=== PATIENT | male | born 1940 | race Caucasian/White ===

== ENCOUNTER → 2017-11-28 11:03 | Outpatient (CLI) | payer MEDICARE, OTHER, SELFPAY ==
[2017-11-28 12:41] LABS: AST(SGOT) 20 U/L (15-37); Alanine Aminotransfer ALT/SGPT 23 U/L (16-61); Albumin, Serum 3.9 g/dL (3.2-5.0); Alkaline Phosphatase 64 U/L (45-117); Bilirubin, Direct 0.31 mg/dL (0.00-0.30); Protein, Total 6.9 g/dL (6.4-8.2)
[2017-11-29 16:10] LABS: HEPATITIS B SURFACE AG Negative (Negative); Hepatitis Be Ab Negative (Negative); Hepatitis Be Ag Negative (Negative)
[2017-11-30 08:08] LABS: Hep B Surface Antibodies Non Reactive (.); Hep C Antibodies <0.1 s/co ratio (0.0-0.9); Hepatitis B Core Ab Total Negative (Negative)
== END ==
PROVIDERS: Family Provider Family Medicine; PCP Family Medicine; Visit Provider Nurse Practitioner Family
DX: L30.9 Dermatitis, unspecified (principal); L23.9 Allergic contact dermatitis, unspecified cause; L29.8 Other pruritus
CPT/HCPCS: 36415; 80076; 86704; 86706; 86707; 86803; 87340; 87350

== ENCOUNTER 2018-01-25 10:18 | Emergency (ER) | payer MEDICARE, OTHER, SELFPAY ==
[2018-01-25 10:18] VITALS: BP 143/78; PULSE 63; RESP 18; TEMP 36.3; BMI 24.5
--- NOTE | 2018-01-25 10:40 | CT_ITS ---
STUDY: CT ABDOMEN AND PELVIS WITH CONTRAST REASON FOR EXAM: Male, 77 years old. Abdominal pain. Nausea RADIATION DOSAGE (If Supplied By Facility): CTDIvol = ( 18.97 ) mGy, DLP = ( 965.64 ) mGycm TECHNIQUE: Transaxial images were obtained from the dome of the diaphragm to the symphysis pubis with oral contrast. 100 ml of Isovue 300 contrast was administered. Sagittal and coronal images were reconstructed. Individualized dose optimization techniques were used for this CT. COMPARISON: None. FINDINGS: The visualized lung bases are unremarkable. There coronary artery calcifications. Normal liver. There are surgical clips in the gallbladder fossa consistent with a prior cholecystectomy. There are multiple benign calcified granulomata of the spleen. Normal pancreas. Normal bilateral adrenal glands. Normal right kidney. There is 4.5 cm cyst of the left kidney. Normal visualized stomach. Normal small intestine. There are multiple colonic diverticula consistent with diverticulosis. The appendix is visualized and appears normal. There is diffuse atherosclerotic calcification of the abdominal aorta, without a demonstrated aneurysm. Normal inferior vena cava. Normal retroperitoneum. There is wall thickening of the urinary bladder. No free fluid in the abdomen or pelvis. There are calcifications in the prostate gland. Normal abdominal wall. There are diffuse degenerative changes of the visualized lumbar spine. CT/Abdomen/Pelvis WITH Contrast IMPRESSION: Colonic diverticulosis. No obstruction or abscess Wall thickening of the urinary bladder. No hydronephrosis. Left renal cyst. Electronically Signed: Saravanan Paredes MD at 12:58 EDT , Service support ,
[2018-01-25 11:00] LABS: Bacteria 0 SEEN /hpf (None Seen); Mucous, Urine 0 SEEN /hpf (<or=2+); Squamous Epithelial Cells - UA 0 SEEN /hpf (0-5); White Blood Cells 0 SEEN /hpf (0-5)
[2018-01-25 11:07] LABS: Color, Urine Yellow (Yellow); Glucose, Dipstick Normal (Normal); Ketone-Dipstick Negative (Negative); Leukocyte Esterase-Dipstick Negative /ul (Negative); Nitrite-Dipstick Negative (Negative); Occult Blood-Urine 10 /ul (Negative); Protein-Dipstick Negative (Negative); Specific Gravity, Urine 1.005 (1.002-1.030); Urine Bilirubin Dipstick Negative (Negative); Urine Clarity Clear (Clear); Urine Urobilinogen Normal (Normal)
[2018-01-25 11:07] LABS: Absolute Lymphocyte Count 0.75 X10^3/ul (0.83-4.51); Basophil# 0.03 X10^3/uL; Basophil% 0.5 % (0-1); Eosinophil# 0.22 X10^3/uL; Eosinophils% 3.9 % (0-5); Hematocrit 47.7 % (40-54); Hemoglobin 15.9 g/dl (13.0-16.5); Lymphocyte # 0.75 X10^3/ul (4.0); Lymphocyte % 13.2 % (19-41); Mean Corp Hgb Conc 33.3 g/gl (32-36); Mean Corpuscular Hgb 30.6 pg (27.0-32.0); Mean Corpuscular Volume 91.7 fL (80-94); Mean Platelet Vol. 9.8 fl (6.2-12.0); Monocyte# 0.72 X10^3/uL; Monocyte% 12.6 % (0-10); Neutrophil # 3.97 X10^3/uL (2.7-7.7); Neutrophil % 69.6 % (47-70); POSITIVE COUNT NO; POSITIVE DIFFERENTIAL NO; POSITIVE MORPHOLOGY NO; Platelet Count 149 K/mm3 (150-450); RBC Distribution Width CV 14.1 % (11.6-14.6); White Blood Count 5.7 K/mm3 (4.4-11.0)
[2018-01-25 11:13] LABS: Red Blood Cells-Urine 0-5 SEEN /hpf (0-5)
[2018-01-25 11:22] LABS: ALB/GLOB Ratio 1.2 RATIO (0.9-2.4); AST(SGOT) 23 U/L (15-37); Alanine Aminotransfer ALT/SGPT 28 U/L (16-61); Alkaline Phosphatase 69 U/L (45-117); Anion Gap 4 (5-15); BUN 14 mg/dL (7-18); BUN/Creat Ratio 14.9 RATIO (10-20); Calcium,Total 9.2 mg/dL (8.5-10.1); Chloride 103 mmol/L (98-107); Creatinine, Serum 0.94 mg/dL (0.70-1.30); EST Glomerular Filtration Rate 82 mL/min (>60); Est Glom Filt Rate - Afr Amer 100 mL/min (>60); Estimated Creatinine Clearance 73.19 ml/min; Globulin 3.4 g/dL (2.2-4.2); Glucose 95 mg/dL (74-106); Lipase 202 U/L (73-393); Potassium 4.2 mmol/L (3.5-5.1); Protein, Total 7.4 g/dL (6.4-8.2); Sodium Level 139 mmol/L (136-145)
--- NOTE | 2018-01-25 11:26 | ED.DCSUM_ITS ---
- ER Visit Summary Date of Service: 01/25/18 Chief Complaint: Nausea History of Present Illness: The patient is a 77 M who states that for the past couple weeks he has been having nausea. He states that he is tried Zofran and has not helped in fact he thinks it has made it worse. He also states that the Zofran makes him fatigued and tired. He states that some days are worse than others. He does not feel any significant abdominal pain more uncomfortable. He states he has been constipated. He saw a seen a shredding floor equipment operator to check some blood work that came back that said that his bilirubin was elevated and he needed to get that evaluated. Patient has had chronically elevated bilirubins in the past usually around the 1.7-2 range. His transaminases have been normal. No blood in the stool. He also states he has a history of GERD. He states he has not been taking his Plavix for the past week because it caused indigestion. He is also to stop taking his Protonix. Physical Examination: Afebrile vital signs are stable Gen: Well-nourished well-developed Head: Normocephalic atraumatic Eyes: Perrl EOMI ENT: TMs clear no rhinorrhea moist mucous membranes Neck: Supple no lymphadenopathy no JVD nontender CVS: Regular rate rhythm no murmurs normal S1-S2 Respiratory: No distress clear to auscultation bilaterally chest nontender Abdomen: Soft nontender nondistended normal bowel sounds no masses Back: Nontender Extremity: Nontender no edema Skin: Normal color no rash Neuro: alert orientated ?3 CN II-XII intact normal strength sensation reflexes gait cerebellar Psych: Normal affect normal mood Test Results: CBC CMP and lipase showed a total bili of 2.3. CT abdomen pelvis demonstrated no acute findings. Emergency Department Course and Treatment: I think the patient most likely has a gastritis. I am going to change him from Protonix to Pepcid. I instructed him on Carafate. He has appointment already arranged with his doctor after the weekend. The patient requested something different for his nausea I will write for 12.5 mg tablets of Phenergan. He was advised that this has a higher incidence of fatigue and sleepiness that Zofran does. Impression: 1. Acute abdominal pain 2. Gastritis This note was generated with [employer] software. It may contain incorrect words, spelling, and punctuation that were not noted in review of the chart prior to signing ED Disposition - Plan for ED Patient: Disposition: Home or Assisted Living Chief Complaint: Abd Pain Instructions: ED PUD Vs Gastritis Prescriptions: proMETHazine tablet [Phenergan] 12.5 mg PO Q6H PRN PRN #10 tab PRN Reason: Nausea Famotidine [Pepcid] 20 mg PO BID #28 tab Sucralfate [Carafate] 1 gm PO 4X/DAY #28 tab Referrals: Missael Velazquez III, MD [Primary Care Provider] - Keep John appointment
[2018-01-25 12:40] VITALS: RESP 17
--- NOTE | 2018-01-25 12:57 | NURSING ---
NO LW OR POA
[2018-01-25 14:10] VITALS: BP 135/84; PULSE 62; RESP 18; O2SAT 97
== END 2018-01-25 14:22 | disposition home or self-care (01) ==
PROVIDERS: Emergency Provider Emergency Medicine; Family Provider Family Medicine; PCP Family Medicine
DX: K29.70 Gastritis, unspecified, without bleeding (principal); R10.9 Unspecified abdominal pain; I25.10 Atherosclerotic heart disease of native coronary artery without angina pectoris; K21.9 Gastro-esophageal reflux disease without esophagitis; I10 Essential (primary) hypertension; E78.00 Pure hypercholesterolemia, unspecified; Z79.82 Long term (current) use of aspirin; Z79.02 Long term (current) use of antithrombotics/antiplatelets; Z79.899 Other long term (current) drug therapy
CPT/HCPCS: 74177; 80053; 81001; 83690; 84484; 85025; 99283; Q9967; A4216

== ENCOUNTER → 2018-05-28 06:32 | Outpatient (CLI) | payer MEDICARE, OTHER, SELFPAY ==
[2018-05-28 08:27] LABS: AST(SGOT) 20 U/L (15-37); Alanine Aminotransfer ALT/SGPT 24 U/L (16-61); Albumin, Serum 3.7 g/dL (3.2-5.0); Alkaline Phosphatase 56 U/L (45-117); Bilirubin, Direct 0.31 mg/dL (0.00-0.30); Cholesterol 145 mg/dL (200); High Density Lipoprotein 32 mg/dL; Protein, Total 6.7 g/dL (6.4-8.2); Triglycerides 137 mg/dL; Very Low Density Lipoprotein 27 mg/dL (5-40)
== END ==
PROVIDERS: Family Provider Family Medicine; PCP Family Medicine; Visit Provider Internal Medicine Cardiovascular Disease
DX: E78.5 Hyperlipidemia, unspecified (principal); Z79.899 Other long term (current) drug therapy
CPT/HCPCS: 36415; 80061; 80076

== ENCOUNTER → 2018-08-15 07:26 | Outpatient (CLI) | payer MEDICARE, OTHER, SELFPAY ==
[2018-05-29 10:11] VITALS: BMI 24.5
[2018-08-15 08:52] LABS: PSA,Total - Annual Screen 1.16 ng/mL (0.00-4.00)
--- OUTSIDE RECORDS SUMMARY | 2018-10-10 07:09 | XMS RPT_ITS ---
:1940 Author Organization OHIP Support Name Relationship Address Phone TARA FELICIANO Unavailable [id number] + [place] [address] R Unavailable Unavailable Unavailable FELICIANO, TARA Unavailable [address] + [place] [address] R Unavailable Unavailable Unavailable FELICIANO, TARA Unavailable [address] + [place] [address] R Unavailable Unavailable Unavailable FELICIANO, TARA Unavailable [address] [phone] [place] [address] R Unavailable Unavailable Unavailable FELICIANO, TARA Unavailable [address] [phone] [place] [address] R Unavailable Unavailable Unavailable FELICIANO, TARA Unavailable [address] [phone] [place] [address] R Unavailable Unavailable Unavailable FELICIANO, TARA Unavailable [address] [phone] [place] [address] R Unavailable Unavailable Unavailable FELICIANO, TARA Unavailable [address] [phone] [place] [address] R Unavailable Unavailable Unavailable FELICIANO, TARA Unavailable [address] [phone] [place] [address] R Unavailable Unavailable Unavailable FELICIANO, TARA Unavailable [address] [phone] [place] [address] R Unavailable Unavailable Unavailable FELICIANO, TARA Unavailable [address] [phone] [place] [address] R Unavailable Unavailable Unavailable FELICIANO, TARA Unavailable [address] + [place] [address] R Unavailable Unavailable Unavailable Care Team Providers Name Role Phone WILLIE REED (ASSET AVAILABILITY LEADER) Attending Unavailable WILLIE REED (ASSET AVAILABILITY LEADER) Referring Unavailable CEBUL III, NIDHI Ivey Referring Unavailable CEBUL III, NIDHI Ivey Attending Unavailable JAKE RIBERA (ASSET AVAILABILITY LEADER) Attending Unavailable BACILIO, JAKE (ASSET AVAILABILITY LEADER) Referring Unavailable GERSON BRAMBILA Admitting Unavailable GERSON BRAMBILA Attending Unavailable JAKE RIBERA (ASSET AVAILABILITY LEADER) Referring Unavailable THORJAKE GERARD (ASSET AVAILABILITY LEADER) Attending Unavailable WILLIE REED (ASSET AVAILABILITY LEADER) Referring Unavailable WILLIE REED (ASSET AVAILABILITY LEADER) Referring Unavailable WILLIE REED (ASSET AVAILABILITY LEADER) Attending Unavailable CEBUL III, NIDHI Ivey Attending Unavailable Marta Kraus Attending Unavailable Marta Kraus Referring Unavailable Gino Andrea Attending Unavailable Cebul III, Nidhi Primary Care Unavailable CebulPaxton Attending Unavailable Cebul III, Nidhi Primary Care Unavailable Cebul Paxton Referring Unavailable Cebul, Paxton Attending Unavailable Cebul III, Nidhi Primary Care Unavailable Destinee Toure Attending Unavailable Nurse, Surgery Attending Unavailable Cebul III, Nidhi Referring Unavailable Cebul III, Nidhi Primary Care Unavailable Maryann Madden PA-C Attending Unavailable Cebul III, Nidhi Referring Unavailable Cebul III, Nidhi Primary Care Unavailable Ravi Ramírez Attending Unavailable YasminbulPaxton Referring Unavailable Suzi Hendricks ASSET AVAILABILITY LEADER-C Attending Unavailable Suzi Hendricks ASSET AVAILABILITY LEADER-C Referring Unavailable Cebul III, Nidhi Primary Care Unavailable Cebul III, Nidhi Primary Care Unavailable Farshad Curran Attending Unavailable Ravi Ramírez Attending Unavailable Ravi Ramírez Referring Unavailable Cebul III, Nidhi Primary Care Unavailable Esau Amin Attending Unavailable Cebul III, Nidhi Referring Unavailable Cebul III, Nidhi Primary Care Unavailable Zeke Love Attending Unavailable Cebul III, Nidhi Primary Care Unavailable Zeke Love Referring Unavailable PROBLEMS PROBLEMS DATE TYPE CONDITION / CODE ATTENDING STATUS SOURCE 06/12/2018 Active Other halfway NA Active La[place] (current) drug [facility] Main therapy / [place] Z79.899(ICD-10) Repository 02/15/2018 Active Nausea / BRAMBILA, Active [place] R11.0(ICD-10) [facility] Main [place] Repository 02/15/2018 Active Right upper quadrant BRAMBILA, Active [place] pain / R10.11(ICD-10) [facility] Main [place] Repository 02/15/2018 Active Left upper quadrant BRAMBILA, Active [place] pain / R10.12(ICD-10) [facility] Main [place] Repository 02/15/2018 Active Gastritis, BRAMBILA, Active [place] unspecified, with [facility] Main bleeding / [place] K29.71(ICD-10) Repository 12/10/2017 Unknown L30.9 - Dermatitis, [place] Gateway[place]uzi jade Active [place] unspecified / ASSET AVAILABILITY LEADER-C Community L30.9(ICD-10) Hospital Repository 11/14/2017 Admitting Dermatitis, EfraMarta burch Active [facility] Diagnosis unspecified / System L30.9(ICD-10) Repository 09/26/2017 Unknown G89.18 - Other acute Paxton Vargas Active [place] postprocedural pain / Community G89.18(ICD-10) Hospital Repository 10/25/2017 Unknown I44.0 - Desiree, Ravi Active [place] [facility] block, first degree / Hospital I44.0(ICD-10) Repository PROCEDURES PROCEDURES No Procedure Records FoundRESULTS RESULTS PROGRESS Observed: 09/02/2018 Status: COMPLETED Source: [place] 1:58 PM [facility] REPOSITORY HNO ID: [id number] Author: Wally Kruger Apn Student Service: (none) Author Type: (none) Type: Progress Notes Filed: 09/02/2018 6:02 PM Note Text: Chief Complaint Patient presents with: Refill Request HPI Tuan Feliciano is a 77 year old male who presents here today for Depression symptoms and requesting need for refill of his Celexa that was discontinued approximately one year ago after patient stating that he had felt better and no longer needed the medication. He states that he had talked to his PCP one year ago and received permission to taper off his Celexa. Patient states that he was able to taper off of his Celexa w/o complications or side effects. Was doing well until the last few days he has began to feel his depression symptoms return such as sadness, feeling down, and depressed and is requesting to restart his Celexa prescription to help with his symptoms. Anticipating long winter days where he is unable to be out in his work shop. He denies thoughts of harming himself or others and states that he is sleeping approximately 6 - 8 hours per night while occasionally taking 1/2 of his prescribed 0.5 mg of Ativan prn at night to help him sleep. He also states that he occasionally takes his Ativan prior to going to group gatherings at [employer] to help calm his nerves. Patient states that he had tried counseling in the past with some improvement in his symptoms. Past medical history, appointments, medications, allergies reviewed. 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 CABG 3 (no DC) in 1990; 1 stent in 1996 - Benign prostatic hyperplasia without lower urinary tract symptoms - Diverticulosis of colon (without mention of hemorrhage) Diverticulosis - Diverticulosis of colon (without mention of hemorrhage) - Erectile dysfunction due to diseases classified elsewhere - Essential hypertension, benign - Functional dyspepsia 06/10/2018 - Glaucoma - History of non-ST elevation myocardial infarction (NSTEMI) 05/07/2015 - Mental disorder - Other specified glaucoma - Peptic ulcer, unspecified site, unspecified as acute or chronic, without mention of hemorrhage, perforation, or obstruction - Primary open-angle glaucoma(365.11) 12/2009 - Pure hypercholesterolemia - S/P CABG x 3 - S/P percutaneous transluminal coronary angioplasty - Snoring - Testicular hypofunction - Trigeminal neuralgia 2001 - Unspecified hemorrhoids without mention of complication Hemorrhoids Previous Surgical History PAST SURGICAL HISTORY Procedure Laterality Date - ANGIOPLASTY 1996 WITH STENT - CABG, ARTERIAL, THREE 1990 - COLONOSCOP W/ OR W/O [facility] SPEC 01/2004 Colonoscopy - COLONOSCOP W/ OR W/O [facility] SPEC 09/29/2009 Colonoscopy - COLONOSCOP W/ OR W/O [facility] SPEC 02/05/2015 Colonoscopy - EGD W/O OR W/BRUSH/WASH 08/14/2016 EGD - EGD W/O OR W/BRUSH/WASH 02/25/2018 EGD - HEART SURGERY HX - HERNIA REPAIR HX 10/2017 removal - INCISION OF EYE, TRABECULECTOMY 2009 OU - LAPAROSCOPIC CHOLEYCYSTECTOMY Cholecystectomy, lap - PAST SURGICAL HISTORY OF 03/25 Right Knee Ligament Repair - REMV CATARACT EXTRACAP,INSERT LENS 12/19/12 OD Cataract Extraction with PC IOL with Trab/[facility] - WATER SHUNT-EXTRAOCUL RESERV 12/19/12 OD Glaucoma Implant; [facility]GI 350 combined Family History FAMILY HISTORY Problem Relation Age of Onset - Colon Cancer Father - Hypertension Father - Glaucoma Mother - Blindness Mother - Hypertension Brother heart disease - Hypertension Brother heart disease - Hypertension Brother heart disease Patient Allergies ALLERGIES Allergen Reactions - Anaprox [Naproxen S* - Cortisone - Crestor [Rosuvastat* GI Upset - Elavil [Amitriptyli* difficulty urinating - Hydrocortisone - Keflex [Cephalexin] Rash - Penicillins - Pepcid [Famotidine * Other: See Comments dizziness - Sulfa (Sulfonamide * - Vioxx [Rofecoxib] - Zocor [Simvastatin] Current Medications Current Outpatient Prescriptions on File Prior to Visit: amLODIPine (NORVASC) 10 mg tablet Take 1 tablet by mouth once daily. aspirin, enteric coated (ADULT LOW DOSE ASPIRIN) 81 mg EC tablet Adult Low Dose Aspirin 81 mg tablet atenolol (TENORMIN) 25 mg tablet Take 1/2 tablet daily betamethasone dipropionate (DIPROSONE) 0.05 % cream Apply 1 application to affected area once daily. LORazepam (ATIVAN) 0.5 mg tab Take 1 tablet by mouth twice daily as needed (anxiety) for up to 30 days. Take 1 tablet daily as needed promethazine (PHENERGAN) 25 mg tablet Take 1 tablet by mouth every 6 hours as needed for Nausea/Vomiting. sucralfate (CARAFATE) 1 gram tablet Dissolve one tablet in 30cc water. Stir and swallow, at least 30 minutes before meals. May repeat at bedtime, as needed. TESTOSTERONE INTRAMUSC. Inject intramuscularly. timolol maleate (ISTALOL) 0.5 % drpd Use 1 Drop in the right eye twice daily. zolpidem (AMBIEN) 10 mg tab Take 1 tablet by mouth at bedtime as needed for up to 30 days. FOR INSOMNIA Guar Gum (BENEFIBER,NUTRISOURCE FIBER) packet Take 1 Packet by mouth once daily. hydrOXYzine HCl (ATARAX) 25 mg tablet Take 1 tablet by mouth at bedtime as needed for Itching/Rash or Anxiety. (Patient not taking: Reported on 06/10/2018 ) No current facility-administered medications on file prior to visit. Social History Social History Marital status: Spouse name: Years of education: Number of children: 3 Occupational History Occupation Employer Comment Retired Social History Main Topics Smoking status: Never Smoker Smokeless tobacco: Former User Alcohol use: No Drug use: No Sexual activity: Yes Partners with: Female Comment: not asked Other Topics Concern Service Yes Blood Transfusions No Caffeine Concern Yes Comment:1 cup/day Occupational Exposure No Hobby Hazards No Sleep Concern No Comment:7-8 hrs/night Stress Concern No Weight Concern Yes Comment:15 lb wt loss past year Special Diet No Exercise Yes Comment:Treadmill walking - once/day Seat Belt Yes Review of Symptoms REVIEW OF SYSTEMS GENERAL: Unintentional weight loss over past year. Negative for fevers and chills. RESPIRATORY: Negative for cough, hemoptysis, wheezing, COPD, dyspnea or shortness of breath CARDIOVASCULAR: Negative for chest pain, leg swelling, hypertension, CHF or palpitations PSYCH: Positive for depression: Feelings of sadness over the past few days and anxiety: Taking prn Ativan on occasion - see HPI above. EXAM: BP 120/70 (BP Site: Right Arm, BP Position: Sitting, BP Cuff Size: Regular Adult) Pulse 60 Temp 36.5 ?C (97.7 ?F) (Tympanic) Resp 18 Wt 81.2 kg (179 lb) BMI 22.98 kg/m? General Appearance: Well appearing, alert, in no acute distress, well-hydrated, well nourished.. Lungs: lungs clear to auscultation. No wheezing, rhonchi, rales. Heart: RRR without murmur, gallop, or rubs. No ectopy. Appearance: well dressed well groomed, relaxed posture, cooperative and pleasant Behavior: good eye contact Speech: normal and fluent and coherent Mood: depressed Affect: labile Perceptions: none Thought process: goal directed Thought Content: normal Intelligence level: normal Insight: good Judgment: good THE LAST 2 WEEKS, HAVE YOU BEEN BOTHERED BY ANY OF THE FOLLOWING? - Little interest or pleasure in doing things 0 NOT AT ALL Feeling down, depressed, or hopeless 1 Trouble falling or staying asleep, or sleeping too much 1 Feeling tired or having little energy 0 Poor appetite or overeating 0 Feeling bad yourself-you are a failure or have let yourself or others 0 Trouble concentrating, like reading the paper or watching TV 0 Moving/speaking slowly (others notice) OR being more fidgety/restless 1 Thoughts that you would be better off or of hurting yourself 0 PHQ TOTAL SCORE = 3 PHQ problems effect on difficulty of work, home, and social activity: 1 - NOT DIFFICULT AT ALL Health Maintenance List DTAP,TDAP,TD(1 - Tdap) due on 07/20/2011 ANNUAL PCP TEAM CHRONIC DISEASE VISIT due on 06/10/2019 BP CONTROLLED (<130/80) due on 06/10/2019 LDL CHOLESTEROL due on 06/12/2019 COLORECTAL CANCER SCREENING,SEE MODIFIER due on 02/06/2020 DIABETES SCREEN due on 06/12/2021 LIPID SCREEN due on 06/12/2023 ADULT PREVNAR-13 Completed INFLUENZA Completed PNEUMOVAX AGE 65 AND OVER WITH 5YR LOOKBACK Completed ASSESSMENT/PLAN: 1. Depression, major, recurrent, moderate (HCC) - ICD9: 296.32, ICD10: F33.1 - Will resume at 10 mg daily for first 5-7 days then increase to 20 mg thereafter. Recommend devoted exercise and enjoyable activities to pass the time. He will f/u in 3-4 weeks as planned. Sooner if needed. - CITALOPRAM 20 MG TABLET Willie Reed, MSN PLANT ASSIGNER.SUPERVISOR SEAMING CNOV Observed: 09/02/2018 Status: COMPLETED Source: [place] 1:20 PM [facility] REPOSITORY Office Visit (FAMPWS) TUAN FELICIANO ([id number]) 1940 M Date Time Provider Department 09/02/18 1:20 PM WILLIE REED (ASSET AVAILABILITY LEADER) FAMPWS During your visit today, we recorded the following information about you: Temperature Pulse Respiration Blood pressure 97.7 degrees 60/minute 18/minute 120/70 Weight 81.2 kg Wally Kruger Apn Student 09/02/2018 5:04 PM Addendum Chief Complaint Patient presents with: Refill Request HPI Tuan Jade Jodie is a 77 year old male who presents here today for Depression symptoms and requesting need for refill of his Celexa that was discontinued approximately one year ago after patient stating that he had felt better and no longer needed the medication. He states that he had talked to his PCP one year ago and received permission to taper off his Celexa. Patient states that he was able to taper off of his Celexa w/o complications or side effects. Was doing well until the last few days he has began to feel his depression symptoms return such as sadness, feeling down, and depressed and is requesting to restart his Celexa prescription to help with his symptoms. Anticipating long winter days where he is unable to be out in his work shop. He denies thoughts of harming himself or others and states that he is sleeping approximately 6 - 8 hours per night while occasionally taking 1/2 of his prescribed 0.5 mg of Ativan prn at night to help him sleep. He also states that he occasionally takes his Ativan prior to going to group gatherings at [employer] to help calm his nerves. Patient states that he had tried counseling in the past with some improvement in his symptoms. Past medical history, appointments, medications, allergies reviewed. 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 CABG 3 (no DC) in 1990; 1 stent in 1996 - Benign prostatic hyperplasia without lower urinary tract symptoms - Diverticulosis of colon (without mention of hemorrhage) Diverticulosis - Diverticulosis of colon (without mention of hemorrhage) - Erectile dysfunction due to diseases classified elsewhere - Essential hypertension, benign - Functional dyspepsia 06/10/2018 - Glaucoma - History of non-ST elevation myocardial infarction (NSTEMI) 05/07/2015 - Mental disorder - Other specified glaucoma - Peptic ulcer, unspecified site, unspecified as acute or chronic, without mention of hemorrhage, perforation, or obstruction - Primary open-angle glaucoma(365.11) 12/2009 - Pure hypercholesterolemia - S/P CABG x 3 - S/P percutaneous transluminal coronary angioplasty - Snoring - Testicular hypofunction - Trigeminal neuralgia 2001 - Unspecified hemorrhoids without mention of complication Hemorrhoids Previous Surgical History PAST SURGICAL HISTORY Procedure Laterality Date - ANGIOPLASTY 1996 WITH STENT - CABG, ARTERIAL, THREE 1990 - COLONOSCOP W/ OR W/O [facility] SPEC 01/2004 Colonoscopy - COLONOSCOP W/ OR W/O [facility] SPEC 09/29/2009 Colonoscopy - COLONOSCOP W/ OR W/O [facility] SPEC 02/05/2015 Colonoscopy - EGD W/O OR W/BRUSH/WASH 08/14/2016 EGD - EGD W/O OR W/BRUSH/WASH 02/25/2018 EGD - HEART SURGERY HX - HERNIA REPAIR HX 10/2017 removal - INCISION OF EYE, TRABECULECTOMY 2009 OU - LAPAROSCOPIC CHOLEYCYSTECTOMY Cholecystectomy, lap - PAST SURGICAL HISTORY OF 03/25 Right Knee Ligament Repair - REMV CATARACT EXTRACAP,INSERT LENS 12/19/12 OD Cataract Extraction with PC IOL with Trab/[facility] - WATER SHUNT-EXTRAOCUL RESERV 12/19/12 OD Glaucoma Implant; [facility] 350 combined Family History FAMILY HISTORY Problem Relation Age of Onset - Colon Cancer Father - Hypertension Father - Glaucoma Mother - Blindness Mother - Hypertension Brother heart disease - Hypertension Brother heart disease - Hypertension Brother heart disease Patient Allergies ALLERGIES Allergen Reactions - Anaprox [Naproxen S* - Cortisone - Crestor [Rosuvastat* GI Upset - Elavil [Amitriptyli* difficulty urinating - Hydrocortisone - Keflex [Cephalexin] Rash - Penicillins - Pepcid [Famotidine * Other: See Comments dizziness - Sulfa (Sulfonamide * - Vioxx [Rofecoxib] - Zocor [Simvastatin] Current Medications Current Outpatient Prescriptions on File Prior to Visit: amLODIPine (NORVASC) 10 mg tablet Take 1 tablet by mouth once daily. aspirin, enteric coated (ADULT LOW DOSE ASPIRIN) 81 mg EC tablet Adult Low Dose Aspirin 81 mg tablet atenolol (TENORMIN) 25 mg tablet Take 1/2 tablet daily betamethasone dipropionate (DIPROSONE) 0.05 % cream Apply 1 application to affected area once daily. LORazepam (ATIVAN) 0.5 mg tab Take 1 tablet by mouth twice daily as needed (anxiety) for up to 30 days. Take 1 tablet daily as needed promethazine (PHENERGAN) 25 mg tablet Take 1 tablet by mouth every 6 hours as needed for Nausea/Vomiting. sucralfate (CARAFATE) 1 gram tablet Dissolve one tablet in 30cc water. Stir and swallow, at least 30 minutes before meals. May repeat at bedtime, as needed. TESTOSTERONE INTRAMUSC. Inject intramuscularly. timolol maleate (ISTALOL) 0.5 % drpd Use 1 Drop in the right eye twice daily. zolpidem (AMBIEN) 10 mg tab Take 1 tablet by mouth at bedtime as needed for up to 30 days. FOR INSOMNIA Guar Gum (BENEFIBER,NUTRISOURCE FIBER) packet Take 1 Packet by mouth once daily. hydrOXYzine HCl (ATARAX) 25 mg tablet Take 1 tablet by mouth at bedtime as needed for Itching/Rash or Anxiety. (Patient not taking: Reported on 06/10/2018 ) No current facility-administered medications on file prior to visit. Social History Social History Marital status: Spouse name: Years of education: Number of children: 3 Occupational History Occupation Employer Comment Retired Social History Main Topics Smoking status: Never Smoker Smokeless tobacco: Former User Alcohol use: No Drug use: No Sexual activity: Yes Partners with: Female Comment: not asked Other Topics Concern Service Yes Blood Transfusions No Caffeine Concern Yes Comment:1 cup/day Occupational Exposure No Hobby Hazards No Sleep Concern No Comment:7-8 hrs/night Stress Concern No Weight Concern Yes Comment:15 lb wt loss past year Special Diet No Exercise Yes Comment:Treadmill walking - once/day Seat Belt Yes Review of Symptoms REVIEW OF SYSTEMS GENERAL: Unintentional weight loss over past year. Negative for fevers and chills. RESPIRATORY: Negative for cough, hemoptysis, wheezing, COPD, dyspnea or shortness of breath CARDIOVASCULAR: Negative for chest pain, leg swelling, hypertension, CHF or palpitations PSYCH: Positive for depression: Feelings of sadness over the past few days and anxiety: Taking prn Ativan on occasion - see HPI above. EXAM: BP 120/70 (BP Site: Right Arm, BP Position: Sitting, BP Cuff Size: Regular Adult) Pulse 60 Temp 36.5 ?C (97.7 ?F) (Tympanic) Resp 18 Wt 81.2 kg (179 lb) BMI 22.98 kg/m? General Appearance: Well appearing, alert, in no acute distress, well-hydrated, well nourished.. Lungs: lungs clear to auscultation. No wheezing, rhonchi, rales. Heart: RRR without murmur, gallop, or rubs. No ectopy. Appearance: well dressed well groomed, relaxed posture, cooperative and pleasant Behavior: good eye contact Speech: normal and fluent and coherent Mood: depressed Affect: labile Perceptions: none Thought process: goal directed Thought Content: normal Intelligence level: normal Insight: good Judgment: good THE LAST 2 WEEKS, HAVE YOU BEEN BOTHERED BY ANY OF THE FOLLOWING? - Little interest or pleasure in doing things 0 NOT AT ALL Feeling down, depressed, or hopeless 1 Trouble falling or staying asleep, or sleeping too much 1 Feeling tired or having little energy 0 Poor appetite or overeating 0 Feeling bad yourself-you are a failure or have let yourself or others 0 Trouble concentrating, like reading the paper or watching TV 0 Moving/speaking slowly (others notice) OR being more fidgety/restless 1 Thoughts that you would be better off or of hurting yourself 0 PHQ TOTAL SCORE = 3 PHQ problems effect on difficulty of work, home, and social activity: 1 - NOT DIFFICULT AT ALL Health Maintenance List DTAP,TDAP,TD(1 - Tdap) due on 07/20/2011 ANNUAL PCP TEAM CHRONIC DISEASE VISIT due on 06/10/2019 BP CONTROLLED (<130/80) due on 06/10/2019 LDL CHOLESTEROL due on 06/12/2019 COLORECTAL CANCER SCREENING,SEE MODIFIER due on 02/06/2020 DIABETES SCREEN due on 06/12/2021 LIPID SCREEN due on 06/12/2023 ADULT PREVNAR-13 Completed INFLUENZA Completed PNEUMOVAX AGE 65 AND OVER WITH 5YR LOOKBACK Completed ASSESSMENT/PLAN: 1. Depression, major, recurrent, moderate (HCC) - ICD9: 296.32, ICD10: F33.1 - Will resume at 10 mg daily for first 5-7 days then increase to 20 mg thereafter. Recommend devoted exercise and enjoyable activities to pass the time. He will f/u in 3-4 weeks as planned. Sooner if needed. - CITALOPRAM 20 MG TABLET Willie Reed, MSN PLANT ASSIGNER.SUPERVISOR SEAMING Referring Provider: WILLIE REED (ASSET AVAILABILITY LEADER) [[id number]] Allergies As of Date: 09/02/2018 Noted Allergy Reaction ANAPROX (NAPROXEN SODIUM) 07/11/2005 CORTISONE 07/11/2005 CRESTOR (ROSUVASTATIN CALCIUM) 12/21/2006 8 - GI Upset ELAVIL (AMITRIPTYLINE) 03/07/2010 Comments: difficulty urinating HYDROCORTISONE 07/11/2005 KEFLEX (CEPHALEXIN) 09/06/2014 2 - Rash PENICILLINS 07/11/2005 PEPCID (FAMOTIDINE (PF)) 02/15/2018 14 - Other: See Comments Comments: dizziness SULFA (SULFONAMIDE ANTIBIOTICS) 07/11/2005 VIOXX (ROFECOXIB) 07/11/2005 ZOCOR (SIMVASTATIN) 07/11/2005 Date Reviewed: 09/02/2018 Reviewed by: Luis E Montesinos LPN - Fully Assessed Reason for Visit: Refill Request [94] Primary Visit Diagnosis:Depression, major, recurrent, moderate (HCC) [F33.1] Order(s):citalopram (CELEXA) 20 mg tabletTake 0.5 tablets by mouth once daily.Disp: 30 tabletRfl: 3 Prescriptions as of 09/02/2018 Sig: AMLODIPINE 10 MG TABLET Take 1 tablet by mouth once d* ASPIRIN 81 MG TABLET,DELAYED * Adult Low Dose Aspirin 81 mg * ATENOLOL 25 MG TABLET Take 1/2 tablet daily BETAMETHASONE DIPROPIONATE 0.* Apply 1 application to affect* CEFDINIR 300 MG CAPSULE LORAZEPAM 0.5 MG TABLET Take 1 tablet by mouth twice * PROMETHAZINE 25 MG TABLET Take 1 tablet by mouth every * SUCRALFATE 1 GRAM TABLET Dissolve one tablet in 30cc w* TESTOSTERONE INTRAMUSC. Inject intramuscularly. TIMOLOL MALEATE 0.5 % ONCE DA* Use 1 Drop in the right eye t* ZOLPIDEM 10 MG TABLET Take 1 tablet by mouth at bed* CITALOPRAM 20 MG TABLET Take 0.5 tablets by mouth onc* GUAR GUM ORAL PACKET Take 1 Packet by mouth once d* HYDROXYZINE HCL 25 MG TABLET Take 1 tablet by mouth at bed* Patient not taking: Reported on 06/10/2018 Problem List As Of Date 09/02/2018 Noted Resolved BENIGN HYPERTENSION [I10] Coronary atherosclerosis [I25.10] More... Peptic ulcer, unspecified site, unspecified as * 05/07/2015 PERS HX COLONIC POLYPS [Z86.010] More... More... More... Malignant neoplasm of skin of trunk [C44.599] INVALID FOR* Anxiety [F41.9] INVALID FOR* Depression [F32.9] INVALID FOR*02/10/2016 Social phobia [F40.10] INVALID FOR* Primary open angle glaucoma [H40.1190] INVALID FOR* Cataract, nuclear sclerotic senile [H25.10] INVALID FOR* Special screening for malignant neoplasms, colo*INVALID FOR*02/05/2015 History of non-ST elevation myocardial infarcti*INVALID FOR* Irritable bowel syndrome with both constipation*INVALID FOR* Arthritis of left knee [M17.12] INVALID FOR* PUD (peptic ulcer disease) [K27.9] INVALID FOR* Family history of colon cancer [Z80.0] INVALID FOR* Anxiety and depression [F41.9, F32.9] INVALID FOR* Rash and nonspecific skin eruption [R21] INVALID FOR* Chronic insomnia [F51.04] INVALID FOR* Nausea [R11.0] INVALID FOR* More... Bilateral upper abdominal pain [R10.11, R10.12] INVALID FOR* More... Gastritis with hemorrhage [K29.71] INVALID FOR* More... 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] INVALID FOR* Depression, major, recurrent, moderate (HCC) [F*INVALID FOR* Prescriptions ordered this encounter Disp Refills Start End CITALOPRAM 20 MG TABLET 30 t* 3 09/02/2018 Route: ORAL Sig: Take 0.5 tablets by mouth once daily. Cosign accepted by WILLIE REED CNP[[id number]] on 09/02/2018 2:17 PM Disposition: Return in about 4 weeks (around 09/30/2018). Follow-up and Disposition History Recorded Questionnaire: PHQ-9 THE LAST 2 WEEKS, HAVE YOU BEEN BOTHERED BY ANY OF THE FOLLOWING? -> - Little interest or pleasure in doing things -> 0 NOT AT ALL Feeling down, depressed, or hopeless -> 1 Trouble falling or staying asleep, or sleeping too much - > 1 Feeling tired or having little energy -> 0 Poor appetite or overeating -> 0 Feeling bad yourself-you are a failure or have let yourself or others -> 0 Trouble concentrating, like reading the paper or watching TV -> 0 Moving/speaking slowly (others notice) OR being more fidgety/restless -> 1 Thoughts that you would be better off or of hurting yourself -> 0 PHQ TOTAL SCORE = -> 3 PHQ problems effect on difficulty of work, home, and social activity: -> 1 - NOT DIFFICULT AT ALL Encounter Status:Closed by WILLIE REED CNP on 09/02/18 PSA,TOTAL - ANNUAL Collected: 08/15/2018 Status: F Source: MENLO SCREEN 7:36 AM [facility] REPOSITORY TYPE CODE TESTS RESULT OUT OF RANGE REFERENCE UNITS LAB [id number] 0.00-4.00 ng/mL Normal PSA,TOT 1.16 SCREEN Result Comment: This test was performed using the TPSA assay method for the [employer] chemistry system. Values obtained with different assay methods cannot be used interchangably. When changing PSA assays in the course of monitoring a patient, additional sequential testing should be carried out to confirm baseline values. Performed By: #### [id number] #### [facility] [address] [place], [address] PROGRESS Observed: 06/28/2018 Status: COMPLETED Source: [place] 11:01 AM [facility] REPOSITORY HNO ID: [id number] Author: Naomi (Rn) Christina Sims RN Service: (none) Author Type: Registered Nurse Type: Progress Notes Filed: 06/28/2018 11:02 AM Note Text: PRIMARY CARE COORDINATION QUICK NOTE Provider Action/FYI Discharged from [facility] Care gaps closed. Patient had labs drawn as instructed. Results for JODIE TUAN E ( ) as of 06/28/2018 11:01 Ref. Range 06/12/2018 07:35 Sodium Latest Ref Range: 136 - 144 mmol/L 140 Potassium Latest Ref Range: 3.7 - 5.1 mmol/L 4.1 Chloride Latest Ref Range: 97 - 105 mmol/L 102 CO2 Latest Ref Range: 22 - 30 mmol/L 25 BUN Latest Ref Range: 9 - 24 mg/dL 12 Creatinine Latest Ref Range: 0.73 - 1.22 mg/dL 0.99 Glucose Latest Ref Range: 74 - 99 mg/dL 92 Calcium Latest Ref Range: 8.5 - 10.2 mg/dL 9.4 Anion Gap Latest Ref Range: 9 - 18 mmol/L 13 eGFR- Unknown >60 eGFR-All Other Races Latest Units: . >60 Cholesterol, Total Latest Ref Range: <200 mg/dL 135 Triglyceride Latest Ref Range: <150 mg/dL 126 Fasting Time Latest Units: hrs 11 HDL Cholesterol Latest Ref Range: >39 mg/dL 30 (L) LDL Cholesterol Latest Ref Range: <100 mg/dL 80 VLDL Cholesterol Latest Ref Range: <30 mg/dL 25 TC:HDL Ratio Latest Ref Range: <5.10 4.50 LDL:HDL Ratio Latest Ref Range: <2.54 2.67 (H) Non HDL Cholesterol Latest Ref Range: <130 mg/dL 105 Results for TUAN FELICIANO ( ) as of 06/28/2018 11:01 Ref. Range 06/06/2018 00:00 LDL Cholesterol Unknown 86 Patient identified by name and date . Shilpa Salomon RN., BSN Pharmacy Tech Customer Service MATT Observed: 06/28/2018 Status: COMPLETED Source: [place] 12:00 AM [facility] REPOSITORY Patient Outreach (FAMPWS) TUAN FELICIANO ([id number]) 1940 M Date Time Provider Department 06/28/18 NAOMI ZHENG (RN)FAMPWS During your visit today, we recorded the following information about you: Naomi Sims RN, RN 06/28/2018 11:02 AM Signed PRIMARY CARE COORDINATION QUICK NOTE Provider Action/FYI Discharged from [facility] Care gaps closed. Patient had labs drawn as instructed. Results for TUAN FELICIANO ( ) as of 06/28/2018 11:01 Ref. Range 06/12/2018 07:35 Sodium Latest Ref Range: 136 - 144 mmol/L 140 Potassium Latest Ref Range: 3.7 - 5.1 mmol/L 4.1 Chloride Latest Ref Range: 97 - 105 mmol/L 102 CO2 Latest Ref Range: 22 - 30 mmol/L 25 BUN Latest Ref Range: 9 - 24 mg/dL 12 Creatinine Latest Ref Range: 0.73 - 1.22 mg/dL 0.99 Glucose Latest Ref Range: 74 - 99 mg/dL 92 Calcium Latest Ref Range: 8.5 - 10.2 mg/dL 9.4 Anion Gap Latest Ref Range: 9 - 18 mmol/L 13 eGFR- Unknown >60 eGFR-All Other Races Latest Units: . >60 Cholesterol, Total Latest Ref Range: <200 mg/dL 135 Triglyceride Latest Ref Range: <150 mg/dL 126 Fasting Time Latest Units: hrs 11 HDL Cholesterol Latest Ref Range: >39 mg/dL 30 (L) LDL Cholesterol Latest Ref Range: <100 mg/dL 80 VLDL Cholesterol Latest Ref Range: <30 mg/dL 25 TC:HDL Ratio Latest Ref Range: <5.10 4.50 LDL:HDL Ratio Latest Ref Range: <2.54 2.67 (H) Non HDL Cholesterol Latest Ref Range: <130 mg/dL 105 Results for TUAN FELICIANO ( ) as of 06/28/2018 11:01 Ref. Range 06/06/2018 00:00 LDL Cholesterol Unknown 86 Patient identified by name and date . Shilpa Salomon RN., BSN Pharmacy Tech Customer Service Allergies As of Date: 06/28/2018 Noted Allergy Reaction ANAPROX (NAPROXEN SODIUM) 07/11/2005 CORTISONE 07/11/2005 CRESTOR (ROSUVASTATIN CALCIUM) 12/21/2006 8 - GI Upset ELAVIL (AMITRIPTYLINE) 03/07/2010 Comments: difficulty urinating HYDROCORTISONE 07/11/2005 KEFLEX (CEPHALEXIN) 09/06/2014 2 - Rash PENICILLINS 07/11/2005 PEPCID (FAMOTIDINE (PF)) 02/15/2018 14 - Other: See Comments Comments: dizziness SULFA (SULFONAMIDE ANTIBIOTICS) 07/11/2005 VIOXX (ROFECOXIB) 07/11/2005 ZOCOR (SIMVASTATIN) 07/11/2005 Date Reviewed: 06/10/2018 Reviewed by: Ketty ([facility]) PRASANTH Claudio - Fully Assessed Reason for Visit: Pharmacy Tech Customer Service Chronic Care [7122] Prescriptions as of 06/28/2018 Sig: LORAZEPAM 0.5 MG TABLET Take 1 tablet by mouth twice * ZOLPIDEM 10 MG TABLET Take 1 tablet by mouth at bed* PROMETHAZINE 25 MG TABLET Take 1 tablet by mouth every * SUCRALFATE 1 GRAM TABLET Dissolve one tablet in 30cc w* ASPIRIN 81 MG TABLET,DELAYED * Adult Low Dose Aspirin 81 mg * BETAMETHASONE DIPROPIONATE 0.* Apply 1 application to affect* HYDROXYZINE HCL 25 MG TABLET Take 1 tablet by mouth at bed* Patient not taking: Reported on 06/10/2018 GUAR GUM ORAL PACKET Take 1 Packet by mouth once d* ATENOLOL 25 MG TABLET Take 1/2 tablet daily AMLODIPINE 10 MG TABLET Take 1 tablet by mouth once d* TESTOSTERONE INTRAMUSC. Inject intramuscularly. TIMOLOL MALEATE 0.5 % ONCE DA* Use 1 Drop in the right eye t* Problem List As Of Date 06/28/2018 Noted Resolved BENIGN HYPERTENSION [I10] Coronary atherosclerosis [I25.10] More... Peptic ulcer, unspecified site, unspecified as * 05/07/2015 PERS HX COLONIC POLYPS [Z86.010] More... More... More... Malignant neoplasm of skin of trunk [C44.599] INVALID FOR* Anxiety [F41.9] INVALID FOR* Depression [F32.9] INVALID FOR*02/10/2016 Social phobia [F40.10] INVALID FOR* Primary open angle glaucoma [H40.1190] INVALID FOR* Cataract, nuclear sclerotic senile [H25.10] INVALID FOR* Special screening for malignant neoplasms, colo*INVALID FOR*02/05/2015 History of non-ST elevation myocardial infarcti*INVALID FOR* Irritable bowel syndrome with both constipation*INVALID FOR* Arthritis of left knee [M17.12] INVALID FOR* PUD (peptic ulcer disease) [K27.9] INVALID FOR* Family history of colon cancer [Z80.0] INVALID FOR* Anxiety and depression [F41.9, F32.9] INVALID FOR* Rash and nonspecific skin eruption [R21] INVALID FOR* Chronic insomnia [F51.04] INVALID FOR* Nausea [R11.0] INVALID FOR* More... Bilateral upper abdominal pain [R10.11, R10.12] INVALID FOR* More... Gastritis with hemorrhage [K29.71] INVALID FOR* More... 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] INVALID FOR* Encounter Status:Closed by NAOMI ZHENG on 06/28/18 BASIC METABOLIC PANL Collected: 06/12/2018 Status: F Source: [place] 7:35 AM [facility] REPOSITORY TYPE CODE TESTS RESULT OUT OF REFERENCE UNITS RANGE LAB GLU 74-99 mg/dL Glucose 92 Result Comment: The [place] Diabetes Association (ADA) provides guidance for cutoff values for fasting glucose and random glucose. The ADA defines fasting as no caloric intake for at least 8 hours. Fas ting plasma glucose results between 100 to 125 mg/dL indicate increased risk for diabetes (prediabetes). Fasting plasma glucose results greater than or equal to 126 mg/dL meet the criteria for diagnosis of diabetes. In the absence of unequivocal hyperglycemia, results should be confirmed by repeat testing. In a patient with classic symptoms of hyperglycemia or hyperglycemic crisis, random plasma glucose results greater than or equal to 200 mg/dL meet the criteria for diagnosis of diabetes. Reference: Standards of Medical Care in Diabetes 2016, [place] [employer] Association. Diabetes Care. 2016.39(Suppl 1). LAB BUN 9-24 mg/dL BUN 12 LAB CRET 0.73-1.22 mg/dL Creatinine 0.99 LAB NA 136-144 mmol/L Sodium 140 LAB K 3.7-5.1 mmol/L Potassium 4.1 LAB CL 97-105 mmol/L Chloride 102 LAB CO2 22-30 mmol/L CO2 25 LAB AGAP 9-18 mmol/L Anion Gap 13 LAB CA 8.5-10.2 mg/dL Calcium, Total 9.4 LAB GFRAA eGFR- Amer. >60 LAB GFRNAA . eGFR-All Other Races >60 Result Comment: eGFR (Estimated GFR) Units of measure: mL/min/1.73 meters squared eGFR is derived from the reexpressed MDRD Study equation using the following parameters: serum creatinine, age, gender and race. The creatinine assay has been calibrated to be traceable to IDMS. An eGFR <60 mL/min/1.73m2 for >3 months is consistent with chronic kidney disease. Refer to KDOQI guidelines for clinical interpretation. In patients with unstable renal function, e.g. those with acute kidney injury, the eGFR may not accurately reflect actual GFR. Performed By: #### BMP, LIPB #### [facility] [address] [place], [place] [address] LIPID PANEL, BASIC Collected: 06/12/2018 Status: F Source: [place] 7:35 AM [facility] REPOSIT[facility] TYPE CODE TESTS RESULT OUT OF REFERENCE UNITS RANGE LAB CHOL <200 mg/dL Cholesterol 135 Result Comment: <200 mg/dL, Desirable 200-239 mg/dL, Borderline high >239 mg/dL, High LAB TRIGLY <150 mg/dL Triglyceride 126 Result Comment: <150 mg/dL, Normal 150-199 mg/dL, Borderline high 200-499 mg/dL, High >499 mg/dL, Very high LAB HDL >39 mg/dL HDL-Cholesterol Low 30 Result Comment: 40-59 mg/dL, Acceptable >59 mg/dL, High: Negative risk factor for coronary heart disease <40 mg/dL, Low: Positive risk factor for coronary heart disease LAB LDL <100 mg/dL LDL-Cholesterol 80 Result Comment: <100 mg/dL, Optimal 100-129 mg/dL, Near optimal/above optimal 130-159 mg/dL, Borderline high 160-189 mg/dL, High >189 mg/dL, Very high Secondary prevention optimal LDL Cholesterol levels are recommended to be < 70 mg/dL LAB NONHDL <130 mg/dL Non HDL Cholesterol 105 Result Comment: <130 mg/dL, Optimal 130-159 mg/dL, Near optimal/above optimal 160-189 mg/dL, Borderline high 190-219 mg/dL, High >219 mg/dL, Very high Secondary prevention optimal non HDL Cholesterol levels are recommended to be < 100 mg/dL LAB FT hrs Fasting Time 11 LAB VLDL <30 mg/dL VLDL Cholesterol 25 LAB TCHDL <5.10 TC:HDL Ratio 4.50 LAB LDLHDL <2.54 High LDL:HDL Ratio 2.67 Result Comment: Reference: 1. National Cholesterol Education Program ATP III Guideline At-A-Glance Quick Desk Reference: National Heart, Lung, and Blood [place]. National Institutes of Health. 2001: NIH Publication No. 01-3305. 2. An International Atherosclerosis Society position paper: global recommendations for the management of dyslipidemia: executive summary, Atherosclerosis. 2014: 232(2):410-413. Performed By: #### BMP, LIPB #### [facility] [address] [place], [place] [address] PROGRESS Observed: 06/11/2018 Status: COMPLETED Source: [place] 2:54 PM [facility] REPOSITORY HNO ID: [id number] Author: Zoe Vázquez Ma Service: (none) Author Type: (none) Type: Progress Notes Filed: 06/11/2018 3:02 PM Note Text: [facility] FELLED SEAM OPERATOR CHAINSTITCH QUICKNOTE Provider Action/FYI: None Patient identified by name and . Have labs done prior to appointment with PCP on 06/10/18 - LDL cholesterol level drawn. Lipid panel and BMP not drawn.Left message on patient's voice mail advising him of fasting labs. Thank you, Zoe Vázquez [facility] Population Health Wood Box Maker O Project [phone] PROGRESS Observed: 06/10/2018 Status: COMPLETED Source: [place] 8:36 AM [facility] REPOSITORY HNO ID: [id number] Author: Nidhi Vargas III Service: (none) Author Type: Physician Type: Progress Notes Filed: 06/10/2018 12:15 PM Note Text: SUBJECTIVE: This is a 77 year old male that is here today for Chronic Medical Conditions. 1. functional dyspepsia--carafate helpful 2. hx of PUD--on pantoprazole 20 mg qday with resolution of sx. 3. ASHD--stable . Reviewed Dr Ramírez's note. Atypical chest pain recently. Normal stress test at high workload in 2014. 4. ch anxiety-ativan helpful. Taking half pill 3-4 times/wk 5. depression: previously on celexa, which caused sexual side effects. Discussed wellbutrin, but pt declines. States depression is well controlled. 6. ch constipation in spite of benefiber. 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 CABG 3 (no DC) in 1990; 1 stent in 1996 - Diverticulosis of colon (without mention of hemorrhage) Diverticulosis - Diverticulosis of colon (without mention of hemorrhage) - Essential hypertension, benign - Glaucoma - History of non-ST elevation myocardial infarction (NSTEMI) 05/07/2015 - Mental disorder - Other specified glaucoma - Peptic ulcer, unspecified site, unspecified as acute or chronic, without mention of hemorrhage, perforation, or obstruction - Primary open-angle glaucoma(365.11) 12/2009 - Pure hypercholesterolemia - S/P CABG x 3 - S/P percutaneous transluminal coronary angioplasty - Snoring - Trigeminal neuralgia 2001 - Unspecified hemorrhoids without mention of complication Hemorrhoids Current Outpatient Prescriptions on File Prior to Visit: zolpidem (AMBIEN) 10 mg tab Take 1 tablet by mouth at bedtime as needed for up to 30 days. FOR INSOMNIA promethazine (PHENERGAN) 25 mg tablet Take 1 tablet by mouth every 6 hours as needed for Nausea/Vomiting. LORazepam (ATIVAN) 0.5 mg tab Take 1 tablet by mouth twice daily as needed (anxiety) for up to 30 days. Take 1 tablet daily as needed sucralfate (CARAFATE) 1 gram tablet Dissolve one tablet in 30cc water. Stir and swallow, at least 30 minutes before meals. May repeat at bedtime, as needed. aspirin, enteric coated (ADULT LOW DOSE ASPIRIN) 81 mg EC tablet Adult Low Dose Aspirin 81 mg tablet betamethasone dipropionate (DIPROSONE) 0.05 % cream Apply 1 application to affected area once daily. Guar Gum (BENEFIBER,NUTRISOURCE FIBER) packet Take 1 Packet by mouth once daily. atenolol (TENORMIN) 25 mg tablet Take 1/2 tablet daily amLODIPine (NORVASC) 10 mg tablet Take 1 tablet by mouth once daily. TESTOSTERONE INTRAMUSC. Inject intramuscularly. timolol maleate (ISTALOL) 0.5 % drpd Use 1 Drop in the right eye twice daily. [START ON 06/29/2018] LORazepam (ATIVAN) 0.5 mg tab Take 1 tablet by mouth twice daily as needed (anxiety) for up to 30 days. Take 1 tablet daily as needed hydrOXYzine HCl (ATARAX) 25 mg tablet Take 1 tablet by mouth at bedtime as needed for Itching/Rash or Anxiety. (Patient not taking: Reported on 06/10/2018 ) No current facility-administered medications on file prior to visit. FAMILY HISTORY Problem Relation Age of Onset - Colon Cancer Father - Hypertension Father - Glaucoma Mother - Blindness Mother - Hypertension Brother - Hypertension Brother - Hypertension Brother Social History Substance Use Topics - Smoking status: Never Smoker - Smokeless tobacco: Former User - Alcohol use No BP 125/65 Pulse 61 Resp 16 Wt 83.9 kg (185 lb) BMI 23.75 kg/m? . OBJECTIVE: APPEARANCE Well appearing, alert, in no acute distress, well-hydrated, well nourished. and Appearance: well dressed well groomed, cooperative and pleasant Behavior: good eye contact Speech: fluent and coherent Mood: euthymic Affect: appropriate Perceptions: none Thought process: goal directed Thought Content: normal Intelligence level: normal Insight: good Judgment: good ASSESSMENT: depression--improved anxiety--under control PUD--improved functional dyspepsia--controlled on treatment ASHD--stable ch. constipation Long-term use of prescribed benzodiazepines?stable dose?not daily PLAN: healthy diet and regular exercise stay well hydrated and use miralax 17 g/ 8 oz as needed wean pantoprazole and discontinue as able continue lorazapam sparingly as needed for anxiety same other medications Consider adding Wellbutrin in the future. Nidhi Vargas III MD PDMP website checked and validated. All prescriptions have been APPROPRIATELY filled. No suspicious activity was identified. 06/10/2018 by Nidhi Vargas III MD PROGRESS Observed: 06/10/2018 Status: COMPLETED Source: [place] 8:31 AM [facility] REPOSITORY O ID: [id number] Author: Ketty Petersen) PRASANTH Claudio Service: (none) Author Type: Wood Box Maker Type: Progress Notes Filed: 06/10/2018 12:15 PM Note Text: 77 year old male here for INACTIVATED INFLUENZA VACCINE. [id number] Season Patient is identified by name and date of : Yes [] CONTRAINDICATIONS color enhanced section Age less than 6 months? No Allergy to eggs, chicken, chicken feathers, or chicken dander? No Allergy to thimerosal (a preservative) or formaldehyde, gelatin? No History of severe reaction to any vaccine component or a previous dose of influenza vaccination? No History of Guillain-Torreon Syndrome within 6 weeks after a previous influenza vaccine? No Patient is not moderately or severely ill? No Current temperature greater or equal to 100.4F? No History of Bone Marrow Transplant prior 6 months or solid organ transplant in the past 3 months ? No History of fainting after a prior injection or medical procedure? No- ? If patient has fainted in the past, the CDC recommends sitting or lying down for 15 minutes after the vaccination. [] VERIFICATION color enhanced section Was the answer Yes for any of the above contraindications? No contraindications present. Acceptable to proceed with vaccine. Patient/guardian agrees the above answers are true to the best of their knowledge? Yes Flu vaccine information sheet given? Yes See immunization activity in [facility] for details of immunizations adminstered today. Patient age: [age] year old For The 1240-0846 Flu Season 6-35 months old: Fluzone 0.25 ml - IM (Preservative Free) 3 years of age: Fluzone 0.5 ml - IM (Preservative Free) 3 years and older: Fluzone 0.5 ml- IM-(with Preservatives) 65+ years old: 2-49 years old Fluzone High-Dose 0.5 ml - IM (Preservative Free) FLUMIST- intranasal REMEMBER: If patient is less than 9 years of age and this is the first vaccine of Influenza to be received in any flu season, they should receive a second dose in one months time. SAMMI Observed: 06/10/2018 Status: COMPLETED Source: [place] 8:20 AM [facility] REPOSITORY Office Visit (FAMPWS) TUAN FELICIANO ([id number]) 1940 M Date Time Provider Department 06/10/18 8:20 AM NIDHI VARGAS III FAMPWS During your visit today, we recorded the following information about you: Pulse Respiration Blood pressure Weight 61/minute 16/minute 125/65 83.9 kg Ketty Claudio CMA, MA 06/10/2018 12:15 PM Signed 77 year old male here for INACTIVATED INFLUENZA VACCINE. Season Patient is identified by name and date of : Yes [] CONTRAINDICATIONS color enhanced section Age less than 6 months? No Allergy to eggs, chicken, chicken feathers, or chicken dander? No Allergy to thimerosal (a preservative) or formaldehyde, gelatin? No History of severe reaction to any vaccine component or a previous dose of influenza vaccination? No History of Guillain-Torreon Syndrome within 6 weeks after a previous influenza vaccine? No Patient is not moderately or severely ill? No Current temperature greater or equal to 100.4F? No History of Bone Marrow Transplant prior 6 months or solid organ transplant in the past 3 months ? No History of fainting after a prior injection or medical procedure? No- ? If patient has fainted in the past, the CDC recommends sitting or lying down for 15 minutes after the vaccination. [] VERIFICATION color enhanced section Was the answer Yes for any of the above contraindications? No contraindications present. Acceptable to proceed with vaccine. Patient/guardian agrees the above answers are true to the best of their knowledge? Yes Flu vaccine information sheet given? Yes See immunization activity in [facility] for details of immunizations adminstered today. Patient age: [age] year old For The Flu Season 6-35 months old: Fluzone 0.25 ml - IM (Preservative Free) 3 years of age: Fluzone 0.5 ml - IM (Preservative Free) 3 years and older: Fluzone 0.5 ml- IM-(with Preservatives) 65+ years old: 2-49 years old Fluzone High-Dose 0.5 ml - IM (Preservative Free) FLUMIST- intranasal REMEMBER: If patient is less than 9 years of age and this is the first vaccine of Influenza to be received in any flu season, they should receive a second dose in one months time. Nidhi Vargas III MD 06/10/2018 12:15 PM Signed SUBJECTIVE: This is a 77 year old male that is here today for Chronic Medical Conditions. 1. functional dyspepsia--carafate helpful 2. hx of PUD--on pantoprazole 20 mg qday with resolution of sx. 3. ASHD--stable . Reviewed Dr Ramírez's note. Atypical chest pain recently. Normal stress test at high workload in 2014. 4. ch anxiety-ativan helpful. Taking half pill 3-4 times/wk 5. depression: previously on celexa, which caused sexual side effects. Discussed wellbutrin, but pt declines. States depression is well controlled. 6. ch constipation in spite of benefiber. 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 CABG 3 (no DC) in 1990; 1 stent in 1996 - Diverticulosis of colon (without mention of hemorrhage) Diverticulosis - Diverticulosis of colon (without mention of hemorrhage) - Essential hypertension, benign - Glaucoma - History of non-ST elevation myocardial infarction (NSTEMI) 05/07/2015 - Mental disorder - Other specified glaucoma - Peptic ulcer, unspecified site, unspecified as acute or chronic, without mention of hemorrhage, perforation, or obstruction - Primary open-angle glaucoma(365.11) 12/2009 - Pure hypercholesterolemia - S/P CABG x 3 - S/P percutaneous transluminal coronary angioplasty - Snoring - Trigeminal neuralgia 2001 - Unspecified hemorrhoids without mention of complication Hemorrhoids Current Outpatient Prescriptions on File Prior to Visit: zolpidem (AMBIEN) 10 mg tab Take 1 tablet by mouth at bedtime as needed for up to 30 days. FOR INSOMNIA promethazine (PHENERGAN) 25 mg tablet Take 1 tablet by mouth every 6 hours as needed for Nausea/Vomiting. LORazepam (ATIVAN) 0.5 mg tab Take 1 tablet by mouth twice daily as needed (anxiety) for up to 30 days. Take 1 tablet daily as needed sucralfate (CARAFATE) 1 gram tablet Dissolve one tablet in 30cc water. Stir and swallow, at least 30 minutes before meals. May repeat at bedtime, as needed. aspirin, enteric coated (ADULT LOW DOSE ASPIRIN) 81 mg EC tablet Adult Low Dose Aspirin 81 mg tablet betamethasone dipropionate (DIPROSONE) 0.05 % cream Apply 1 application to affected area once daily. Guar Gum (BENEFIBER,NUTRISOURCE FIBER) packet Take 1 Packet by mouth once daily. atenolol (TENORMIN) 25 mg tablet Take 1/2 tablet daily amLODIPine (NORVASC) 10 mg tablet Take 1 tablet by mouth once daily. TESTOSTERONE INTRAMUSC. Inject intramuscularly. timolol maleate (ISTALOL) 0.5 % drpd Use 1 Drop in the right eye twice daily. [START ON 06/29/2018] LORazepam (ATIVAN) 0.5 mg tab Take 1 tablet by mouth twice daily as needed (anxiety) for up to 30 days. Take 1 tablet daily as needed hydrOXYzine HCl (ATARAX) 25 mg tablet Take 1 tablet by mouth at bedtime as needed for Itching/Rash or Anxiety. (Patient not taking: Reported on 06/10/2018 ) No current facility-administered medications on file prior to visit. FAMILY HISTORY Problem Relation Age of Onset - Colon Cancer Father - Hypertension Father - Glaucoma Mother - Blindness Mother - Hypertension Brother - Hypertension Brother - Hypertension Brother Social History Substance Use Topics - Smoking status: Never Smoker - Smokeless tobacco: Former User - Alcohol use No BP 125/65 Pulse 61 Resp 16 Wt 83.9 kg (185 lb) BMI 23.75 kg/m? . OBJECTIVE: APPEARANCE Well appearing, alert, in no acute distress, well- hydrated, well nourished. and Appearance: well dressed well groomed, cooperative and pleasant Behavior: good eye contact Speech: fluent and coherent Mood: euthymic Affect: appropriate Perceptions: none Thought process: goal directed Thought Content: normal Intelligence level: normal Insight: good Judgment: good ASSESSMENT: depression--improved anxiety--under control PUD--improved functional dyspepsia--controlled on treatment ASHD--stable ch. constipation Long-term use of prescribed benzodiazepines?stable dose?not daily PLAN: healthy diet and regular exercise stay well hydrated and use miralax 17 g/ 8 oz as needed wean pantoprazole and discontinue as able continue lorazapam sparingly as needed for anxiety same other medications Consider adding Wellbutrin in the future. Nidhi Vargas III PDMP website checked and validated. All prescriptions have been APPROPRIATELY filled. No suspicious activity was identified. 06/10/2018 by MERCEDEZ Rolle MD, III MD 06/10/2018 8:56 AM Signed PLAN: healthy diet and regular exercise stay well hydrated and use miralax 17 g/ 8 oz as needed wean pantoprazole and discontinue as able continue lorazapam sparingly as needed for anxiety same other medications Nidhi Vargas III MD Referring Provider: SELF [200] Allergies As of Date: 06/10/2018 Noted Allergy Reaction ANAPROX (NAPROXEN SODIUM) 07/11/2005 CORTISONE 07/11/2005 CRESTOR (ROSUVASTATIN CALCIUM) 12/21/2006 8 - GI Upset ELAVIL (AMITRIPTYLINE) 03/07/2010 Comments: difficulty urinating HYDROCORTISONE 07/11/2005 KEFLEX (CEPHALEXIN) 09/06/2014 2 - Rash PENICILLINS 07/11/2005 PEPCID (FAMOTIDINE (PF)) 02/15/2018 14 - Other: See Comments Comments: dizziness SULFA (SULFONAMIDE ANTIBIOTICS) 07/11/2005 VIOXX (ROFECOXIB) 07/11/2005 ZOCOR (SIMVASTATIN) 07/11/2005 Date Reviewed: 06/10/2018 Reviewed by: Ketty ([facility] PRASANTH Claudio - Fully Assessed Reason for Visit: Medication Follow-up [270] Imm/Inj [58] Cmt: Flu Vaccine Reason For Visit History Recorded Primary Visit Diagnosis:Anxiety [F41.9] Other Visit Diagnoses:Need for vaccination [Z23] Social phobia [F40.10] Essential hypertension, benign [I10] ASHD (arteriosclerotic heart disease) [I25.10] PUD (peptic ulcer disease) [K27.9] 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] Order(s):INFLUENZA SEASONAL HIGH DOSE AGE 65+ [02714AII] Order #: [id number] LORazepam (ATIVAN) 0.5 mg tabTake 1 tablet by mouth twice daily as needed (anxiety) for up to 30 days. Take 1 tablet daily as neededDisp: 30 tabletRfl: 0 LDL CHOLESTEROL DIR [SQLDLDCT] Order #: [id number] Prescriptions as of 06/10/2018 Sig: LORAZEPAM 0.5 MG TABLET Take 1 tablet by mouth twice * ZOLPIDEM 10 MG TABLET Take 1 tablet by mouth at bed* PROMETHAZINE 25 MG TABLET Take 1 tablet by mouth every * SUCRALFATE 1 GRAM TABLET Dissolve one tablet in 30cc w* ASPIRIN 81 MG TABLET,DELAYED * Adult Low Dose Aspirin 81 mg * BETAMETHASONE DIPROPIONATE 0.* Apply 1 application to affect* GUAR GUM ORAL PACKET Take 1 Packet by mouth once d* ATENOLOL 25 MG TABLET Take 1/2 tablet daily AMLODIPINE 10 MG TABLET Take 1 tablet by mouth once d* TESTOSTERONE INTRAMUSC. Inject intramuscularly. TIMOLOL MALEATE 0.5 % ONCE DA* Use 1 Drop in the right eye t* HYDROXYZINE HCL 25 MG TABLET Take 1 tablet by mouth at bed* Patient not taking: Reported on 06/10/2018 Problem List As Of Date 06/10/2018 Noted Resolved BENIGN HYPERTENSION [I10] Coronary atherosclerosis [I25.10] More... Peptic ulcer, unspecified site, unspecified as * 05/07/2015 PERS HX COLONIC POLYPS [Z86.010] More... More... More... Malignant neoplasm of skin of trunk [C44.599] INVALID FOR* Anxiety [F41.9] INVALID FOR* Depression [F32.9] INVALID FOR*02/10/2016 Social phobia [F40.10] INVALID FOR* Primary open angle glaucoma [H40.1190] INVALID FOR* Cataract, nuclear sclerotic senile [H25.10] INVALID FOR* Special screening for malignant neoplasms, colo*INVALID FOR*02/05/2015 History of non-ST elevation myocardial infarcti*INVALID FOR* Irritable bowel syndrome with both constipation*INVALID FOR* Arthritis of left knee [M17.12] INVALID FOR* PUD (peptic ulcer disease) [K27.9] INVALID FOR* Family history of colon cancer [Z80.0] INVALID FOR* Anxiety and depression [F41.9, F32.9] INVALID FOR* Rash and nonspecific skin eruption [R21] INVALID FOR* Chronic insomnia [F51.04] INVALID FOR* Nausea [R11.0] INVALID FOR* More... Bilateral upper abdominal pain [R10.11, R10.12] INVALID FOR* More... Gastritis with hemorrhage [K29.71] INVALID FOR* More... 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] INVALID FOR* Other instructions from your clinician: PLAN: healthy diet and regular exercise stay well hydrated and use miralax 17 g/ 8 oz as needed wean pantoprazole and discontinue as able continue lorazapam sparingly as needed for anxiety same other medications Nidhi Vargas III MD Prescriptions ordered this encounter Disp Refills Start End LORAZEPAM 0.5 MG TABLET 30 t* 0 06/10/2018 07/10/2018 Class: Print RX Route: ORAL Sig: Take 1 tablet by mouth twice daily as needed (anxiety) for up to 30 days. Take 1 tablet daily as needed Medications Discontinued During This Encounter LORazepam (ATIVAN) 0.5 mg tab 30 t* 0 04/29/2018 06/10/2018 Class: Print RX Route: ORAL Sig: Take 1 tablet by mouth twice daily as needed (anxiety) for up to 30 days. Take 1 tablet daily as needed Disc: Course of therapy completed ondansetron orally disintegrating (Z* 15 t* 1 08/07/2016 06/10/2018 Route: ORAL Sig: Take 1 tablet by mouth every 6 hours as needed for Nausea/Vomiting. Patient not taking: Reported on 06/10/2018 Disc: Changing Therapy/Dosage Form LORazepam (ATIVAN) 0.5 mg tab 30 t* 0 06/29/2018 06/10/2018 Class: Print RX Route: ORAL Sig: Take 1 tablet by mouth twice daily as needed (anxiety) for up to 30 days. Take 1 tablet daily as needed Disc: Course of therapy completed LORazepam (ATIVAN) 0.5 mg tab 30 t* 0 05/30/2018 06/10/2018 Class: Print RX Route: ORAL Sig: Take 1 tablet by mouth twice daily as needed (anxiety) for up to 30 days. Take 1 tablet daily as needed Disc: Course of therapy completed Encounter Status:Closed by NIDHI VARGAS III, MD on 06/10/18 PROGRESS Observed: 06/05/2018 Status: COMPLETED Source: [facility] 12:48 PM [facility] O ID: [id number] Author: Naomi (Rn) Christina Sims RN Service: (none) Author Type: Registered Nurse Type: Progress Notes Filed: 06/05/2018 12:53 PM Note Text: PRIMARY CARE COORDINATION QUICK NOTE Provider Action/FYI PCC Chart Review: -Last ED visit [facility] 7/3/18 for nausea -Last LDL outside lab 05/29/17 (70) Next PCP follow up 06/10/18 PHMA Monitoring: -future lab orders in [facility]. Please have patient have drawn prior to PCP fu on 05/29/17 PRIMARY CARE COORDINATION OUTREACH PLAN: PHMA monitoring for care gaps CARE GAPS:? LDL Cholesterol Overdue Diabetes Screen Shilpa Salomon RN., BSN Pharmacy Tech Customer Service PROGRESS Observed: 05/31/2018 Status: COMPLETED Source: [place] 8:54 AM [facility] REPOSITORY HNO ID: [id number] Author: Zoe Vázquez Ma Service: (none) Author Type: (none) Type: Progress Notes Filed: 06/05/2018 12:53 PM Note Text: PRIMARY CARE COORDINATION CHART REVIEW Patient identified for Care Coordination from: [facility] High [facility] Last PCP office visit: 12/20/2017 Next OV: 06/10/18 Nidhi Vargas III, MD CHRONIC DX: CAD HTN CARE GAPS: LDL Cholesterol Overdue Diabetes Screen UTILIZATION WITHIN THE LAST 12 MONTHS: ? ED: None ? HOSPITAL: None ? SNF: None PRIMARY CARE COORDINATION OUTREACH PLAN: Will defer to PCC for review. Zoe Vázquez Ma CNPTOUTREACH Observed: 05/31/2018 Status: COMPLETED Source: [place] 12:00 AM [facility] REPOSITORY Patient Outreach (FAMPWS) TUAN FELICIANO ([id number]) 1940 M Date Time Provider Department 05/31/18 ZOE VÁZQUEZ) FAMPWS During your visit today, we recorded the following information about you: Zoe Vázquez Ma 06/05/2018 12:53 PM Signed PRIMARY CARE COORDINATION CHART REVIEW Patient identified for Care Coordination from: [facility] Risk [facility] Last PCP office visit: 12/20/2017 Next OV: 06/10/18 Nidhi Vargas III, MD CHRONIC DX: CAD HTN CARE GAPS: LDL Cholesterol Overdue Diabetes Screen UTILIZATION WITHIN THE LAST 12 MONTHS: ? ED: None ? HOSPITAL: None ? SNF: None PRIMARY CARE COORDINATION OUTREACH PLAN: Will defer to PCC for review. Zoe Sims, RN, RN 06/05/2018 12:53 PM Signed PRIMARY CARE COORDINATION QUICK NOTE Provider Action/FYI PCC Chart Review: -Last ED visit [facility] 03/19/18 for nausea -Last LDL outside lab 05/29/17 (70) Next PCP follow up 06/10/18 PHMA Monitoring: -future lab orders in [facility]. Please have patient have drawn prior to PCP fu on 05/29/17 PRIMARY CARE COORDINATION OUTREACH PLAN: PHMA monitoring for care gaps CARE GAPS:? 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 Have labs done prior to appointment with PCP on 06/10/18 - LDL cholesterol level drawn. Lipid panel and BMP not drawn.Left message on patient's voice mail advising him of fasting labs. Thank you, Zoe Vázquez, [facility] Population Health Wood Box Maker [employer] Project [phone] Allergies As of Date: 05/31/2018 Noted Allergy Reaction ANAPROX (NAPROXEN SODIUM) 07/11/2005 CORTISONE 07/11/2005 CRESTOR (ROSUVASTATIN CALCIUM) 12/21/2006 8 - GI Upset ELAVIL (AMITRIPTYLINE) 03/07/2010 Comments: difficulty urinating HYDROCORTISONE 07/11/2005 KEFLEX (CEPHALEXIN) 09/06/2014 2 - Rash PENICILLINS 07/11/2005 PEPCID (FAMOTIDINE (PF)) 02/15/2018 14 - Other: See Comments Comments: dizziness SULFA (SULFONAMIDE ANTIBIOTICS) 07/11/2005 VIOXX (ROFECOXIB) 07/11/2005 ZOCOR (SIMVASTATIN) 07/11/2005 Date Reviewed: 03/12/2018 Reviewed by: Radha Reed Ma - Fully Assessed Reason for Visit: Pharmacy Tech Customer Service- Other [2000] Cmt: ACO Prescriptions as of 05/31/2018 Sig: ZOLPIDEM 10 MG TABLET Take 1 tablet by mouth at bed* PROMETHAZINE 25 MG TABLET Take 1 tablet by mouth every * X LORAZEPAM 0.5 MG TABLET Take 1 tablet by mouth twice * X LORAZEPAM 0.5 MG TABLET Take 1 tablet by mouth twice * X LORAZEPAM 0.5 MG TABLET Take 1 tablet by mouth twice * SUCRALFATE 1 GRAM TABLET Dissolve one tablet in 30cc w* ASPIRIN 81 MG TABLET,DELAYED * Adult Low Dose Aspirin 81 mg * BETAMETHASONE DIPROPIONATE 0.* Apply 1 application to affect* HYDROXYZINE HCL 25 MG TABLET Take 1 tablet by mouth at bed* Patient not taking: Reported on 06/10/2018 GUAR GUM ORAL PACKET Take 1 Packet by mouth once d* X ONDANSETRON 4 MG DISINTEGRATI* Take 1 tablet by mouth every * Patient not taking: Reported on 06/10/2018 ATENOLOL 25 MG TABLET Take 1/2 tablet daily AMLODIPINE 10 MG TABLET Take 1 tablet by mouth once d* TESTOSTERONE INTRAMUSC. Inject intramuscularly. TIMOLOL MALEATE 0.5 % ONCE DA* Use 1 Drop in the right eye t* Problem List As Of Date 05/31/2018 Noted Resolved BENIGN HYPERTENSION [I10] Coronary atherosclerosis [I25.10] More... Peptic ulcer, unspecified site, unspecified as * 05/07/2015 PERS HX COLONIC POLYPS [Z86.010] More... More... More... Malignant neoplasm of skin of trunk [C44.599] INVALID FOR* Anxiety [F41.9] INVALID FOR* Depression [F32.9] INVALID FOR*02/10/2016 Social phobia [F40.10] INVALID FOR* Primary open angle glaucoma [H40.1190] INVALID FOR* Cataract, nuclear sclerotic senile [H25.10] INVALID FOR* Special screening for malignant neoplasms, colo*INVALID FOR*02/05/2015 History of non-ST elevation myocardial infarcti*INVALID FOR* Irritable bowel syndrome with both constipation*INVALID FOR* Arthritis of left knee [M17.12] INVALID FOR* PUD (peptic ulcer disease) [K27.9] INVALID FOR* Family history of colon cancer [Z80.0] INVALID FOR* Anxiety and depression [F41.9, F32.9] INVALID FOR* Rash and nonspecific skin eruption [R21] INVALID FOR* Chronic insomnia [F51.04] INVALID FOR* Nausea [R11.0] INVALID FOR* More... Bilateral upper abdominal pain [R10.11, R10.12] INVALID FOR* More... Gastritis with hemorrhage [K29.71] INVALID FOR* More... Encounter Status:Closed by NAOMI ZHENG on 06/05/18 CARDIOLOGY VISIT Observed: 05/30/2018 Status: F Source: [place] REPORT 10:25 AM [facility] REPOSITORY [facility] [place] [id number] [place] [address] OFFICE VISIT Date of Service: 05/29/18 MR#: [id number] Acct: [id number] Name: TUAN FELICIANO Rep #: [id number] : 1940 Provider: ZACH Amin Age/Sex: 77/M Location: [facility] Status: Signed HPI HPI Details: TUAN FELICIANO, is a 77 M who presents to the office today for a cardiovascular outpatient follow-up. He has a history of coronary artery disease status post CABG in February 1991 with SCRUGGS to LAD, aorto-reverse SVG to diagonal coronary artery and to the posterior descending branch of the RCA, PTCA/stenting to RCA in October 1996, and PTCA/KATHY to mid OM 2 and proximal LCx with PTCA only to distal OM 3 and OM 2 in April 2015. He also has a history of hypertension and hyperlipidemia. He states rare episodes of chest pain off an on for 30 minutes. This occurs mainly at rest, but can occur with exertion. He denies any secondary symptoms with it. Pt. denies arm, jaw, or neck discomfort. His exercise tolerance is stable via walking. Pt. denies symptoms of CHF, palpitations, lightheadedness, dizziness, near syncope, or syncopal episodes. Pt. denies edema or claudication issues. Pt. denies orthopnea, PND, or unexplainable fatigue. 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 Accompanied by: none Is patient in pain?: No Allergies Penicillins [PCN] Allergy (Verified 05/29/18 10:12) Hives Sulfa (Sulfonamide Antibiotics) Allergy (Verified 05/29/18 10:12) Hives Umqojso-Vxs-Tez Reductase Inhibitor Adverse Reaction (Verified 05/29/18 10:12) Upset Stomach Medications Amlodipine [Norvasc] 10 mg PO DAILY 11/24/13 [History Confirmed 05/29/18] Atenolol [Tenormin (beta gracy)] 12.5 mg PO DAILY 11/24/13 [History Confirmed 05/29/18] Timolol 0.5% [Timoptic] 1 drp RIGHT EYE BID 11/24/13 [History Confirmed 05/29/18] Benifiber 1 pkt PO DAILY 10/03/16 [History Confirmed 05/29/18] Pantoprazole Sodium [Protonix] 20 mg PO DAILY 10/03/16 [History Confirmed 05/29/18] Aspirin E.C. [Ecotrin] 81 mg PO DAILY@0800 09/21/17 [History Confirmed 05/29/18] Sucralfate [Carafate] 1 gm PO 4X/DAY #28 tab 01/25/18 [Rx Confirmed 05/29/18] testosterone ER 30 mg buccal system,extended release 12hr 30 mg IM .twice a month ea 05/29/18 [History Confirmed 05/29/18] PFSH Medical History Hypertension (Chronic) Coronary artery disease (Chronic) Chest pain (Acute) Angina pectoris (Acute) NSTEMI (non-ST elevated myocardial infarction) (Acute) HLD (hyperlipidemia) (Chronic) Surgical History Status post coronary artery bypass graft (Chronic) S/P PTCA (percutaneous transluminal coronary angioplasty) (Chronic) S/P CABG x 3 (Chronic) S/P inguinal hernia repair (Acute) Social History Smoking Status: Never smoker ROS Const Const: Negative for fatigue, weakness, body ache, fever(s) or chills ENT ENT: Negative for dizziness Cardio Chest Pain: Yes Palpitations: No Edema: None Muscle aches with walking: None Resp Respiratory: Negative for SOB with activity, SOB at rest, SOB orthopnea\SOB lying down or paroxysmal nocturnal dyspnea GI GI: Negative nausea, black,tarry stools, bright, red blood in stools or vomiting blood/hematemesis : Negative for hematuria or frequent nighttime urination/ nocturia Musc Musc: Negative for muscle aches/ myalgia Skin Skin: Negative non-healing lesions or rash Neuro Neuro: Negative for weakness, dizziness, lightheadedness, near syncope, syncope or orthostatic symptoms Endo Endo: Negative for fatigue Allergy Allergy/Immunology: Negative for rash Cardiology Exam Const Appearance: cooperative, healthy appearing, comfortable and no acute distress Nutritional Appearance: average body habitus and well nourished Orientation: alert, awake and oriented x3 Head Head: normal to inspection Ears: hearing grossly normal bilaterally Nose: external nose normal Face and Sinus: face symmetric Mouth: oral mucosae normal Eyes General: appearance normal, both eyes and all related structures Eyelids: eyelids normal EOM: EOM intact bilaterally Neck Neck: no JVD and normal visual inspection Carotids: normal carotid upstroke Chest Chest inspection: normal inspection of the chest and normal respiratory effort; negative cough Auscultation: Bilateral: Clear to Auscultation Cardio Rate: regular rate Rhythm: regular rhythm Heart sounds: S1 normal and S2 normal; negative rub, gallop or murmur GI GI: normal to inspection Neuro General: alert, awake, oriented x3 and CN's II-XI intact bilaterally Skin Skin: no rashes or lesions noted Extremities Pulses: Normal: Right Posterior Tibial Pulse, Left Posterior Tibial Pulse, Right Radial Pulse, Left Radial Pulse Lower Extremity Edema: None: Bilateral Psych Psychological: normal affect Supplemental Info Nuclear stress test from April 2015 showed no evidence of ischemia noted at a high workload of 10.1 METS, no clinical angina noted, EKGs suggestive, but not diagnostic for ischemia, good functional capacity, and preserved ejection fraction. Echocardiogram from November 2011 showed normal LV size, estimated ejection fraction of 60%, and pulmonary artery systolic pressure of 37 mmHg, mild pulmonary hypertension. Assessment AND Plan 1. Coronary artery disease involving [place] coronary artery of [place] heart without angina pectoris I25.10 CABG in 1990; PTCA/stenting to RCA October 1996; PTCA/KATHY to mid OM 2 and proximal LCx with PTCA only to distal OM 3 and OM 2 in April 2015; Plan - ANGELO Wells His nuclear stress test in April 2015 was negative for stress- induced myocardial ischemia at a high workload. At this time his chest pain appears atypical. He will continue lifestyle and risk factor modifications and we will continue to monitor. He was instructed if symptoms worsen or new symptoms develop to contact our office for further evaluation. 2. S/P CABG x 3 Z95.1 S/P CABG in February 1991 with SCRUGGS to LAD, aorto-reverse SVG to diagonal coronary artery and to posterior descending branch of the RCA; Plan - ANGELO Wells He will continue current treatment plan as outlined above. 3. S/P PTCA (percutaneous transluminal coronary angioplasty) Z98.61 PTCA/stenting to RCA October 1996; PTCA/KATHY to mid OM 2 and proximal LCx with PTCA only to distal OM 3 and OM 2 in April 2015; Plan - ANGELO Wells He will continue current treatment plan as outlined above. 4. Essential hypertension I10 Plan - ANGELO Wells Patient's blood pressure is well-controlled today in the office. We will continue to monitor this. We will not make any medication regimen changes. 5. Pure hypercholesterolemia E78.00; E78.0 Plan - ANGELO Wells He is currently not on any cholesterol-lowering medication. His most recent lipid panel from May 2018 showed cholesterol: 145, HDL: 32, LDL: 86, and triglycerides: 137. Plan Detail Additional Comments - ANGELO Wells Discussed the above patient with Dr. Ramírez, he agrees with the plan of care. Thank you for allowing us to participate in the patients plan of care, if you have any questions please do not hesitate to call. This note was generated using a voice recognition system and there may be incorrect words, spelling or punctuation that were not noted when reviewing the office note prior to saving. Follow Up 12 Months (HEADLINE WRITER) Coding Level of Care Code Off vis,est,level 3 Diagnoses Coronary artery disease involving [place] coronary artery of [place] heart without angina pectoris I25.10 Coronary Disease-Associated Artery/Lesion type: [place] artery [place] vs. transplanted heart: [place] heart Associated angina: without angina S/P CABG x 3 Z95.1 S/P PTCA (percutaneous transluminal coronary angioplasty) Z98.61 Essential hypertension I10 Hypertension type: essential hypertension Pure hypercholesterolemia E78.00; E78.0 Hyperlipidemia type: pure hypercholesterolemia Coding Level of Care Code Off vis,est,level 3 Diagnoses Coronary artery disease involving [place] coronary artery of [place] heart without angina pectoris I25.10 Coronary Disease-Associated Artery/Lesion type: [place] artery [place] vs. transplanted heart: [place] heart Associated angina: without angina S/P CABG x 3 Z95.1 S/P PTCA (percutaneous transluminal coronary angioplasty) Z98.61 Essential hypertension I10 Hypertension type: essential hypertension Pure hypercholesterolemia E78.00; E78.0 Hyperlipidemia type: pure hypercholesterolemia 05/29/18 1318 <Electronically signed by Esau Amin ASSET AVAILABILITY LEADER-C> Date Esau Amin ASSET AVAILABILITY LEADER-C 05/30/18 1025<Electronically signed by Ravi Ramírez MD> Cosigner Signature: Date (if applicable) Ravi Ramírez MD CC: Nidhi Vargas III, MD LIVER PROFILE Collected: 05/28/2018 Status: F Source: [place] 6:42 AM [facility] REPOSITORY Order Comment: Order Date: 06/01/17 Order Info: [id number] - *Hepatic Function Panel Order Info: [id number] - *Lipid Profile CC PCP Comments: 12 hours fasting, may have water. TYPE CODE TESTS RESULT OUT OF RANGE REFERENCE UNITS LAB L501.1500 6.4-8.2 g/dL Normal T PROT 6.7 LAB L501.1800 3.2-5.0 g/dL Normal ALB 3.7 LAB L501.1950 2.2-4.2 g/dL Normal GLOB 3.0 LAB L501.4100 15-37 U/L Normal AST 20 LAB L501.4305 45-117 U/L Normal ALK P 56 LAB L501.4405 16-61 U/L Normal ALT 24 LAB L501.4600 0.20-1.00 mg/dL High T BILI 1.80 LAB L501.4700 0.00-0.30 mg/dL High D BILI 0.31 Performed By: #### L500.3400 #### [facility] [address] [place], [address] LIPID PROFILE Collected: 05/28/2018 Status: F Source: [place] 6:42 AM [facility] REPOSITORY Order Comment: Order Date: 06/01/17 Order Info: [id number] - *Hepatic Function Panel Order Info: [id number] - *Lipid Profile CC PCP Comments: 12 hours fasting, may have water. TYPE CODE TESTS RESULT OUT OF RANGE REFERENCE UNITS LAB L501.4900 200 mg/dL Normal CHOL 145 Result Comment: <200 mg/dL Desirable 200-240 mg/dL Borderline >240 mg/dL High Risk LAB L501.5000 mg/dL Normal TRIG 137 Result Comment: The drugs N-Acetylcysteine and Metamizole may falsely depress this assay. Serum Triglycerides Reference Interval Normal <150 mg/dL Borderline high 150 - 199 mg/dL High 200 - 499 mg/dL Very High > or = 500 mg/dL LAB L501.6400 mg/dL Low HDL 32 Result Comment: The drugs N-Acetylcysteine and Metamizole may falsely depress this assay. Reference Range HDL <40 mg/dL Low HDL Cholesterol HDL >or= 60 mg/dL High HDL Cholesterol LAB L501.6500 0-130 mg/dL Normal LDL 86 LAB L501.6600 5-40 mg/dL Normal VLDL 27 Performed By: #### L500.4100 #### [facility] [place], [address] CNPTOUTREACH Observed: 05/28/2018 Status: COMPLETED Source: [place] 12:00 AM [facility] REPOSITORY Patient Outreach ([facility]) TUAN FELICIANO ([id number]) 1940 M Date Time Provider Department 05/28/18 NIDHI VARGAS III [facility] During your visit today, we recorded the following information about you: Allergies As of Date: 05/28/2018 Noted Allergy Reaction ANAPROX (NAPROXEN SODIUM) 07/11/2005 CORTISONE 07/11/2005 CRESTOR (ROSUVASTATIN CALCIUM) 12/21/2006 8 - GI Upset ELAVIL (AMITRIPTYLINE) 03/07/2010 Comments: difficulty urinating HYDROCORTISONE 07/11/2005 KEFLEX (CEPHALEXIN) 09/06/2014 2 - Rash PENICILLINS 07/11/2005 PEPCID (FAMOTIDINE (PF)) 02/15/2018 14 - Other: See Comments Comments: dizziness SULFA (SULFONAMIDE ANTIBIOTICS) 07/11/2005 VIOXX (ROFECOXIB) 07/11/2005 ZOCOR (SIMVASTATIN) 07/11/2005 Date Reviewed: 03/12/2018 Reviewed by: Radha Reed Ma - Fully Assessed Visit Diagnosis:Medication management [Z79.899] Order(s):BASIC METABOLIC PNL [SQBMP] Order #: [id number] FUTURE LIPID PANEL BASIC [SQLIPB] Order #: [id number] FUTURE Prescriptions as of 05/28/2018 Sig: ZOLPIDEM 10 MG TABLET Take 1 tablet by mouth at bed* PROMETHAZINE 25 MG TABLET Take 1 tablet by mouth every * X LORAZEPAM 0.5 MG TABLET Take 1 tablet by mouth twice * X LORAZEPAM 0.5 MG TABLET Take 1 tablet by mouth twice * X LORAZEPAM 0.5 MG TABLET Take 1 tablet by mouth twice * SUCRALFATE 1 GRAM TABLET Dissolve one tablet in 30cc w* ASPIRIN 81 MG TABLET,DELAYED * Adult Low Dose Aspirin 81 mg * BETAMETHASONE DIPROPIONATE 0.* Apply 1 application to affect* HYDROXYZINE HCL 25 MG TABLET Take 1 tablet by mouth at bed* Patient not taking: Reported on 06/10/2018 GUAR GUM ORAL PACKET Take 1 Packet by mouth once d* X ONDANSETRON 4 MG DISINTEGRATI* Take 1 tablet by mouth every * Patient not taking: Reported on 06/10/2018 ATENOLOL 25 MG TABLET Take 1/2 tablet daily AMLODIPINE 10 MG TABLET Take 1 tablet by mouth once d* TESTOSTERONE INTRAMUSC. Inject intramuscularly. TIMOLOL MALEATE 0.5 % ONCE DA* Use 1 Drop in the right eye t* Problem List As Of Date 05/28/2018 Noted Resolved BENIGN HYPERTENSION [I10] Coronary atherosclerosis [I25.10] More... Peptic ulcer, unspecified site, unspecified as * 05/07/2015 PERS HX COLONIC POLYPS [Z86.010] More... More... More... Malignant neoplasm of skin of trunk [C44.599] INVALID FOR* Anxiety [F41.9] INVALID FOR* Depression [F32.9] INVALID FOR*02/10/2016 Social phobia [F40.10] INVALID FOR* Primary open angle glaucoma [H40.1190] INVALID FOR* Cataract, nuclear sclerotic senile [H25.10] INVALID FOR* Special screening for malignant neoplasms, colo*INVALID FOR*02/05/2015 History of non-ST elevation myocardial infarcti*INVALID FOR* Irritable bowel syndrome with both constipation*INVALID FOR* Arthritis of left knee [M17.12] INVALID FOR* PUD (peptic ulcer disease) [K27.9] INVALID FOR* Family history of colon cancer [Z80.0] INVALID FOR* Anxiety and depression [F41.9, F32.9] INVALID FOR* Rash and nonspecific skin eruption [R21] INVALID FOR* Chronic insomnia [F51.04] INVALID FOR* Nausea [R11.0] INVALID FOR* More... Bilateral upper abdominal pain [R10.11, R10.12] INVALID FOR* More... Gastritis with hemorrhage [K29.71] INVALID FOR* More... Encounter Status:Closed by ListRunner, PRODUSER on 06/28/18 PROGRESS Observed: 03/12/2018 Status: COMPLETED Source: [place] 9:51 AM [facility] REPOSITORY O ID: [id number] Author: Jake Ribera Service: (none) Author Type: Nurse Practitioner Type: Progress Notes Filed: 03/12/2018 11:08 AM Note Text: Tuan Feliciano a 77 year old male who is returning for follow up regarding nausea and upper abdominal pain. I saw the patient in consultation on 02/15/18. That note has been reviewed. The patient was seen by Dr. Brambila for upper endoscopy . The procedure report has been reviewed and findings as follows: Findings: ? ? ?The examined esophagus was normal. ? ? ?Diffuse mildly erythematous mucosa was found in the gastric antrum. ? ? ?Biopsies were taken with a cold forceps for histology. Estimated ? ? ?blood loss was minimal. ? ? ?The examined duodenum was normal. 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 - No morphologic evidence of Helicobacter pylori. I have reviewed the procedure and pathology reports, as well as the images, with the patient. HPI: The patient presents today reporting that he takes the pantoprazole first thing in the morning. He waits, then takes the sucralfate. 30 minutes later he has cereal for breakfast. He uses lactose free milk and has for a few years. He tries to get the sucralfate in before each meal, but eats out a lot. We discussed his being able to decrease that since the EGD didn't show significant gastritis or ulcer. Most days are good days. Sunday wasn't a good day, but he hadn't slept well the night before. Was back to himself on Sunday. The patient reports that his stomach seems to bother him more when he is anxious. He has Ativan, but uses it sparingly since Dr. Vargas told him about the potential for addiction. He tells me that he had been on an antidepressant, but didn't like taking it. We discussed quality of life. REVIEW OF SYSTEMS: GENERAL: No weight loss, malaise or fevers GI: The patient states that his appetite has been good. He does get hungry. There has been no nausea, no vomiting. He denies dysphagia and denies odynophagia. There has rarely been indigestion and no heartburn. There has not been regurgitation. Bowel habits have been regular. There has not been diarrhea. There has not been constipation. The patient denies rectal bleeding. There has not been melena. No new or worsening abdominal pain. All other reviewed and negative other than HPI. PAST MEDICAL HISTORY Diagnosis Date - Coronary atherosclerosis of unspecified type of vessel, [place] or graft 1990 CABG 3 (no DC) in 1990; 1 stent in 1996 - Diverticulosis of colon (without mention of hemorrhage) Diverticulosis - Diverticulosis of colon (without mention of hemorrhage) - Essential hypertension, benign - Glaucoma - History of non-ST elevation myocardial infarction (NSTEMI) 05/07/2015 - Mental disorder - Other specified glaucoma - Peptic ulcer, unspecified site, unspecified as acute or chronic, without mention of hemorrhage, perforation, or obstruction - Primary open-angle glaucoma(365.11) 12/2009 - Snoring - Trigeminal neuralgia 2001 - Unspecified hemorrhoids without mention of complication Hemorrhoids PAST SURGICAL HISTORY Procedure Laterality Date - ANGIOPLASTY 1996 WITH STENT - CABG, ARTERIAL, THREE 1990 - COLONOSCOP W/ OR W/O [facility] SPEC 01/2004 Colonoscopy - COLONOSCOP W/ OR W/O [facility] SPEC 09/29/2009 Colonoscopy - COLONOSCOP W/ OR W/O [facility] SPEC 02/05/2015 Colonoscopy - EGD W/O OR W/BRUSH/WASH 08/14/2016 EGD - EGD W/O OR W/BRUSH/WASH 02/25/2018 EGD - HEART SURGERY HX - HERNIA REPAIR HX 10/2017 removal - INCISION OF EYE, TRABECULECTOMY 2009 OU - LAPAROSCOPIC CHOLEYCYSTECTOMY Cholecystectomy, lap - PAST SURGICAL HISTORY OF 03/25 Right Knee Ligament Repair - REMV CATARACT EXTRACAP,INSERT LENS 12/19/12 OD Cataract Extraction with PC IOL with Trab/[facility] - WATER SHUNT-EXTRAOCUL RESERV 12/19/12 OD Glaucoma Implant; 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 Stir and swallow, at least 30 minutes before meals. May repeat at bedtime, as needed. Disp: 120 tablet Rfl: 2 promethazine (PHENERGAN) 25 mg tablet Take 1 tablet by mouth every 6 hours as needed for Nausea/Vomiting. Disp: 30 tablet Rfl: 1 aspirin, enteric coated (ADULT LOW DOSE ASPIRIN) 81 mg EC tablet Adult Low Dose Aspirin 81 mg tablet Disp: Rfl: LORazepam (ATIVAN) 0.5 mg tab Take 1 tablet by mouth twice daily as needed (anxiety) for up to 30 days. Take 1 tablet daily as needed Disp: 30 tablet Rfl: 0 betamethasone dipropionate (DIPROSONE) 0.05 % cream Apply 1 application to affected area once daily. Disp: 45 g Rfl: 0 hydrOXYzine HCl (ATARAX) 25 mg tablet Take 1 tablet by mouth at bedtime as needed for Itching/Rash or Anxiety. Disp: 30 tablet Rfl: 5 zolpidem (AMBIEN) 10 mg tab Take 1 tablet by mouth at bedtime as needed for up to 30 days. FOR INSOMNIA Disp: 30 tablet Rfl: 4 Guar Gum (BENEFIBER,NUTRISOURCE FIBER) packet Take 1 Packet by mouth once daily. Disp: Rfl: ondansetron orally disintegrating (ZOFRAN ODT) 4 mg disintegrating tablet Take 1 tablet by mouth every 6 hours as needed for Nausea/Vomiting. Disp: 15 tablet Rfl: 1 atenolol (TENORMIN) 25 mg tablet Take 1/2 tablet daily Disp: Rfl: amLODIPine (NORVASC) 10 mg tablet Take 1 tablet by mouth once daily. Disp: Rfl: 0 TESTOSTERONE INTRAMUSC. Inject intramuscularly. Disp: Rfl: timolol maleate (ISTALOL) 0.5 % drpd Use 1 Drop in the right eye twice daily. Disp: Rfl: No current facility-administered medications for this visit. SOCIAL HISTORY: Reviewed and unchanged. PHYSICAL EXAMINATION: Blood pressure 108/58, pulse 60, height 188 cm (6' 2), weight 84.4 kg (186 lb). General Appearance: Well appearing, alert, in no acute distress, well-hydrated, well nourished. Skin: Skin color, texture, turgor normal. Eyes: Anicteric sclera. Lungs: Lungs clear to auscultation. No wheezing, rhonchi, rales. Heart: RRR without murmur. Abdomen: Abdomen soft, non-tender. Bowel sounds normal. No masses, organomegaly. Impression: dyspepsia 2)anxiety Plan: Continue pantoprazole. I have cautioned him not to stop taking it cold turkey due to rebound. He may decrease sucralfate. Follow up as needed. He agrees with this plan. I have personally interviewed and examined this patient. I have reviewed the information that the MA entered for this encounter. I spent 30 minutes in the visit, with greater than 50% of the total [id number]-ftbf time of the visit in counseling and coordination of care. Jake Ribera RN PLANT ASSIGNER.SUPERVISOR SEAMING CNOV Observed: 03/12/2018 Status: COMPLETED Source: [place] 9:40 AM [facility] REPOSITORY Office Visit ([facility]) TUAN FELICIANO ([id number]) 1940 M Date Time Provider Department 03/12/18 9:40 AM JAKE RIBERA (ZACH) [facility] During your visit today, we recorded the following information about you: Pulse Blood pressure Weight Height 60/minute 108/58 84.4 kg 1.88 m Jake Ribera RN APRN.SUPERVISOR SEAMING 03/12/2018 11:08 AM Signed Tuan Feliciano a 77 year old male who is returning for follow up regarding nausea and upper abdominal pain. I saw the patient in consultation on 02/15/18. That note has been reviewed. The patient was seen by Dr. Brambila for upper endoscopy . The procedure report has been reviewed and findings as follows: Findings: ? ? ?The examined esophagus was normal. ? ? ?Diffuse mildly erythematous mucosa was found in the gastric antrum. ? ? ?Biopsies were taken with a cold forceps for histology. Estimated ? ? ?blood loss was minimal. ? ? ?The examined duodenum was normal. 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 - No morphologic evidence of Helicobacter pylori. I have reviewed the procedure and pathology reports, as well as the images, with the patient. HPI: The patient presents today reporting that he takes the pantoprazole first thing in the morning. He waits, then takes the sucralfate. 30 minutes later he has cereal for breakfast. He uses lactose free milk and has for a few years. He tries to get the sucralfate in before each meal, but eats out a lot. We discussed his being able to decrease that since the EGD didn't show significant gastritis or ulcer. Most days are good days. Sunday wasn't a good day, but he hadn't slept well the night before. Was back to himself on Sunday. The patient reports that his stomach seems to bother him more when he is anxious. He has Ativan, but uses it sparingly since Dr. Vargas told him about the potential for addiction. He tells me that he had been on an antidepressant, but didn't like taking it. We discussed quality of life. REVIEW OF SYSTEMS: GENERAL: No weight loss, malaise or fevers GI: The patient states that his appetite has been good. He does get hungry. There has been no nausea, no vomiting. He denies dysphagia and denies odynophagia. There has rarely been indigestion and no heartburn. There has not been regurgitation. Bowel habits have been regular. There has not been diarrhea. There has not been constipation. The patient denies rectal bleeding. There has not been melena. No new or worsening abdominal pain. All other reviewed and negative other than HPI. PAST MEDICAL HISTORY Diagnosis Date - Coronary atherosclerosis of unspecified type of vessel, [place] or graft 1990 CABG 3 (no DC) in 1990; 1 stent in 1996 - Diverticulosis of colon (without mention of hemorrhage) Diverticulosis - Diverticulosis of colon (without mention of hemorrhage) - Essential hypertension, benign - Glaucoma - History of non-ST elevation myocardial infarction (NSTEMI) 05/07/2015 - Mental disorder - Other specified glaucoma - Peptic ulcer, unspecified site, unspecified as acute or chronic, without mention of hemorrhage, perforation, or obstruction - Primary open-angle glaucoma(365.11) 12/2009 - Snoring - Trigeminal neuralgia 2001 - Unspecified hemorrhoids without mention of complication Hemorrhoids PAST SURGICAL HISTORY Procedure Laterality Date - ANGIOPLASTY 1996 WITH STENT - CABG, ARTERIAL, THREE 1990 - COLONOSCOP W/ OR W/O [facility] SPEC 01/2004 Colonoscopy - COLONOSCOP W/ OR W/O [facility] SPEC 09/29/2009 Colonoscopy - COLONOSCOP W/ OR W/O [facility] SPEC 02/05/2015 Colonoscopy - EGD W/O OR W/BRUSH/WASH 08/14/2016 EGD - EGD W/O OR W/BRUSH/WASH 02/25/2018 EGD - HEART SURGERY HX - HERNIA REPAIR HX 10/2017 removal - INCISION OF EYE, TRABECULECTOMY 2009 OU - LAPAROSCOPIC CHOLEYCYSTECTOMY Cholecystectomy, lap - PAST SURGICAL HISTORY OF 03/25 Right Knee Ligament Repair - REMV CATARACT EXTRACAP,INSERT LENS 12/19/12 OD Cataract Extraction with PC IOL with Trab/[facility] - WATER SHUNT-EXTRAOCUL RESERV 12/19/12 OD Glaucoma Implant; 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 Stir and swallow, at least 30 minutes before meals. May repeat at bedtime, as needed. Disp: 120 tablet Rfl: 2 promethazine (PHENERGAN) 25 mg tablet Take 1 tablet by mouth every 6 hours as needed for Nausea/Vomiting. Disp: 30 tablet Rfl: 1 aspirin, enteric coated (ADULT LOW DOSE ASPIRIN) 81 mg EC tablet Adult Low Dose Aspirin 81 mg tablet Disp: Rfl: LORazepam (ATIVAN) 0.5 mg tab Take 1 tablet by mouth twice daily as needed (anxiety) for up to 30 days. Take 1 tablet daily as needed Disp: 30 tablet Rfl: 0 betamethasone dipropionate (DIPROSONE) 0.05 % cream Apply 1 application to affected area once daily. Disp: 45 g Rfl: 0 hydrOXYzine HCl (ATARAX) 25 mg tablet Take 1 tablet by mouth at bedtime as needed for Itching/Rash or Anxiety. Disp: 30 tablet Rfl: 5 zolpidem (AMBIEN) 10 mg tab Take 1 tablet by mouth at bedtime as needed for up to 30 days. FOR INSOMNIA Disp: 30 tablet Rfl: 4 Guar Gum (BENEFIBER,NUTRISOURCE FIBER) packet Take 1 Packet by mouth once daily. Disp: Rfl: ondansetron orally disintegrating (ZOFRAN ODT) 4 mg disintegrating tablet Take 1 tablet by mouth every 6 hours as needed for Nausea/Vomiting. Disp: 15 tablet Rfl: 1 atenolol (TENORMIN) 25 mg tablet Take 1/2 tablet daily Disp: Rfl: amLODIPine (NORVASC) 10 mg tablet Take 1 tablet by mouth once daily. Disp: Rfl: 0 TESTOSTERONE INTRAMUSC. Inject intramuscularly. Disp: Rfl: timolol maleate (ISTALOL) 0.5 % drpd Use 1 Drop in the right eye twice daily. Disp: Rfl: No current facility-administered medications for this visit. SOCIAL HISTORY: Reviewed and unchanged. PHYSICAL EXAMINATION: Blood pressure 108/58, pulse 60, height 188 cm (6' 2), weight 84.4 kg (186 lb). General Appearance: Well appearing, alert, in no acute distress, well-hydrated, well nourished. Skin: Skin color, texture, turgor normal. Eyes: Anicteric sclera. Lungs: Lungs clear to auscultation. No wheezing, rhonchi, rales. Heart: RRR without murmur. Abdomen: Abdomen soft, non-tender. Bowel sounds normal. No masses, organomegaly. Impression: dyspepsia 2)anxiety Plan: Continue pantoprazole. I have cautioned him not to stop taking it cold turkey due to rebound. He may decrease sucralfate. Follow up as needed. He agrees with this plan. I have personally interviewed and examined this patient. I have reviewed the information that the MA entered for this encounter. I spent 30 minutes in the visit, with greater than 50% of the total gaqv-dy-dcdk time of the visit in counseling and coordination of care. Jake Ribera RN PLANT ASSIGNER.ATUL Ribera RN PLANT ASSIGNER.ATUL 03/12/2018 10:18 AM Signed Continue pantoprazole each morning. You may cut back to three of the sucralfate a day. As you feel better, this can be cut back to two - morning and bedtime. Talk to Dr. Vargas about the lorazepam. Don't be reluctant to take it. Follow up as needed. Referring Provider: JAKE RIBERA (ASSET AVAILABILITY LEADER) [[id number]] Allergies As of Date: 03/12/2018 Noted Allergy Reaction ANAPROX (NAPROXEN SODIUM) 07/11/2005 CORTISONE 07/11/2005 CRESTOR (ROSUVASTATIN CALCIUM) 12/21/2006 8 - GI Upset ELAVIL (AMITRIPTYLINE) 03/07/2010 Comments: difficulty urinating HYDROCORTISONE 07/11/2005 KEFLEX (CEPHALEXIN) 09/06/2014 2 - Rash PENICILLINS 07/11/2005 PEPCID (FAMOTIDINE (PF)) 02/15/2018 14 - Other: See Comments Comments: dizziness SULFA (SULFONAMIDE ANTIBIOTICS) 07/11/2005 VIOXX (ROFECOXIB) 07/11/2005 ZOCOR (SIMVASTATIN) 07/11/2005 Date Reviewed: 03/12/2018 Reviewed by: Radha Reed Ma - Fully Assessed Reason for Visit: Surgical Followup [104] Primary Visit Diagnosis: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] Other Visit Diagnoses:Other gastritis without bleeding [K29.60] Anxiety [F41.9] Prescriptions as of 03/12/2018 Sig: SUCRALFATE 1 GRAM TABLET Dissolve one tablet in 30cc w* PROMETHAZINE 25 MG TABLET Take 1 tablet by mouth every * ASPIRIN 81 MG TABLET,DELAYED * Adult Low Dose Aspirin 81 mg * LORAZEPAM 0.5 MG TABLET Take 1 tablet by mouth twice * BETAMETHASONE DIPROPIONATE 0.* Apply 1 application to affect* HYDROXYZINE HCL 25 MG TABLET Take 1 tablet by mouth at bed* ZOLPIDEM 10 MG TABLET Take 1 tablet by mouth at bed* GUAR GUM ORAL PACKET Take 1 Packet by mouth once d* ONDANSETRON 4 MG DISINTEGRATI* Take 1 tablet by mouth every * ATENOLOL 25 MG TABLET Take 1/2 tablet daily AMLODIPINE 10 MG TABLET Take 1 tablet by mouth once d* TESTOSTERONE INTRAMUSC. Inject intramuscularly. TIMOLOL MALEATE 0.5 % ONCE DA* Use 1 Drop in the right eye t* Problem List As Of Date 03/12/2018 Noted Resolved BENIGN HYPERTENSION [I10] Coronary atherosclerosis [I25.10] More... Peptic ulcer, unspecified site, unspecified as * 05/07/2015 PERS HX COLONIC POLYPS [Z86.010] More... More... More... Malignant neoplasm of skin of trunk [C44.599] INVALID FOR* Anxiety [F41.9] INVALID FOR* Depression [F32.9] INVALID FOR*02/10/2016 Social phobia [F40.10] INVALID FOR* Primary open angle glaucoma [H40.1190] INVALID FOR* Cataract, nuclear sclerotic senile [H25.10] INVALID FOR* Special screening for malignant neoplasms, colo*INVALID FOR*02/05/2015 History of non-ST elevation myocardial infarcti*INVALID FOR* Irritable bowel syndrome with both constipation*INVALID FOR* Arthritis of left knee [M17.12] INVALID FOR* PUD (peptic ulcer disease) [K27.9] INVALID FOR* Family history of colon cancer [Z80.0] INVALID FOR* Anxiety and depression [F41.9, F32.9] INVALID FOR* Rash and nonspecific skin eruption [R21] INVALID FOR* Chronic insomnia [F51.04] INVALID FOR* Nausea [R11.0] INVALID FOR* More... Bilateral upper abdominal pain [R10.11, R10.12] INVALID FOR* More... Gastritis with hemorrhage [K29.71] INVALID FOR* More... Other instructions from your clinician: Continue pantoprazole each morning. You may cut back to three of the sucralfate a day. As you feel better, this can be cut back to two - morning and bedtime. Talk to Dr. Vargas about the lorazepam. Don't be reluctant to take it. Follow up as needed. Encounter Status:Closed by JAKE RIBERA CNP on 03/12/18 NURSING PROG Observed: 02/25/2018 Status: COMPLETED Source: [place] 11:08 AM [facility] REPOSITORY HNO ID: [id number] Author: Jillian AyalaRn) MILDRED Lentz Service: Nursing Author Type: Registered Nurse Type: Nursing Progress Note Filed: 02/25/2018 11:09 AM Note Text: Patient did not experience a fall prior to discharge. Patient did not experience a burn prior to discharge. Jillian Lentz RN NURSING PROG Observed: 02/25/2018 Status: COMPLETED Source: [place] 10:48 AM [facility] REPOSITORY HNO ID: [id number] Author: Jillian Lentz RN Service: Nursing Author Type: Registered Nurse Type: Nursing Progress Note Filed: 02/25/2018 10:49 AM Note Text: Dr. Brambila at bedside with patient and . Questions answered. Jillian Lentz RN PT ED Observed: 02/25/2018 Status: COMPLETED Source: [place] 10:34 AM [facility] REPOSITORY HNO ID: [id number] Author: Jillian AyalaRn) MILDRED Lentz Service: Nursing Author Type: Registered Nurse Type: Patient Education Filed: 02/25/2018 10:34 AM Note Text: POST OP LEARNING RESPONSE INSTRUCTION PROVIDED TO: Patient and Spouse METHOD OF INSTRUCTION: Written instruction - handouts Verbal instruction PATIENT / FAMILY RESPONSE: Verbalizes understanding of: INFECTION MANAGEMENT-Signs and symptoms of an infection and importance of contacting the physician PHYSICAL RESTRICTIONS-Physical restrictions and recommendations after discharge from the hospital POST-PROCEDURE INSTRUCTIONS-Correct actions to take to reduce post procedure complications PATIENT SAFETY PRINCIPLES WORSENING CONDITION-Signs and symptoms of a worsening condition that warrant a call to the physician FOLLOW-UP PLAN: Patient instructed to call with any further issues Follow up phone call. SUPPLEMENTAL MATERIAL: Procedure discharge instructions REFERRAL (RECOMMENDATION): None Electronically Signed By: Jillian Lentz RN In Department: AMBULATORY SURGERY NURSING PROG Observed: 02/25/2018 Status: COMPLETED Source: [place] 10:32 AM [facility] REPOSITORY HNO ID: [id number] Author: Jillian Bowman (Rn) MILDRED Lentz Service: Nursing Author Type: Registered Nurse Type: Nursing Progress Note Filed: 02/25/2018 10:33 AM Note Text: Patient requesting to urinate. Urinal provided. at bedside. Patient attempting to urinate. Jillian Lentz RN NURSING PROG Observed: 02/25/2018 Status: COMPLETED Source: [place] 10:13 AM [facility] REPOSITORY HNO ID: [id number] Author: Aylin Hunt (Rn) MILDRED Richard Service: (none) Author Type: Registered Nurse Type: Nursing Progress Note Filed: 02/25/2018 10:13 AM Note Text: Patient did not experience a fall within the Intraoperative area. Patient did not experience a burn within the Intraoperative area. Aylin Richard RN BRIEF OP NOT Observed: 02/25/2018 Status: COMPLETED Source: [place] 10:11 AM [facility] REPOSITORY HNO ID: [id number] Author: Gerson Brambila Service: Gastroenterology Author Type: Physician Type: Brief Op Note Filed: 02/25/2018 10:11 AM Note Text: Endoscopy completed. Procedure well tolerated. Patient leaving endoscopy room with entirely stable vital signs. Results will be carefully delineated in my final note which will follow shortly . Gerson Brambila M.D. HISTORY PHYSICAL Observed: 02/25/2018 Status: COMPLETED Source: [place] 10:03 AM [facility] REPOSITORY HNO ID: [id number] Author: Gerson Brambila Service: Gastroenterology Author Type: Physician Type: HANDP Filed: 02/25/2018 10:03 AM Note Text: UPDATED HISTORY AND PHYSICAL EXAMINATION SERVICE DATE: 02/25/2018 SERVICE TIME: 10:03 AM PHYSICAL EXAM MUST BE COMPLETED ON ADMISSION The History and Physical (completed in the past 30 days) has been reviewed and the patient has been examined. The contents accurately reflect the patient's condition with the following additions or revisions since the HANDP was completed. Examination indicates no changes. This HANDP can be found in the Electronic Medical Record dated 02/15/18. SIGNATURE: Gerson Brambila MD PATIENT NAME: Tuan Feliciano DATE: February 25, 2018 TIME: 10:03 AM PAGER: PT ED Observed: 02/25/2018 Status: COMPLETED Source: [place] 9:20 AM [facility] REPOSITORY HNO ID: [id number] Author: Gerber AyalaRn) MILDRED Le Service: Nursing Author Type: Registered Nurse Type: Patient Education Filed: 02/25/2018 9:21 AM Note Text: PRE OP LEARNING ASSESSMENT PROCEDURE/SURGERY: GI PROCEDURES: EGD READINESS TO LEARN COGNITIVE ABILITY: Alert and oriented MOTIVATION TO LEARN: Eager Interested FAMILY SUPPORT: High - Very involved in pt care PATIENT LEARNS BEST BY: Written Instruction - Hand-outs Verbal Instruction Multiple Methods FACTORS AFFECTING LEARNING: None PHYSICAL LIMITATIONS AFFECTING LEARNING: None Electronically Signed By: Gerber Le RN In Department: AMBULATORY SURGERY NURSING PROG Observed: 02/25/2018 Status: COMPLETED Source: [place] 9:00 AM [facility] REPOSITORY HNO ID: [id number] Author: Gerber Gómez) MILDRED Le Service: Nursing Author Type: Registered Nurse Type: Nursing Progress Note Filed: 02/25/2018 10:01 AM Note Text: [facility] PRE-OP NURSING HAND OFF NOTE SBAR Hand off given to Aylin Richard RN. Hand off was communicated verbally and at the patient's bedside and all questions were answered. FALLS/NOLAN Patient did not experience a fall within the Preoperative area. Patient did not experience a burn within the Preoperative area. Gerber Le RN SURGICAL PATHOLOGY Observed: 02/25/2018 Status: F Source: [place] 12:00 AM [facility] REPOSITORY Specimen originated from [facility] Specimen #: [id number] Submitting Physician: GERSON BRAMBILA MD FINAL DIAGNOSIS Stomach, biopsy - Gastric oxyntic mucosa with parietal cell hypertrophy. - No morphologic evidence of Helicobacter pylori. [facility]/opal 02/26/2018 William Ivy M.D. (Electronic Signature) SPECIMEN SUBMITTED A: ANTRUM, BIOPSY CLINICAL DATA R11.0, R10.11, K29.71 H/H GROSS DESCRIPTION A. Received in formalin are two pieces of casillas, soft tissue aggregating to 0.7 x 0.2 x 0.1 cm. Totally submitted in one cassette. Gross examination performed at [facility], [address] [place] [address] 02/26/2018 1:41:16 AM Date of Report: 02/26/2018 Date of Procedure: 02/25/2018 Date of Receipt: 02/25/2018 Submitted by: GERSON BRAMBILA MD Location: [facility] Diagnostic interpretation performed at [place] [address]. CNOV Observed: 02/15/2018 Status: COMPLETED Source: [place] 9:40 AM [facility] REPOSITORY Office Visit ([facility]) TUAN FELICIANO ([id number]) 1940 M Date Time Provider Department 02/15/18 9:40 AM JAKE RIBERA) [facility] During your visit today, we recorded the following information about you: Pulse Blood pressure Weight Height 58/minute 138/67 82.6 kg 1.854 m Jake Ribera RN APRN.SUPERVISOR SE[employer]ING 02/15/2018 1:44 PM Signed Tuan Feliciano a 77 year old male who is a consultation requested by Willie Reed NP, for an opinion regarding nausea and abdominal discomfort. My final recommendations will be communicated back to the requesting provider by way of shared Medical record. The patient has been seen previously. The patient was seen by Willie on 01/28/18, leading to this consultation. That note has been reviewed and part as follows: Reports 4 week h/o nausea, diffuse abdominal discomfort. No vomiting or diarrhea. ER report reviewed, CT scan showed diffuse colonic diverticulosis, mild bladder wall thickening (incidental finding) treated for gastritis with Carafate and Pepcid 20 mg bid. Reports he noted difficulty taking his morning medications, any food or medication he took seemed to set my stomach off. He denies any blood in stool or black, tarry stool. He states he has been taking Plavix on reduced schedule and did not take any last week. He also stopped taking Protonix because he felt this was also adding to his nausea. Since starting Carafate and Pepcid he reports significant improvement in his symptoms. He is still using Promethazine provided by ER visit only occasionally. He reports his appetite has resumed, and denies any pain, reflux, regurge or heartburn. He has resumed all his medications. Component Latest Ref Rng AND Units 01/29/2018 Occult Blood, Stool Negative Negative The patient was seen by Dr. Brambila for upper endoscopy 08/14/16 for reported epigastric pain with a history of PUD. The procedure report has been reviewed and findings as follows: Impression: ? ? - Normal esophagus. ? - Erythematous mucosa in the antrum. Biopsied. ? - Normal examined duodenum. FINAL DIAGNOSIS Stomach, antrum, biopsy - Gastric oxyntic-type mucosa with no diagnostic abnormality. No Helicobacter pylori organisms are identified. Presenting complaint: The patient presents today reporting that he had been taking pantoprazole up until a couple months ago. He stopped taking it when he started feeling sick. He resumed it this morning. The patient tells me that he is having a lot of indigestion and nausea. He tells me that he had been to the ED. The Carafate seemed to do a lot of good. The Pepcid gave him dizziness, so Willie instructed him to stop taking it and resume the pantoprazole. The patient tells me it seems like every time I took Plavix I got an upset stomach, so I quit taking it. His manager internet retails sales, Dr. Madera, instructed him to discontinue it and take take a baby aspirin. Having a bowel movement daily. No black stool. Some abdominal tenderness. Last 6 Encounter Wt Readings: Date: Wt: 02/15/2018 82.6 kg (182 lb) 01/28/2018 84.4 kg (186 lb) 01/25/2018 84.8 kg (187 lb) 12/20/2017 83.9 kg (185 lb) 08/02/2017 85.6 kg (188 lb 12.8 oz) 12/20/2016 86 kg (189 lb 9.6 oz) REVIEW OF SYSTEMS: GENERAL: Weight loss RESPIRATORY: Negative for cough, hemoptysis, wheezing, COPD, dyspnea or shortness of breath CARDIOVASCULAR: Positive for CAD and hypertension. GI: The patient states that his appetite has been adequate. He does get hungry. There has been some nausea, no vomiting. He denies dysphagia and denies odynophagia. There has not been indigestion or heartburn. There has not been regurgitation. Bowel habits have been regular. There has not been diarrhea. There has not been constipation. The patient denies rectal bleeding. There has not been melena. No abdominal pain. ENDOCRINE: Negative for thyroid or diabetes. NEURO: No history of headaches, syncope, paralysis, seizures or tremors All other reviewed and negative other than HPI. PAST MEDICAL HISTORY Diagnosis Date - Coronary atherosclerosis of unspecified type of vessel, [place] or graft 1990 CABG 3 (no DC) in 1990; 1 stent in 1996 - Diverticulosis of colon (without mention of hemorrhage) Diverticulosis - Diverticulosis of colon (without mention of hemorrhage) - Essential hypertension, benign - Glaucoma - History of non-ST elevation myocardial infarction (NSTEMI) 05/07/2015 - Mental disorder - Other specified glaucoma - Peptic ulcer, unspecified site, unspecified as acute or chronic, without mention of hemorrhage, perforation, or obstruction - Primary open-angle glaucoma(365.11) 12/2009 - Snoring - Trigeminal neuralgia 2001 - Unspecified hemorrhoids without mention of complication Hemorrhoids PAST SURGICAL HISTORY Procedure Laterality Date - ANGIOPLASTY 1996 WITH STENT - CABG, ARTERIAL, THREE 1990 - COLONOSCOP W/ OR W/O [facility] SPEC 01/2004 Colonoscopy - COLONOSCOP W/ OR W/O [facility] SPEC 09/29/2009 Colonoscopy - COLONOSCOP W/ OR W/O [facility] SPEC 02/05/2015 Colonoscopy - EGD W/O OR W/BRUSH/WASH 08/14/2016 EGD - HEART SURGERY HX - HERNIA REPAIR HX 10/2017 removal - INCISION OF EYE, TRABECULECTOMY 2009 OU - LAPAROSCOPIC CHOLEYCYSTECTOMY Cholecystectomy, lap - PAST SURGICAL HISTORY OF 03/25 Right Knee Ligament Repair - REMV CATARACT EXTRACAP,INSERT LENS 12/19/12 OD Cataract Extraction with PC IOL with Trab/[facility] - WATER SHUNT-EXTRAOCUL RESERV 12/19/12 OD Glaucoma Implant; BGI 350 combined FAMILY HISTORY Problem Relation Age of Onset - Colon Cancer Father - Hypertension Father - Glaucoma Mother - Blindness Mother - Hypertension Brother - Hypertension Brother - Hypertension Brother Current Outpatient Prescriptions: promethazine (PHENERGAN) 25 mg tablet Take 1 tablet by mouth every 6 hours as needed for Nausea/Vomiting. Disp: 30 tablet Rfl: 1 famotidine (PEPCID) 20 mg tablet Take 1 tablet by mouth twice daily. Disp: 60 tablet Rfl: 5 sucralfate (CARAFATE) 1 gram tablet Take 1 tablet by mouth four times daily. Disp: 28 tablet Rfl: 0 aspirin, enteric coated (ADULT LOW DOSE ASPIRIN) 81 mg EC tablet Adult Low Dose Aspirin 81 mg tablet Disp: Rfl: LORazepam (ATIVAN) 0.5 mg tab Take 1 tablet by mouth twice daily as needed (anxiety) for up to 30 days. Take 1 tablet daily as needed Disp: 30 tablet Rfl: 0 betamethasone dipropionate (DIPROSONE) 0.05 % cream Apply 1 application to affected area once daily. Disp: 45 g Rfl: 0 hydrOXYzine HCl (ATARAX) 25 mg tablet Take 1 tablet by mouth at bedtime as needed for Itching/Rash or Anxiety. Disp: 30 tablet Rfl: 5 zolpidem (AMBIEN) 10 mg tab Take 1 tablet by mouth at bedtime as needed for up to 30 days. FOR INSOMNIA Disp: 30 tablet Rfl: 4 Guar Gum (BENEFIBER,NUTRISOURCE FIBER) packet Take 1 Packet by mouth once daily. Disp: Rfl: ondansetron orally disintegrating (ZOFRAN ODT) 4 mg disintegrating tablet Take 1 tablet by mouth every 6 hours as needed for Nausea/Vomiting. Disp: 15 tablet Rfl: 1 atenolol (TENORMIN) 25 mg tablet Take 1/2 tablet daily Disp: Rfl: amLODIPine (NORVASC) 10 mg tablet Take 1 tablet by mouth once daily. Disp: Rfl: 0 TESTOSTERONE INTRAMUSC. Inject intramuscularly. Disp: Rfl: clopidogrel (PLAVIX) 75 mg tablet Take by mouth once daily. Disp: 30 tablet Rfl: 11 timolol maleate (ISTALOL) 0.5 % drpd Use 1 Drop in the right eye twice daily. Disp: Rfl: No current facility-administered medications for this visit. SOCIAL HISTORY: Patient is . He has never smoked and reports his alcohol use as never. PHYSICAL EXAMINATION: Blood pressure 138/67, pulse (!) 58, height 185.4 cm (6' 1), weight 82.6 kg (182 lb). General Appearance: Well appearing, alert, in no acute distress, well-hydrated, well nourished. Skin: Skin color, texture, turgor normal, no suspicious rashes or lesions. Eyes: Anicteric sclera. Oropharynx: Dentures. Lips, mucosa, and tongue normal, oropharynx normal. Neck: Supple, no adenopathy. Lungs: Lungs clear to auscultation. No wheezing, rhonchi, rales. Heart: RRR without murmur. Abdomen: Abdomen soft, non-tender. Bowel sounds normal. No masses, organomegaly. Extremities: No deformities, edema, skin discoloration, clubbing or cyanosis. Impression: nausea 2)upper abdominal pain 3)gastritis Plan: The patient will continue omeprazole and sucralfate. He is scheduled for upper endoscopy. Preparation for the procedure and the procedure itself have been explained in detail. The risks, benefits, anticipated outcomes and possible complications were mentioned. I also explained the procedure in understandable terms and the patient was given printed material concerning the planned procedure. The patient had the opportunity to ask questions concerning the planned procedure. The patient freely consents to the planned procedure. The patient is asked to call with any questions or concerns, or if there is a change in health status between now and the scheduled procedure. mI have personally interviewed and examined this patient. I have read the information that the MA documented in this encounter. This visit was at least 30 minutes of face to face time, with a majority of the time spent in review of the past records with the patient, discussion and counseling. Jake Ribera RN APRN.ATUL Ribera RN APRN.ATUL 02/15/2018 10:12 AM Signed Continue pantoprazole. May use the phenergan for nausea. Continue sucralfate to coat your stomach. (dissolve the tablet in water, as discussed). Please follow the instructions for upper endoscopy. Your procedure will be with Dr. Brambila, on February 25. The nurse will call you on February 22 with specific instructions and the time. Referring Provider: WILLIE REED (ASSET AVAILABILITY LEADER) [[id number]] Allergies As of Date: 02/15/2018 Noted Allergy Reaction ANAPROX (NAPROXEN SODIUM) 07/11/2005 CORTISONE 07/11/2005 CRESTOR (ROSUVASTATIN CALCIUM) 12/21/2006 8 - GI Upset ELAVIL (AMITRIPTYLINE) 03/07/2010 Comments: difficulty urinating HYDROCORTISONE 07/11/2005 KEFLEX (CEPHALEXIN) 09/06/2014 2 - Rash PENICILLINS 07/11/2005 PEPCID (FAMOTIDINE (PF)) 02/15/2018 14 - Other: See Comments Comments: dizziness SULFA (SULFONAMIDE ANTIBIOTICS) 07/11/2005 VIOXX (ROFECOXIB) 07/11/2005 ZOCOR (SIMVASTATIN) 07/11/2005 Date Reviewed: 02/15/2018 Reviewed by: Radha Reed Ma - Fully Assessed Reason for Visit: medication issue [Other] Primary Visit Diagnosis:Nausea [R11.0] Other Visit Diagnoses:Upper abdominal pain [R10.10] Gastritis with hemorrhage, unspecified chronicity, unspecified gastritis type [K29.71] Order(s):EGD [0038386] Order #: [id number] FUTURE sucralfate (CARAFATE) 1 gram tabletDissolve one tablet in 30cc water. Stir and swallow, at least 30 minutes before meals. May repeat at bedtime, as needed.Disp: 120 tabletRfl: 2 Prescriptions as of 02/15/2018 Sig: SUCRALFATE 1 GRAM TABLET Dissolve one tablet in 30cc w* PROMETHAZINE 25 MG TABLET Take 1 tablet by mouth every * ASPIRIN 81 MG TABLET,DELAYED * Adult Low Dose Aspirin 81 mg * LORAZEPAM 0.5 MG TABLET Take 1 tablet by mouth twice * BETAMETHASONE DIPROPIONATE 0.* Apply 1 application to affect* HYDROXYZINE HCL 25 MG TABLET Take 1 tablet by mouth at bed* ZOLPIDEM 10 MG TABLET Take 1 tablet by mouth at bed* GUAR GUM ORAL PACKET Take 1 Packet by mouth once d* ONDANSETRON 4 MG DISINTEGRATI* Take 1 tablet by mouth every * ATENOLOL 25 MG TABLET Take 1/2 tablet daily AMLODIPINE 10 MG TABLET Take 1 tablet by mouth once d* TESTOSTERONE INTRAMUSC. Inject intramuscularly. TIMOLOL MALEATE 0.5 % ONCE DA* Use 1 Drop in the right eye t* Problem List As Of Date 02/15/2018 Noted Resolved BENIGN HYPERTENSION [I10] Coronary atherosclerosis [I25.10] More... Peptic ulcer, unspecified site, unspecified as * 05/07/2015 PERS HX COLONIC POLYPS [Z86.010] More... More... More... Malignant neoplasm of skin of trunk [C44.599] INVALID FOR* Anxiety [F41.9] INVALID FOR* Depression [F32.9] INVALID FOR*02/10/2016 Social phobia [F40.10] INVALID FOR* Primary open angle glaucoma [H40.1190] INVALID FOR* Cataract, nuclear sclerotic senile [H25.10] INVALID FOR* Special screening for malignant neoplasms, colo*INVALID FOR*02/05/2015 History of non-ST elevation myocardial infarcti*INVALID FOR* Irritable bowel syndrome with both constipation*INVALID FOR* Arthritis of left knee [M17.12] INVALID FOR* PUD (peptic ulcer disease) [K27.9] INVALID FOR* Family history of colon cancer [Z80.0] INVALID FOR* Anxiety and depression [F41.9, F32.9] INVALID FOR* Rash and nonspecific skin eruption [R21] INVALID FOR* Chronic insomnia [F51.04] INVALID FOR* Nausea [R11.0] INVALID FOR* More... Bilateral upper abdominal pain [R10.11, R10.12] INVALID FOR* More... Gastritis with hemorrhage [K29.71] INVALID FOR* More... Other instructions from your clinician: Continue pantoprazole. May use the phenergan for nausea. Continue sucralfate to coat your stomach. (dissolve the tablet in water, as discussed). Please follow the instructions for upper endoscopy. Your procedure will be with Dr. Brambila, on February 25. The nurse will call you on February 22 with specific instructions and the time. Prescriptions ordered this encounter Disp Refills Start End SUCRALFATE 1 GRAM TABLET 120 * 2 02/15/2018 Sig: Dissolve one tablet in 30cc water. Stir and swallow, at least 30 minutes before meals. May repeat at bedtime, as needed. Medications Discontinued During This Encounter famotidine (PEPCID) 20 mg tablet 60 t* 5 01/28/2018 02/15/2018 Route: ORAL Sig: Take 1 tablet by mouth twice daily. Disc: Side Effects sucralfate (CARAFATE) 1 gram tablet 28 t* 0 01/28/2018 02/15/2018 Route: ORAL Sig: Take 1 tablet by mouth four times daily. Disc: Reason for discontinue is not on file. clopidogrel (PLAVIX) 75 mg tablet 30 t* 11 04/23/2015 02/15/2018 Class: Historical Med Route: ORAL Sig: Take by mouth once daily. Disc: Discontinued by another Health Care Provider Encounter Status:Closed by JAKE RIBERA CNP on 02/15/18 HISTORY PHYSICAL Observed: 02/15/2018 Status: COMPLETED Source: [place] 9:37 AM [facility] REPOSITORY O ID: [id number] Author: Jake (Zach) Bacilio Service: (none) Author Type: Nurse Practitioner Type: HANDP Filed: 02/15/2018 1:44 PM Note Text: Tuan Feliciano a 77 year old male who is a consultation requested by Willie Reed NP, for an opinion regarding nausea and abdominal discomfort. My final recommendations will be communicated back to the requesting provider by way of shared Medical record. The patient has been seen previously. The patient was seen by Willie on 01/28/18, leading to this consultation. That note has been reviewed and part as follows: Reports 4 week h/o nausea, diffuse abdominal discomfort. No vomiting or diarrhea. ER report reviewed, CT scan showed diffuse colonic diverticulosis, mild bladder wall thickening (incidental finding) treated for gastritis with Carafate and Pepcid 20 mg bid. Reports he noted difficulty taking his morning medications, any food or medication he took seemed to set my stomach off. He denies any blood in stool or black, tarry stool. He states he has been taking Plavix on reduced schedule and did not take any last week. He also stopped taking Protonix because he felt this was also adding to his nausea. Since starting Carafate and Pepcid he reports significant improvement in his symptoms. He is still using Promethazine provided by ER visit only occasionally. He reports his appetite has resumed, and denies any pain, reflux, regurge or heartburn. He has resumed all his medications. Component Latest Ref Rng AND Units 01/29/2018 Occult Blood, Stool Negative Negative The patient was seen by Dr. Brambila for upper endoscopy 08/14/16 for reported epigastric pain with a history of PUD. The procedure report has been reviewed and findings as follows: Impression: ? ? - Normal esophagus. ? - Erythematous mucosa in the antrum. Biopsied. ? - Normal examined duodenum. FINAL DIAGNOSIS Stomach, antrum, biopsy - Gastric oxyntic-type mucosa with no diagnostic abnormality. No Helicobacter pylori organisms are identified. Presenting complaint: The patient presents today reporting that he had been taking pantoprazole up until a couple months ago. He stopped taking it when he started feeling sick. He resumed it this morning. The patient tells me that he is having a lot of indigestion and nausea. He tells me that he had been to the ED. The Carafate seemed to do a lot of good. The Pepcid gave him dizziness, so Willie instructed him to stop taking it and resume the pantoprazole. The patient tells me it seems like every time I took Plavix I got an upset stomach, so I quit taking it. His manager internet retails sales, Dr. Madera, instructed him to discontinue it and take take a baby aspirin. Having a bowel movement daily. No black stool. Some abdominal tenderness. Last 6 Encounter Wt Readings: Date: Wt: 02/15/2018 82.6 kg (182 lb) 01/28/2018 84.4 kg (186 lb) 01/25/2018 84.8 kg (187 lb) 12/20/2017 83.9 kg (185 lb) 08/02/2017 85.6 kg (188 lb 12.8 oz) 12/20/2016 86 kg (189 lb 9.6 oz) REVIEW OF SYSTEMS: GENERAL: Weight loss RESPIRATORY: Negative for cough, hemoptysis, wheezing, COPD, dyspnea or shortness of breath CARDIOVASCULAR: Positive for CAD and hypertension. GI: The patient states that his appetite has been adequate. He does get hungry. There has been some nausea, no vomiting. He denies dysphagia and denies odynophagia. There has not been indigestion or heartburn. There has not been regurgitation. Bowel habits have been regular. There has not been diarrhea. There has not been constipation. The patient denies rectal bleeding. There has not been melena. No abdominal pain. ENDOCRINE: Negative for thyroid or diabetes. NEURO: No history of headaches, syncope, paralysis, seizures or tremors All other reviewed and negative other than HPI. PAST MEDICAL HISTORY Diagnosis Date - Coronary atherosclerosis of unspecified type of vessel, [place] or graft 1990 CABG 3 (no DC) in 1990; 1 stent in 1996 - Diverticulosis of colon (without mention of hemorrhage) Diverticulosis - Diverticulosis of colon (without mention of hemorrhage) - Essential hypertension, benign - Glaucoma - History of non-ST elevation myocardial infarction (NSTEMI) 05/07/2015 - Mental disorder - Other specified glaucoma - Peptic ulcer, unspecified site, unspecified as acute or chronic, without mention of hemorrhage, perforation, or obstruction - Primary open-angle glaucoma(365.11) 12/2009 - Snoring - Trigeminal neuralgia 2001 - Unspecified hemorrhoids without mention of complication Hemorrhoids PAST SURGICAL HISTORY Procedure Laterality Date - ANGIOPLASTY 1996 WITH STENT - CABG, ARTERIAL, THREE 1990 - COLONOSCOP W/ OR W/O [facility] SPEC 01/2004 Colonoscopy - COLONOSCOP W/ OR W/O [facility] SPEC 09/29/2009 Colonoscopy - COLONOSCOP W/ OR W/O [facility] SPEC 02/05/2015 Colonoscopy - EGD W/O OR W/BRUSH/WASH 08/14/2016 EGD - HEART SURGERY HX - HERNIA REPAIR HX 10/2017 removal - INCISION OF EYE, TRABECULECTOMY 2009 OU - LAPAROSCOPIC CHOLEYCYSTECTOMY Cholecystectomy, lap - PAST SURGICAL HISTORY OF 03/25 Right Knee Ligament Repair - REMV CATARACT EXTRACAP,INSERT LENS 12/19/12 OD Cataract Extraction with PC IOL with Trab/[facility] - WATER SHUNT-EXTRAOCUL RESERV 12/19/12 OD Glaucoma Implant; BGI 350 combined FAMILY HISTORY Problem Relation Age of Onset - Colon Cancer Father - Hypertension Father - Glaucoma Mother - Blindness Mother - Hypertension Brother - Hypertension Brother - Hypertension Brother Current Outpatient Prescriptions: promethazine (PHENERGAN) 25 mg tablet Take 1 tablet by mouth every 6 hours as needed for Nausea/Vomiting. Disp: 30 tablet Rfl: 1 famotidine (PEPCID) 20 mg tablet Take 1 tablet by mouth twice daily. Disp: 60 tablet Rfl: 5 sucralfate (CARAFATE) 1 gram tablet Take 1 tablet by mouth four times daily. Disp: 28 tablet Rfl: 0 aspirin, enteric coated (ADULT LOW DOSE ASPIRIN) 81 mg EC tablet Adult Low Dose Aspirin 81 mg tablet Disp: Rfl: LORazepam (ATIVAN) 0.5 mg tab Take 1 tablet by mouth twice daily as needed (anxiety) for up to 30 days. Take 1 tablet daily as needed Disp: 30 tablet Rfl: 0 betamethasone dipropionate (DIPROSONE) 0.05 % cream Apply 1 application to affected area once daily. Disp: 45 g Rfl: 0 hydrOXYzine HCl (ATARAX) 25 mg tablet Take 1 tablet by mouth at bedtime as needed for Itching/Rash or Anxiety. Disp: 30 tablet Rfl: 5 zolpidem (AMBIEN) 10 mg tab Take 1 tablet by mouth at bedtime as needed for up to 30 days. FOR INSOMNIA Disp: 30 tablet Rfl: 4 Guar Gum (BENEFIBER,NUTRISOURCE FIBER) packet Take 1 Packet by mouth once daily. Disp: Rfl: ondansetron orally disintegrating (ZOFRAN ODT) 4 mg disintegrating tablet Take 1 tablet by mouth every 6 hours as needed for Nausea/Vomiting. Disp: 15 tablet Rfl: 1 atenolol (TENORMIN) 25 mg tablet Take 1/2 tablet daily Disp: Rfl: amLODIPine (NORVASC) 10 mg tablet Take 1 tablet by mouth once daily. Disp: Rfl: 0 TESTOSTERONE INTRAMUSC. Inject intramuscularly. Disp: Rfl: clopidogrel (PLAVIX) 75 mg tablet Take by mouth once daily. Disp: 30 tablet Rfl: 11 timolol maleate (ISTALOL) 0.5 % drpd Use 1 Drop in the right eye twice daily. Disp: Rfl: No current facility-administered medications for this visit. SOCIAL HISTORY: Patient is . He has never smoked and reports his alcohol use as never. PHYSICAL EXAMINATION: Blood pressure 138/67, pulse (!) 58, height 185.4 cm (6' 1), weight 82.6 kg (182 lb). General Appearance: Well appearing, alert, in no acute distress, well-hydrated, well nourished. Skin: Skin color, texture, turgor normal, no suspicious rashes or lesions. Eyes: Anicteric sclera. Oropharynx: Dentures. Lips, mucosa, and tongue normal, oropharynx normal. Neck: Supple, no adenopathy. Lungs: Lungs clear to auscultation. No wheezing, rhonchi, rales. Heart: RRR without murmur. Abdomen: Abdomen soft, non-tender. Bowel sounds normal. No masses, organomegaly. Extremities: No deformities, edema, skin discoloration, clubbing or cyanosis. Impression: nausea 2)upper abdominal pain 3)gastritis Plan: The patient will continue omeprazole and sucralfate. He is scheduled for upper endoscopy. Preparation for the procedure and the procedure itself have been explained in detail. The risks, benefits, anticipated outcomes and possible complications were mentioned. I also explained the procedure in understandable terms and the patient was given printed material concerning the planned procedure. The patient had the opportunity to ask questions concerning the planned procedure. The patient freely consents to the planned procedure. The patient is asked to call with any questions or concerns, or if there is a change in health status between now and the scheduled procedure. mI have personally interviewed and examined this patient. I have read the information that the MA documented in this encounter. This visit was at least 30 minutes of face to face time, with a majority of the time spent in review of the past records with the patient, discussion and counseling. Jake Ribera RN PLANT ASSIGNER.[facility] Observed: 02/15/2018 Status: COMPLETED Source: [place] 12:00 AM [facility] REPOSITORY Patient:Tuan Feliciano MRN: <[id number]> Height:6' 1(1.854 m) Weight:182 lb (82.555 kg) Outpatient Medications as of 02/25/18: sucralfate (CARAFATE) 1 gram tablet promethazine (PHENERGAN) 25 mg tablet aspirin, enteric coated (ADULT LOW DOSE ASPIRIN) 81 mg EC tablet LORazepam (ATIVAN) 0.5 mg tab betamethasone dipropionate (DIPROSONE) 0.05 % cream hydrOXYzine HCl (ATARAX) 25 mg tablet zolpidem (AMBIEN) 10 mg tab Guar Gum (BENEFIBER,NUTRISOURCE FIBER) packet ondansetron orally disintegrating (ZOFRAN ODT) 4 mg disintegrating tablet atenolol (TENORMIN) 25 mg tablet amLODIPine (NORVASC) 10 mg tablet TESTOSTERONE INTRAMUSC. 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] Arthritis of left knee [M17.12] PUD (peptic ulcer disease) [K27.9] Family history of colon cancer [Z80.0] Anxiety and depression [F41.9, F32.9] Rash and nonspecific skin eruption [R21] Chronic insomnia [F51.04] Nausea [R11.0] Bilateral upper abdominal pain [R10.11, R10.12] Gastritis with hemorrhage [K29.71] Allergies: Anaprox [Naproxen Sodium] Cortisone Crestor [Rosuvastatin Calcium] Elavil [Amitriptyline] Hydrocortisone Keflex [Cephalexin] Penicillins Pepcid [Famotidine (Pf)] Sulfa (Sulfonamide Antibiotics) Vioxx [Rofecoxib] Zocor [Simvastatin] Date Verified: 02/25/18 Lab Values No results within the last 30 days for the following basenames: K,HCT Progress Notes ([facility] CR): Radha Reed Ma 02/15/2018 11:36 AM Signed AMBULATORY PATIENT EDUCATION NOTE READINESS TO LEARN Cogntitive ability: Alert and oriented Motivation to learn: Interested Family support: Unable to assess - family not present Instruction provided to: Patient Patient learns best by: Individual instruction, written instruction (hand-outs), and verbal instruction. Factors affecting learning: None Physical limitations affecting learning: None LEARNING RESPONSE Diagnosis: Nausea Education topic/teaching points: Upper Endoscopy METHOD OF INSTRUCTION:Teachback:Individual instruction, written instruction (hand-outs), and verbal instruction. Patient/family response: Verbalizes understanding of pre-procedure instructions. Follow-up plan: Complete - No need for follow-up Supplemental material: None Patient instructed to check insurance benefits and precertification.Patient instructed to bring in advanced directives if applicable. Referral Entered: No Does patient have a Pacemaker or Defibrillator? No Electronically Signed By: Radha Reed Ma In department: Gastroenterology Progress Notes ([facility]): Luis E Montesinos LPN 02/14/2018 10:51 AM Signed Pt stops by office requesting refills of medication. carafate Helps a little. Pt states he is not able to take the Pepcid d/t it makes him lightheaded and harder to catch his breath. Has been off of medication x 1 week. Reports that he tried taking 1/2 tablet today but still got the same sx. Questioning if there is anything else he can try. Pt states he is not feeling any better since last ov. Has f/u appt with you 03/11/18. Ok to give Tara information on cell # [phone] Willie Reed, MSN PLANT ASSIGNER.SUPERVISOR SEAMING 02/14/2018 12:07 PM Signed He may need a repeat upper endoscopy to get a better picture of what is going on. Carafate is not intended to be taken on regular basis, just Temporary and if it's not really helping then I don't recommend refilling it. If he hasn't resumed Protonix, he should begin taking again and then schedule an apt to see Akosua Ribera CNP. The following approved medication requests have been transmitted electronically. Signed Prescriptions Disp Refills promethazine (PHENERGAN) 25 mg tablet 30 tablet 1 Sig: Take 1 tablet by mouth every 6 hours as needed for Nausea/Vomiting. GARRY: No Authorizing Provider: WILLIE REED (ASSET AVAILABILITY LEADER) Refused Prescriptions Disp Refills sucralfate (CARAFATE) 1 gram tablet 28 tablet 0 Sig: Take 1 tablet by mouth four times daily. GARRY: No Refused By: WILLIE REED CNP Reason for Refusal: A Refill not appropriate Willie Reed, MSN PLANT ASSIGNER.SUPERVISOR SEAMING Willie Reed, MSN PLANT ASSIGNER.SUPERVISOR SEAMING Luis E Montesinos LPN 02/14/2018 1:15 PM Signed Pt advised of Willie's message and verbalizes understanding. He will start taking the Protonix. Pt aware message will be sent to PSR to help him schedule appt with Jake Ribera CNP. Luis E Guillenwilla Ivey Jaguar ANDRADE 02/14/2018 1:15 PM Signed Please assist pt in scheduling appt with aJke Ribera NP Gastro. Ok to call cell or home phone. Thank you. Luis E Ivey Jaguar ANDRADE Virginie Lujan Psr 02/14/2018 4:48 PM Signed Patient is scheduled 02/15/2018 URINALYSIS WITH Collected: 01/29/2018 Status: F Source: [facility] 10:10 AM [facility] REPOSITORY TYPE CODE TESTS RESULT OUT OF REFERENCE UNITS RANGE LAB UCOL Yellow Color Yellow LAB [facility] Clear Clarity Clear LAB UGLUC Negative mg/dL Glucose, Urine Negative LAB UBIL Negative Bilirubin, Urine Negative LAB UKET Negative Ketones, Urine Negative LAB USPG 1.005-1.030 Specific [place], Ur 1.011 LAB UHGB Negative Hemoglobin/Blood, Negative Ur LAB UPH 4.5-8.0 pH 7.0 LAB UPROT Negative mg/dL Protein, Urine Negative LAB UUROB Normal Urobilinogen Normal LAB UNITR Negative Nitrites Negative LAB ULKEST Negative Leukest Negative LAB UCOM Comments SEE COMMENT Result Comment: N/A LAB UMCOM Urine SEE Kailash Comment COMMENT Result Comment: N/A LAB UWBC 0-5 /HPF WBC 0-5 LAB URBC 0-3 /HPF RBC 0-3 LAB UEPI /HPF Epithelial SEE Cells COMMENT Result Comment: Few Squamous Epithelial Cells Performed By: #### UAWMIC #### [facility] [address] [place], [place] [address] FECAL OCCULT BLD Collected: 01/29/2018 Status: F Source: [facility] 9:00 AM [facility] REPOSITORY TYPE CODE TESTS RESULT OUT OF REFERENCE UNITS RANGE LAB IFO Negative Immuno Negative FOB Result Comment: This test was developed and its performance characteristics determined by [facility] [place] ([facility]). It has not been cleared or approved by the FDA. [facility] is regulated under CLIA as qualified to perform high-complexity testing. This test is used for clinical purposes. It should not be regarded as investigational or for research. Performed By: #### IFOBT #### [facility] [address] [place], [place] [address] PROGRESS Observed: 01/28/2018 Status: COMPLETED Source: [place] 8:52 AM [facility] REPOSITORY HNO ID: [id number] Author: Willie Reed (P 3 Armament/Ordnance Ima Technician) Service: (none) Author Type: Nurse Practitioner Type: Progress Notes Filed: 01/28/2018 9:40 AM Note Text: Chief Complaint Patient presents with: Abdominal Pain: patient was seen in [facility] ER 01/25/18 for stomach pain and is following up today HPI Tuan Feliciano is a 77 year old male who presents here today for Above Complaints. [facility] ED, on 01/25/18. Reports 4 week h/o nausea, diffuse abdominal discomfort. No vomiting or diarrhea. ER report reviewed, CT scan showed diffuse colonic diverticulosis, mild bladder wall thickening (incidental finding) treated for gastritis with Carafate and Pepcid 20 mg bid. Reports he noted difficulty taking his morning medications, any food or medication he took seemed to set my stomach off. He denies any blood in stool or black, tarry stool. He states he has been taking Plavix on reduced schedule and did not take any last week. He also stopped taking Protonix because he felt this was also adding to his nausea. Since starting Carafate and Pepcid he reports significant improvement in his symptoms. He is still using Promethazine provided by ER visit only occasionally. He reports his appetite has resumed, and denies any pain, reflux, regurge or heartburn. He has resumed all his medications. States he has been seeing Dr. Kraus for Eczema, admits that he worries about this and why it's occurring. Last EGD and biopsy results noted below. 08/16/2016 12:20 PM - Interface, Results In Results Specimen originated from [facility] Specimen #: [id number] Submitting Physician: GERSON BRAMBILA MD FINAL DIAGNOSIS Stomach, antrum, biopsy - Gastric oxyntic-type mucosa with no diagnostic abnormality. JEL/lbk 08/16/2016 COMMENT No Helicobacter pylori organisms are identified. 08/14/2016 11:10 AM - Interface, Results In Results [facility] Gastrointestinal Endoscopy Patient Name: Tuan Feliciano Procedure Date: 08/14/2016 10:50 AM Date of : 1940 Admit Type: Ambulatory Age: 75 Gender: Male Note Status: Finalized Procedure: ?Upper GI endoscopy Indications: ?Epigastric abdominal pain Providers: ?Gerson Brambila MD Patient Profile: ? ? ?This is a 75 year old male. Refer to note in patient ? chart for documentation of history and physical. Referring Physician: ?Alan Gutierrez MD Medicines: ?Fentanyl 50 micrograms IV, Midazolam 5 mg IV Complications: ?No immediate complications. Estimated blood loss: ? Minimal. Requesting Provider: Procedure: ?Pre-Anesthesia Assessment: ? - Prior to the procedure, a History and Physical was ? performed, and patient medications and allergies were ? reviewed. The patient is competent. The?risks and ? benefits of the procedure and the sedation options and ? risks were discussed with the patient. All questions ? were answered and informed consent was obtained. ? Patient identification and proposed procedure were ? verified by the physician in the procedure room. Mental ? Status Examination: alert and oriented. Airway ? Examination: normal oropharyngeal airway and neck ? mobility. Respiratory Examination: clear to ? auscultation. CV Examination: normal. Prophylactic ? Antibiotics: The patient does not require prophylactic ? antibiotics. Prior Anticoagulants: The patient has ? taken no previous anticoagulant or antiplatelet agents. ? ASA Grade Assessment: II - A patient with mild systemic ? disease. After reviewing the risks and benefits, the ? patient was deemed in satisfactory condition to undergo ? the procedure. The anesthesia plan was to use moderate ? sedation / analgesia (conscious sedation). Immediately ? prior to administration of medications, the patient was ? re-assessed for adequacy to receive sedatives. The ? heart rate, respiratory rate, oxygen saturations, blood ? pressure, adequacy of pulmonary ventilation, and ? response to care were monitored throughout the ? procedure. The physical status of the patient was ? re-assessed after the procedure. ? After obtaining informed consent, the endoscope was ? passed under direct vision. Throughout the procedure, ? the patient's blood pressure, pulse, and oxygen ? saturations were monitored continuously. The ? Endosonoscope was introduced through the mouth, and ? advanced to the third part of duodenum. The upper GI ? endoscopy was accomplished without difficulty. The ? patient tolerated the procedure well. Findings: ? ? ?The examined esophagus was normal. ? ? ?Patchy mildly erythematous mucosa was found in the gastric antrum. ? ? ?Biopsies were taken with a cold forceps for histology. Estimated blood ? ? ?loss was minimal. ? ? ?The examined duodenum was normal. Impression: ? - Normal esophagus. ? - Erythematous mucosa in the antrum. Biopsied. ? - Normal examined duodenum. Recommendation: ? ? ? - Discharge patient to home. ? - Written discharge instructions were provided to the ? patient. ? - Resume previous diet. ? - Return to nurse practitioner PRN. Attending Participation: ? ? ?I personally performed the entire procedure. MD Gerson Huston MD 08/14/2016 11:07:26 AM This report has been signed electronically by Gerson Brambila MD Number of Addenda: 0 Note Initiated On: 08/14/2016 10:50 AM Estimated Blood Loss: Estimated blood loss was minimal. Procedure Start: 10:58:38 AM Procedure End: 11:02:04 AM Past medical history, appointments, medications, allergies reviewed. Previous Medical History PAST MEDICAL HISTORY Diagnosis Date - Coronary atherosclerosis of unspecified type of vessel, [place] or graft 1990 CABG 3 (no DC) in 1990; 1 stent in 1996 - Diverticulosis of colon (without mention of hemorrhage) Diverticulosis - Diverticulosis of colon (without mention of hemorrhage) - Essential hypertension, benign - Glaucoma - History of non-ST elevation myocardial infarction (NSTEMI) 05/07/2015 - Mental disorder - Other specified glaucoma - Peptic ulcer, unspecified site, unspecified as acute or chronic, without mention of hemorrhage, perforation, or obstruction - Primary open-angle glaucoma(365.11) 12/2009 - Snoring - Trigeminal neuralgia 2001 - Unspecified hemorrhoids without mention of complication Hemorrhoids Previous Surgical History PAST SURGICAL HISTORY Procedure Laterality Date - ANGIOPLASTY 1996 WITH STENT - CABG, ARTERIAL, THREE 1990 - COLONOSCOP W/ OR W/O BRSH SPEC 01/2004 Colonoscopy - COLONOSCOP W/ OR W/O BRSH SPEC 09/29/2009 Colonoscopy - COLONOSCOP W/ OR W/O BRSH SPEC 02/05/2015 Colonoscopy - EGD W/O OR W/BRUSH/WASH 08/14/2016 EGD - HEART SURGERY HX - INCISION OF EYE, TRABECULECTOMY 2009 OU - LAPAROSCOPIC CHOLEYCYSTECTOMY Cholecystectomy, lap - PAST SURGICAL HISTORY OF 03/25 Right Knee Ligament Repair - REMV CATARACT EXTRACAP,INSERT LENS 12/19/12 OD Cataract Extraction with PC IOL with Trab/MMC - WATER SHUNT-EXTRAOCUL RESERV 12/19/12 OD Glaucoma Implant; BGI 350 combined Family History FAMILY HISTORY Problem Relation Age of Onset - Colon Cancer Father - Hypertension Father - Glaucoma Mother - Blindness Mother - Hypertension Brother - Hypertension Brother - Hypertension Brother Patient Allergies ALLERGIES Allergen Reactions - Anaprox [Naproxen S* - Cortisone - Crestor [Rosuvastat* GI Upset - Elavil [Amitriptyli* difficulty urinating - Hydrocortisone - Keflex [Cephalexin] Rash - Penicillins - Sulfa (Sulfonamide * - Vioxx [Rofecoxib] - Zocor [Simvastatin] Current Medications Current Outpatient Prescriptions on File Prior to Visit: aspirin, enteric coated (ADULT LOW DOSE ASPIRIN) 81 mg EC tablet Adult Low Dose Aspirin 81 mg tablet LORazepam (ATIVAN) 0.5 mg tab Take 1 tablet by mouth twice daily as needed (anxiety) for up to 30 days. Take 1 tablet daily as needed betamethasone dipropionate (DIPROSONE) 0.05 % cream Apply 1 application to affected area once daily. hydrOXYzine HCl (ATARAX) 25 mg tablet Take 1 tablet by mouth at bedtime as needed for Itching/Rash or Anxiety. promethazine (PHENERGAN) 25 mg tablet Take 1 tablet by mouth every 6 hours as needed for Nausea/Vomiting. zolpidem (AMBIEN) 10 mg tab Take 1 tablet by mouth at bedtime as needed for up to 30 days. FOR INSOMNIA Guar Gum (BENEFIBER,NUTRISOURCE FIBER) packet Take 1 Packet by mouth once daily. atenolol (TENORMIN) 25 mg tablet Take 1/2 tablet daily amLODIPine (NORVASC) 10 mg tablet Take 1 tablet by mouth once daily. TESTOSTERONE INTRAMUSC. Inject intramuscularly. clopidogrel (PLAVIX) 75 mg tablet Take by mouth once daily. timolol maleate (ISTALOL) 0.5 % drpd Use 1 Drop in the right eye twice daily. pantoprazole DR (PROTONIX) 20 mg tablet Take 1 tablet by mouth daily before breakfast. Take on empty stomach, 1/2 hr before meal. ondansetron orally disintegrating (ZOFRAN ODT) 4 mg disintegrating tablet Take 1 tablet by mouth every 6 hours as needed for Nausea/Vomiting. No current facility-administered medications on file prior to visit. Social History Social History Marital status: Spouse name: Years of education: Number of children: Social History Main Topics Smoking status: Never Smoker Smokeless tobacco: Former User Alcohol use: No Drug use: No Review of Symptoms REVIEW OF SYSTEMS PAIN ASSESSMENT: Negative for pain, history of chronic pain, or current treatment for a chronic pain condition. GENERAL: No weight loss, malaise or fevers HEENT: Negative for frequent or significant headaches, No changes in hearing or vision, no nose bleeds or other nasal problems NECK: Negative for lumps, goiter, pain and significant neck swelling RESPIRATORY: Negative for cough, hemoptysis, wheezing, COPD, dyspnea or shortness of breath CARDIOVASCULAR: Negative for chest pain, leg swelling, hypertension, CHF or palpitations GI: See HPI EXAM: BP 112/70 (BP Site: Left Arm, BP Position: Sitting, BP Cuff Size: Regular Adult) Pulse 64 Temp 36.6 ?C (97.9 ?F) (Tympanic) Resp 18 Wt 84.4 kg (186 lb) BMI 23.88 kg/m? General Appearance: Well appearing, alert, in no acute distress, well-hydrated, well nourished.. Oropharynx: Lips, mucosa, and tongue normal, teeth and gums normal, oropharynx normal. Neck: Supple, no adenopathy; thyroid symmetric, normal size, no bruits. Lungs: Lungs clear to auscultation. No wheezing, rhonchi, rales. Heart: RRR without murmur, gallop, or rubs. No ectopy. Abdomen: Normal abdominal exam, Abdomen soft, . Bowel sounds normal. No masses, organomegaly, Positive findings: tenderness mild generalized. Health Maintenance List DTAP,TDAP,TD(1 - Tdap) due on 1958 DIABETES SCREEN due on 04/21/2018 COLORECTAL CANCER SCREENING,SEE MODIFIER due on 02/06/2020 LIPID SCREEN due on 05/29/2022 PROSTATE CANCER SCREENING DISCUSSION Completed ADULT PREVNAR-13 Completed INFLUENZA Completed PNEUMOVAX AGE 65 AND OVER WITH 5YR LOOKBACK Completed ASSESSMENT/PLAN: 1. Gastritis with hemorrhage, unspecified chronicity, unspecified gastritis type - ICD9: 535.51, ICD10: K29.71 (primary diagnosis) - Will Continue the course of Carafate x 2 weeks and continue Famotidine bid. - Will have him check IFOBT, follow up with EGD if positive. - Follow up in office recheck in 6 weeks. If doing well will likely continue with Famotidine - FAMOTIDINE 20 MG TABLET - SUCRALFATE 1 GRAM TABLET - FECAL OCCULT BLOOD TEST 2. Microscopic hematuria - ICD9: 599.72, ICD10: R31.29 -Recheck UA w/micro. - URINALYSIS WITH MICROSCOPIC Willie Reed, MSN PLANT ASSIGNER.SUPERVISOR SEAMING CNOV Observed: 01/28/2018 Status: COMPLETED Source: [place] 8:40 AM [facility] REPOSITORY Office Visit (FAMPWS) FELICIANOTUAN Christensen ([id number]) 1940 M Date Time Provider Department 01/28/18 8:40 AM WILLIE REED (ASSET AVAILABILITY LEADER) FAMPWS During your visit today, we recorded the following information about you: Temperature Pulse Respiration Blood pressure 97.9 degrees 64/minute 18/minute 112/70 Weight 84.4 kg Willie Reed (P 3 Armament/Ordnance Ima Technician) 01/28/2018 9:40 AM Signed Chief Complaint Patient presents with: Abdominal Pain: patient was seen in [facility] ER 01/25/18 for stomach pain and is following up today HPI uTan Feliciano is a 77 year old male who presents here today for Above Complaints. [facility] ED, on 01/25/18. Reports 4 week h/o nausea, diffuse abdominal discomfort. No vomiting or diarrhea. ER report reviewed, CT scan showed diffuse colonic diverticulosis, mild bladder wall thickening (incidental finding) treated for gastritis with Carafate and Pepcid 20 mg bid. Reports he noted difficulty taking his morning medications, any food or medication he took seemed to set my stomach off. He denies any blood in stool or black, tarry stool. He states he has been taking Plavix on reduced schedule and did not take any last week. He also stopped taking Protonix because he felt this was also adding to his nausea. Since starting Carafate and Pepcid he reports significant improvement in his symptoms. He is still using Promethazine provided by ER visit only occasionally. He reports his appetite has resumed, and denies any pain, reflux, regurge or heartburn. He has resumed all his medications. States he has been seeing Dr. Kraus for Eczema, admits that he worries about this and why it's occurring. Last EGD and biopsy results noted below. 08/16/2016 12:20 PM - Interface, Results In Results Specimen originated from [facility] Specimen #: [id number] Submitting Physician: GERSON BRAMBILA MD FINAL DIAGNOSIS Stomach, antrum, biopsy - Gastric oxyntic-type mucosa with no diagnostic abnormality. JEL/lbk 08/16/2016 COMMENT No Helicobacter pylori organisms are identified. 08/14/2016 11:10 AM - Interface, Results In Results [facility] Gastrointestinal Endoscopy Patient Name: Tuan Feliciano Procedure Date: 08/14/2016 10:50 AM Date of : 1940 Admit Type: Ambulatory Age: 75 Gender: Male Note Status: Finalized Procedure: ?Upper GI endoscopy Indications: ?Epigastric abdominal pain Providers: ?Gerson Brambila MD Patient Profile: ? ? ?This is a 75 year old male. Refer to note in patient ? chart for documentation of history and physical. Referring Physician: ?Alan Gutierrez MD Medicines: ?Fentanyl 50 micrograms IV, Midazolam 5 mg IV Complications: ?No immediate complications. Estimated blood loss: ? Minimal. Requesting Provider: Procedure: ?Pre-Anesthesia Assessment: ? - Prior to the procedure, a History and Physical was ? performed, and patient medications and allergies were ? reviewed. The patient is competent. The?risks and ? benefits of the procedure and the sedation options and ? risks were discussed with the patient. All questions ? were answered and informed consent was obtained. ? Patient identification and proposed procedure were ? verified by the physician in the procedure room. Mental ? Status Examination: alert and oriented. Airway ? Examination: normal oropharyngeal airway and neck ? mobility. Respiratory Examination: clear to ? auscultation. CV Examination: normal. Prophylactic ? Antibiotics: The patient does not require prophylactic ? antibiotics. Prior Anticoagulants: The patient has ? taken no previous anticoagulant or antiplatelet agents. ? ASA Grade Assessment: II - A patient with mild systemic ? disease. After reviewing the risks and benefits, the ? patient was deemed in satisfactory condition to undergo ? the procedure. The anesthesia plan was to use moderate ? sedation / analgesia (conscious sedation). Immediately ? prior to administration of medications, the patient was ? re-assessed for adequacy to receive sedatives. The ? heart rate, respiratory rate, oxygen saturations, blood ? pressure, adequacy of pulmonary ventilation, and ? response to care were monitored throughout the ? procedure. The physical status of the patient was ? re-assessed after the procedure. ? After obtaining informed consent, the endoscope was ? passed under direct vision. Throughout the procedure, ? the patient's blood pressure, pulse, and oxygen ? saturations were monitored continuously. The ? Endosonoscope was introduced through the mouth, and ? advanced to the third part of duodenum. The upper GI ? endoscopy was accomplished without difficulty. The ? patient tolerated the procedure well. Findings: ? ? ?The examined esophagus was normal. ? ? ?Patchy mildly erythematous mucosa was found in the gastric antrum. ? ? ?Biopsies were taken with a cold forceps for histology. Estimated blood ? ? ?loss was minimal. ? ? ?The examined duodenum was normal. Impression: ? - Normal esophagus. ? - Erythematous mucosa in the antrum. Biopsied. ? - Normal examined duodenum. Recommendation: ? ? ? - Discharge patient to home. ? - Written discharge instructions were provided to the ? patient. ? - Resume previous diet. ? - Return to nurse practitioner PRN. Attending Participation: ? ? ?I personally performed the entire procedure. MD Gerson Huston MD 08/14/2016 11:07:26 AM This report has been signed electronically by Gerson Brambila MD Number of Addenda: 0 Note Initiated On: 08/14/2016 10:50 AM Estimated Blood Loss: Estimated blood loss was minimal. Procedure Start: 10:58:38 AM Procedure End: 11:02:04 AM Past medical history, appointments, medications, allergies reviewed. Previous Medical History PAST MEDICAL HISTORY Diagnosis Date - Coronary atherosclerosis of unspecified type of vessel, [place] or graft 1990 CABG 3 (no DC) in 1990; 1 stent in 1996 - Diverticulosis of colon (without mention of hemorrhage) Diverticulosis - Diverticulosis of colon (without mention of hemorrhage) - Essential hypertension, benign - Glaucoma - History of non-ST elevation myocardial infarction (NSTEMI) 05/07/2015 - Mental disorder - Other specified glaucoma - Peptic ulcer, unspecified site, unspecified as acute or chronic, without mention of hemorrhage, perforation, or obstruction - Primary open-angle glaucoma(365.11) 12/2009 - Snoring - Trigeminal neuralgia 2001 - Unspecified hemorrhoids without mention of complication Hemorrhoids Previous Surgical History PAST SURGICAL HISTORY Procedure Laterality Date - ANGIOPLASTY 1996 WITH STENT - CABG, ARTERIAL, THREE 1990 - COLONOSCOP W/ OR W/O [facility] SPEC 01/2004 Colonoscopy - COLONOSCOP W/ OR W/O [facility] SPEC 09/29/2009 Colonoscopy - COLONOSCOP W/ OR W/O [facility] SPEC 02/05/2015 Colonoscopy - EGD W/O OR W/BRUSH/WASH 08/14/2016 EGD - HEART SURGERY HX - INCISION OF EYE, TRABECULECTOMY 2009 OU - LAPAROSCOPIC CHOLEYCYSTECTOMY Cholecystectomy, lap - PAST SURGICAL HISTORY OF 03/25 Right Knee Ligament Repair - REMV CATARACT EXTRACAP,INSERT LENS 12/19/12 OD Cataract Extraction with PC IOL with Trab/[facility] - WATER SHUNT-EXTRAOCUL RESERV 12/19/12 OD Glaucoma Implant; BGI 350 combined Family History FAMILY HISTORY Problem Relation Age of Onset - Colon Cancer Father - Hypertension Father - Glaucoma Mother - Blindness Mother - Hypertension Brother - Hypertension Brother - Hypertension Brother Patient Allergies ALLERGIES Allergen Reactions - Anaprox [Naproxen S* - Cortisone - Crestor [Rosuvastat* GI Upset - Elavil [Amitriptyli* difficulty urinating - Hydrocortisone - Keflex [Cephalexin] Rash - Penicillins - Sulfa (Sulfonamide * - Vioxx [Rofecoxib] - Zocor [Simvastatin] Current Medications Current Outpatient Prescriptions on File Prior to Visit: aspirin, enteric coated (ADULT LOW DOSE ASPIRIN) 81 mg EC tablet Adult Low Dose Aspirin 81 mg tablet LORazepam (ATIVAN) 0.5 mg tab Take 1 tablet by mouth twice daily as needed (anxiety) for up to 30 days. Take 1 tablet daily as needed betamethasone dipropionate (DIPROSONE) 0.05 % cream Apply 1 application to affected area once daily. hydrOXYzine HCl (ATARAX) 25 mg tablet Take 1 tablet by mouth at bedtime as needed for Itching/Rash or Anxiety. promethazine (PHENERGAN) 25 mg tablet Take 1 tablet by mouth every 6 hours as needed for Nausea/Vomiting. zolpidem (AMBIEN) 10 mg tab Take 1 tablet by mouth at bedtime as needed for up to 30 days. FOR INSOMNIA Guar Gum (BENEFIBER,NUTRISOURCE FIBER) packet Take 1 Packet by mouth once daily. atenolol (TENORMIN) 25 mg tablet Take 1/2 tablet daily amLODIPine (NORVASC) 10 mg tablet Take 1 tablet by mouth once daily. TESTOSTERONE INTRAMUSC. Inject intramuscularly. clopidogrel (PLAVIX) 75 mg tablet Take by mouth once daily. timolol maleate (ISTALOL) 0.5 % drpd Use 1 Drop in the right eye twice daily. pantoprazole DR (PROTONIX) 20 mg tablet Take 1 tablet by mouth daily before breakfast. Take on empty stomach, 1/2 hr before meal. ondansetron orally disintegrating (ZOFRAN ODT) 4 mg disintegrating tablet Take 1 tablet by mouth every 6 hours as needed for Nausea/Vomiting. No current facility-administered medications on file prior to visit. Social History Social History Marital status: Spouse name: Years of education: Number of children: Social History Main Topics Smoking status: Never Smoker Smokeless tobacco: Former User Alcohol use: No Drug use: No Review of Symptoms REVIEW OF SYSTEMS PAIN ASSESSMENT: Negative for pain, history of chronic pain, or current treatment for a chronic pain condition. GENERAL: No weight loss, malaise or fevers HEENT: Negative for frequent or significant headaches, No changes in hearing or vision, no nose bleeds or other nasal problems NECK: Negative for lumps, goiter, pain and significant neck swelling RESPIRATORY: Negative for cough, hemoptysis, wheezing, COPD, dyspnea or shortness of breath CARDIOVASCULAR: Negative for chest pain, leg swelling, hypertension, CHF or palpitations GI: See HPI EXAM: BP 112/70 (BP Site: Left Arm, BP Position: Sitting, BP Cuff Size: Regular Adult) Pulse 64 Temp 36.6 ?C (97.9 ?F) (Tympanic) Resp 18 Wt 84.4 kg (186 lb) BMI 23.88 kg/m? General Appearance: Well appearing, alert, in no acute distress, well-hydrated, well nourished.. Oropharynx: Lips, mucosa, and tongue normal, teeth and gums normal, oropharynx normal. Neck: Supple, no adenopathy; thyroid symmetric, normal size, no bruits. Lungs: Lungs clear to auscultation. No wheezing, rhonchi, rales. Heart: RRR without murmur, gallop, or rubs. No ectopy. Abdomen: Normal abdominal exam, Abdomen soft, . Bowel sounds normal. No masses, organomegaly, Positive findings: tenderness mild generalized. Health Maintenance List DTAP,TDAP,TD(1 - Tdap) due on 1958 DIABETES SCREEN due on 04/21/2018 COLORECTAL CANCER SCREENING,SEE MODIFIER due on 02/06/2020 LIPID SCREEN due on 05/29/2022 PROSTATE CANCER SCREENING DISCUSSION Completed ADULT PREVNAR-13 Completed INFLUENZA Completed PNEUMOVAX AGE 65 AND OVER WITH 5YR LOOKBACK Completed ASSESSMENT/PLAN: 1. Gastritis with hemorrhage, unspecified chronicity, unspecified gastritis type - ICD9: 535.51, ICD10: K29.71 (primary diagnosis) - Will Continue the course of Carafate x 2 weeks and continue Famotidine bid. - Will have him check IFOBT, follow up with EGD if positive. - Follow up in office recheck in 6 weeks. If doing well will likely continue with Famotidine - FAMOTIDINE 20 MG TABLET - SUCRALFATE 1 GRAM TABLET - FECAL OCCULT BLOOD TEST 2. Microscopic hematuria - ICD9: 599.72, ICD10: R31.29 -Recheck UA w/micro. - URINALYSIS WITH MICROSCOPIC Willie Reed, MSN PLANT ASSIGNER.Willie Zhou (P 3 Armament/Ordnance Ima Technician) 01/28/2018 9:18 AM Signed 1. Continue sucralfate (finish the prescription you go from the ER plus one additional week) then stop. 2. Continue Pepcid 20 mg twice a day. 3. Stop Protonix (pantoprazole). 4. OK to use the Promethazine as needed for nausea. Referring Provider: SELF [200] Allergies As of Date: 01/28/2018 Noted Allergy Reaction ANAPROX (NAPROXEN SODIUM) 07/11/2005 CORTISONE 07/11/2005 CRESTOR (ROSUVASTATIN CALCIUM) 12/21/2006 8 - GI Upset ELAVIL (AMITRIPTYLINE) 03/07/2010 Comments: difficulty urinating HYDROCORTISONE 07/11/2005 KEFLEX (CEPHALEXIN) 09/06/2014 2 - Rash PENICILLINS 07/11/2005 SULFA (SULFONAMIDE ANTIBIOTICS) 07/11/2005 VIOXX (ROFECOXIB) 07/11/2005 ZOCOR (SIMVASTATIN) 07/11/2005 Date Reviewed: 01/28/2018 Reviewed by: Willie Reed (P 3 Armament/Ordnance Ima Technician) - Fully Assessed Reason for Visit: Abdominal Pain [1] Cmt: patient was seen in [facility] ER 01/25/18 for stomach pain and is following up today Primary Visit Diagnosis:Gastritis with hemorrhage, unspecified chronicity, unspecified gastritis type [K29.71] Other Visit Diagnosis:Microscopic hematuria [R31.29] Order(s):famotidine (PEPCID) 20 mg tabletTake 1 tablet by mouth twice daily.Disp: 60 tabletRfl: 5 sucralfate (CARAFATE) 1 gram tabletTake 1 tablet by mouth four times daily.Disp: 28 tabletRfl: 0 FECAL OCCULT BLOOD TEST [SQIFOBT] Order #: [id number] FUTURE URINALYSIS WITH MICROSCOPIC [SQUAWMIC] Order #: [id number] Prescriptions as of 01/28/2018 Sig: FAMOTIDINE 20 MG TABLET Take 1 tablet by mouth twice * SUCRALFATE 1 GRAM TABLET Take 1 tablet by mouth four t* ASPIRIN 81 MG TABLET,DELAYED * Adult Low Dose Aspirin 81 mg * LORAZEPAM 0.5 MG TABLET Take 1 tablet by mouth twice * BETAMETHASONE DIPROPIONATE 0.* Apply 1 application to affect* HYDROXYZINE HCL 25 MG TABLET Take 1 tablet by mouth at bed* PROMETHAZINE 25 MG TABLET Take 1 tablet by mouth every * ZOLPIDEM 10 MG TABLET Take 1 tablet by mouth at bed* GUAR GUM ORAL PACKET Take 1 Packet by mouth once d* ATENOLOL 25 MG TABLET Take 1/2 tablet daily AMLODIPINE 10 MG TABLET Take 1 tablet by mouth once d* TESTOSTERONE INTRAMUSC. Inject intramuscularly. CLOPIDOGREL 75 MG TABLET Take by mouth once daily. TIMOLOL MALEATE 0.5 % ONCE DA* Use 1 Drop in the right eye t* ONDANSETRON 4 MG DISINTEGRATI* Take 1 tablet by mouth every * Problem List As Of Date 01/28/2018 Noted Resolved BENIGN HYPERTENSION [I10] Coronary atherosclerosis [I25.10] More... Peptic ulcer, unspecified site, unspecified as * 05/07/2015 PERS HX COLONIC POLYPS [Z86.010] More... More... More... Malignant neoplasm of skin of trunk [C44.599] INVALID FOR* Anxiety [F41.9] INVALID FOR* Depression [F32.9] INVALID FOR*02/10/2016 Social phobia [F40.10] INVALID FOR* Primary open angle glaucoma [H40.1190] INVALID FOR* Cataract, nuclear sclerotic senile [H25.10] INVALID FOR* Special screening for malignant neoplasms, colo*INVALID FOR*02/05/2015 History of non-ST elevation myocardial infarcti*INVALID FOR* Irritable bowel syndrome with both constipation*INVALID FOR* Arthritis of left knee [M17.12] INVALID FOR* PUD (peptic ulcer disease) [K27.9] INVALID FOR* Family history of colon cancer [Z80.0] INVALID FOR* Anxiety and depression [F41.9, F32.9] INVALID FOR* Rash and nonspecific skin eruption [R21] INVALID FOR* Chronic insomnia [F51.04] INVALID FOR* Other instructions from your clinician: 1. Continue sucralfate (finish the prescription you go from the ER plus one additional week) then stop. 2. Continue Pepcid 20 mg twice a day. 3. Stop Protonix (pantoprazole). 4. OK to use the Promethazine as needed for nausea. Prescriptions ordered this encounter Disp Refills Start End FAMOTIDINE 20 MG TABLET 60 t* 5 01/28/2018 Route: ORAL Sig: Take 1 tablet by mouth twice daily. SUCRALFATE 1 GRAM TABLET 28 t* 0 01/28/2018 Route: ORAL Sig: Take 1 tablet by mouth four times daily. Medications Discontinued During This Encounter pantoprazole DR (PROTONIX) 20 mg tab* 30 t* 11 07/18/2017 01/28/2018 Route: ORAL Sig: Take 1 tablet by mouth daily before breakfast. Take on empty stomach, 1/2 hr before meal. Disc: Clinical Decision famotidine (PEPCID) 20 mg tablet 01/28/2018 Class: Historical Med Route: ORAL Sig: Take 20 mg by mouth twice daily. Disc: Reason for discontinue is not on file. sucralfate (CARAFATE) 1 gram tablet 01/28/2018 Class: Historical Med Route: ORAL Sig: Take 1 g by mouth four times daily. Disc: Reason for discontinue is not on file. Disposition: Return in about 6 weeks (around 03/11/2018). Follow-up and Disposition History Recorded Encounter Status:Closed by WILLIE REED CNP on 01/28/18 EMERGENCY DEPARTMENT Observed: 01/25/2018 Status: F Source: MENLO SUMMARY 3:45 PM [facility] REPOSITORY [facility] Medical Records Department [address] [place] [address] Emergency Department Summary 01/25/18 1124 MR#: [id number] Acct: [id number] Name: TUAN FELICIANO Rep #: [id number] : 1940 77 From: Farshad Curran DO PCP: Nidhi Vargas III, MD Status: DEP ER - ER Visit Summary Date of Service: 01/25/18 Chief Complaint: Nausea History of Present Illness: The patient is a 77 M who states that for the past couple weeks he has been having nausea. He states that he is tried Zofran and has not helped in fact he thinks it has made it worse. He also states that the Zofran makes him fatigued and tired. He states that some days are worse than others. He does not feel any significant abdominal pain more uncomfortable. He states he has been constipated. He saw a seen a head kiln operator to check some blood work that came back that said that his bilirubin was elevated and he needed to get that evaluated. Patient has had chronically elevated bilirubins in the past usually around the 1.7-2 range. His transaminases have been normal. No blood in the stool. He also states he has a history of GERD. He states he has not been taking his Plavix for the past week because it caused indigestion. He is also to stop taking his Protonix. Physical Examination: Afebrile vital signs are stable Gen: Well-nourished well-developed Head: Normocephalic atraumatic Eyes: Perrl EOMI ENT: TMs clear no rhinorrhea moist mucous membranes Neck: Supple no lymphadenopathy no JVD nontender CVS: Regular rate rhythm no murmurs normal S1-S2 Respiratory: No distress clear to auscultation bilaterally chest nontender Abdomen: Soft nontender nondistended normal bowel sounds no masses Back: Nontender Extremity: Nontender no edema Skin: Normal color no rash Neuro: alert orientated 3 CN II-XII intact normal strength sensation reflexes gait cerebellar Psych: Normal affect normal mood Test Results: CBC CMP and lipase showed a total bili of 2.3. CT abdomen pelvis demonstrated no acute findings. Emergency Department Course and Treatment: I think the patient most likely has a gastritis. I am going to change him from Protonix to Pepcid. I instructed him on Carafate. He has appointment already arranged with his doctor after the weekend. The patient requested something different for his nausea I will write for 12.5 mg tablets of Phenergan. He was advised that this has a higher incidence of fatigue and sleepiness that Zofran does. Impression: 1. Acute abdominal pain 2. Gastritis This note was generated with [employer] dictation software. It may contain incorrect words, spelling, and punctuation that were not noted in review of the chart prior to signing ED Disposition - Plan for ED Patient: Disposition: Home or Assisted Living Chief Complaint: Abd Pain Instructions: ED PUD Vs Gastritis Prescriptions: proMETHazine tablet [Phenergan] 12.5 mg PO Q6H PRN PRN #10 tab PRN Reason: Nausea Famotidine [Pepcid] 20 mg PO BID #28 tab Sucralfate [Carafate] 1 gm PO 4X/DAY #28 tab Referrals: Nidhi Vargas III, MD [Primary Care Provider] - Keep John appointment What to do if you have Problems For any increased pain, shortness of breath, bleeding, nausea or vomiting, chest pain, or any unexpected problems, contact your Primary Care Provider. Call [facility] ([phone]) or report to the closest Emergency Room. Call 911 if necessary. 01/25/18 6739 <Electronically signed by Farshad Curran DO> Date Farshad Curran DO Cosigner Signature (If Indicated): Date CC: Nidhi Vargas III, MD CBC W/DIFF, AUTOMATED Collected: 01/25/2018 Status: F Source: DONATO 10:53 AM [facility] REPOSITORY TYPE CODE TESTS RESULT OUT OF RANGE REFERENCE UNITS LAB L100.1000 4.4-11.0 K/mm3 Normal WBC 5.7 LAB L100.1200 4.6-6.2 M/mm3 Normal RBC 5.20 LAB L100.1300 13.0-16.5 g/dl Normal HGB 15.9 LAB L100.1400 40-54 % Normal HCT 47.7 LAB L100.1500 80-94 fL Normal MCV 91.7 LAB L100.1600 27.0-32.0 pg Normal MCH 30.6 LAB L100.1700 32-36 g/gl Normal MCHC 33.3 LAB L100.1810 11.6-14.6 % Normal RDW CV 14.1 LAB L100.1820 35.1-43.9 fl High RDW SD 47.0 LAB L100.1900 150-450 K/mm3 Low PLT 149 LAB L100.2000 6.2-12.0 fl Normal MPV 9.8 LAB L100.2100 47-70 % Normal NEUT% 69.6 LAB L100.2200 19-41 % Low LY% 13.2 LAB L100.2300 0-10 % High MONO% 12.6 LAB L100.2400 0-5 % Normal EO% 3.9 LAB L100.2500 0-1 % Normal BASO% 0.5 LAB L100.2550 0.0-0.9 % Normal IM GRAN % 0.200 Result Comment: IG% - Immature Granulocytes (promyelocytes, myelocytes and metamyelocytes) > 1% indicates that a LEFT SHIFT is Present. LAB L100.2620 2.0-7.7 X10 3/uL Normal Absolute Neut 4.0 LAB L100.2720 0.83-4.51 X10 3/ul Low Absolute Lymph 0.75 Performed By: #### L100.0100 #### [facility] [address] [place], [place], [id number] COMPREHENSIVE METABOLIC Collected: 01/25/2018 Status: F Source: DONATO FLORES 10:53 AM [facility] REPOSITORY TYPE CODE TESTS RESULT OUT OF RANGE REFERENCE UNITS LAB L501.0100 74-106 mg/dL Normal GLU 95 Result Comment: Please note revised GLUCOSE reference range effective 2017. LAB L501.1000 7-18 mg/dL Normal BUN 14 LAB L501.1100 0.70-1.30 mg/dL Normal CREAT,SERUM 0.94 Result Comment: The validity of the calculated GFR AND GFRAA in patients over 70 years has not been determined. Clinical correlation is essential. LAB L501.1110 >60 mL/min Normal EST GFR 82 Result Comment: Non- GFR Calc LAB L501.1115 >60 mL/min Normal EST GFR - AA 100 Result Comment: GFR Calc LAB L501.1255 ml/min Normal Estimated CRCL 73.19 LAB L501.1300 10-20 RATIO Normal BUN/CRE 14.9 LAB L501.1500 6.4-8. g/dL Normal 2 T PROT 7.4 LAB L501.1800 3.2-5. g/dL Normal 0 ALB 4.0 LAB L501.1950 2.2-4. g/dL Normal 2 GLOB 3.4 LAB L501.2000 0.9-2. RATIO Normal 4 A/G 1.2 LAB L501.2200 8.5-10 mg/dL Normal .1 CA 9.2 LAB L501.4100 15-37 U/L Normal AST 23 LAB L501.4305 45-117 U/L Normal ALK P 69 LAB L501.4405 16-61 U/L Normal ALT 28 LAB L501.4600 0.20-1 mg/dL High .00 T BILI 2.30 LAB L501.5300 136-14 mmol/L Normal 5 NA 139 LAB L501.5600 3.5-5. mmol/L Normal 1 K 4.2 LAB L501.5900 98-107 mmol/L Normal CL 103 LAB L501.6100 21.0-3 mmol/L Normal 2.0 CO2 32.0 LAB L501.6200 5-15 Low GAP 4 Performed By: #### L500.4050, L501.2450, L501.4010 #### [facility] [address] [place], [address] LIPASE Collected: 01/25/2018 Status: F Source: MENLO 10:53 AM [facility] REPOSITORY TYPE CODE TESTS RESULT OUT OF RANGE REFERENCE UNITS LAB L501.2450 73-393 U/L Normal LIPASE 202 Performed By: #### L500.4050, L501.2450, L501.4010 #### [facility] [address] [place], [address] TROPONIN-I Collected: 01/25/2018 Status: F Source: MENLO 10:53 AM [facility] REPOSITORY TYPE CODE TESTS RESULT OUT OF RANGE REFERENCE UNITS LAB L501.4010 <0.045 ng/mL Normal < 0.015 TROPONIN-I Result Comment: TROPONIN-I EXPECTED VALUES <0.045 NEGATIVE 0.045 - 0.590 AT RISK OF DC > OR = 0.600 SUGGEST DC Not every elevated troponin is indicative of DC. These values should be used with clinical judgement in examining the patient's clinical picture for diagnosis. To establish a diagnosis of DC versus myocardial injury, there must be a demonstrated rise and/or fall in the troponin values, in addition to ischemic symptoms, EKG changes, new regional wall motion abnormality, and/or angiographical evidence. PLEASE NOTE: REFERENCE RANGES EDITED 18 Performed By: #### L500.4050, L501.2450, L501.4010 #### [facility] [address] [place], [address] URINALYSIS, COMPLETE Collected: 01/25/2018 Status: F Source: MENLO 10:50 AM [facility] REPOSITORY Order Comment: Order Date: 01/25/18 How was Urine Obtained? FOREST NURSERY SUPERVISOR TO SPECIFY TYPE CODE TESTS RESULT OUT OF RANGE REFERENCE UNITS LAB L400.3000 Yellow COLOR Normal Yellow LAB L400.3050 Clear Normal CLARITY Clear LAB L400.3200 Normal mg/dl Normal GLUCOSE, UR Normal LAB L400.3300 Negative mg/dL Normal BILIRUBIN URINE Negative LAB L400.3400 Negative mg/dl Normal KETONE UR Negative LAB L400.3465 1.002-1.030 Normal SP.GR. DIPSTX 1.005 LAB L400.3550 5.0 - 8.0 pH UR Normal 7.0 LAB L400.3600 Negative mg/dl PROT Normal DIPSTX Negative LAB L400.3700 Normal mg/dl Normal UROBILI Normal LAB L400.3750 Negative Normal NITRITE UR Negative LAB L400.3780 Negative /ul High 10 OCCULT BLOOD-UR LAB L400.3800 Negative /ul LEUK Normal ESTERASE Negative LAB L400.4050 0-5 /hpf WBC 0 Normal SEEN LAB L400.4100 0-5 /hpf Normal RBC-UA 0-5 SEEN LAB L400.4150 0-5 /hpf SQUAM 0 Normal EPI SEEN LAB L400.4300 None Seen /hpf 0 Normal BACTERIA SEEN LAB L400.4350 <or=2+ /hpf 0 Normal MUCUS, URINE SEEN Performed By: #### L400.0001 #### [facility] [address] [facility] [place], [address] ABDOMEN/PELVIS WITH Observed: 01/25/2018 Status: F Source: MENLO CONTRAST 10:41 AM [facility] REPOSITORY [facility] Imaging Services [address] [place] [address] Abdomen/Pelvis WITH Contrast MR#: [id number] Acct: [id number] Name: TUAN FELICIANO Rep #: [id number] : 1940 M 77 From: Saravanan Paredes MD PCP: Nidhi Vargas III, MD Status: REG ER Study: Abdomen/Pelvis WITH Contrast Date of Exam: 01/25/18 Exam# [id number] Ordering Dr: Farshad Curran DO STUDY: CT ABDOMEN AND PELVIS WITH CONTRAST REASON FOR EXAM: Male, 77 years old. Abdominal pain. Nausea RADIATION DOSAGE (If Supplied By Facility): CTDIvol = ( 18.97 ) mGy, DLP = ( 965.64 ) mGycm TECHNIQUE: Transaxial images were obtained from the dome of the diaphragm to the symphysis pubis with oral contrast. 100 ml of Isovue 300 contrast was administered. Sagittal and coronal images were reconstructed. Individualized dose optimization techniques were used for this CT. COMPARISON: None. FINDINGS: The visualized lung bases are unremarkable. There coronary artery calcifications. Normal liver. There are surgical clips in the gallbladder fossa consistent with a prior cholecystectomy. There are multiple benign calcified granulomata of the spleen. Normal pancreas. Normal bilateral adrenal glands. Normal right kidney. There is 4.5 cm cyst of the left kidney. Normal visualized stomach. Normal small intestine. There are multiple colonic diverticula consistent with diverticulosis. The appendix is visualized and appears normal. There is diffuse atherosclerotic calcification of the abdominal aorta, without a demonstrated aneurysm. Normal inferior vena cava. Normal retroperitoneum. There is wall thickening of the urinary bladder. No free fluid in the abdomen or pelvis. There are calcifications in the prostate gland. Normal abdominal wall. There are diffuse degenerative changes of the visualized lumbar spine. CT/Abdomen/Pelvis WITH Contrast IMPRESSION: Colonic diverticulosis. No obstruction or abscess Wall thickening of the urinary bladder. No hydronephrosis. Left renal cyst. Electronically Signed: Saravanan Paredes MD at 12:58 EDT , Service support , CC: Farshad Curran DO; Nidhi Vargas III, MD Automatic Centrifugal Station Operator: Signed PROGRESS Observed: 01/25/2018 Status: COMPLETED Source: RIPON 10:29 AM [facility] REPOSITORY O ID: [id number] Author: Fay Stover (Cristiano) Service: (none) Author Type: Physician Entry Level Programmer Type: Progress Notes Filed: 01/25/2018 10:31 AM Note Text: Patient presented with abdominal pain x 2 weeks. No diarrhea or vomiting. Denies fever/chills. Reports elevated bilirubin on labs 2 months ago. Has not had this repeated. Rates pain as 8/10 today. Generalized. TTP RLQ and RUQ. Patient referred to ER for higher level of care and evaluation with diagnostic testing not available through [facility]. will take him to ER Fay Stover PA-C 01/25/2018 CNOV Observed: 01/25/2018 Status: COMPLETED Source: [place] 10:00 AM [facility] REPOSITORY Office Visit (WSTR) TUAN FELICIANO ([id number]) 1940 M Date Time Provider Department 01/25/18 10:00 AM FAY STOVRE) [facility] During your visit today, we recorded the following information about you: Temperature Pulse Respiration Blood pressure 98.1 degrees 70/minute 16/minute 124/64 Weight 84.8 kg Fay Stover) 01/25/2018 10:31 AM Signed Patient presented with abdominal pain x 2 weeks. No diarrhea or vomiting. Denies fever/chills. Reports elevated bilirubin on labs 2 months ago. Has not had this repeated. Rates pain as 8/10 today. Generalized. TTP RLQ and RUQ. Patient referred to ER for higher level of care and evaluation with diagnostic testing not available through [facility]. will take him to ER Fay Stover PA-C 01/25/2018 Referring Provider: SELF [[id number]] Allergies As of Date: 01/25/2018 Noted Allergy Reaction ANAPROX (NAPROXEN SODIUM) 07/11/2005 CORTISONE 07/11/2005 CRESTOR (ROSUVASTATIN CALCIUM) 12/21/2006 8 - GI Upset ELAVIL (AMITRIPTYLINE) 03/07/2010 Comments: difficulty urinating HYDROCORTISONE 07/11/2005 KEFLEX (CEPHALEXIN) 09/06/2014 2 - Rash PENICILLINS 07/11/2005 SULFA (SULFONAMIDE ANTIBIOTICS) 07/11/2005 VIOXX (ROFECOXIB) 07/11/2005 ZOCOR (SIMVASTATIN) 07/11/2005 Date Reviewed: 01/25/2018 Reviewed by: Renee Ramirez Ma - Fully Assessed Reason for Visit: Nausea [70] Cmt: upset stomach x couple weeks Primary Visit Diagnosis:APPOINTMENT CANCELLED Prescriptions as of 01/25/2018 Sig: ASPIRIN 81 MG TABLET,DELAYED * Adult Low Dose Aspirin 81 mg * BETAMETHASONE DIPROPIONATE 0.* Apply 1 application to affect* HYDROXYZINE HCL 25 MG TABLET Take 1 tablet by mouth at bed* PROMETHAZINE 25 MG TABLET Take 1 tablet by mouth every * ZOLPIDEM 10 MG TABLET Take 1 tablet by mouth at bed* PANTOPRAZOLE 20 MG TABLET,DEL* Take 1 tablet by mouth daily * GUAR GUM ORAL PACKET Take 1 Packet by mouth once d* ONDANSETRON 4 MG DISINTEGRATI* Take 1 tablet by mouth every * ATENOLOL 25 MG TABLET Take 1/2 tablet daily AMLODIPINE 10 MG TABLET Take 1 tablet by mouth once d* TESTOSTERONE INTRAMUSC. Inject intramuscularly. CLOPIDOGREL 75 MG TABLET Take by mouth once daily. TIMOLOL MALEATE 0.5 % ONCE DA* Use 1 Drop in the right eye t* LORAZEPAM 0.5 MG TABLET Take 1 tablet by mouth twice * Problem List As Of Date 01/25/2018 Noted Resolved BENIGN HYPERTENSION [I10] Coronary atherosclerosis [I25.10] More... Peptic ulcer, unspecified site, unspecified as * 05/07/2015 PERS HX COLONIC POLYPS [Z86.010] More... More... More... Malignant neoplasm of skin of trunk [C44.599] INVALID FOR* Anxiety [F41.9] INVALID FOR* Depression [F32.9] INVALID FOR*02/10/2016 Social phobia [F40.10] INVALID FOR* Primary open angle glaucoma [H40.1190] INVALID FOR* Cataract, nuclear sclerotic senile [H25.10] INVALID FOR* Special screening for malignant neoplasms, colo*INVALID FOR*02/05/2015 History of non-ST elevation myocardial infarcti*INVALID FOR* Irritable bowel syndrome with both constipation*INVALID FOR* Arthritis of left knee [M17.12] INVALID FOR* PUD (peptic ulcer disease) [K27.9] INVALID FOR* Family history of colon cancer [Z80.0] INVALID FOR* Anxiety and depression [F41.9, F32.9] INVALID FOR* Rash and nonspecific skin eruption [R21] INVALID FOR* Chronic insomnia [F51.04] INVALID FOR* Encounter Status:Closed by FAY STOVER PA-C on 01/25/18 PROGRESS Observed: 12/20/2017 Status: COMPLETED Source: [place] 10:42 AM [facility] REPOSITORY [facility] ID: [id number] Author: Nidhi Vargas III Service: (none) Author Type: Physician Type: Progress Notes Filed: 12/20/2017 12:58 PM Note Text: SUBJECTIVE: This is a 77 year old male that is here today for 1. eczema--allergy testing neg. Thinks it is worse with stress. Cer-a-ve TID. Showering q2-3 days. Uses topical steroids 2. lab review: 3. abd pain worse with stress/anxiety: 4. ASHD--on plavix and asa. No recent angina. He has a very old bottle of nitroglycerin at home that is long outdated. We discussed that he will no longer needs to carry nitroglycerin with him but that he should take a baby aspirin if he develops angina 5. ch insomnia--uses ambien 2-3 times/wk 6. Anxiety/depression?depression is much improved. The patient stopped taking Celexa several months ago and is using lorazepam one half dose nearly every day. PAST MEDICAL HISTORY Diagnosis Date - Coronary atherosclerosis of unspecified type of vessel, [place] or graft 1990 CABG 3 (no DC) in 1990; 1 stent in 1996 - Diverticulosis of colon (without mention of hemorrhage) Diverticulosis - Diverticulosis of colon (without mention of hemorrhage) - Essential hypertension, benign - Glaucoma - History of non-ST elevation myocardial infarction (NSTEMI) 05/07/2015 - Mental disorder - Other specified glaucoma - Peptic ulcer, unspecified site, unspecified as acute or chronic, without mention of hemorrhage, perforation, or obstruction - Primary open-angle glaucoma(365.11) 12/2009 - Snoring - Trigeminal neuralgia 2001 - Unspecified hemorrhoids without mention of complication Hemorrhoids Current Outpatient Prescriptions on File Prior to Visit: promethazine (PHENERGAN) 25 mg tablet Take 1 tablet by mouth every 6 hours as needed for Nausea/Vomiting. zolpidem (AMBIEN) 10 mg tab Take 1 tablet by mouth at bedtime as needed for up to [address]IA pant[address] (PROTONIX) 20 mg tablet Take 1 tablet by mouth daily before breakfast. Take on empty stomach, 1/2 hr before meal. betamethasone dipropionate (DIPROSONE) 0.05 % cream Apply 1 application to affected area once daily. Guar Gum (BENEFIBER,NUTRISOURCE FIBER) packet Take 1 Packet by mouth once daily. atenolol (TENORMIN) 25 mg tablet Take 1/2 tablet daily amLODIPine (NORVASC) 10 mg tablet Take 1 tablet by mouth once daily. TESTOSTERONE INTRAMUSC. Inject intramuscularly. clopidogrel (PLAVIX) 75 mg tablet Take by mouth once daily. timolol maleate (ISTALOL) 0.5 % drpd Use 1 Drop in the right eye twice daily. citalopram (CELEXA) 20 mg tablet Take 1 tablet by mouth once daily. ondansetron orally disintegrating (ZOFRAN ODT) 4 mg disintegrating tablet Take 1 tablet by mouth every 6 hours as needed for Nausea/Vomiting. No current facility-administered medications on file prior to visit. FAMILY HISTORY Problem Relation Age of Onset - Colon Cancer Father - Hypertension Father - Glaucoma Mother - Blindness Mother - Hypertension Brother - Hypertension Brother - Hypertension Brother Social History Substance Use Topics - Smoking status: Never Smoker - Smokeless tobacco: Former User - Alcohol use No BP 118/71 Pulse 70 Temp 36.4 ?C (97.6 ?F) (Tympanic) Resp 16 Wt 83.9 kg (185 lb) BMI 23.75 kg/m2 . OBJECTIVE: APPEARANCE Well appearing, alert, in no acute distress, well-hydrated, well nourished. SKIN erythematous macules on extremities Appearance: well dressed well groomed, cooperative and pleasant Behavior: good eye contact Speech: fluent and coherent Mood: euthymic Affect: appropriate Perceptions: none Thought process: goal directed Thought Content: normal Intelligence level: normal Insight: good Judgment: good ASSESSMENT: anxiety/depression--good control eczema--fair control ASHd--stable ch insomnia PLAN: atarax 25mg at bedtime as needed for anxiety/sleep lorazepam 0.25-0.5 mg one - two times /day as needed for anxiety use ambien 10mg at bedtime --use sparingly dexamethasone cream 0.05% as needed for severe itching/eczema same other medications MERCEDEZ Rolle MD, III MD CNOV Observed: 12/20/2017 Status: COMPLETED Source: [place] 10:20 [facility] REPOSITORY Office Visit (FAMPWS) TUAN FELICIANO ([id number]) 1940 Date Time Provider Department 12/20/17 10:20 AM NIDHI VARGAS III During your visit today, we recorded the following information about you: Temperature Pulse Respiration Blood pressure 97.6 degrees 70/minute 16/minute 118/71 Weight 83.9 kg Nidhi Vargas III MD 12/20/2017 12:58 PM Signed SUBJECTIVE: This is a 77 year old male that is here today for 1. eczema--allergy testing neg. Thinks it is worse with stress. Cer-a-ve TID. Showering q2-3 days. Uses topical steroids 2. lab review: 3. abd pain worse with stress/anxiety: 4. ASHD--on plavix and asa. No recent angina. He has a very old bottle of nitroglycerin at home that is long outdated. We discussed that he will no longer needs to carry nitroglycerin with him but that he should take a baby aspirin if he develops angina 5. ch insomnia--uses ambien 2-3 times/wk 6. Anxiety/depression?depression is much improved. The patient stopped taking Celexa several months ago and is using lorazepam one half dose nearly every day. PAST MEDICAL HISTORY Diagnosis Date - Coronary atherosclerosis of unspecified type of vessel, [place] or graft 1990 CABG 3 (no DC) in 1990; 1 stent in 1996 - Diverticulosis of colon (without mention of hemorrhage) Diverticulosis - Diverticulosis of colon (without mention of hemorrhage) - Essential hypertension, benign - Glaucoma - History of non-ST elevation myocardial infarction (NSTEMI) 05/07/2015 - Mental disorder - Other specified glaucoma - Peptic ulcer, unspecified site, unspecified as acute or chronic, without mention of hemorrhage, perforation, or obstruction - Primary open-angle glaucoma(365.11) 12/2009 - Snoring - Trigeminal neuralgia 2001 - Unspecified hemorrhoids without mention of complication Hemorrhoids Current Outpatient Prescriptions on File Prior to Visit: promethazine (PHENERGAN) 25 mg tablet Take 1 tablet by mouth every 6 hours as needed for Nausea/Vomiting. zolpidem (AMBIEN) 10 mg tab Take 1 tablet by mouth at bedtime as needed for up to 30 days[address] FOR INSOMNIA pantop[address] (PROTONIX) 20 mg tablet Take 1 tablet by mouth daily before breakfast. Take on empty stomach, 1/2 hr before meal. betamethasone dipropionate (DIPROSONE) 0.05 % cream Apply 1 application to affected area once daily. Guar Gum (BENEFIBER,NUTRISOURCE FIBER) packet Take 1 Packet by mouth once daily. atenolol (TENORMIN) 25 mg tablet Take 1/2 tablet daily amLODIPine (NORVASC) 10 mg tablet Take 1 tablet by mouth once daily. TESTOSTERONE INTRAMUSC. Inject intramuscularly. clopidogrel (PLAVIX) 75 mg tablet Take by mouth once daily. timolol maleate (ISTALOL) 0.5 % drpd Use 1 Drop in the right eye twice daily. citalopram (CELEXA) 20 mg tablet Take 1 tablet by mouth once daily. ondansetron orally disintegrating (ZOFRAN ODT) 4 mg disintegrating tablet Take 1 tablet by mouth every 6 hours as needed for Nausea/Vomiting. No current facility-administered medications on file prior to visit. FAMILY HISTORY Problem Relation Age of Onset - Colon Cancer Father - Hypertension Father - Glaucoma Mother - Blindness Mother - Hypertension Brother - Hypertension Brother - Hypertension Brother Social History Substance Use Topics - Smoking status: Never Smoker - Smokeless tobacco: Former User - Alcohol use No BP 118/71 Pulse 70 Temp 36.4 ?C (97.6 ?F) (Tympanic) Resp 16 Wt 83.9 kg (185 lb) BMI 23.75 kg/m2 . OBJECTIVE: APPEARANCE Well appearing, alert, in no acute distress, well- hydrated, well nourished. SKIN erythematous macules on extremities Appearance: well dressed well groomed, cooperative and pleasant Behavior: good eye contact Speech: fluent and coherent Mood: euthymic Affect: appropriate Perceptions: none Thought process: goal directed Thought Content: normal Intelligence level: normal Insight: good Judgment: good ASSESSMENT: anxiety/depression--good control eczema--fair control ASHd--stable ch insomnia PLAN: atarax 25mg at bedtime as needed for anxiety/sleep lorazepam 0.25-0.5 mg one - two times /day as needed for anxiety use ambien 10mg at bedtime --use sparingly dexamethasone cream 0.05% as needed for severe itching/eczema same other medications MERCEDEZ Rolle MD, III MD Frank A Cebul, III MD 12/20/2017 11:01 AM Signed PLAN: atarax 25mg at bedtime as needed for anxiety/sleep lorazepam 0.25-0.5 mg one - two times /day as needed for anxiety use ambien 10mg at bedtime --use sparingly dexamethasone cream 0.05% as needed for severe itching/eczema same other medications Nidhi Vargas III MD Referring Provider: SELF [200] Allergies As of Date: 12/20/2017 Noted Allergy Reaction ANAPROX (NAPROXEN SODIUM) 07/11/2005 CORTISONE 07/11/2005 CRESTOR (ROSUVASTATIN CALCIUM) 12/21/2006 8 - GI Upset ELAVIL (AMITRIPTYLINE) 03/07/2010 Comments: difficulty urinating HYDROCORTISONE 07/11/2005 KEFLEX (CEPHALEXIN) 09/06/2014 2 - Rash PENICILLINS 07/11/2005 SULFA (SULFONAMIDE ANTIBIOTICS) 07/11/2005 VIOXX (ROFECOXIB) 07/11/2005 ZOCOR (SIMVASTATIN) 07/11/2005 Date Reviewed: 12/20/2017 Reviewed by: Yamel Londono Chairman President And Chief Executive Officer - Fully Assessed Reason for Visit: Recheck [92] Cmt: Medication Review Primary Visit Diagnosis:Essential hypertension, benign [I10] Other Visit Diagnoses:Eczema, unspecified type [L30.9] Anxiety [F41.9] Social phobia [F40.10] Chronic insomnia [F51.04] Order(s):LORazepam (ATIVAN) 0.5 mg tabTake 1 tablet by mouth twice daily as needed (anxiety) for up to 30 days. Take 1 tablet daily as neededDisp: 30 tabletRfl: 0 betamethasone dipropionate (DIPROSONE) 0.05 % creamApply 1 application to affected area once daily.Disp: 45 gRfl: 0 hydrOXYzine HCl (ATARAX) 25 mg tabletTake 1 tablet by mouth at bedtime as needed for Itching/Rash or Anxiety.Disp: 30 tabletRfl: 5 Prescriptions as of 12/20/2017 Sig: ASPIRIN 81 MG TABLET,DELAYED * Adult Low Dose Aspirin 81 mg * LORAZEPAM 0.5 MG TABLET Take 1 tablet by mouth twice * BETAMETHASONE DIPROPIONATE 0.* Apply 1 application to affect* PROMETHAZINE 25 MG TABLET Take 1 tablet by mouth every * ZOLPIDEM 10 MG TABLET Take 1 tablet by mouth at bed* PANTOPRAZOLE 20 MG TABLET,DEL* Take 1 tablet by mouth daily * GUAR GUM ORAL PACKET Take 1 Packet by mouth once d* ATENOLOL 25 MG TABLET Take 1/2 tablet daily AMLODIPINE 10 MG TABLET Take 1 tablet by mouth once d* TESTOSTERONE INTRAMUSC. Inject intramuscularly. CLOPIDOGREL 75 MG TABLET Take by mouth once daily. TIMOLOL MALEATE 0.5 % ONCE DA* Use 1 Drop in the right eye t* HYDROXYZINE HCL 25 MG TABLET Take 1 tablet by mouth at bed* ONDANSETRON 4 MG DISINTEGRATI* Take 1 tablet by mouth every * Medication notes this encounter ASPIRIN 81 MG TABLET,DELAYED RELEASE >> Yamel Londono Cma 12/20/2017 10:32 AM >> YAMEL LONDONO CMA Deja Dec 20, 2017 10:32 AM Received from: [facility] NITROGLYCERIN 0.4 MG SUBLINGUAL TABLET >> Yamel Londono Cma 12/20/2017 10:32 AM >> YAMEL LONDONO CMA Deja Dec 20, 2017 10:32 AM Received from: [facility] Problem List As Of Date 12/20/2017 Noted Resolved BENIGN HYPERTENSION [I10] Coronary atherosclerosis [I25.10] More... Peptic ulcer, unspecified site, unspecified as * 05/07/2015 PERS HX COLONIC POLYPS [Z86.010] More... More... More... Malignant neoplasm of skin of trunk [C44.599] INVALID FOR* Anxiety [F41.9] INVALID FOR* Depression [F32.9] INVALID FOR*02/10/2016 Social phobia [F40.10] INVALID FOR* Primary open angle glaucoma [H40.1190] INVALID FOR* Cataract, nuclear sclerotic senile [H25.10] INVALID FOR* Special screening for malignant neoplasms, colo*INVALID FOR*02/05/2015 History of non-ST elevation myocardial infarcti*INVALID FOR* Irritable bowel syndrome with both constipation*INVALID FOR* Arthritis of left knee [M17.12] INVALID FOR* PUD (peptic ulcer disease) [K27.9] INVALID FOR* Family history of colon cancer [Z80.0] INVALID FOR* Anxiety and depression [F41.9, F32.9] INVALID FOR* Rash and nonspecific skin eruption [R21] INVALID FOR* Chronic insomnia [F51.04] INVALID FOR* Other instructions from your clinician: PLAN: atarax 25mg at bedtime as needed for anxiety/sleep lorazepam 0.25-0.5 mg one - two times /day as needed for anxiety use ambien 10mg at bedtime --use sparingly dexamethasone cream 0.05% as needed for severe itching/eczema same other medications Nidhi Uche Vargas III MD Prescriptions ordered this encounter Disp Refills Start End LORAZEPAM 0.5 MG TABLET 30 t* 0 12/20/2017 01/19/2018 Class: Print RX Route: ORAL Sig: Take 1 tablet by mouth twice daily as needed (anxiety) for up to 30 days. Take 1 tablet daily as needed BETAMETHASONE DIPROPIONATE 0.05 % TO* 45 g 0 12/20/2017 Route: TOPICAL Sig: Apply 1 application to affected area once daily. HYDROXYZINE HCL 25 MG TABLET 30 t* 5 12/20/2017 Route: ORAL Sig: Take 1 tablet by mouth at bedtime as needed for Itching/Rash or Anxiety. Medications Discontinued During This Encounter nitroglycerin sublingual (NITROQUICK* 04/18/2015 12/20/2017 Class: Historical Med Sig: Q5M Disc: Clinical Decision LORazepam (ATIVAN) 0.5 mg tab 30 t* 0 09/14/2017 12/20/2017 Class: Print RX Route: ORAL Sig: Take 1 tablet by mouth as needed (anxiety) for up to 30 days. Disc: Reason for discontinue is not on file. LORazepam (ATIVAN) 0.5 mg tab 12/20/2017 Class: Historical Med Route: ORAL Sig: Take 0.5 mg by mouth. Take 1 tablet daily as needed Disc: Reason for discontinue is not on file. betamethasone dipropionate (DIPROSON* 45 g 0 12/20/2016 12/20/2017 Route: TOPICAL Sig: Apply 1 application to affected area once daily. Disc: Reason for discontinue is not on file. citalopram (CELEXA) 20 mg tablet 30 t* 12 11/09/2016 12/20/2017 Route: ORAL Sig: Take 1 tablet by mouth once daily. Disc: Discontinued by Patient Encounter Status:Closed by NIDHI VARGAS III, MD on 12/20/17 LIVER PROFILE Collected: 11/28/2017 Status: F Source: [place] 11:10 AM [facility] REPOSITORY TYPE CODE TESTS RESULT OUT OF RANGE REFERENCE UNITS LAB L501.1500 6.4-8.2 g/dL Normal T PROT 6.9 LAB L501.1800 3.2-5.0 g/dL Normal ALB 3.9 LAB L501.1950 2.2-4.2 g/dL Normal GLOB 3.0 LAB L501.4100 15-37 U/L Normal AST 20 LAB L501.4305 45-117 U/L Normal ALK P 64 LAB L501.4405 16-61 U/L Normal ALT 23 Result Comment: Please note revised ALT reference range effective 2017. LAB L501.4600 0.20-1.00 mg/dL High T 2.10 BILI LAB L501.4700 0.00-0.30 mg/dL High D 0.31 BILI Performed By: #### L500.3400 #### [facility] [address] [place], [address] HEPATITIS B SURFACE Collected: 11/28/2017 Status: F Source: [place] AG 11:10 AM [facility] REPOSITORY TYPE CODE TESTS RESULT OUT OF RANGE REFERENCE UNITS LAB L3100.0400 Negative Normal HB Negative SURF AG Performed By: #### L3100.0390, L3100.0420, L3100.0460, L3100.0480, L3100.0528, L3100.0625 #### [facility] (refer to report for specific site) refer to report for address and phone number HEPATITIS BE AG Collected: 11/28/2017 Status: F Source: [place] 11:10 AM [facility] REPOSITORY TYPE CODE TESTS RESULT OUT OF RANGE REFERENCE UNITS LAB L3100.0420 Negative Normal HEP Negative Be AG 6619 Performed By: #### L3100.0390, L3100.0420, L3100.0460, L3100.0480, L3100.0528, L3100.0625 #### [facility] (refer to report for specific site) refer to report for address and phone number HEPATITIS B CORE AB Collected: 11/28/2017 Status: F Source: [place] TOTAL 11:10 AM [facility] REPOSITORY TYPE CODE TESTS RESULT OUT OF RANGE REFERENCE UNITS LAB L3100.0460 Negative Normal HEP B Negative CORE,TOT Result Comment: Performed at: [facility] Lab[address] [id number] Psychological Science Professor: Allen Farrar PhD, Phone: [phone] Performed By: #### L3100.0390, L3100.0420, L3100.0460, L3100.0480, L3100.0528, L3100.0625 #### [facility] (refer to report for specific site) refer to report for address and phone number HEPATITIS BE AB Collected: 11/28/2017 Status: F Source: [place] 11:10 AM [facility] REPOSITORY TYPE CODE TESTS RESULT OUT OF RANGE REFERENCE UNITS LAB L3100.0480 Negative Normal HEP Negative Be Ab 6635 Performed By: #### L3100.0390, L3100.0420, L3100.0460, L3100.0480, L3100.0528, L3100.0625 #### [facility] (refer to report for specific site) refer to report for address and phone number HEP B SURFACE Collected: 11/28/2017 Status: F Source: [place] ANTIBODIES 11:10 AM [facility] REPOSITORY TYPE CODE TESTS RESULT OUT OF RANGE REFERENCE UNITS LAB L3100.0528 . Normal Hep B Non Reactive Marques AB Result Comment: Non Reactive: Inconsistent with immunity, less than 10 mIU/mL Reactive: Consistent with immunity, greater than 9.9 mIU/mL Performed By: #### L3100.0390, L3100.0420, L3100.0460, L3100.0480, L3100.0528, L3100.0625 #### [facility] (refer to report for specific site) refer to report for address and phone number HEPATITIS C ANTIBODIES Collected: 11/28/2017 Status: F Source: [place] 11:10 AM [facility] REPOSITORY TYPE CODE TESTS RESULT OUT OF RANGE REFERENCE UNITS LAB L3100.0650 0.0-0.9 s/co ratio Normal HEP C AB <0.1 Result Comment: Negative: < 0.8 Indeterminate: 0.8 - 0.9 Positive: > 0.9 The CDC recommends that a positive HCV antibody result be followed up with a HCV Nucleic Acid Amplification test ([id number]). Performed By: #### L3100.0390, L3100.0420, L3100.0460, L3100.0480, L3100.0528, L3100.0625 #### [facility] (refer to report for specific site) refer to report for address and phone number MISCELLANEOUS LAB Collected: 11/28/2017 Status: F Source: [place] PROCEDURE 11:10 AM [facility] REPOSITORY Order Comment: Test(s) Ordered: THYROTROPIN [id number] SER/RF TYPE CODE TESTS RESULT OUT OF RANGE REFERENCE UNITS LAB L801.1541 Normal [facility] LAB TEST Result Comment: TEST RESULT LIMITS Thyrotropin Receptor Ab, Serum < 0.50 IU/L 0.00 - 1.75 TESTING PERFORMED AT [facility]. ORIGINAL REPORT ON FILE IN LAB CONTAINS ADDITIONAL TEST SITE INFORMATION. Performed By: #### L801.1541 #### [facility] [address] [place], [place], [address] SURGERY VISIT REPORT Observed: 10/08/2017 Status: F Source: [place] 1:43 PM [facility] REPOSITORY [facility] [address] [address] OFFICE VISIT Date of Service: 10/08/17 MR#: [id number] Acct: [id number] Name: TUAN FELICIANO Rep #: [id number] : 1940 Provider: Maryann Madden PA-C Age/Sex: 77/M Location: [facility] Status: Signed Intake Intake Visit Reasons: Hernia Surgery RC 09/26 Chief Complaint: inguinal hernia RC Is patient in pain?: No Allergies Penicillins [PCN] Allergy (Verified 09/28/17 07:46) Hives Sulfa (Sulfonamide Antibiotics) Allergy (Verified 09/28/17 07:46) Hives Wevobef-Nmp-Mth Reductase Inhibitor Adverse Reaction (Verified 09/28/17 07:46) Upset Stomach Medications Amlodipine [Norvasc] 10 mg PO DAILY 11/24/13 [History Confirmed 09/28/17] Atenolol [Tenormin (beta gracy)] 12.5 mg PO DAILY 11/24/13 [History Confirmed 09/28/17] Timolol 0.5% [Timoptic] 1 drp RIGHT EYE BID 11/24/13 [History Confirmed 09/28/17] Nitroglycerin [Nitrostat] 0.4 mg SUBLINGUAL Q5M PRN 04/18/15 [History Confirmed 09/28/17] Clopidogrel Bisulfate [Plavix] 75 mg PO DAILY 04/23/15 [History Confirmed 09/28/17] Benifiber 1 pkt PO DAILY 10/03/16 [History Confirmed 09/28/17] Pantoprazole Sodium [Protonix] 20 mg PO DAILY 10/03/16 [History Confirmed 09/28/17] Aspirin E.C. [Ecotrin] 81 mg PO DAILY@0800 09/21/17 [History Confirmed 09/28/17] tamsulosin 0.4 mg capsule 0.4 mg PO QDAY #14 cap 09/27/17 [Rx Confirmed 09/28/17] PFSH Medical History Hypertension (Chronic) Coronary artery disease (Chronic) Chest pain (Acute) Angina pectoris (Acute) NSTEMI (non-ST elevated myocardial infarction) (Acute) HLD (hyperlipidemia) (Chronic) Surgical History Status post coronary artery bypass graft (Chronic) S/P PTCA (percutaneous transluminal coronary angioplasty) (Chronic) S/P CABG x 3 (Chronic) S/P inguinal hernia repair (Acute) Social History Smoking Status: Never smoker HPI HPI HPI: TUAN FELICIANO, is a 77 M I am following for bilateral inguinal hernia. Dr. Vargas performed a laparoscopic bilateral inguinal hernia repair with mesh on 09/26/17. Patient tolerated the procedure well. He denies pain/discomfort, nausea, vomiting. His appetite has returned to normal. He is having normal bowel movements. He is urinating well. Exam Const General: cooperative, healthy appearing, comfortable, no acute distress GI Inspection: normal to inspection, incision (c/d/i. No erythema or infection noted) Palpation: soft Auscultation: normal bowel sounds Assessment AND Plan Problems 1. Non-recurrent bilateral inguinal hernia without obstruction or gangrene K40.20 Plan - Recommend no lifting greater than 20 pounds for 6 weeks - Follow-up as needed Coding Level of Care Code Global Post Op Diagnoses Non-recurrent bilateral inguinal hernia without obstruction or gangrene K40.20 Obstruction and gangrene presence: without obstruction or gangrene Recurrence: non-recurrent 10/08/17 1343 <Electronically signed by Maryann Madden PA-C> Date Maryann Madden PA-C Cosigner Signature: Date (if applicable) CC: Nidhi Vargas III, MD DISCHARGE INSTRUCTION Observed: 09/29/2017 Status: F Source: MENLO 1:14 PM [facility] REPOSITORY [facility] Medical Records Department [address] [place] [address] Instructions for Home/Discharge Instructions 09/26/17 0806 MR#: [id number] Acct: [id number] Name: TUAN FELICIANO Rep #: [id number] : 1940 76 From: Paxton Vargas MD PCP: Nidhi Vargas III, MD Status: DEP [facility] Discharge Diet: Light diet - advance as tolerated - if you have questions about your diet instructions, please talk to you doctor. Discharge Activity: May Not Drive - for 1 week or while taking narcotic pain medicine. May shower in (days): 1 Lifting Restrictions: 10 pounds Call your doctor if your incision/area has: Continuous Slow Oozing, Sudden Increased Bleeding, Increased Pain/ Swelling, Increased Redness, Foul Smelling Discharge Call your doctor if you observe: Fever of 101 or Higher Suture Line Care: Avoid Pulling/Pushing, Avoid Pinching/Bending Additional Dressing/Incision Instructions:: Change or remove dressing in 4 days. Leave steri-strips in place for 1 week. Allergies/Adverse Reactions: Allergies Penicillins [PCN] Allergy (Verified 09/21/17 10:19) Hives Sulfa (Sulfonamide Antibiotics) Allergy (Verified 09/21/17 10:19) Hives Wxtylns-Whd-Uia Reductase Inhibitor Adverse Reaction (Verified 09/21/17 10:19) Upset Stomach Medications to take at Discharge Amlodipine [Norvasc] 10 mg PO DAILY 11/24/13 Atenolol [Tenormin (beta gracy)] 12.5 mg PO DAILY 11/24/13 Timolol 0.5% [Timoptic] 1 drp RIGHT EYE BID 11/24/13 Nitroglycerin [Nitrostat] 0.4 mg SUBLINGUAL Q5M PRN 04/18/15 Clopidogrel Bisulfate [Plavix] 75 mg PO DAILY 04/23/15 Benifiber 1 pkt PO DAILY 10/03/16 Pantoprazole Sodium [Protonix] 20 mg PO DAILY 10/03/16 Aspirin E.C. [Ecotrin] 81 mg PO DAILY@0800 09/21/17 Primary Care Physician: Nidhi Vargas III, MD [Primary Care Provider] - Please Follow Up With: Paxton Vargas MD - [phone] When: Call to make an appointment to be seen in about 10 days. 09/29/17 1314 <Electronically signed by Paxton Vargas MD> Date Paxton Vargas MD CC: Nidhi Vargas III, MD OFFICE VISIT REPORT Observed: 09/29/2017 Status: F Source: [place] 1:14 PM [place] [address] [address] 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 Is patient in pain?: No Allergies Penicillins [PCN] Allergy (Verified 09/28/17 07:46) Hives Sulfa (Sulfonamide Antibiotics) Allergy (Verified 09/28/17 07:46) Hives Rfqmjrh-Exq-Uwu Reductase Inhibitor Adverse Reaction (Verified 09/28/17 07:46) Upset Stomach Medications Amlodipine [Norvasc] 10 mg PO DAILY 11/24/13 [History Confirmed 09/28/17] Atenolol [Tenormin (beta gracy)] 12.5 mg PO DAILY 11/24/13 [History Confirmed 09/28/17] Timolol 0.5% [Timoptic] 1 drp RIGHT EYE BID 11/24/13 [History Confirmed 09/28/17] Nitroglycerin [Nitrostat] 0.4 mg SUBLINGUAL Q5M PRN 04/18/15 [History Confirmed 09/28/17] Clopidogrel Bisulfate [Plavix] 75 mg PO DAILY 04/23/15 [History Confirmed 09/28/17] Benifiber 1 pkt PO DAILY 10/03/16 [History Confirmed 09/28/17] Pantoprazole Sodium [Protonix] 20 mg PO DAILY 10/03/16 [History Confirmed 09/28/17] Aspirin E.C. [Ecotrin] 81 mg PO DAILY@0800 09/21/17 [History Confirmed 09/28/17] Hydrocodone Bitart/Apap 5-325 [[facility] 5MG-325MG] 1 tab PO Q6H PRN PRN #10 tab 09/26/17 [Rx Confirmed 09/28/17] tamsulosin 0.4 mg capsule 0.4 mg PO QDAY #14 cap 09/27/17 [Rx Confirmed 09/28/17] Nursing Note Pt presents for urinary catheter removal. Balloon deflated and catheter removed without any complications. Pt tolerated well and was encouraged to force fluids and let our office know jocelyne if he is still have issues later today. 09/29/17 1314 <Electronically signed by Paxton Vargas MD> Date Paxton Vargas MD Cosigner Signature: Date (if applicable) CC: DISCHARGE INSTRUCTION Observed: 09/26/2017 Status: F Source: [place] 7:32 PM [facility] REPOSITORY [facility] Medical Records Department [address] [place] [address] Discharge Instruction 09/26/171929 MR#: [id number] Acct: [id number] Name: TUAN FELICIANO Rep #: [id number] : 1940 76 From: Destinee Toure DO PCP: Nidhi Vargas III, MD Status: PRE ER ED Disposition - Plan for ED Patient: Chief Complaint: Complaint Instructions: ED Retention Urinary Male Referrals: Nidhi Vargas III, MD [Primary Care Provider] - 3-5 Days Zeke Love MD [STAFF PHYSICIAN] - 3-5 Days What to do if you have Problems For any increased pain, shortness of breath, bleeding, nausea or vomiting, chest pain, or any unexpected problems, contact your Primary Care Provider. Call [facility] ([phone]) or report to the closest Emergency Room. Call 911 if necessary. 09/26/171931 <Electronically signed by Destinee Toure DO> Date Destinee Toure DO Cosines Signature (If Indicated): Date CC: Nidhi Vargas III, MD EMERGENCY DEPARTMENT Observed: 09/26/2017 Status: F Source: [place] SUMMARY 7:30 PM [facility] REPOSITORY [facility] Medical Records Department [address] [place] [address] Emergency Department Summary 09/26/171927 MR#: [id number] Acct: [id number] Name: TUAN FELICIANO Rep #: [id number] : 1940 76 From: Destinee Toure DO PCP: Nidhi Vargas III, MD Status: PRE ER - ER Visit Summary Date of Service: 09/26/17 Chief Complaint: [Urinary retention] History of Present Illness: The patient is a 76 M [presents to the emergency department with inability to void urine since around 11 AM. Patient states that he had double hernia repair performed today by Dr. Paxton Vargas. Patient has never had this issue before. They attempted to contact Dr. Blum's office and they spoke with the surgeon on-call for Dr. Blum and they were told to come to the emergency department. She denies fever or other complaints.] Physical Examination: [HEENT-PERRLA, EOMI. Cranial nerves II through XII grossly intact. TMs clear. Mucous membranes moist. No adenopathy. Cardiovascular-regular rate and rhythm without murmur or ectopy Lungs-clear to auscultation, chest wall stable without crepitus or subcu emphysema Abdomen-normoactive bowel sounds, soft. Patient has some mild tenderness in the suprapubic region. There is no rebound, rigidity, or perineal signs. Extremities-intact 4, normal range of motion, normal pulses, atraumatic] Test Results: [None indicated] Emergency Department Course and Treatment: [Finn catheter was placed] Treatment Plan: [She will be discharged home with a leg bag.] Disposition: [Discharged to home in stable condition.] Patient advised to follow-up with Dr. 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 Stephen's office. Impression: [Urinary retention] This note was generated with IVFXPERTation software. It may contain incorrect words, spelling, and punctuation that were not noted in review of the chart prior to signing ED Disposition - Plan for ED Patient: Chief Complaint: Complaint Referrals: Nidhi Vargas III, MD [Primary Care Provider] - What to do if you have Problems For any increased pain, shortness of breath, bleeding, nausea or vomiting, chest pain, or any unexpected problems, contact your Primary Care Provider. Call [facility] ([phone]) or report to the closest Emergency Room. Call 911 if necessary. 09/26/171929 <Electronically signed by Destinee Toure DO> Date Destinee Toure DO Cosigner Signature (If Indicated): Date CC: Nidhi Vargas III, MD OPERATIVE REPORT Observed: 09/26/2017 Status: F Source: MENLO 9:57 AM [facility] REPOSITORY [facility] Medical Records Department [address] [place] [address] Operative Report 09/26/17 0952 MR#: [id number] Acct: [id number] Name: TUAN FELICIANO Rep #: [id number] : 1940 76 From: Paxton Vargas MD PCP: Nidhi Vargas III, MD Status: [facility] Location: [place] [address] Problem List (1) Inguinal hernia bilateral, non-recurrent Status: Acute Qualifiers: Obstruction and gangrene presence: without obstruction or gangrene Recurrence: non-recurrent Qualified Code(s): K40.20 - Bilateral inguinal hernia, without obstruction or gangrene, not specified as recurrent Report of Operation Date of Procedure: 09/26/17 Pre-Operative Diagnosis: Bilateral indirect inguinal hernias Post-Operative Diagnosis: Same Surgery/Procedure Performed:: Laparoscopic bilateral inguinal herniorrhaphy Description of Surgical Findings:: Timeout and informed consent was obtained. 76-year-old gent was taken out from placement table underwent general endotracheal intubation anesthesia. Clindamycin 900 mg were given intravenously preoperatively. The abdomen was sterilely prepped and draped. 0.5% Marcaine was used as local anesthetic. Throughout the procedure total of 30 cc was used. Skin sites were pre-anesthetized. A vertical infraumbilical incision was created. Holding sutures of 0 Vicryl placed. Varies needle inserted. Saline drop was formed. The abdomen was insufflated CO2 to pressure of 10 mmHg pressure. 10 mm trocar inserted. Millimeter laparoscope inserted. The abdomen is inspected no evidence of any trocar injuries superficial structures appear to be unremarkable there was a sizable indirect left inguinal hernia and a slightly smaller indirect right inguinal hernia. 5 mm trochars were placed in the right left lower quadrant. The right inguinal hernia was addressed first. The peritoneum superior lateral to the internal ring was incised. Immediately tediously then the peritoneum was completely dissected free significant amount of dissection was required to get the indirect sac dissected free the direct space indirect and femoral artery were identified. A Bard 3D max large right mesh lot number [id number] reference #[id number] expiry date 07/14/2022 was placed. A couple of secure straps were placed laterally and superiorly. Then I did the dissection on the left incised and the peritoneum identified the inferior epigastric vessels there was a significant cord lipoma on the left quite a bit more dissection was required on the left tediously dissecting things free. Hemoclips were used where needed for hemostasis as they had on the right. Finally the indirect sac was completely dissected the mesh from the right was identified a direct indirect and femoral areas identified. A Bard 3D max large mesh for the left was selected. Lot number [id number]. Reference #[id number]. Expiry date 01/12/2022. It was secured in place with secure strap it met the mesh from the right side. I felt that I had very good coverage bilaterally. The peritoneum was then approximated to itself with the secure strap complete obliteration of the mesh was achieved. Trochars removed under visualization. The abdomen was allowed to deflate of CO2. The fascia at the umbilicus approximated interrupted 0 Vicryl figure 8 suture. Skin edges approximated up to 4 Monocryl subdermal stitches. Steri-Strips Telfa OpSite dressings applied sponge instrument and needle counts were reported to the surgeon to be correct. Blood loss was minimal. No complications. The patient was taken to the recovery area in satisfactory condition without apparent provocation. Specimens none. Drains none. Blood loss minimal. Paxton Vargas M.D., F.A.C.S. Type of Anesthesia:: General Anesthesiologist: Jonathan Carter 09/26/17 0957 <Electronically signed by Paxton Vargas MD> Date Paxton Vargas MD CC: Nidhi Vargas III, MD; Paxton Vargas MD Signed 12 LEAD ELECTROCARDIOGRAM Observed: 09/25/2017 Status: F Source: [place] 3:25 PM [facility] REPOSITORY [facility] Cardiovascular Services [address] [place] [address] 12 Lead EKG 09/24/17 1235 MR#: [id number] Acct: [id number] Name: TUAN FELICIANO Rep #: [id number] : 1940 76 From: Ravi Ramírez MD Attending Dr: Paxton Vargas MD Status: PRE SDC Ordering Dr: Paxton Vargas MD Date: 09/24/17 Location: [facility] Sex: M C Admitted: Test Reason : PRE-OP Blood Pressure : / mmHG Vent. Rate : 057 BPM Atrial Rate : 057 BPM P-R Int : 270 ms QRS Dur : 086 ms QT Int : 422 ms P-R-T Axes : 075 018 055 degrees QTc Int : 410 ms Sinus bradycardia with 1st degree A-V block Otherwise normal ECG Confirmed by DESIREE BENNETT, RAVI ([id number]), index editor DARELL BOWDEN ([id number]) on 09/25/2017 3:25:03 PM Referred By: ALICIA Confirmed By:RAVI RAMÍREZ MD 09/25/17 1525 Date Ravi Ramírez MD CC: Nidhi Vargas III, MD Signed CBC-COMPLETE BLOOD CNT Collected: 09/24/2017 Status: F Source: [place] NO DIFF 11:59 AM [facility] REPOSITORY TYPE CODE TESTS RESULT OUT OF RANGE REFERENCE UNITS LAB L100.1000 4.4-11.0 K/mm3 Normal WBC 7.5 LAB L100.1200 4.6-6.2 M/mm3 Normal RBC 4.74 LAB L100.1300 13.0-16.5 g/dl Normal HGB 14.8 LAB L100.1400 40-54 % Normal HCT 44.7 LAB L100.1500 80-94 fL High MCV 94.3 LAB L100.1600 27.0-32.0 pg Normal MCH 31.2 LAB L100.1700 32-36 g/gl Normal MCHC 33.1 LAB L100.1810 11.6-14.6 % Normal RDW CV 13.9 LAB L100.1820 35.1-43.9 fl High RDW SD 47.7 LAB L100.1900 150-450 K/mm3 Normal PLT 163 LAB L100.2000 6.2-12.0 fl Normal MPV 10.4 Performed By: #### L100.0500 #### [facility] [address] [place], [address] BASIC METABOLIC Collected: 09/24/2017 Status: F Source: [place]EN[place] PROFILE (BMP) 11:59 AM [facility] REPOSITORY TYPE CODE TESTS RESULT OUT OF RANGE REFERENCE UNITS LAB L501.0100 70-110 mg/dL Normal GLU 77 LAB L501.1000 7-18 mg/dL Normal BUN 15 LAB L501.1100 0.70-1.30 mg/dL Normal 1.02 CREAT,SERUM Result Comment: The validity of the calculated GFR AND GFRAA in patients over 70 years has not been determined. Clinical correlation is essential. LAB L501.1110 >60 mL/min Normal EST GFR 75 Result Comment: Non- GFR Calc LAB L501.1115 >60 mL/min Normal EST GFR - AA 91 Result Comment: GFR Calc LAB L501.1300 10-20 RATIO Normal BUN/CRE 14.7 LAB L501.2200 8.5-10.1 mg/dL CA Normal 8.6 LAB L501.5300 136-145 mmol/L NA Normal 140 LAB L501.5600 3.5-5.1 mmol/L K Normal 4.0 LAB L501.5900 98-107 mmol/L CL Normal 105 LAB L501.6100 21.0-32.0 mmol/L Normal CO2 30.0 LAB L501.6200 5-15 Normal GAP 5 Performed By: #### L500.2500 #### [facility] [address] [place], [address] OBSOLETE Observed: 09/14/2017 Status: COMPLETED Source: RIPON 12:00 AM [facility] REPOSITORY Refill (FAMPWS) TUAN FELICIANO ([id number]) 1940 M Date Time Provider Department 09/14/17 NIDHI VARGAS III During your visit today, we recorded the following information about you: Aruna Landry Ma 09/14/2017 9:53 AM Signed Pt came to window requesting refill on medication. Patient has been identified by name and date of : Yes RX INSTRUCTIONS: Controlled medication - must be called in. Aruna Vargas III MD 09/14/2017 7:10 PM Signed [facility] website checked and validated. All prescriptions have been APPROPRIATELY filled. No suspicious activity was identified.- 09/14/2017 by MERCEDEZ Rolle MD, Ma 09/15/2017 1:38 PM Signed The following prescriptions have been approved and faxed to [facility] [place]: Signed Prescriptions Disp Refills LORazepam (ATIVAN) 0.5 mg tab 30 tablet 0 Sig: Take 1 tablet by mouth as needed (anxiety) for up to 30 days. JOSH Class: C-IV GARRY: No Authorizing Provider: NIDHI VARGAS III zolpidem (AMBIEN) 10 mg tab 30 tablet 4 Sig: Take 1 tablet by mouth at bedtime as needed for up to 30 days. FOR INSOMNIA JOSH Class: C-IV GARRY: No Authorizing Provider: NIDHI VARGAS III, Ma Allergies As of Date: 09/14/2017 Noted Allergy Reaction ANAPROX (NAPROXEN SODIUM) 07/11/2005 CORTISONE 07/11/2005 CRESTOR (ROSUVASTATIN CALCIUM) 12/21/2006 8 - GI Upset ELAVIL (AMITRIPTYLINE) 03/07/2010 Comments: difficulty urinating HYDROCORTISONE 07/11/2005 KEFLEX (CEPHALEXIN) 09/06/2014 2 - Rash PENICILLINS 07/11/2005 SULFA (SULFONAMIDE ANTIBIOTICS) 07/11/2005 VIOXX (ROFECOXIB) 07/11/2005 ZOCOR (SIMVASTATIN) 07/11/2005 Date Reviewed: 08/02/2017 Reviewed by: Marta Armas LPN - Fully Assessed Reason for Visit: Refill Request [94] Primary Visit Diagnosis:Anxiety and depression [F41.8] Other Visit Diagnosis:Chronic insomnia [F51.04] Order(s):LORazepam (ATIVAN) 0.5 mg tabTake 1 tablet by mouth as needed (anxiety) for up to 30 days.Disp: 30 tabletRfl: 0 zolpidem (AMBIEN) 10 mg tabTake 1 tablet by mouth at bedtime as needed for up to 30 days. FOR INSOMNIADisp: 30 tabletRfl: 4 Prescriptions as of 09/14/2017 Sig: LORAZEPAM 0.5 MG TABLET Take 1 tablet by mouth as nee* ZOLPIDEM 10 MG TABLET Take 1 tablet by mouth at bed* PANTOPRAZOLE 20 MG TABLET,DEL* Take 1 tablet by mouth daily * BETAMETHASONE DIPROPIONATE 0.* Apply 1 application to affect* CITALOPRAM 20 MG TABLET Take 1 tablet by mouth once d* GUAR GUM ORAL PACKET Take 1 Packet by mouth once d* ONDANSETRON 4 MG DISINTEGRATI* Take 1 tablet by mouth every * ATENOLOL 25 MG TABLET Take 1/2 tablet daily AMLODIPINE 10 MG TABLET Take 1 tablet by mouth once d* TESTOSTERONE INTRAMUSC. Inject intramuscularly. CLOPIDOGREL 75 MG TABLET Take by mouth once daily. TIMOLOL MALEATE 0.5 % ONCE DA* Use 1 Drop in the right eye t* Problem List As Of Date 09/14/2017 Noted Resolved BENIGN HYPERTENSION [I10] Coronary atherosclerosis [I25.10] More... Peptic ulcer, unspecified site, unspecified as * 05/07/2015 PERS HX COLONIC POLYPS [Z86.010] More... More... More... Malignant neoplasm of skin of trunk [C44.599] INVALID FOR* Anxiety [F41.9] INVALID FOR* Depression [F32.9] INVALID FOR*02/10/2016 Social phobia [F40.10] INVALID FOR* Primary open angle glaucoma [H40.1190] INVALID FOR* Cataract, nuclear sclerotic senile [H25.10] INVALID FOR* Special screening for malignant neoplasms, colo*INVALID FOR*02/05/2015 History of non-ST elevation myocardial infarcti*INVALID FOR* Irritable bowel syndrome with both constipation*INVALID FOR* Arthritis of left knee [M17.12] INVALID FOR* PUD (peptic ulcer disease) [K27.9] INVALID FOR* Family history of colon cancer [Z80.0] INVALID FOR* Anxiety and depression [F41.8] INVALID FOR* Rash and nonspecific skin eruption [R21] INVALID FOR* Chronic insomnia [F51.04] INVALID FOR* Prescriptions ordered this encounter Disp Refills Start End LORAZEPAM 0.5 MG TABLET 30 t* 0 09/14/2017 10/14/2017 Class: Print RX Route: ORAL Sig: Take 1 tablet by mouth as needed (anxiety) for up to 30 days. ZOLPIDEM 10 MG TABLET 30 t* 4 09/14/2017 10/14/2017 Class: Print RX Route: ORAL Sig: Take 1 tablet by mouth at bedtime as needed for up to 30 days. FOR INSOMNIA Medications Discontinued During This Encounter LORazepam (ATIVAN) 0.5 mg tab 30 t* 0 06/13/2017 09/14/2017 Class: Call Rx Route: ORAL Sig: Take 1 tablet by mouth as needed (anxiety). Disc: Reason for discontinue is not on file. zolpidem (AMBIEN) 10 mg tab 30 t* 4 12/20/2016 09/14/2017 Class: Print RX Route: ORAL Sig: Take 1 tablet by mouth at bedtime as needed. FOR INSOMNIA Disc: Reason for discontinue is not on file. Encounter Status:Closed by FIDE BOYLE MA on 09/15/17 ALLERGIES ALLERGIES DATE TYPE / NAME / CODE REACTION SEVERITY SOURCE CODE 05/29/2018 Drug Penicillins/[id number] Hives Unknown [place] Allergy/41 76(RXNORM) [facility] 8549589(SN Hospital OMED CT) Repository 05/29/2018 Drug Sulfa (Sulfonamide Hives Unknown [place] Allergy/41 Antibiotics)/[id number] [facility] 8554824(SN 491(RXNORM) Hospital OMED CT) Repository 05/29/2018 Drug Wpcvaal-Nau-Kjv Upset Stomach Unknown [place] Allergy/41 Reductase [facility] 5452890(SN Inhibitor/[id number] Hospital OMED CT) (RXNORM) Repository 02/15/2018 DRUG/10277 FAMOTIDINE (PF) OTHER: SEE C [facility] 1003(SNOME [facility] [place] D CT) Repository 09/06/2014 DRUG CEPHALEXIN RASH [facility] INGREDI/41 [facility] [place] 9289981(SN Repository OMED CT) 03/07/2010 [facility] [place] 6982541(SN Repository OMED CT) 12/21/2006 DRUG ROSUVASTATIN CALCIUM GI UPSET [facility] [place] 4125801(SN Repository OMED CT) 07/11/2005 DRUG NAPROXEN SODIUM [facility] INGREDI/41 [facility] [place] 7716908(SN Repository OMED CT) 07/11/2005 DRUG CORTISONE [facility] INGREDI/ [facility] [place] 9221736(SN Repository OMED CT) 07/11/2005 DRUG HYDROCORTISONE [facility] INGREDI/ [facility] [place] 6640149(SN Repository OMED CT) 07/11/2005 Drug PENICILLINS [facility] Class/4195 [facility] [place] [address](SNOM Repository ED CT) 07/11/2005 Drug SULFA (SULFONAMIDE [facility] Class/4195 ANTIBIOTICS) [facility] [place] [address](SNOM Repository ED CT) 07/11/2005 DRUG ROFECOXIB [facility] INGREDI/41 [facility] [place] 7169151(SN Repository OMED CT) 07/11/2005 DRUG SIMVASTATIN [facility] INGREDI41 [facility] [place] 8679453(SN Repository OMED CT) ENCOUNTERS ENCOUNTERS ADMIT/DISCHARGE ACCOUNT NUMBER ADMITTING ENCOUNTER LOCATION SOURCE CLASS 09/02/2018/09/03/20 [id number] Ambulatory [address] [place] Repository 08/15/2018 [id number] Ambulatory [place] [facility] ding:LAB.FUT Repository URE 06/12/2018/06/12/20 [id number] Ambulatory [address] [place] Repository 06/10/2018/06/11/20 [id number] Ambulatory [address] [place] Repository 05/29/2018/05/29/20 [id number] Ambulatory BMSBuilding: [place] 18 BMS.[facility] Repository 05/28/[id number] [facility] ding:LAB Repository 03/12/2018/03/13/20 [id number] Ambulatory [address] [place] Repository 02/25/2018/02/26/20 [id number] [place], Ambulatory [address] Repository 02/15/2018/02/19/20 [id number] Ambulatory [address] [place] Repository 01/29/2018/01/30/20 [id number] Ambulatory [address] Repository 01/28/2018/01/30/20 [id number] Ambulatory [address] [place] Repository 01/25/2018/01/26/20 [id number] Emergency [address] ding:ED Repository 01/25/2018/01/26/20 [id number] Ambulatory [address] [place] Repository 12/20/2017/12/22/19 [id number] Ambulatory [address] Repository 11/28/[id number] [facility] ding:LAB Repository 11/14/2017 [id number] Ambulatory [facility] Repository 10/08/2017/10/08/19 [id number] Ambulatory BMSBuilding: [place] 18 BMS.[facility] Repository 09/28/2017/09/28/19 [id number] Ambulatory BMSBuilding: [place] 18 BMS.[facility] Repository 09/26/2017/09/26/19 [id number] Emergency [address] ding:ED Repository 09/26/2017/09/26/19 [id number] Ambulatory [address] ding:SDC Repository 09/26/2017 [id number] Ambulatory BMSBuilding: [facility] Repository 09/24/2017 [id number] Ambulatory BMSBuilding: [facility] Repository 09/12/[id number] [facility] ding:LAB.FUT Repository URE PAYERS PAYERS ENCOUNTER GUARANTOR PAYER SUBSCRIBER SOURCE 08/15/2018 TUAN E Primary TUAN E Donato [id number] [place] Insurance:MEDICARE FRYDOB: [place] PART [place] [facility] [id number] Hospital [address]Owr: [phone]) Number: Repository [phone] () [id number] Date:2018-08-13 08/15/2018 Secondary TUAN E Donato Insurance:CIGNAPolicy FRYDOB: Community Number: [id number] Hospital [id number] Repository Date:2625-61-41LJ [facility] [address]13[place]SEICRFVANIX, [place] [address]KX: 08/15/2018 Tertiary NOT GIVENUNK [place] Insurance:SELF PAY [facility] Number: Effective Repository Date:2018-08-13 05/29/2018 TUAN E Primary TUAN E [place] [id number] [place] Insurance:MEDICARE FRYDOB: [place] [facility] [id number] Hospital [address]Hlu: (330) Number: Repository [phone] () [id number] Date:2017-08-31 05/29/2018 Secondary TUAN E [place] Insurance:CIGNAPolicy FRYDOB: Community Number: [id number] Hospital [id number] Repository Date:1863-85-10[address]IFDUZ[address], [place] [address]NP: 05/29/2018 Tertiary NOT GIVENUNK [place] Insurance:SELF PAY [facility] Number: Effective Repository Date:2018-05-29 05/28/2018 TUAN E Primary TUAN E [place] [id number] [place] Insurance:MEDICARE FRYDOB: [place] [facility] [id number] Hospital [address]Whk: (330) Number: Repository [phone] () [id number] Date:2018-05-28 05/28/2018 Secondary TUAN E [place] Insurance:CIGNAPolicy FRYDOB: Community Number: [id number] Hospital [id number] Repository Date:3941-24-95PZ [facility] 308483CNOYSIEDBSH, [place] [address]MD: 05/28/2018 Tertiary NOT GIVENUNK [place] Insurance:SELF PAY [facility] Number: Effective Repository Date:2018-05-28 01/25/2018 TUAN E Primary TUAN E Don[place] [id number] [place] Insurance:MEDICARE FRYDOB: [place] [facility] [id number] Hospital [address]Bgl: Number: Repository [phone] [id number] () Date:2018-01-25 01/25/2018 Secondary TUAN E [place] Insurance:CIGNAPolicy FRYDOB: Community Number: [id number] Hospital [id number] Repository Date:9169-26-69HN [facility] 121277ETBSGHXSXCR, [place] [address]KW: 01/25/2018 Tertiary NOT GIVENUNK [place] Insurance:SELF PAY [facility] Number: Effective Repository Date:2018-01-25 11/28/2017 TUAN E Primary TUAN E [place] [id number] [place] Insurance:MEDICARE FRYDOB: [place] [facility] [id number] Hospital [address]42[address]Cli: Number: Repository [phone] [id number] (HP) Date:2017-11-28 11/28/2017 Secondary TUAN E [place] Insurance:CIGNAPolicy FRYDOB: Community Number: [id number] Hospital [id number] Repository Date:5509-34-86SM [address]UINLPDLAJFQ, [place] [address]MK: 11/28/2017 Tertiary NOT GIVENUNK [place] Insurance:SELF PAY [facility] Number: Effective Repository Date:2017-11-28 11/14/2017 Tuan E Primary Tuan E [facility] FryDOB: Insurance:MedicarePol FryDOB: System icy Number: Effective [id number] Repository [place] Dm Date: [place], [place] [address]Xmu: () 11/14/2017 Secondary Tuan E [facility] Insurance:MedicarePol FryDOB: System icy Number: Effective [id number] Repository Date: 11/14/2017 Tertiary Tuan E [facility] Insurance:CignaPolicy FryDOB: System Number: Effective [id number] Repository Date: 10/08/2017 TUAN E Primary TUAN E [place] [id number] [place] Insurance:MEDICARE FRYDOB: [place] [facility] [id number] [facility] [address]Mgp: Number: Repository [phone] [id number] (HP) Date:2017-09-28 10/08/2017 Secondary TUAN E [place] Insurance:CIGNAPolicy FRYDOB: Community Number: [id number] [id number] Repository Date:9052-51-03UH [facility] [address]15003GQTQOBHBRLO, [place] [address]CZ: 10/08/2017 [facility] [place] Insurance:SELF PAY [facility] Number: Effective Repository Date:2017-09-28 09/28/2017 TUAN E Primary TUAN E [place] [id number] [place] Insurance:MEDICARE FRYDOB: [place] [facility] [id number] Hospital [address]Qsb: Number: Repository [phone] [id number] (HP) Date:2017-09-27 09/28/2017 Secondary TUAN E [place] Insurance:CIGNAPolicy FRYDOB: Community Number: [id number] Hospital [id number] Repository Date:3315-21-12[address]NLGZDECOYSU, [place] [address]BL: 09/28/2017 Tertiary NOT GIVENUNK [place] Insurance:SELF PAY [facility] Number: Effective Repository Date:2017-09-27 09/26/2017 TUAN E Primary TUAN E [place] [id number] [place] Insurance:MEDICARE FRYDOB: [place] PART [place] [facility] [id number] Hospital [address]Anl: Number: Repository [phone] [id number] (HP) Date:2017-09-26 09/26/2017 Secondary TUAN E [place] Insurance:CIGNAPolicy FRYDOB: Community Number: [id number] Hospital [id number] Repository Date:0423-66-31RY [address]KCBSECBCKAK, [place] [address]DR: 09/26/2017 Tertiary NOT GIVENUNK [place] Insurance:SELF PAY [facility] Number: Effective Repository Date:2017-09-26 09/26/2017 TUAN E Primary TUAN E [place] [id number] [place] Insurance:MEDICARE FRYDOB: [place] [facility] [id number] [id number]: Number: Repository [phone] [id number] (HP) Date:2017-09-07 09/26/2017 Secondary TUAN E [place] Insurance:CIGNAPolicy FRYDOB: Community Number: [id number] Hospital [id number] Repository Date:2282-55-64[address]IOQQWVSYUWU, [place] [address]UU: 09/26/2017 Tertiary NOT GIVENUNK [place] Insurance:SELF PAY [facility] Number: Effective Repository Date:2017-09-07 09/26/2017 TUAN E Primary TUAN E [place] [id number] [place] Insurance:MEDICARE FRYDOB: [place] [facility] [id number] Hospital [address]Sei: Number: Repository [phone] [id number] (HP) Date:2017-09-07 09/26/2017 Secondary TUAN E [place] Insurance:CIGNAPolicy FRYDOB: Community Number: [id number] Hospital [id number] Repository Date:8974-90-97JV [address]TJWTWNMQUIN, [place] [address]SL: 09/26/2017 Tertiary NOT GIVENUNK [place] Insurance:SELF PAY [facility]: Effective Repository Date:2017-09-26 09/24/2017 TUAN E Primary TUAN E [place] [id number] [place] Insurance:MEDICARE FRYDOB: [place] [facility] [id number] Hospital [address]Pvz: Number: Repository [phone] [id number] () Date:2017-09-07 09/24/2017 Secondary TUAN E [place] Insurance:CIGNAPolicy FRYDOB: Community Number: [id number] Hospital [id number] Repository Date:1724-87-49[address]JVWKDOUQUGA, [place] [address]KD: 09/24/2017 Tertiary NOT GIVENUNK [place] Insurance:SELF PAY [facility] Number: Effective Repository Date:2017-09-24 09/12/2017 TUAN E Primary NOT GIVENUNK [place] [id number] [place] Insurance[place]MEDICARE [place] PART [place] [facility] [address]Zoi: Number: Effective Repository [phone] Date:2017-09-12 () 09/12/2017 Secondary NOT GIVENUNK [place] Insurance:CIGNAPolicy [facility] Number: Effective Hospital Date:0106-06-63QZ [address]OX Repository [address]IE[place], [place] [address]PB: 09/12/2017 Tertiary NOT GIVENUNK [place] Insurance:SELF PAY [facility] Number: Effective Repository Date:2017-09-12
== END ==
PROVIDERS: Family Provider Family Medicine; PCP Family Medicine; Referring Provider Urology; Visit Provider Urology
DX: Z12.5 Encounter for screening for malignant neoplasm of prostate (principal)
CPT/HCPCS: 36415; 84153; G0103

== ENCOUNTER → 2019-06-07 | Outpatient (CLI) | payer MEDICARE, OTHER, SELFPAY ==
[2019-06-05 08:39] VITALS: BMI 24.4
[2019-06-07 08:43] LABS: AST(SGOT) 24 U/L (15-37); Alanine Aminotransfer ALT/SGPT 23 U/L (16-61); Albumin, Serum 3.6 g/dL (3.2-5.0); Alkaline Phosphatase 56 U/L (45-117); Anion Gap 6 (5-15); BUN 14 mg/dL (7-18); BUN/Creat Ratio 15.3 RATIO (10-20); Bilirubin, Direct 0.35 mg/dL (0.00-0.30); Calcium,Total 8.6 mg/dL (8.5-10.1); Chloride 105 mmol/L (98-107); Cholesterol 149 mg/dL (200); Creatinine, Serum 0.92 mg/dL (0.70-1.30); EST Glomerular Filtration Rate 84 mL/min (>60); Est Glom Filt Rate - Afr Amer 102 mL/min (>60); Globulin 2.9 g/dL (2.2-4.2); Glucose 99 mg/dL (74-106); High Density Lipoprotein 35 mg/dL; Potassium 4.1 mmol/L (3.5-5.1); Protein, Total 6.5 g/dL (6.4-8.2); Sodium Level 142 mmol/L (136-145); Triglycerides 168 mg/dL; Very Low Density Lipoprotein 34 mg/dL (5-40)
== END | disposition home or self-care (01) ==
PROVIDERS: Family Provider Family Medicine; PCP Family Medicine; Referring Provider Internal Medicine Cardiovascular Disease; Visit Provider Internal Medicine Cardiovascular Disease
DX: I10 Essential (primary) hypertension (principal); E78.5 Hyperlipidemia, unspecified
CPT/HCPCS: 36415; 80048; 80061; 80076

== ENCOUNTER → 2019-08-21 11:09 | Outpatient (CLI) | payer MEDICARE, OTHER, SELFPAY ==
[2019-06-05 08:39] VITALS: BMI 24.4
[2019-08-21 11:55] LABS: PSA,Total - Annual Screen 1.07 ng/mL (0.00-4.00)
== END ==
PROVIDERS: Family Provider Family Medicine; PCP Family Medicine; Referring Provider Urology; Visit Provider Urology
DX: E29.1 Testicular hypofunction (principal); Z12.5 Encounter for screening for malignant neoplasm of prostate
CPT/HCPCS: 36415; 84153; 84403; G0103

== ENCOUNTER → 2019-08-27 07:10 | Outpatient (CLI) | payer MEDICARE, OTHER, SELFPAY ==
[2019-06-05 08:39] VITALS: BMI 24.4
== END ==
PROVIDERS: Family Provider Family Medicine; PCP Family Medicine; Referring Provider Urology; Visit Provider Urology
DX: E29.1 Testicular hypofunction (principal)
CPT/HCPCS: 36415; 84403

== ENCOUNTER → 2020-06-11 | Outpatient (CLI) | payer MEDICARE, OTHER, SELFPAY ==
[2020-06-10 10:47] VITALS: BMI 25.0
[2020-06-11 08:32] LABS: AST(SGOT) 21 U/L (15-37); Alanine Aminotransfer ALT/SGPT 22 U/L (16-61); Albumin, Serum 3.9 g/dL (3.2-5.0); Alkaline Phosphatase 61 U/L (45-117); Anion Gap 2 (5-15); BUN 13 mg/dL (7-18); Bilirubin, Direct 0.38 mg/dL (0.00-0.30); Calcium,Total 8.7 mg/dL (8.5-10.1); Chloride 104 mmol/L (98-107); Cholesterol 163 mg/dL (200); Creatinine, Serum 0.93 mg/dL (0.70-1.30); EST Glomerular Filtration Rate 83 mL/min (>60); Est Glom Filt Rate - Afr Amer 101 mL/min (>60); Globulin 3.1 g/dL (2.2-4.2); Glucose 104 mg/dL (74-106); High Density Lipoprotein 36 mg/dL; Potassium 3.8 mmol/L (3.5-5.1); Sodium Level 138 mmol/L (136-145); Triglycerides 152 mg/dL; Very Low Density Lipoprotein 30 mg/dL (5-40)
== END | disposition home or self-care (01) ==
LOC: LAB 07:41
PROVIDERS: PCP Family Medicine; Referring Provider Internal Medicine Cardiovascular Disease; Visit Provider Internal Medicine Cardiovascular Disease
DX: I10 Essential (primary) hypertension (principal); I25.810 Atherosclerosis of coronary artery bypass graft(s) without angina pectoris; E78.5 Hyperlipidemia, unspecified; Z95.1 Presence of aortocoronary bypass graft; Z95.5 Presence of coronary angioplasty implant and graft
CPT/HCPCS: 36415; 80048; 80061; 80076

== ENCOUNTER → 2020-06-21 | Outpatient (CLI) | payer MEDICARE, OTHER, SELFPAY ==
[2020-06-10 10:47] VITALS: BMI 25.0
--- NOTE | 2020-06-21 06:12 | ECHOD_ITS ---
Reason For Study: CAD Procedure This was a 2D Doppler, Color Flow transthoracic echocardiogram. Exam performed in department. Left Ventricle Normal LV size. Left ventricular systolic function is normal. The estimated ejection fraction is 60 %. Stage 2 diastolic dysfunction. No regional wall motion abnormalities noted. Right Ventricle Normal RV size. Normal systolic function. Atria The left atrium is mildly enlarged. Normal right atrium. Mitral Valve Normal mitral valve. Tricuspid Valve Normal tricuspid valve. Mild (1+) tricuspid valve insufficiency. Pulmonary artery systolic pressure is 30 mmHg. Aortic Valve Normal aortic valve. Pulmonic Valve Normal pulmonic valve. Great Vessels Normal aortic root. The pulmonary artery is normal size. Normal inferior vena cava. Pericardium/Pleural No pericardial effusion. MMode/2D Measurements & Calculations LVIDd: 4.7 cm IVSd: 0.95 cm Ao root diam: 3.4 cm LVIDs: 3.4 cm LVPWd: 0.92 cm RVDd: 3.4 cm FS: 28.5 % LAV(MOD-bp): 72.2 ml LVAd ap4: 28.3 cm2 SV(MOD-sp4): 54.0 ml LAV(MOD-bp) Indexed: 34.7 ml/m2 EDV(MOD-sp4): 83.7 ml LAV(MOD-sp2): 72.5 ml EDV(sp4-el): 85.9 ml LAV(MOD-sp4): 66.1 ml LVAs ap4: 14.7 cm2 ESV(MOD-sp4): 29.7 ml ESV(sp4-el): 29.5 ml EF(MOD-sp4): 64.5 % EF(sp4-el): 65.7 % SV(sp4-el): 56.5 ml LA A4 area: 22.0 cm2 LA dimension(2D): 4.8 cm RA A4 area: 14.2 cm2 Time Measurements MV dec time: 0.19 sec Doppler Measurements & Calculations MV E max earl: 77.2 cm/sec Lat Peak E' Earl: 10.8 cm/sec Med Peak E' Earl: 5.5 cm/sec MV A max earl: 60.2 cm/sec E/E' lat: 7.2 E/E' med: 14.1 MV E/A: 1.3 Ao V2 max: 119.4 cm/sec LV V1 max: 87.3 cm/sec PA V2 max: 126.1 cm/sec Ao max P.7 mmHg LV V1 max P.0 mmHg PI end-d earl: 126.5 cm/sec TR max earl: 255.5 cm/sec TR max P.1 mmHg Interpretation Summary Normal LV size. Left ventricular systolic function is normal. The estimated ejection fraction is 60 %. Stage 2 diastolic dysfunction. The left atrium is mildly enlarged. Pulmonary artery systolic pressure is 30 mmHg. Ordering Physician: Ravi Ramírez Referring Physician: NIDHI VARGAS III Performed By: Maude Sinclair, RDCS, RVT
--- NOTE | 2020-06-21 10:40 | STRESSREP ---
Stress Test Report Exercise myocardial perfusion stress test. 79-year-old man with a history of coronary artery disease for evaluation. Stress protocol: Resting EKG demonstrates sinus bradycardia with a rate of 53 bpm. Resting blood pressure is 144/92 mmHg. The patient exercised according to the regular Martin protocol for a total duration of 7 minutes. The maximum heart rate attained was 91 bpm which was 65% of max impacted heart rate the maximum workload was 8.5 metabolic equivalents. At rest there were no ST changes noted to suggest ischemia. At peak exercise there was approximately 1.[address] depression noted in lead II and I 0.[address] depression noted in lead aVF. There was 1.[address] depression noted in lead V5 and V6. The above was suggestive of ischemia. No clinical angina was noted. The peak blood pressure was 158/84 mmHg. The patient was on atenolol. Myocardial perfusion protocol. 10.0 mCi of technetium 99m sestamibi was injected at rest. The patient exercised according to regular Martin protocol for a total duration of 7 minutes. At peak exercise 30.4 mCi of technetium 99m sestamibi was injected stress images were obtained stress and rest images were reconstructed and compared in the short axis vertical long horizontal long axis. Gated images were also obtained per Perfusion SPECT analysis: Review of the stress images demonstrate normal uptake of tracer noted in all areas of the myocardium the resting images similar demonstrated normal uptake of tracer noted in all areas of the myocardium. No areas of reversibility are noted to suggest ischemia no previous infarct was noted. Gated SPECT analysis: The gated ejection fraction was 70%. Conclusion: Normal exercise myocardial perfusion stress test at a moderate workload. EKG changes suggestive but not diagnostic of ischemia. Nuclear images demonstrate no evidence of ischemia. No clinical angina noted. Failure to obtain 70% of maximum predicted heart rate was secondary to patient taking the beta-gracy.
== END | disposition home or self-care (01) ==
LOC: CVS 06:12
PROVIDERS: PCP Family Medicine; Referring Provider Internal Medicine Cardiovascular Disease; Visit Provider Internal Medicine Cardiovascular Disease
DX: I25.10 Atherosclerotic heart disease of native coronary artery without angina pectoris (principal); I25.810 Atherosclerosis of coronary artery bypass graft(s) without angina pectoris; Z95.1 Presence of aortocoronary bypass graft
CPT/HCPCS: 78452; 93017; 93306; A9500; A4216

== ENCOUNTER 2020-09-18 10:13 | Emergency (ER) | payer MEDICARE, OTHER, SELFPAY ==
[2020-06-10 10:47] VITALS: BMI 25.0
[2020-09-18 10:14] VITALS: BP 163/65; PULSE 67; RESP 20; TEMP 36.7; O2SAT 96; BMI 23.9
[2020-09-18 10:20] VITALS: O2SAT 97
--- NOTE | 2020-09-18 10:20 | EKG12_ITS ---
Test Reason : CP Blood Pressure : / mmHG Vent. Rate : 058 BPM Atrial Rate : 058 BPM P-R Int : 276 ms QRS Dur : 086 ms QT Int : 442 ms P-R-T Axes : -08 -07 107 degrees QTc Int : 433 ms Sinus bradycardia with 1st degree A-V block Nonspecific ST and T wave abnormality Abnormal ECG Confirmed by TANVI BENNETT, ESTELLA ([id number]), state editor SARAH CALVIN ([id number]) on 09/20/2020 8:44:37 AM Referred By: MARIAN Confirmed By:ESTELLA TINAJERO MD
[2020-09-18] MEDS: Aspirin 81 MG TAB.CHEW 324 MG PO (10:27)
--- NOTE | 2020-09-18 10:31 | ED.VISSUMM ---
- ER Visit Summary Date of Service: 09/18/20 Chief Complaint: Anterior chest discomfort History of Present Illness: The patient is a 79 M past medical history of CAD with stents and prior bypass in 1989. Also history of hypertension high cholesterol. He does take a daily aspirin and took 1 this morning. Says about 3 days ago he was lifting 5 gallon jugs of water into a car. Since that time is had intermittent anterior chest pain. Not specifically associated with exertion. He has had some mild nausea. No dyspnea. No diaphoresis. He describes the pain as a pressure at times. He denies any melena. No history of DVT or PE. No recent travel, surgery or hospitalization. No leg pain or swelling. No hemoptysis. No pleuritic pain. He had a negative nuclear stress test in June about 2 months ago. Physical Examination: Older male no acute distress. Vital signs stable afebrile. Pulse ox 96% on room air no signs of hypoxia. H EENT exam unremarkable. Neck nontender no JVD. Lungs clear to auscultation bilaterally. Heart regular rhythm rate about 65 no murmur. Chest wall nontender. No ecchymosis or bruising. No subcu air or crepitance. Abdomen soft nontender normal bowel sounds no peritoneal signs. Extremities moves all 4. Equal symmetrical radial pulses. 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 Normal dorsi plantarflexion. Calves are nontender without edema or cords. Back nontender. Neurologically is awake and alert with no focal motor deficits. Test Results: EKG shows a sinus bradycardia rate of 58 with a first-degree AV block. There is no acute signs of WI or ischemia. Change from prior EKG from 2018. CBC unremarkable white count of 6. Hemoglobin 15. Chemistries normal normal creatinine and gap. Troponin normal at 0.032. Portable chest x-ray showed normal cardiac silhouette mediastinum. Prior sternotomy with sternal wires. But no acute process. This was read by myself. Emergency Department Course and Treatment: Patient treated with aspirin. His pain is not reproducible. He did have a negative nuclear stress test in June. He will undergo a cardiac work-up. Pain seems to be intermittent and not associated with exertion. Repeat exam patient is doing well at 11:23 AM. Currently is pain-free. Handout went over all his test results. He has had a recent negative nuclear stress test. He and I both comfortable with him being discharged home. Treatment Plan: Continue his current medications. Return if worse. 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 Ravi Ramírez. Disposition: Discharge Impression: Acute chest pain of uncertain etiology History of CAD with stents and prior bypass History of hypertension This note was generated with [employer] dictation software. It may contain incorrect words, spelling, and punctuation that were not noted in review of the chart prior to signing ED Disposition - Plan for ED Patient: Referrals: Missael Velazquez III, MD [Primary Care Provider] -
[2020-09-18 10:33] LABS: Absolute Lymphocyte Count 0.94 X10^3/uL (0.83-4.51); Absolute Neutrophil Count 4.5 X10^3/uL (2.0-7.7); Basophil# 0.05 X10^3/uL; Basophil% 0.8 % (0-1); Eosinophils% 1.6 % (0-5); Hematocrit 48.4 % (40-54); Hemoglobin 15.7 g/dL (13.0-16.5); Lymphocyte # 0.94 X10^3/ul (4.0); Lymphocyte % 15.5 % (19-41); Mean Corp Hgb Conc 32.4 g/dL (32-36); Mean Corpuscular Hgb 30.9 pg (27.0-32.0); Mean Corpuscular Volume 95.3 fL (80-94); Mean Platelet Vol. 9.9 fl (6.2-12.0); Monocyte# 0.44 X10^3/uL; Monocyte% 7.2 % (0-10); NRBC Flagged by Analyzer 0 % (0-5); Neutrophil # 4.52 X10^3/uL (2.7-7.7); Neutrophil % 74.4 % (47-70); Platelet Count 144 K/mm3 (150-450); RBC Distribution Width CV 13.3 % (11.6-14.6); RBC Distribution Width SD 47.3 fl (35.1-43.9); Red Blood Count 5.08 M/mm3 (4.6-6.2); White Blood Count 6.1 K/mm3 (4.4-11.0)
--- NOTE | 2020-09-18 10:40 | RAD_ITS ---
STUDY: X-RAY CHEST REASON FOR EXAM: Male, 79 years old. Chest pain. TECHNIQUE: Single AP portable view of the chest. COMPARISON: 10/03/2016. FINDINGS: Calcified granuloma in the left upper lobe is again seen. No new infiltrate. There is no demonstrated pleural abnormality. Sternal cerclage wires and vascular clips are present from a prior sternotomy and coronary artery bypass graft procedure (CABG). Normal mediastinum and bang. Normal visualized pulmonary arteries. There is atherosclerotic tortuosity of the aortic arch and descending thoracic aorta. Stable osseous structures. There is no demonstrated abnormality of the visualized soft tissue structures of the upper abdomen. RAD/Chest 1 View (Portable) IMPRESSION: No active pulmonary disease. Electronically Signed: Mango Evans MD at 11:21 EST Tel , Service support ,
[2020-09-18 10:50] LABS: Anion Gap 3 (5-15); BUN 15 mg/dL (7-18); BUN/Creat Ratio 13.4 RATIO (10-20); Calcium,Total 8.7 mg/dL (8.5-10.1); Chloride 104 mmol/L (98-107); Creatinine, Serum 1.12 mg/dL (0.70-1.30); EST Glomerular Filtration Rate 67 mL/min (>60); Est Glom Filt Rate - Afr Amer 81 mL/min (>60); Estimated Creatinine Clearance 61.16 ml/min; Glucose 140 mg/dL (74-106); Potassium 4.1 mmol/L (3.5-5.1); Sodium Level 139 mmol/L (136-145)
[2020-09-18 11:27] VITALS: BP 162/79; PULSE 50; RESP 14; O2SAT 97
--- NOTE | 2020-09-18 11:28 | DCINST.ED_ITS ---
ED Disposition - Plan for ED Patient: Disposition: Home or Assisted Living Instructions: ED Chest Pain, Uncertain Cause Referrals: Missael Velazquez III, MD [Primary Care Provider] - As Needed Ravi Ramírez MD [STAFF PHYSICIAN] - As soon as possible Additional Instructions: Continue your current medications. Call and follow-up with Dr. Ramírez for a the next several days. All your tests today were unremarkable. No signs of a heart attack. 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
== END 2020-09-18 11:45 | disposition home or self-care (01) ==
PROVIDERS: Emergency Provider Emergency Medicine; PCP Family Medicine
DX: R07.89 Other chest pain (principal); I25.10 Atherosclerotic heart disease of native coronary artery without angina pectoris; I10 Essential (primary) hypertension; Z95.1 Presence of aortocoronary bypass graft; Z95.5 Presence of coronary angioplasty implant and graft
CPT/HCPCS: 71045; 80048; 84484; 85025; 93005; 99285

== ENCOUNTER 2021-06-13 14:26 | Outpatient (CLI) | payer MEDICARE, OTHER, SELFPAY ==
[2021-06-13 14:40] VITALS: BP 145/95; PULSE 63; RESP 16; TEMP 37.1; O2SAT 99; BMI 23.1
[2021-06-13] MEDS: 0.9% Saline Lock 10 ML Syringe IV (14:41)
[2021-06-13 15:10] VITALS: BP 126/57; PULSE 60; RESP 16; TEMP 36.9; O2SAT 98
[2021-06-13 16:13] VITALS: BP 147/69; PULSE 56; RESP 16; TEMP 36.4; O2SAT 100
== END 2021-06-13 16:14 | disposition home or self-care (01) ==
LOC: ICUOUT 14:26 → MS3 14:28
PROVIDERS: PCP Family Medicine; Referring Provider Nurse Practitioner Adult Health; Visit Provider Nurse Practitioner Adult Health
DX: Z23 Encounter for immunization (principal); U07.1 COVID-19
CPT/HCPCS: J7050; M0243; A4216; Q0244

== ENCOUNTER 2022-05-28 13:17 | Emergency (ER) | payer MEDICARE, OTHER, SELFPAY ==
[2022-05-28 13:19] VITALS: BP 152/77; PULSE 60; RESP 18; TEMP 36.9; O2SAT 100; BMI 23.7
--- NOTE | 2022-05-28 14:30 | ED.VIS.GI ---
HPI HPI - GI History of Present Illness Chief Complaint: Abd Pain Informant: patient Abdominal Pain/Flank Pain Onset: Days (5) Context: Gradual Onset Timing: Continuous and Waxes and wanes Quality: - (Just feels sick) Location: Diffuse Worsened by: Nothing Relieved by: Nothing Nausea/Vomiting/Emesis GI Symptom: Positive for Nausea; Negative for Vomiting Diarrhea/Melena/Hematochezia GI Symptom: Negative for Diarrhea, Melena or Hematochezia Associated Symptoms Associated Symptoms: Positive for Frequency; Negative for Dysuria or Hematuria Narrative Narrative: Patient presents with abdominal pain that has been constant for the last 5 days. Patient states the pain has been waxing and waning over the last 5 days. Patient states his pain is diffuse across his abdomen. Patient states his pain just feels sick. Patient states nothing makes it worse and nothing makes it better. Patient admits to some nausea but denies any vomiting. Patient denies any diarrhea, melena, or hematochezia. Patient states he has been constipated. Patient states he did an enema today with no improvement of his constipation. Patient admits to some urinary frequency but denies any dysuria or hematuria. Patient denies any fevers or chills. [facility] Medical History Angina pectoris Atherosclerosis of coronary artery of [place] heart without angina pectoris Bilateral inguinal hernia Essential (primary) hypertension Hyperlipidemia NSTEMI (non-ST elevated myocardial infarction) (04/19/15) Home Medications timolol maleate 0.5 % eye drops 1 drp RIGHT EYE BID 11/24/13 [History Last Taken 10/16/16 07:00] aspirin 81 mg tablet,delayed release 81 mg PO DAILY@0800 09/21/17 [History Last Taken Unknown] dupilumab 200 mg/1.14 mL subcutaneous syringe (Dupixent) 200 mg subcut Q2W 06/05/19 [History Last Taken Unknown] acetaminophen 500 mg tablet 500 mg PO Q8-10H PRN 09/21/20 [History Last Taken Unknown] amlodipine 2.5 mg tablet 2.5 mg PO DAILY 01/13/21 [History Last Taken Unknown] citalopram 10 mg tablet 10 mg PO DAILY 08/22/21 [History Last Taken Unknown] ezetimibe 10 mg tablet (Zetia) 10 mg PO DAILY 08/22/21 [History Last Taken Unknown] sildenafil 50 mg tablet (Viagra) 50 mg PO DAILY PRN 08/22/21 [History Last Taken Unknown] nitroglycerin 0.4 mg sublingual tablet 0.4 mg sublingual Q5M PRN chest pain #30 tabs 11/22/21 [Rx Last Taken Unknown] lisinopril 20 mg tablet 20 mg PO BID #180 tabs 12/07/21 [Rx Last Taken Unknown] Allergy/AdvReac Type Severity Reaction Status Date / Time Penicillins [PCN] Allergy Hives Verified 05/28/22 13:17 Sulfa (Sulfonamide Allergy Hives Verified 05/28/22 13:17 Antibiotics) Hthadrl-UAE-CvA Reductase AdvReac Upset Verified 05/28/22 13:17 Inhibitor Stomach [Ddazvsd-Cti-Dzt Reductase Inhibitor] Surgical History H/O coronary artery bypass surgery (02/1991) History of coronary artery stent placement (04/20/15) History of left heart catheterization (04/19/15) S/P inguinal hernia repair Social History Smoking Status: Never smoker alcohol intake: never substance use type: does not use caffeine: Yes Type: coffee Number of servings: 2 ROS ROS ED Constitutional Constitutional ED: Denies chills or fever(s) Eyes Eyes: Denies blurry vision or change in vision ENT ENT ED: Denies rhinorrhea or sore throat Cardiovascular Cardiovascular: Denies chest pain or palpitations Respiratory/Chest Respiratory/Chest: Denies cough or dyspnea Gastrointestinal Gastrointestinal: Reports abdominal pain and nausea; Denies vomiting Genitourinary Genitourinary ED: Reports urinary frequency; Denies dysuria or hematuria Musculoskeletal Musculoskeletal: Denies back pain or neck pain Integumentary Denies abscess or rash Neurologic Neurologic: Denies headache(s) or weakness Allergic/Immunologic Allergic/Immunologic ED: Denies mouth swelling or urticaria EXAM Physical Exam Const Vital Signs: 05/28/22 13:19 Temperature 98.4 F Temperature Source Temporal Pulse Rate 60 Respiratory Rate 18 Blood Pressure 152/77 H Blood Pressure Mean 102 Pulse Ox 100 Oxygen Delivery Method Room Air Positive well nourished and well developed General Appearance ED: well developed HEENT Reports moist mucous membranes Neck supple and no JVD Resp normal respiratory effort and clear to auscultation bilaterally Cardio regular rate, regular rhythm and no murmurs GI normal to inspection, nondistended, normoactive bowel sounds Palpation: soft and tender epigastric, LLQ, RLQ, LUQ, RUQ, periumbilical and suprapubic; Negative for guarding or rebound tenderness present Extremity normal to inspection General Extremety ED: Negative for edema or tenderness General Extremity: Negative for edema Neuro oriented x3, CN's II-XII intact bilaterally and no sensory deficits noted Sensorium / Orientation: alert Motor Exam: strength 5/5 throughout Psych mental status grossly normal Skin no rashes or lesions noted MDM MDM MDM Narrative Medical decision making narrative: Given IV fluids, morphine, and Zofran here. CBC was within normal limits. Comprehensive metabolic profile showed a slightly elevated bilirubin of 2.5. This is consistent with prior results. Lipase was normal. Urinalysis does not show any evidence of urinary tract infection. CT scan of the abdomen pelvis with oral and IV contrast was ordered. This is pending. Care of the patient was given over to the oncoming physician pending CT results. If it is negative, I feel the patient will be discharged home follow-up as an outpatient. Lab Data Attestation: I reviewed the patient's lab results. Labs: Laboratory Results - last 24 hr 05/28/22 05/28/22 05/28/22 14:20 14:20 14:50 WBC 7.0 RBC 4.96 Hgb 15.6 Hct 46.7 MCV 94.2 H MCH 31.5 MCHC 33.4 RDW Std Deviation 44.7 H RDW Coeff of Lenora 12.9 Plt Count 146 L MPV 10.2 Immature Gran % (Auto) 0.600 Neut % (Auto) 75.2 H Lymph % (Auto) 14.9 L [place] % (Auto) 8.0 Eos % (Auto) 0.9 Baso % (Auto) 0.4 Absolute Neuts (auto) 5.3 Absolute Lymphs (auto) 1.04 Nucleated RBC % 0 Sodium 138 Potassium 4.4 Chloride 103 Carbon Dioxide 30.0 Anion Gap 5 BUN 21 H Creatinine 1.08 Estim Creat Clear Calc 61.31 Est GFR (MDRD) Af Amer 84 Est GFR (MDRD) Non-Af 70 BUN/Creatinine Ratio 19.4 Glucose 111 H Calcium 9.5 Total Bilirubin 2.50 H AST 22 ALT 26 Alkaline Phosphatase 57 Total Protein 6.8 Albumin 3.9 Globulin 2.9 Albumin/Globulin Ratio 1.3 Lipase 154 Urine Color Yellow Urine Clarity Clear Urine pH 6.5 Ur Specific [place] 1.015 Urine Protein Negative Urine Glucose (UA) Normal Urine Ketones Negative Urine Occult Blood 25 H Urine Nitrite Negative Urine Bilirubin Negative Urine Urobilinogen Normal Ur Leukocyte Esterase Negative Urine RBC 0-5 SEEN Urine WBC 0 SEEN Ur Squamous Epith Cells 0 SEEN Urine Bacteria 0 SEEN Urine Mucus 0 SEEN Discharge Plan Triage Chief Complaint: Abd Pain ED Provider: Dameon Peterson Dx/Rx/DC Orders Clinical Impression: Abdominal pain Instructions: ED Abdominal Pain Unkn Cause Male... Prescriptions: No Action Dupixent Syringe 200 mg/1.14 mL syringe 200 mg SC Q2W citalopram 10 mg tablet 10 mg PO DAILY acetaminophen 500 mg tablet 500 mg PO Q8-10H PRN ezetimibe [Zetia] 10 mg tablet 10 mg PO DAILY sildenafil [Viagra] 50 mg tablet 50 mg PO DAILY PRN Rx Instructions: administer 30 minutes to 4 hours before activity nitroglycerin 0.4 mg tablet, sublingual 0.4 mg SUBLINGUAL Q5M PRN (Reason: chest pain) Qty: 30 0RF Rx Instructions: do not exceed 3 doses per episode timolol maleate 1 DROP drops 1 drp RIGHT EYE BID Label Comments: eye drops aspirin 81 MG tablet 81 mg PO DAILY@0800 amlodipine 2.5 mg tablet 2.5 mg PO DAILY lisinopril 20 mg tablet 20 mg PO BID Qty: 180 3RF Primary Care Provider: Gurpreet Chavis Referrals: Gurpreet Chavis MD [Primary Care Provider] - 3-5 Days
--- NOTE | 2022-05-28 14:34 | CT_ITS ---
STUDY: CT ABDOMEN AND PELVIS WITH CONTRAST ENHANCEMENT OF 1647 HOURS ON 05/28/2022 REASON FOR EXAM: 81-year-old male with abdominal pain. RADIATION DOSAGE (If Supplied By Facility): CTDIvol = ( 17.20 ) mGy, DLP = ( 814.86 ) mGycm. TECHNIQUE: Transaxial images were obtained from the dome of the diaphragm to the symphysis pubis. Oral Gastrografin and 100 mL of Isovue-370 intravenously were administered for this study. Sagittal and coronal images were reconstructed. Individualized dose optimization techniques were used for this CT. COMPARISON: 01/25/2018. FINDINGS: The visualized lung bases are unremarkable. Mild cardiomegaly. Normal liver. Previous cholecystectomy. Normal intrahepatic biliary system and common duct, which measures 3 mm in diameter. Mild splenomegaly without defects. Normal pancreas. No pancreatitis or pancreatic mass lesions. Normal bilateral adrenal glands. 4.9 cm diameter exophytic cyst from the inferior pole of left kidney. No evidence of a renal cystic or solid mass lesions, hydronephrosis, or pyelonephritis. No obstructive uropathy. Normal bladder. Normal visualized stomach. Normal small intestine. Mild to moderate constipation. No diverticulitis, colitis, intestinal obstruction. The appendix is visualized and appears normal. No appendicitis. Appendix is best visualized on axial images 76 through 79. Heavily calcified abdominal aorta without aneurysm or dissection. Calcification at the origins of both renal arteries.. Normal inferior vena cava. Normal retroperitoneum. 4.3 cm diameter heterogeneous prostate. Small bilateral fat-containing inguinal hernias. Normal abdominal wall. Moderate osteophytic degenerative changes of the lower thoracic and lumbosacral spine with marked narrowing of the L5/S1 intervertebral disc space with a vacuum phenomenon. No fractures or dislocations of the hip joints. No pelvic bone fractures. CT/Abdomen/Pelvis WITH Contrast IMPRESSION: 1. Mild to moderate constipation. 2. No appendicitis, diverticulitis, colitis, intestinal obstruction. 3. Previous cholecystectomy. Normal bile ducts. 4. No pancreatitis or pancreatic mass lesions. 5. Large 4.9 cm exophytic cyst from the inferior pole of the left kidney. No other renal abnormalities. No obstructive uropathy or pyelonephritis. Normal bladder. 6. Small bilateral fat-containing inguinal hernias. 7. Mild splenomegaly without defects. 8. Mild delay. 9. Marked narrowing L5-S1 intervertebral disc space with a vacuum phenomenon. And moderate osteophytic degenerative changes of the lower thoracic and lumbosacral spine. Electronically Signed: Edgar Rondon MD at 18:34 EDT ,
[2022-05-28] MEDS: 0.9% Normal Saline 1,000 ML 1000 ML IV (14:39)
[2022-05-28] MEDS: Morphine 4 MG/ML Syringe IV (14:40)
[2022-05-28] MEDS: Ondansetron 4 MG/2 ML Vial IV (14:40)
[2022-05-28 14:51] LABS: Absolute Lymphocyte Count 1.04 X10^3/uL (0.83-4.51); Absolute Neutrophil Count 5.3 X10^3/uL (2.0-7.7); Basophil# 0.03 X10^3/uL; Basophil% 0.4 % (0-1); Eosinophil# 0.06 X10^3/uL; Eosinophils% 0.9 % (0-5); Hematocrit 46.7 % (40-54); Hemoglobin 15.6 g/dL (13.0-16.5); Lymphocyte # 1.04 X10^3/ul (0.83-4.51); Lymphocyte % 14.9 % (19-41); Mean Corp Hgb Conc 33.4 g/dL (32-36); Mean Corpuscular Hgb 31.5 pg (27.0-32.0); Mean Corpuscular Volume 94.2 fL (80-94); Mean Platelet Vol. 10.2 fl (6.2-12.0); Monocyte# 0.56 X10^3/uL; NRBC Flagged by Analyzer 0 % (0-5); Neutrophil # 5.27 X10^3/uL (2.7-7.7); Neutrophil % 75.2 % (47-70); Platelet Count 146 K/mm3 (150-450); RBC Distribution Width CV 12.9 % (11.6-14.6); RBC Distribution Width SD 44.7 fl (35.1-43.9); Red Blood Count 4.96 M/mm3 (4.6-6.2)
[2022-05-28 14:56] LABS: Bacteria 0 SEEN /hpf (None Seen); Mucous, Urine 0 SEEN /hpf (<or=2+); Squamous Epithelial Cells - UA 0 SEEN /hpf (0-5); White Blood Cells 0 SEEN /hpf (0-5)
[2022-05-28 15:01] LABS: Color, Urine Yellow (Yellow); Glucose, Dipstick Normal (Normal); Ketone-Dipstick Negative (Negative); Leukocyte Esterase-Dipstick Negative /ul (Negative); Nitrite-Dipstick Negative (Negative); Occult Blood-Urine 25 /ul (Negative); Protein-Dipstick Negative (Negative); Specific Gravity, Urine 1.015 (1.002-1.030); Urine Bilirubin Dipstick Negative (Negative); Urine Clarity Clear (Clear); Urine Urobilinogen Normal (Normal); Urine pH 6.5 (5.0 - 8.0)
[2022-05-28 15:08] LABS: Red Blood Cells-Urine 0-5 SEEN /hpf (0-5)
[2022-05-28 15:12] LABS: ALB/GLOB Ratio 1.3 RATIO (0.9-2.4); AST(SGOT) 22 U/L (15-37); Alanine Aminotransfer ALT/SGPT 26 U/L (16-61); Albumin, Serum 3.9 g/dL (3.2-5.0); Alkaline Phosphatase 57 U/L (45-117); Anion Gap 5 (5-15); BUN 21 mg/dL (7-18); BUN/Creat Ratio 19.4 RATIO (10-20); Calcium,Total 9.5 mg/dL (8.5-10.1); Chloride 103 mmol/L (98-107); Creatinine, Serum 1.08 mg/dL (0.70-1.30); EST Glomerular Filtration Rate 70 mL/min (>60); Est Glom Filt Rate - Afr Amer 84 mL/min (>60); Estimated Creatinine Clearance 61.31 ml/min; Globulin 2.9 g/dL (2.2-4.2); Glucose 111 mg/dL (74-106); Lipase 154 U/L (73-393); Potassium 4.4 mmol/L (3.5-5.1); Protein, Total 6.8 g/dL (6.4-8.2); Sodium Level 138 mmol/L (136-145)
== END 2022-05-28 19:43 | disposition home or self-care (01) ==
PROVIDERS: Emergency Provider Emergency Medicine; PCP Family Medicine; Visit Provider Emergency Medicine
DX: R10.9 Unspecified abdominal pain (principal); E78.5 Hyperlipidemia, unspecified; R35.0 Frequency of micturition; I10 Essential (primary) hypertension; I25.10 Atherosclerotic heart disease of native coronary artery without angina pectoris; R11.0 Nausea; Z79.82 Long term (current) use of aspirin; Z79.899 Other long term (current) drug therapy
CPT/HCPCS: 74177; 80053; 81001; 83690; 85025; 96361; 96374; 96375; 99283; J7030; Q9967; A4216; J2405

== ENCOUNTER → 2022-08-31 | Outpatient (CLI) | payer MEDICARE, OTHER, SELFPAY ==
--- NOTE | 2022-08-31 09:41 | CDU_ITS ---
Reason For Study: Lightheadedness Rt. Velocities/BP Lt. Velocities/BP Prox CCA 67.4/11.6 cm/sec. Prox CCA 115.6/9.7 cm/sec. Mid CCA 71.1/11.6 cm/sec. Mid CCA 82.6/11.4 cm/sec. Dist CCA 66.4/11.6 cm/sec. Dist CCA 65.4/9 cm/sec. Prox ICA 62.6/17.3 cm/sec. Prox ICA 60.5/11.4 cm/sec. Mid ICA 74.9/20.1 cm/sec. Mid ICA 60.5/16.3 cm/sec. Dist ICA 60.7/18.2 cm/sec. Dist ICA 56.4/16.8 cm/sec. Rt. ICA/CCA = 1.11. Lt. ICA/CCA = 0.73. Prox ECA 77.8/4.1 cm/sec. Prox ECA 59.3/5.3 cm/sec. Rt. Vert. 27.4/7.7 cm/sec. Lt. Vert. 35.5/9.1 cm/sec. Right Extracranial There is intimal thickening but no significant atherosclerotic plaque noted in the right common carotid artery. There is homogeneous, smooth atherosclerotic plaque noted in the right internal carotid artery. There is intimal thickening but no significant atherosclerotic plaque noted in the right external carotid artery. Antegrade flow is noted in the right vertebral artery. Left Extracranial There is intimal thickening but no significant atherosclerotic plaque noted in the left common carotid artery. There is heterogeneous, irregular atherosclerotic plaque noted in the left internal carotid artery. There is intimal thickening but no significant atherosclerotic plaque noted in the left external carotid artery. Antegrade flow is noted in the left vertebral artery. Procedure Carotid Duplex 80808. This is a Carotid Duplex examination using B-mode, color flow and specral Doppler. Exam performed in department. VL/Carotid Duplex Ultrasound Interpretation Summary Smooth plaque at the proximal right internal carotid artery with less than 50% stenosis Less than 50% stenosis right external carotid artery Calcific plaque with shadowing at the proximal left internal carotid artery wit h less than 50% stenosis Less than 50% stenosis left external carotid artery Patent antegrade vertebral arteries bilaterally Ordering Physician: Leti Denise Referring Physician: Frank Chavis Performed By: Susanne Al RVT
== END | disposition home or self-care (01) ==
LOC: CVS 09:41
PROVIDERS: PCP Family Medicine; Referring Provider Nurse Practitioner Gerontology; Visit Provider Nurse Practitioner Gerontology
DX: I65.23 Occlusion and stenosis of bilateral carotid arteries (principal); R42 Dizziness and giddiness
CPT/HCPCS: 93880

== ENCOUNTER → 2023-05-14 | Outpatient (CLI) | payer MEDICARE, OTHER, SELFPAY ==
[2023-05-14 15:08] LABS: Absolute Lymphocyte Count 1.23 X10^3/uL (0.83-4.51); Absolute Neutrophil Count 4.2 X10^3/uL (2.0-7.7); Basophil# 0.05 X10^3/uL; Basophil% 0.8 % (0-1); Eosinophils% 1.6 % (0-5); Hematocrit 37.8 % (40-54); Hemoglobin 12.8 g/dL (13.0-16.5); Lymphocyte # 1.23 X10^3/ul (0.83-4.51); Lymphocyte % 19.9 % (19-41); Mean Corp Hgb Conc 33.9 g/dL (32-36); Mean Corpuscular Hgb 32.7 pg (27.0-32.0); Mean Corpuscular Volume 96.4 fL (80-94); Mean Platelet Vol. 9.5 fl (6.2-12.0); Monocyte# 0.61 X10^3/uL; Monocyte% 9.9 % (0-10); NRBC Flagged by Analyzer 0 % (0-5); Neutrophil # 4.15 X10^3/uL (2.7-7.7); Neutrophil % 67.3 % (47-70); Platelet Count 152 K/mm3 (150-450); RBC Distribution Width CV 13.2 % (11.6-14.6); RBC Distribution Width SD 47.5 fl (35.1-43.9); Red Blood Count 3.92 M/mm3 (4.6-6.2); White Blood Count 6.2 K/mm3 (4.4-11.0)
[2023-05-14 15:41] LABS: AST(SGOT) 15 U/L (15-37); Alanine Aminotransfer ALT/SGPT 20 U/L (16-61); Albumin, Serum 3.6 g/dL (3.2-5.0); Alkaline Phosphatase 59 U/L (45-117); Anion Gap 5 (5-15); BUN 19 mg/dL (7-18); Bilirubin, Direct 0.37 mg/dL (0.00-0.30); Calcium,Total 9.1 mg/dL (8.5-10.1); Chloride 106 mmol/L (98-107); Cholesterol 137 mg/dL (200); Creatinine, Serum 1.12 mg/dL (0.70-1.30); EST Glomerular Filtration Rate 67 mL/min (>60); Est Glom Filt Rate - Afr Amer 80 mL/min (>60); Globulin 2.8 g/dL (2.2-4.2); Glucose 108 mg/dL (74-106); High Density Lipoprotein 38 mg/dL; Magnesium 2.4 mg/dL (1.6-2.6); Potassium 3.7 mmol/L (3.5-5.1); Protein, Total 6.4 g/dL (6.4-8.2); Sodium Level 141 mmol/L (136-145); Triglycerides 223 mg/dL; Very Low Density Lipoprotein 45 mg/dL (5-40)
== END | disposition home or self-care (01) ==
LOC: LAB 14:44
PROVIDERS: PCP Family Medicine; Referring Provider Nurse Practitioner Gerontology; Visit Provider Nurse Practitioner Gerontology
DX: E78.5 Hyperlipidemia, unspecified (principal); R42 Dizziness and giddiness
CPT/HCPCS: 36415; 80048; 80061; 80076; 83735; 85025

== ENCOUNTER → 2023-05-15 | Outpatient (CLI) | payer MEDICARE, OTHER, SELFPAY ==
--- NOTE | 2023-05-15 14:02 | MRI_ITS ---
STUDY: MRI BRAIN WITHOUT CONTRAST REASON FOR EXAM: Male, 82 years old. MEMORY LOSS, HALLUCINATIONS TECHNIQUE: Standardized multiplanar fat and water weighted pulse sequences were obtained. COMPARISON: None. FINDINGS: There is moderate cerebral atrophy with widening of the extra-axial spaces and ventricular dilatation. There are multiple white matter hyperintensities, distributed throughout the deep white matter tracts of the cerebral hemispheres, consistent with moderate chronic white matter ischemic changes. There is no evidence for recent intracranial ischemia or other cause of cytotoxic edema on diffusion weighted imaging (DWI). Normal T2* images of the brain without demonstrated susceptibility artifact. There is no demonstrated hemosiderin stain. Normal bilateral basal ganglia. Normal thalami. There is no extra-axial fluid accumulation. Normal flow voids within the major intracranial circulation suggesting patency by spin echo criteria. Normal sella turcica, pituitary gland, infundibular stalk, optic chiasm and hypothalamus. Normal tectal plate and pineal gland. Normal midbrain, geeta and medulla. Normal cerebellum. Normal basal cisterns. Normal bilateral temporal bones. Normal bilateral internal auditory canals. No demonstrated orbital abnormality, within the constraints of a routine brain study. Normal visualized paranasal sinuses. Normal calvarium and skull base. Normal visualized soft tissue structures. Normal visualized upper cervical spine. MRI/Brain without Contrast IMPRESSION: 1. Involutional and chronic ischemic changes of the brain, as described above. 2. No evidence of an acute infarct. Electronically Signed: Pedro Fontenot MD at 16:07 EDT ,
== END | disposition home or self-care (01) ==
LOC: MRI 13:56
PROVIDERS: PCP Family Medicine; Referring Provider Family Medicine; Visit Provider Family Medicine
DX: R41.3 Other amnesia (principal); R44.3 Hallucinations, unspecified
CPT/HCPCS: 70551

== ENCOUNTER 2023-06-10 23:36 | Emergency (ER) | payer MEDICARE, OTHER, SELFPAY ==
--- NOTE | 2023-06-10 00:07 | RAD_ITS ---
INDICATION: chest pain EXAMINATION/TECHNIQUE: X-RAY - XR Chest 1 View COMPARISON: Chest x-ray from 09/18/2020 FINDINGS: LINES/DEVICES: None. LUNGS: Hyperexpanded lungs again noted with small benign granulomatous calcification left upper lobe. No pulmonary edema or focal airspace consolidation. No sizable pleural effusion. No pneumothorax detected. MEDIASTINUM AND CARDIOVASCULAR STRUCTURES: Heart size within normal limits. Status post sternotomy and CABG. Mediastinal contours unremarkable. BONES AND SOFT TISSUES: No acute findings. RAD/Chest 1 View (Portable) IMPRESSION: COPD and atherosclerotic disease Electronically Signed: Alan Hernandez MD at 0:49 EDT ,
[2023-06-10 23:37] VITALS: BP 154/76; PULSE 56; RESP 14; TEMP 36.5; O2SAT 99; BMI 21.9
--- NOTE | 2023-06-10 23:58 | ED.VIS.CHEST ---
HPI History of Present Illness Chief Complaint: Chest Pain Informant: patient and family Narrative Narrative: Patient with a left-sided nonpleuritic sharp jabbing chest discomfort without migration or radiation for the last 2.5 hours. Started gradually while resting in bed watching TV. He has a history of stents and a CABG from long ago and follows with Dr. Ramírez in cardiology for routine care, he has regular stress tests, has not failed 1, and is due for another one this year. He denies any associated symptoms with this tonight. No dyspnea, palpitations, lightheadedness, sweating, nausea, fatigue, near-syncope or syncope, and the discomfort is nonpleuritic. He states he is not easily able to reproduce it. An hour or 2 before this, he was helping his significant other move a heavy safe in their home. He does not use a cane or a walker, he gets around well without mobility problems normally, and even with walking up steps he does not develop any symptoms of angina on a usual basis. He states he took his aspirin tonight, and at this time the pain is much improved compared to what it was earlier but he still has it. It has been constant for the last several hours since it started. [facility] Medical History Angina pectoris Atherosclerosis of coronary artery of [place] heart without angina pectoris Bilateral inguinal hernia Essential (primary) hypertension Hyperlipidemia NSTEMI (non-ST elevated myocardial infarction) (04/19/15) Home Medications timolol maleate 0.5 % eye drops 1 drp RIGHT EYE BID 11/24/13 [History Last Taken 10/16/16 07:00] aspirin 81 mg tablet,delayed release 81 mg PO DAILY@0800 09/21/17 [History Last Taken Unknown] dupilumab 200 mg/1.14 mL subcutaneous syringe (Dupixent) 200 mg subcut Q2W 06/05/19 [History Last Taken Unknown] acetaminophen 500 mg tablet 500 mg PO Q8-10H PRN fever or pain 09/21/20 [History Last Taken Unknown] amlodipine 2.5 mg tablet 2.5 mg PO DAILY 01/13/21 [History Last Taken Unknown] ezetimibe 10 mg tablet (Zetia) 10 mg PO DAILY 08/22/21 [History Last Taken Unknown] netarsudil 0.02 % eye drops (Rhopressa) 1 drp ophthalmic (eye) QPM 06/02/22 [History Last Taken Unknown] nitroglycerin 0.4 mg sublingual tablet 0.4 mg sublingual Q5M PRN chest pain #30 tabs 12/14/22 [Rx Last Taken Unknown] sucralfate 1 gram tablet 1 g PO BID 12/14/22 [History Last Taken Unknown] escitalopram oxalate 5 mg tablet 5 mg PO DAILY 05/14/23 [History Last Taken Unknown] lisinopril 10 mg tablet 10 mg PO DAILY 05/14/23 [History Last Taken Unknown] Allergy/AdvReac Type Severity Reaction Status Date / Time Penicillins [PCN] Allergy Hives Verified 06/10/23 23:37 Sulfa (Sulfonamide Allergy Hives Verified 06/10/23 23:37 Antibiotics) Qoyoefs-LWK-PrL Reductase AdvReac Upset Verified 06/10/23 23:37 Inhibitor Stomach [Gsgybfv-Wcy-Kog Reductase Inhibitor] Surgical History H/O coronary artery bypass surgery (02/1991) History of coronary artery stent placement (04/20/15) History of left heart catheterization (04/19/15) S/P inguinal hernia repair Social History Smoking Status: Never smoker alcohol intake: never substance use type: does not use caffeine: Yes Type: coffee Number of servings: 2 ROS ROS ED Constitutional Constitutional ED: Denies chills or fever(s) Eyes Eyes: Denies change in vision or diplopia ENT ENT ED: Denies rhinorrhea or sore throat Cardiovascular Cardiovascular: Reports as per HPI and chest pain; Denies palpitations Respiratory/Chest Respiratory/Chest: Denies cough or dyspnea Gastrointestinal Gastrointestinal: Denies abdominal pain, diarrhea, nausea or vomiting Genitourinary Genitourinary ED: Denies dysuria or hematuria Musculoskeletal Musculoskeletal: Denies back pain or neck pain Integumentary Denies abscess or rash Neurologic Neurologic: Denies headache(s), paresthesias or weakness Psychiatric Psychiatric: Denies anxiety or suicidal thoughts EXAM Physical Exam Const Vital Signs: 06/10/23 23:37 06/10/23 23:57 06/10/23 23:58 Temperature 97.7 F L Temperature Source Temporal Pulse Rate 56 L Respiratory Rate 14 Respiratory Effort Normal Non-Labored Blood Pressure 154/76 H Blood Pressure Mean 102 Pulse Ox 99 Oxygen Delivery Method Room Air Positive well nourished and well developed General Appearance ED: well developed and NAD HEENT Reports moist mucous membranes normocephalic and atraumatic Eyes PERRL and EOMs intact bilaterally Neck full ROM and supple Chest Wall inspection of chest normal and palpation of chest normal Resp normal respiratory effort and clear to auscultation bilaterally Cardio regular rate, regular rhythm and no murmurs GI non-tender and non-distended Auscultation: normoactive bowel sounds Palpation: soft Back/Spine no CVA tenderness General Back: other FROM Extremity normal to inspection General Extremety ED: Negative for edema, pulses abnormal or tenderness General Extremity: Negative for edema or pulses abnormal Neuro oriented x3, CN's II-XII intact bilaterally and no sensory deficits noted Sensorium / Orientation: awake and alert Motor Exam: strength 5/5 throughout Skin no rashes or lesions noted and no wounds Heart Score History: Slightly/Non-Suspicious ECG: Nonspecific Repolarization Age: >/= 65 years Risk Factors: >/= 3 Risk Factors or History of CAD Troponin: </= Normal Limit Score: 5 MDM MDM MDM Narrative Medical decision making narrative: Chest discomfort/symptoms are atypical for unstable angina, I suspect it is more likely this is musculoskeletal from the activities he was doing within the last several hours prior to the onset of this. The EKG shows some nonspecific ST-T wave abnormalities in the lateral leads, however these are identical to his old EKG and likely normal for him having had a CABG in the past. His initial troponin is within normal limits at 36. His presentation was borderline with regards to timing, several hours after the onset. We discussed the protocol for a 2-hour delta, he understands the risk of not getting it, but he is feeling better on reevaluation even without us giving him additional treatment, and he wants to leave, and with shared decision making, understands the increased risk afforded to him of a myocardial event prior to following up, which I think is relatively low given the history. 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 Lab Data Attestation: I reviewed the patient's lab results. Labs: Laboratory Results - last 24 hr 06/11/23 00:00 WBC 5.8 RBC 3.92 L Hgb 12.6 L Hct 37.5 L MCV 95.7 H MCH 32.1 H MCHC 33.6 RDW Std Deviation 46.3 H RDW Coeff of [place] 13.2 Plt Count 137 L MPV 9.7 Immature Gran % (Auto) 0.900 Neut % (Auto) 65.1 Lymph % (Auto) 20.6 [place] % (Auto) 10.1 H Eos % (Auto) 2.6 Baso % (Auto) 0.7 Absolute Neuts (auto) 3.8 Absolute Lymphs (auto) 1.20 Nucleated RBC % 0 Sodium 140 Potassium 3.7 Chloride 106 Carbon Dioxide 27.0 Anion Gap 7 BUN 20 H Creatinine 1.11 Estim Creat Clear Calc 55.26 Est GFR (MDRD) Af Amer 81 Est GFR (MDRD) Non-Af 67 BUN/Creatinine Ratio 18.0 Glucose 118 H Calcium 8.7 Troponin I High Sens 36 Radiography Chest X-Ray - ED: 1 View, Read by ED Physician, No Acute Disease, Chronic Changes and No Infiltrates Diagnostic Testing: Clinical Impression(s) from Imaging Studies Chest X-Ray 06/10/23 00:07 IMPRESSION: COPD and atherosclerotic disease Electronically Signed: Alan Hernandez MD at 0:49 EDT , Rhythm Strip Rhythm Strip: Sinus Rhythm Rate: 60 Ectopy: None EKG Initial EKG: Attestation: I personally reviewed and interpreted this EKG as follows: Interpretation: Sinus Rhythm, No Acute Injury Pattern and Non-Specific ST Changes (laterally) Prior EKG tracings: available for review Prior: Unchanged Discharge Plan Triage Chief Complaint: Chest Pain ED Provider: Saravanan Cano Dx/Rx/DC Orders Clinical Impression: Left-sided chest pain Instructions: ED Chest Pain, Uncertain Cause Prescriptions: No Action Dupixent Syringe 200 mg/1.14 mL syringe 200 mg SC Q2W acetaminophen 500 mg tablet 500 mg PO Q8-10H PRN (Reason: fever or pain) ezetimibe [Zetia] 10 mg tablet 10 mg PO DAILY Rhopressa 0.02 % drops 1 drp ophthalmic (eye) QPM sucralfate 1 gram tablet 1 g PO BID nitroglycerin 0.4 mg tablet, sublingual 0.4 mg SUBLINGUAL Q5M PRN (Reason: chest pain) Qty: 30 1RF Rx Instructions: do not exceed 3 doses per episode escitalopram oxalate 5 mg tablet 5 mg PO DAILY timolol maleate 1 DROP drops 1 drp RIGHT EYE BID Patient Comments: eye drops aspirin 81 MG tablet 81 mg PO DAILY@0800 amlodipine 2.5 mg tablet 2.5 mg PO DAILY lisinopril 10 mg tablet 10 mg PO DAILY Hold Instructions: orthostatic hypotension Primary Care Provider: Gurpreet Chavis Referrals: Gurpreet Chavis MD [Primary Care Provider] - 3-5 Days if not improving (and/or Dr. Ramírez) Disposition Disposition: Home, Self Care
[2023-06-11 00:37] LABS: Absolute Neutrophil Count 3.8 X10^3/uL (2.0-7.7); Basophil# 0.04 X10^3/uL; Basophil% 0.7 % (0-1); Eosinophil# 0.15 X10^3/uL; Eosinophils% 2.6 % (0-5); Hematocrit 37.5 % (40-54); Hemoglobin 12.6 g/dL (13.0-16.5); Lymphocyte % 20.6 % (19-41); Mean Corp Hgb Conc 33.6 g/dL (32-36); Mean Corpuscular Hgb 32.1 pg (27.0-32.0); Mean Corpuscular Volume 95.7 fL (80-94); Mean Platelet Vol. 9.7 fl (6.2-12.0); Monocyte# 0.59 X10^3/uL; Monocyte% 10.1 % (0-10); NRBC Flagged by Analyzer 0 % (0-5); Neutrophil # 3.79 X10^3/uL (2.7-7.7); Neutrophil % 65.1 % (47-70); Platelet Count 137 K/mm3 (150-450); RBC Distribution Width CV 13.2 % (11.6-14.6); RBC Distribution Width SD 46.3 fl (35.1-43.9); Red Blood Count 3.92 M/mm3 (4.6-6.2); White Blood Count 5.8 K/mm3 (4.4-11.0)
[2023-06-11 00:41] LABS: Anion Gap 7 (5-15); BUN 20 mg/dL (7-18); Calcium,Total 8.7 mg/dL (8.5-10.1); Chloride 106 mmol/L (98-107); Creatinine, Serum 1.11 mg/dL (0.70-1.30); EST Glomerular Filtration Rate 67 mL/min (>60); Est Glom Filt Rate - Afr Amer 81 mL/min (>60); Estimated Creatinine Clearance 55.26 ml/min; Glucose 118 mg/dL (74-106); Potassium 3.7 mmol/L (3.5-5.1); Sodium Level 140 mmol/L (136-145); Troponin-I HS (w/2H Reflex) 36 pg/mL (3.0-78.0)
[2023-06-11 01:22] VITALS: BP 160/75; PULSE 76; RESP 18; O2SAT 96
[2023-06-11 02:04] LABS: Reflex Troponin-HS? (from REC) Y
== END 2023-06-11 01:23 | disposition home or self-care (01) ==
PROVIDERS: Emergency Provider Emergency Medicine; PCP Family Medicine; Visit Provider Emergency Medicine
DX: R07.89 Other chest pain (principal); E78.5 Hyperlipidemia, unspecified; I10 Essential (primary) hypertension; Z95.5 Presence of coronary angioplasty implant and graft; Z95.1 Presence of aortocoronary bypass graft; I25.10 Atherosclerotic heart disease of native coronary artery without angina pectoris
CPT/HCPCS: 71045; 80048; 84484; 85025; 93005; 99284; A4216

== ENCOUNTER 2023-07-20 18:44 | Inpatient (IN) | payer MEDICARE, OTHER, SELFPAY ==
[2023-07-20] VITALS (9 sets, daily range): BP systolic 142–206; BP diastolic 77–97; PULSE 67–84; RESP 12–22; TEMP 36.2–36.8; O2SAT 97–100; BMI 22.4; BMI 21.2
--- NOTE | 2023-07-20 19:07 | EKG12_ITS ---
Test Reason : CP Blood Pressure : / mmHG Vent. Rate : 083 BPM Atrial Rate : 083 BPM P-R Int : 310 ms QRS Dur : 090 ms QT Int : 374 ms P-R-T Axes : 000 -12 111 degrees QTc Int : 439 ms Sinus rhythm with 1st degree A-V block ST & T wave abnormality, consider lateral ischemia Abnormal ECG Confirmed by LUIS BENNETT, ISREAL ([id number]), society editor VISHAL KERR ([id number]) on 07/30/2023 7:53:38 AM Referred By: MYRNA Confirmed By:BHUPENDRA SMITH MD
--- NOTE | 2023-07-20 19:08 | ED.VIS.CHEST ---
HPI History of Present Illness Chief Complaint: Chest Pain Informant: patient, spouse/S.O. and family Narrative Narrative: 82-year-old male with known history of coronary artery disease presenting to the emergency room for the evaluation of chest pain. Symptoms began approximately 1.5 hours ago and are described as a chest pain. He states it is gotten better since it started but is still persisting. He had open heart surgery in 1990 with [facility]. He follows locally with [facility]. August 2020 had an abnormal stress test. He saw cardiology this past April. He denies associated symptoms of shortness of breath nausea sweating arm or jaw pain [facility] Medical History (Updated 07/20/23 @ 20:[address] Natalie Holliday MD) Anxiety and depression Atherosclerosis of coronary artery of [place] heart without angina pectoris Bilateral inguinal hernia Chronic anemia COVID-19 Essential (primary) hypertension GERD (gastroesophageal reflux disease) Hyperlipidemia NSTEMI (non-ST elevated myocardial infarction) (04/19/15) Home Medications timolol maleate 0.5 % eye drops 1 drp RIGHT EYE BID 11/24/13 [History Last Taken 10/16/16 07:00] aspirin 81 mg tablet,delayed release 81 mg PO DAILY@0800 09/21/17 [History Last Taken Unknown] dupilumab 200 mg/1.14 mL subcutaneous syringe (Dupixent) 200 mg subcut Q2W 06/05/19 [History Last Taken Unknown] acetaminophen 500 mg tablet 500 mg PO Q8-10H PRN fever or pain 09/21/20 [History Last Taken Unknown] amlodipine 2.5 mg tablet 2.5 mg PO DAILY 01/13/21 [History Last Taken Unknown] ezetimibe 10 mg tablet (Zetia) 10 mg PO DAILY 08/22/21 [History Last Taken Unknown] netarsudil 0.02 % eye drops (Rhopressa) 1 drp ophthalmic (eye) QPM 06/02/22 [History Last Taken Unknown] nitroglycerin 0.4 mg sublingual tablet 0.4 mg sublingual Q5M PRN chest pain #30 tabs 12/14/22 [Rx Last Taken Unknown] sucralfate 1 gram tablet 1 g PO BID 12/14/22 [History Last Taken Unknown] escitalopram oxalate 5 mg tablet 5 mg PO DAILY 05/14/23 [History Last Taken Unknown] lisinopril 10 mg tablet 10 mg PO DAILY 05/14/23 [History Last Taken Unknown] Allergy/AdvReac Type Severity Reaction Status Date / Time Penicillins [PCN] Allergy Hives Verified 07/20/23 18:48 Sulfa (Sulfonamide Allergy Hives Verified 07/20/23 18:48 Antibiotics) Fqjdbkz-DFQ-BsQ Reductase AdvReac Upset Verified 07/20/23 18:48 Inhibitor Stomach [Wtghdwc-Mux-Uyx Reductase Inhibitor] Family History (Updated 07/20/23 @ 20:[address] Natalie Holliday MD) Father CAD (coronary artery disease) Myocardial infarction Heart disease Hypertension Brother CAD (coronary artery disease) Heart disease Hypertension Brother CAD (coronary artery disease) Heart disease Hypertension Surgical History H/O coronary artery bypass surgery (02/1991) History of coronary artery stent placement (04/20/15) History of left heart catheterization (04/19/15) S/P inguinal hernia repair Social History (Updated 07/20/23 @ 20:[address] Natalie Holliday MD) household members: spouse Smoking Status: Never smoker alcohol intake: never substance use type: does not use caffeine: Yes Type: coffee Number of servings: 2 ROS ROS ED Constitutional Constitutional ED: Denies chills or weight loss Eyes Eyes: Denies change in vision or diplopia ENT ENT ED: Denies ear pain, rhinorrhea or sore throat Cardiovascular Cardiovascular: Reports as per HPI and chest pain; Denies orthopnea, palpitations or racing heartbeat Respiratory/Chest Respiratory/Chest: Denies cough, dyspnea or orthopnea Gastrointestinal Gastrointestinal: Denies abdominal pain, diarrhea, nausea or vomiting Genitourinary Genitourinary ED: Denies dysuria, hematuria or urinary frequency Musculoskeletal Musculoskeletal: Denies arthralgias or myalgias Integumentary Denies abscess or rash Neurologic Neurologic: Denies headache(s) or weakness Psychiatric Psychiatric: Denies anxiety, depression, suicidal ideation or suicidal thoughts Endocrine Endocrinology: Denies polydipsia, polyphagia or polyuria Allergic/Immunologic Allergic/Immunologic ED: Denies mouth swelling, tongue swelling or urticaria EXAM Physical Exam Const Vital Signs: 07/20/23 18:45 07/20/23 18:49 07/20/23 19:50 Temperature 97.1 F L Temperature Source Temporal Pulse Rate 84 71 Respiratory Rate 18 16 Respiratory Effort Normal Respiratory Pattern Normal Blood Pressure 206/97 H 165/79 H Blood Pressure Mean 133 107 Pulse Ox 98 97 Oxygen Delivery Method Room Air Room Air Positive well nourished and well developed General Appearance ED: well developed HEENT Reports normocephalic, head/scalp atraumatic and moist mucous membranes Eyes PERRL and EOMs intact bilaterally Neck no lymphadenopathy, supple and no JVD Resp normal respiratory effort and clear to auscultation bilaterally Cardio regular rate, regular rhythm and no murmurs GI normal to inspection, nondistended, normoactive bowel sounds and non-tender Palpation: soft Back/Spine no CVA tenderness and normal ROM Extremity normal to inspection General Extremety ED: Negative for edema General Extremity: Negative for edema Neuro oriented x3 and CN's II-XII intact bilaterally Sensorium / Orientation: alert Motor Exam: strength 5/5 throughout Psych mental status grossly normal Mood & Affect: Negative for depressed or tearful Skin no rashes or lesions noted and no wounds Heart Score History: Highly Suspicious ECG: Significant ST-Depression Age: >/= 65 years Risk Factors: >/= 3 Risk Factors or History of CAD Score: 8 MDM MDM MDM Narrative Medical decision making narrative: Initial EKG and old EKG was sent to interventional cardiology. Case was discussed at approximately 1908 hrs. patient received aspirin placed on a heparin drip. Patient has remained hypertensive and will be placed on a nitroglycerin drip. His chest pain has slowly resolved. Initial troponin is 12 and that is with about 1.5 hours of symptoms. Plan is admission into the hospital. Chest pain History & Record Review Discussion w/independent historian: Patient, Family and Significant other Additional record(s) reviewed:: Prior outpatient record, Prior ED visit and Prior labs Lab Data Attestation: I reviewed the patient's lab results. Labs: Laboratory Results - last 24 hr 07/20/23 18:54 WBC 6.5 RBC 4.07 L Hgb 12.8 L Hct 39.2 L MCV 96.3 H MCH 31.4 MCHC 32.7 RDW Std Deviation 45.9 H RDW Coeff of Lenora 13.0 Plt Count 153 MPV 9.7 Immature Gran % (Auto) 0.800 Neut % (Auto) 79.9 H Lymph % (Auto) 9.0 L [place] % (Auto) 7.7 Eos % (Auto) 2.0 Baso % (Auto) 0.6 Absolute Neuts (auto) 5.2 Absolute Lymphs (auto) 0.58 L Nucleated RBC % 0 Differential Comment SEE COMMENT Platelet Estimate ADEQUATE RBC Morphology N CHROM Anisocytosis RARE Macrocytosis RARE PT 13.4 INR 1.0 APTT 29.6 Sodium 141 Potassium 3.8 Chloride 104 Carbon Dioxide 33.0 H Anion Gap 4 L BUN 20 H Creatinine 1.29 Estim Creat Clear Calc 48.73 Est GFR (MDRD) Af Amer 68 Est GFR (MDRD) Non-Af 56 L BUN/Creatinine Ratio 15.5 Glucose 165 H Calcium 8.8 Troponin I High Sens 12 Radiography Diagnostic Testing: Clinical Impression(s) from Imaging Studies Chest X-Ray 07/20/23 19:15 IMPRESSION: No active disease. Electronically Signed: Kt Jalloh MD at 19:31 EDT , EKG Initial EKG: Attestation: I personally reviewed and interpreted this EKG as follows: Comments: Sinus rhythm with first-degree AV block ventricular rate of [address] elevation in aVR with ST depression in 1 and 2. He is also some ST depression V3 through V6. Prior EKG tracings: available for review Prior: Changed Differential Diagnosis Chest pain/SOB: ACS, pneumothorax, pneumonia, aortic dissection and CHF Management Discussion w/another healthcare provider: Hospitalist and Epic Specialist (cardiology) Discharge Plan Dx/Rx/DC Orders Clinical Impression: Essential (primary) hypertension, Unstable angina, Hyperlipidemia Disposition Disposition: Acute Care Hospital [facility]
--- NOTE | 2023-07-20 19:15 | RAD_ITS ---
STUDY: X-RAY CHEST REASON FOR EXAM: Male, 82 years old. chest pain TECHNIQUE: Single AP portable view of the chest. COMPARISON: 06/11/2023 FINDINGS: Status post median sternotomy. The lungs are clear and expanded. There is no demonstrated pleural abnormality. Normal size heart. Normal mediastinum and bang. Normal visualized pulmonary arteries. Normal visualized aortic arch and descending thoracic aorta. Normal visualized thoracic spine. Normal visualized ribs, clavicles, and shoulders. There is no demonstrated abnormality of the visualized soft tissue structures of the upper abdomen. RAD/Chest 1 View (Portable) IMPRESSION: No active disease. Electronically Signed: Kt Jalloh MD at 19:31 EDT ,
[2023-07-20] MEDS: Aspirin 325 MG Tablet PO (19:22)
[2023-07-20] MEDS: HEPARIN/D5w 25,000 UNITS 25,000 UNITS/250 ML IV.SOLN. 9 UNITS CONT INF (19:46)
[2023-07-20] MEDS: Heparin Injection (Vial) 5,000 UNIT/ML VIAL 4000 UNIT IV (19:46)
[2023-07-20 19:55] LABS: Absolute Lymphocyte Count 0.58 X10^3/uL (0.83-4.51); Absolute Neutrophil Count 5.2 X10^3/uL (2.0-7.7); Basophil# 0.04 X10^3/uL; Basophil% 0.6 % (0-1); Eosinophil# 0.13 X10^3/uL; Hematocrit 39.2 % (40-54); Hemoglobin 12.8 g/dL (13.0-16.5); Lymphocyte # 0.58 X10^3/ul (0.83-4.51); Mean Corp Hgb Conc 32.7 g/dL (32-36); Mean Corpuscular Hgb 31.4 pg (27.0-32.0); Mean Corpuscular Volume 96.3 fL (80-94); Mean Platelet Vol. 9.7 fl (6.2-12.0); Monocyte% 7.7 % (0-10); NRBC Flagged by Analyzer 0 % (0-5); Neutrophil # 5.18 X10^3/uL (2.7-7.7); Neutrophil % 79.9 % (47-70); POSITIVE DIFFERENTIAL YES; Platelet Count 153 K/mm3 (150-450); RBC Distribution Width SD 45.9 fl (35.1-43.9); Red Blood Count 4.07 M/mm3 (4.6-6.2); White Blood Count 6.5 K/mm3 (4.4-11.0)
[2023-07-20 20:01] LABS: Prothrombin Time (Protime)PT. 13.4 SECONDS (11.7-14.9)
[2023-07-20 20:03] LABS: Partial Thromboplast Time 29.6 Seconds (24.1-36.2)
[2023-07-20 20:05] LABS: Differential Indicated SCAN CRITERIA MET
[2023-07-20 20:17] LABS: Anisocytosis RARE; Macrocytosis RARE; Platelet Estimate ADEQUATE (ADEQ); Red Cell Morphology N CHROM NORMAL (NORM C&C)
[2023-07-20 20:30] LABS: Anion Gap 4 (5-15); BUN 20 mg/dL (7-18); BUN/Creat Ratio 15.5 RATIO (10-20); Calcium,Total 8.8 mg/dL (8.5-10.1); Chloride 104 mmol/L (98-107); Creatinine, Serum 1.29 mg/dL (0.70-1.30); EST Glomerular Filtration Rate 56 mL/min (>60); Est Glom Filt Rate - Afr Amer 68 mL/min (>60); Estimated Creatinine Clearance 48.73 ml/min; Glucose 165 mg/dL (74-106); Potassium 3.8 mmol/L (3.5-5.1); Sodium Level 141 mmol/L (136-145); Troponin-I HS (w/2H Reflex) 12 pg/mL (3.0-78.0)
--- NOTE | 2023-07-20 21:02 | PCM.HP.STD ---
HPI - General General Date of Admission: 07/20/23 Date of Service: 07/20/23 Chief Complaint: Chest pain. HPI Narrative The patient is an 82 y/o M w/ PMHx: Chronic eczema, Chronic anemia, CAD s/p CABG and PCI, HTN, HLD, GERD, Anxiety and Depression who presents to the [facility] ED on 07/20/23 with history of onset of chest discomfort described as a pressure starting approximately an hour and a half prior to ED arrival although he reports it is somewhat improved since it started but has still persisted with no associated diaphoresis, dyspnea, nausea, emesis, radiation of the discomfort. He notes the discomfort is in the midsternal region and at its worst rated at 7-8 out of 10 in severity now down to a 2-3 out of 10 in severity. Work-up in the ED included T97.1, heart rate 84, BP initially 206/97 with most recent repeat 165/79, respiratory rate 18, 98% on room air, CBC with WBC 6.5, hemoglobin 12.8, MCV 96.3, platelet 153 with lymphopenia, unremarkable coags, BMP with A 33, BUN/creatinine 20/1.29, glucose 165, troponin 12, chest x-ray with no acute cardiopulmonary findings, EKG with sinus rhythm with first-degree AV block with some T wave elevations in aVR with ST depression in 1 and 2 as well as some ST depression V3 through V6 which is changed from previous. In the ED patient initiated on a heparin drip with bolus and administered a full-strength aspirin therapy as well as NG drip. Most recent evaluation prior to this 06/11/2023 with troponin at that time 36. In the ED heart score elevated to 8 secondary to suspicious story, significant ST depression, age and risk factors. Initial EKG and previous was sent to cardiology and case was discussed with Dr. Fraser. [facility] Medical History (Updated 07/20/23 @ 21:[address] Natalie Holliday MD) Anxiety and depression Atherosclerosis of coronary artery of [place] heart without angina pectoris Bilateral inguinal hernia Chronic anemia COVID-19 Eczema Essential (primary) hypertension GERD (gastroesophageal reflux disease) Hyperlipidemia NSTEMI (non-ST elevated myocardial infarction) (04/19/15) Home Medications timolol maleate 0.5 % eye drops 1 drp RIGHT EYE BID 03/10/14 [History Last Taken 10/16/16 07:00] aspirin 81 mg tablet,delayed release 81 mg PO DAILY@0800 09/21/17 [History Last Taken Unknown] dupilumab 200 mg/1.14 mL subcutaneous syringe (Dupixent) 200 mg subcut Q2W 06/05/19 [History Last Taken Unknown] acetaminophen 500 mg tablet 500 mg PO Q8-10H PRN fever or pain 09/21/20 [History Last Taken Unknown] amlodipine 2.5 mg tablet 2.5 mg PO DAILY 01/13/21 [History Last Taken Unknown] ezetimibe 10 mg tablet (Zetia) 10 mg PO DAILY 08/22/21 [History Last Taken Unknown] netarsudil 0.02 % eye drops (Rhopressa) 1 drp ophthalmic (eye) QPM 06/02/22 [History Last Taken Unknown] nitroglycerin 0.4 mg sublingual tablet 0.4 mg sublingual Q5M PRN chest pain #30 tabs 12/14/22 [Rx Last Taken Unknown] sucralfate 1 gram tablet 1 g PO BID 12/14/22 [History Last Taken Unknown] escitalopram oxalate 5 mg tablet 5 mg PO DAILY 05/14/23 [History Last Taken Unknown] lisinopril 10 mg tablet 10 mg PO DAILY 05/14/23 [History Last Taken Unknown] Allergy/AdvReac Type Severity Reaction Status Date / Time Penicillins [PCN] Allergy Hives Verified 07/20/23 18:48 Sulfa (Sulfonamide Allergy Hives Verified 07/20/23 18:48 Antibiotics) Owfippt-ABK-DyV Reductase AdvReac Upset Verified 07/20/23 18:48 Inhibitor Stomach [Eqsbowp-Zfv-Asf Reductase Inhibitor] Family History (Updated 07/20/23 @ 21:[address] Natalie Holliday MD) Father CAD (coronary artery disease) Myocardial infarction Heart disease Hypertension Brother CAD (coronary artery disease) Heart disease Hypertension Brother CAD (coronary artery disease) Heart disease Hypertension Mother Diabetes Surgical History H/O coronary artery bypass surgery (02/1991) History of coronary artery stent placement (04/20/15) History of left heart catheterization (04/19/15) S/P inguinal hernia repair Social History (Updated 07/20/23 @ 20:[address] Natalie Holliday MD) household members: spouse Smoking Status: Never smoker alcohol intake: never substance use type: does not use caffeine: Yes Type: coffee Number of servings: 2 ROS ROS Narrative Admission Review of Systems: CONSTITUTIONAL: No weight loss, fever, chills, weakness or fatigue. HEENT: Eyes: No visual loss, blurred vision, double vision or yellow sclerae. Ears, Nose, Throat: No hearing loss, sneezing, congestion, runny nose or sore throat. SKIN: No rash or itching, lesions, wounds. CARDIOVASCULAR: + chest pressure. No palpitations, edema, orthopnea, syncopal events. RESPIRATORY: No shortness of breath, cough or sputum, wheezing, hemoptysis. GASTROINTESTINAL: No anorexia, nausea, vomiting or diarrhea, abdominal pain, melena, BRBPR. GENITOURINARY: No dysuria, frequency, urgency or retention. NEUROLOGICAL: No headache, dizziness, syncope, paralysis, ataxia, numbness or tingling in the extremities, focal weakness, change in bowel or bladder control, seizure. MUSCULOSKELETAL:+ muscle, back pain, joint pain or stiffness. HEMATOLOGIC: + anemia, easy bleeding/bruising. LYMPHATICS: No enlarged nodes. No history of splenectomy. PSYCHIATRIC: No history of depression or anxiety. ENDOCRINOLOGIC: No reports of sweating, cold or heat intolerance. No polyuria or polydipsia. ALLERGIES: + Eczema, hives. Vital Signs Vital Signs Vital Signs: 07/20/23 18:45 07/20/23 18:49 07/20/23 19:50 Temperature 97.1 F L Temperature Source Temporal Pulse Rate 84 71 Respiratory Rate 18 16 Respiratory Effort Normal Respiratory Pattern Normal Blood Pressure 206/97 H 165/79 H Blood Pressure Mean 133 107 Pulse Ox 98 97 Oxygen Delivery Method Room Air Room Air Weight Weight: 175 lb 0.752 oz Body Mass Index (BMI) 22.4 Physical Exam Narrative Physical Examination: General: Awake, alert, oriented x 3 and cooperative, seated upright in the ED bed, fatigued, notes chest discomfort improved, currently 2-3 out of 10 in severity in the midsternal region. Skin: Normal color, normal turgor, no icterus, no cyanosis except for occasional staged ecchymoses. HEENT: AT/NC, EOMI, PERRLA, MMM, no carotid bruits or JVD noted. Lungs: CTA bilaterally, moderate effort, mild decrease BL bases, no rales, ronchi or wheezing. Heart: Regular rate and rhythm; no gallop, rub audible, no reproducible discomfort in the midsternal chest region with palpation. Abdomen: Soft, NTTP, ND, normal BS, no HSM. Extremities: No cyanosis, clubbing, or edema. Neurological: Patient awake, alert, oriented as noted, cognitive function intact; pupils equally reactive to light and accommodation, cranial nerves grossly normal, moving all 4 extremities, no focal deficits, strength moderately globally decreased secondary to acute presentation but improving. Psychiatric: Affect appears fatigued otherwise normal, no acute evidence of depressive or anxiety feelings. Results Lab / Micro Data 07/20/23 18:54 07/20/23 18:54 Labs: Laboratory Results - last 24 hr 07/20/23 18:54: WBC 6.5, RBC 4.07 L, Hgb 12.8 L, Hct 39.2 L, MCV 96.3 H, MCH 31.4, MCHC 32.7, RDW Std Deviation 45.9 H, RDW Coeff of Lenora 13.0, Plt Count 153, MPV 9.7, Immature Gran % (Auto) 0.800, Neut % (Auto) 79.9 H, Lymph % (Auto) 9.0 L, [place] % (Auto) 7.7, Eos % (Auto) 2.0, Baso % (Auto) 0.6, Absolute Neuts (auto) 5.2, Absolute Lymphs (auto) 0.58 L, Nucleated RBC % 0, Differential Comment SEE COMMENT, Platelet Estimate ADEQUATE, RBC Morphology N CHROM, Anisocytosis RARE, Macrocytosis RARE, PT 13.4, INR 1.0, APTT 29.6, Sodium 141, Potassium 3.8, Chloride 104, Carbon Dioxide 33.0 H, Anion Gap 4 L, BUN 20 H, Creatinine 1.29, Estim Creat Clear Calc 48.73, Est GFR (MDRD) Af Amer 68, Est GFR (MDRD) Non-Af 56 L, BUN/Creatinine Ratio 15.5, Glucose 165 H, Calcium 8.8, Troponin I High Sens 12 Radiology Impression Chest X-Ray 07/20/23 19:15 IMPRESSION: No active disease. Electronically Signed: Kt Jalloh MD at 19:31 EDT , Assessment & Plan Assessment/Plan (1) Unstable angina: PLAN: Plan The patient is an 82 y/o M w/ PMHx: Chronic eczema, Chronic anemia, CAD s/p CABG and PCI, HTN, HLD, GERD, Anxiety and Depression who presents to the [facility] ED on 07/20/23 with history of onset of chest discomfort starting approximately an hour and a half prior to ED arrival although he reports it is somewhat improved since it started but has still persisted with no associated diaphoresis, dyspnea, nausea, emesis, radiation of the discomfort. #1. Chest Pain w/ Acute EKG Changes, concern for Unstable Angina: EKG with sinus rhythm with first-degree AV block with some T wave elevations in aVR with ST depression in 1 and 2 as [address] as some ST depression V3 through V6 which is changed from previous, CXR w/ with no acute cardiopulmonary findings. Ischial troponin 12. Will admit to ICU, maintain on a monitored bed, continue serial cardiac enzymes and EKGs. Obtain magnesium level upon admission. Continue heparin drip as well as NG drip started. Continue medical management. ECHO requested. Cardiology consulted, will judiciously hydrate with n.p.o. status following midnight. ASA, NG, morphine. #2. Hyperglycemia, possibly stress response: Admission glucose 165, hemoglobin A1c requested to be cautious. #3. CAD: Status post CABG x3 with SCRUGGS to LAD, SVG to D1, SVG to RPDA 02/1991 and PCI with stent to mid RCA 10/1996, KATHY to mid distal LCx and POBA OM1 04/2015, continue aspirin, noted statin intolerance on ezetimibe, lisinopril, not on any beta-gracy therapy. #4. Hypertension: Continue home regimen including lisinopril, amlodipine, per current list not on any beta-gracy therapy, PRN hydralazine. #5. Hyperlipidemia: We will continue patient home as that may be regimen, noted statin intolerance, FLP in AM. #6. Chronic mildly macrocytic anemia: Admission hemoglobin 12.8, MCV 96.3, baseline hemoglobin similar, continue to trend. #7. Anxiety and depression: We will continue patient home low-dose escitalopram regimen. #8. GERD: We will continue patient home sucralfate regimen, will have Mylanta additionally as needed. #9. Chronic eczema: Patient on dupilumab outpatient, encourage continued outpatient follow-up with dermatology as previously arranged. #10. DVT prophylaxis: We will continue heparin drip. #11. CODE status: Patient HCPOA is his who is present and potentially his daughter as second but then to clarify this is a have not looked at the documents in some time and living will is currently in place. Discussed CODE status at length including difference between FULL code, DNR-CCA and DNR-CC status. Following discussions about the differences in these status, requested DNR-CCA, no intubation status. Advanced Care Planning Face to Face Time: 16 minutes. Charges/Coding Visit Charges Inpatient E&M: 07812 Init Hosp L3 Procedures Hospitalists Procedures: 23947 Advncd Care Plan 30 Min
[2023-07-20 21:29] LABS: Magnesium 2.2 mg/dL (1.6-2.6)
[2023-07-20] MEDS: Nitroglycerin Infusion 250 ML 3 MG CONT INF (21:34)
[2023-07-20 21:48] LABS: Reflex Troponin-HS? (from REC) Y
--- NOTE | 2023-07-20 22:14 | ECHOCS_ITS ---
Reason For Study: CAD/ASHD Procedure This was a 2D Doppler, Color Flow transthoracic echocardiogram. Contrast injection was performed. Exam performed portable in ICU/CCU. Left Ventricle Normal LV size. The estimated ejection fraction is 65 %. Diastolic function is indeterminate. No regional wall motion abnormalities noted. Right Ventricle Normal RV size. Normal systolic function. Atria The left atrium is mildly enlarged. Normal right atrium. No doppler evidence for ASD. Mitral Valve There is no mitral valve stenosis. No mitral valve insufficiency. Tricuspid Valve There is no tricuspid stenosis. Trivial tricuspid valve insufficiency. Pulmonary artery systolic pressure is 25 mmHg. Aortic Valve Trisinus/trileaflet aortic valve. There is no aortic stenosis. No aortic valve insufficiency. Pulmonic Valve There is no pulmonic valvular stenosis. Trivial pulmonic valve insufficiency. Great Vessels Normal aortic root. Pericardium/Pleural No pericardial effusion. Medication Diluted definity 2ml given slow IV push to enhance endocardial definition. MMode/2D Measurements & Calculations LVIDd: 4.9 cm IVSd: 0.93 cm Ao root diam: 3.2 cm LVIDs: 3.3 cm LVPWd: 0.96 cm RVDd: 3.7 cm FS: 33.0 % LAV(MOD-bp): 53.6 ml LVAd ap4: 27.0 cm2 SV(MOD-sp4): 45.8 ml LAV(MOD-bp) Indexed: 26.1 ml/m2 LVLd ap4: 7.4 cm LAV(MOD-sp2): 41.3 ml EDV(MOD-sp4): 79.8 ml LAV(MOD-sp4): 58.1 ml EDV(sp4-el): 83.3 ml LVAs ap4: 15.7 cm2 LVLs ap4: 6.0 cm ESV(MOD-sp4): 34.0 ml ESV(sp4-el): 34.6 ml EF(MOD-sp4): 57.4 % EF(sp4-el): 58.5 % SV(sp4-el): 48.8 ml LA A4 area: 20.4 cm2 LA dimension(2D): 4.5 cm RA A4 area: 16.5 cm2 TAPSE: 1.5 cm Time Measurements MV dec time: 0.29 sec Doppler Measurements & Calculations MV E max earl: 60.1 cm/sec Lat Peak E' Earl: 9.9 cm/sec Med Peak E' Earl: 4.4 cm/sec MV A max earl: 71.1 cm/sec E/E' lat: 6.1 E/E' med: 13.7 MV E/A: 0.85 MV dec slope: 209.9 cm/sec2 Ao V2 max: 136.3 cm/sec LV V1 max: 86.0 cm/sec Ao max P.4 mmHg LV V1 max P.0 mmHg Ao V2 mean: 100.8 cm/sec Ao mean P.4 mmHg Ao V2 VTI: 29.2 cm PA V2 max: 111.0 cm/sec PI end-d earl: 123.9 cm/sec TR max earl: 239.6 cm/sec TR max P.0 mmHg ECHO/Echo Complete W/ Contrast Interpretation Summary The estimated ejection fraction is 65 %. Diastolic function is indeterminate. The left atrium is mildly enlarged. Ordering Physician: Natalie Holliday Referring Physician: Frank Chavis Performed By: Mi Amin, BRITT, RVT
--- NOTE | 2023-07-20 22:14 | EKG12_ITS ---
Test Reason : CP ADMIT Blood Pressure : / mmHG Vent. Rate : 075 BPM Atrial Rate : 075 BPM P-R Int : 312 ms QRS Dur : 092 ms QT Int : 408 ms P-R-T Axes : 104 -09 101 degrees QTc Int : 455 ms Sinus rhythm with 1st degree A-V block ST & T wave abnormality, consider lateral ischemia Abnormal ECG Confirmed by LUIS BENNETT, ISREAL ([id number]), supervising film or videotape editor VISHAL KERR ([id number]) on 07/30/2023 7:53:16 AM Referred By: CHELSEA Confirmed By:BHUPENDRA SMITH MD
[2023-07-20 23:02] LABS: Troponin-I HS 16 pg/mL (3.0-78.0)
[2023-07-20] MEDS: 0.9% Normal Saline (1000mL) 1,000 ML 75 ML IV (23:11)
[2023-07-20] MEDS: Timolol 0.5% 5ML OPTH.BTL 1 DRP RIGHT EYE (23:14)
[2023-07-20] MEDS: CLARIFY ORDER 1 EACH NOTE (23:15)
[2023-07-21] VITALS (25 sets, daily range): BP systolic 103–208; BP diastolic 62–123; PULSE 61–86; RESP 10–19; TEMP 36.6–36.7; O2SAT 92–100; BMI 21.1
[2023-07-21 01:39] LABS: Absolute Lymphocyte Count 0.67 X10^3/uL (0.83-4.51); Absolute Neutrophil Count 3.8 X10^3/uL (2.0-7.7); Basophil# 0.04 X10^3/uL; Basophil% 0.8 % (0-1); Eosinophil# 0.13 X10^3/uL; Eosinophils% 2.6 % (0-5); Hematocrit 34.3 % (40-54); Hemoglobin 11.4 g/dL (13.0-16.5); Lymphocyte # 0.67 X10^3/ul (0.83-4.51); Lymphocyte % 13.2 % (19-41); Mean Corp Hgb Conc 33.2 g/dL (32-36); Mean Corpuscular Hgb 31.3 pg (27.0-32.0); Mean Corpuscular Volume 94.2 fL (80-94); Mean Platelet Vol. 9.3 fl (6.2-12.0); Monocyte# 0.43 X10^3/uL; Monocyte% 8.5 % (0-10); NRBC Flagged by Analyzer 0 % (0-5); Neutrophil # 3.75 X10^3/uL (2.7-7.7); Neutrophil % 74.1 % (47-70); Platelet Count 124 K/mm3 (150-450); RBC Distribution Width CV 12.8 % (11.6-14.6); RBC Distribution Width SD 44.5 fl (35.1-43.9); Red Blood Count 3.64 M/mm3 (4.6-6.2); White Blood Count 5.1 K/mm3 (4.4-11.0)
[2023-07-21 01:55] LABS: ALB/GLOB Ratio 1.2 RATIO (0.9-2.4); AST(SGOT) 17 U/L (15-37); Alanine Aminotransfer ALT/SGPT 17 U/L (16-61); Albumin, Serum 3.3 g/dL (3.2-5.0); Alkaline Phosphatase 60 U/L (45-117); Anion Gap 4 (5-15); BUN 16 mg/dL (7-18); BUN/Creat Ratio 18.3 RATIO (10-20); Calcium,Total 8.5 mg/dL (8.5-10.1); Chloride 107 mmol/L (98-107); Cholesterol 133 mg/dL (200); Creatinine, Serum 0.87 mg/dL (0.70-1.30); EST Glomerular Filtration Rate 89 mL/min (>60); Est Glom Filt Rate - Afr Amer 107 mL/min (>60); Estimated Creatinine Clearance 68.07 ml/min; Globulin 2.7 g/dL (2.2-4.2); Glucose 110 mg/dL (74-106); High Density Lipoprotein 38 mg/dL; Potassium 3.3 mmol/L (3.5-5.1); Sodium Level 141 mmol/L (136-145); Triglycerides 178 mg/dL; Very Low Density Lipoprotein 36 mg/dL (5-40)
[2023-07-21 01:57] LABS: Troponin-I HS 18 pg/mL (3.0-78.0)
--- NOTE | 2023-07-21 07:26 | PN.HOSP_ITS ---
Reason for Visit Reason for Visit: Diagnoses Unstable angina (07/20/23) Subjective Subjective No chest pain. Objective Data Objective Data Vital Signs: Vital Signs Temp Pulse Resp BP Pulse Ox O2 Del Method 36.6 C 72 14 176/96 H 98 Room Air 07/21/23 04:00 07/21/23 07:00 07/21/23 07:00 07/21/23 07:00 07/21/23 07:00 07/21/23 07:00 Oxygen Delivery Method Room Air Weight: 74.8 kg Body Mass Index (BMI) 21.1 Intake & Output: Intake and Output for Last 24 Hours 07/19/23 07/20/23 07/21/23 23:59 23:59 23:59 Intake Total 5.80 / 7.30 78.0 / 78.0 Output Total 1000 / 1000 Balance 5.80 / -92.70 -922.0 / -922.0 Lab / Micro Data 07/21/23 01:30 07/21/23 01:30 Labs: Laboratory Results - last 24 hr 07/20/23 18:54: WBC 6.5, RBC 4.07 L, Hgb 12.8 L, Hct 39.2 L, MCV 96.3 H, MCH 31.4, MCHC 32.7, RDW Std Deviation 45.9 H, RDW Coeff of Lenora 13.0, Plt Count 153, MPV 9.7, Immature Gran % (Auto) 0.800, Neut % (Auto) 79.9 H, Lymph % (Auto) 9.0 L, [place] % (Auto) 7.7, Eos % (Auto) 2.0, Baso % (Auto) 0.6, Absolute Neuts (auto) 5.2, Absolute Lymphs (auto) 0.58 L, Nucleated RBC % 0, Differential Comment SEE COMMENT, Platelet Estimate ADEQUATE, RBC Morphology N CHROM, Anisocytosis RARE, Macrocytosis RARE, PT 13.4, INR 1.0, APTT 29.6, Sodium 141, Potassium 3.8, Chloride 104, Carbon Dioxide 33.0 H, Anion Gap 4 L, BUN 20 H, Creatinine 1.29, Estim Creat Clear Calc 48.73, Est GFR (MDRD) Af Amer 68, Est GFR (MDRD) Non-Af 56 L, BUN/Creatinine Ratio 15.5, Glucose 165 H, Calcium 8.8, Magnesium 2.2, Troponin I High Sens 12 07/20/23 22:05: Troponin I High Sens 16 07/21/23 01:30: WBC 5.1, RBC 3.64 L, Hgb 11.4 L, Hct 34.3 L, MCV 94.2 H, MCH 31.3, MCHC 33.2, RDW Std Deviation 44.5 H, RDW Coeff of Lenora 12.8, Plt Count 124 L, MPV 9.3, Immature Gran % (Auto) 0.800, Neut % (Auto) 74.1 H, Lymph % (Auto) 13.2 L, [place] % (Auto) 8.5, Eos % (Auto) 2.6, Baso % (Auto) 0.8, Absolute Neuts (auto) 3.8, Absolute Lymphs (auto) 0.67 L, Nucleated RBC % 0, APTT 90.0 H, Sodium 141, Potassium 3.3 L, Chloride 107, Carbon Dioxide 30.0, Anion Gap 4 L, BUN 16, Creatinine 0.87, Estim Creat Clear Calc 68.07, Est GFR (MDRD) Af Amer 107, Est GFR (MDRD) Non-Af 89, BUN/Creatinine Ratio 18.3, Glucose 110 H, Calcium 8.5, Total Bilirubin 1.60 H, AST 17, ALT 17, Alkaline Phosphatase 60, Troponin I High Sens 18, Total Protein 6.0 L, Albumin 3.3, Globulin 2.7, Albumin/Globulin Ratio 1.2, Triglycerides 178, Cholesterol 133, LDL Cholesterol 59, VLDL Cholesterol 36, HDL Cholesterol 38 L Radiography Diagnostic Testing: Radiology Impression Chest X-Ray 07/20/23 19:15 IMPRESSION: No active disease. Electronically Signed: Kt Jalloh MD at 19:31 EDT , Physical Exam Const alert and no apparent distress Resp normal respiratory effort, no retractions, no use of accessory muscles and clear to auscultation bilaterally Cardio regular rate, regular rhythm, S1 normal heart sound and S2 normal heart sound GI normal to inspection, nondistended, normoactive bowel sounds, soft to palpation, non-tender and non-distended Assessment & Plan Assessment/Plan (1) Unstable angina: PLAN: Chest Pain w/ Acute EKG Changes, concern for Unstable Angina: EKG with sinus rhythm with first-degree AV block with some T wave elevations in aVR with ST depression in 1 and [address] as [address] as some ST depression V3 through V6 which is changed from previous, Troponin series negative Heparin drip. Chest pain free. DC nitroglycerin drip. ECHO requested. Cardiology consulted, will judiciously hydrate with n.p.o. ASA, NG, morphine. (2) HTN (hypertension): PLAN: accelerated Jumped to 208/115 after NTG discontinued. Increase amlodipine from 2.5 to 10/d, Increase lisinopril from 10 to 40 (already received the lower doses today, will give an additional 5 and 20, respectively today). Add PRN hydralazine. PLAN: Plan Chronic conditions: * CAD: Status post CABG x3 with SCRUGGS to LAD, SVG to D1, SVG to RPDA 02/1991 and PCI with stent to mid RCA 10/1996, KATHY to mid distal LCx and POBA OM1 04/2015, continue aspirin, noted statin intolerance on ezetimibe, lisinopril, not on any beta-gracy therapy. * Hypertension: Continue home regimen including lisinopril, amlodipine, per current list not on any beta-gracy therapy, PRN hydralazine. * Hyperlipidemia: continue ezetimibe. Noted statin intolerance. * Chronic mildly macrocytic anemia: Admission hemoglobin 12.8, MCV 96.3, baseline hemoglobin similar, continue to trend. * Anxiety and depression: We will continue patient home low-dose escitalopram regimen. * GERD: We will continue patient home sucralfate regimen, will have Mylanta additionally as needed. * Chronic eczema: Patient on dupilumab outpatient, encourage continued outpatient follow-up with dermatology as previously arranged. DVT prophylaxis: Not indicated as patient is already anticoagulated. CODE status: DNR-CCA, no intubation status. Monitor for now. Keep ICU status. If BP improves, he can be transferred to PCU, if not, then he may require a nicardipine gtt. DW family at bedside. Charges/Coding Visit Charges Inpatient E&M: 53546 Subs Hosp L2
[2023-07-21 08:58] LABS: Hemoglobin A1c 5.1 % (3.8-5.6)
[2023-07-21] MEDS: Sucralfate 1 GM Tablet PO (09:39)
[2023-07-21] MEDS: amLODIPine 2.5 MG Tablet PO (09:39)
[2023-07-21] MEDS: Lisinopril 10 MG Tablet PO (09:39)
[2023-07-21] MEDS: Timolol 0.5% 5ML OPTH.BTL 1 DRP RIGHT EYE ×2 (09:39→21:18)
[2023-07-21] MEDS: Aspirin E.C. 81 MG Tablet PO (09:40)
[2023-07-21] MEDS: Escitalopram Oxalate 10 MG Tablet 5 MG PO (09:40)
[2023-07-21] MEDS: Ezetimibe 10 MG Tablet PO (09:40)
[2023-07-21 10:21] LABS: Partial Thromboplast Time 58.8 Seconds (24.1-36.2)
[2023-07-21] MEDS: amLODIPine 5 MG Tablet PO (13:44)
[2023-07-21] MEDS: Lisinopril 20 MG Tablet PO (13:44)
--- NOTE | 2023-07-21 14:36 | PCM.CONS.C ---
Assessment & Plan Assessment/Plan (1) Unstable angina: PLAN: We will proceed with coronary angiography on Sunday. Risks and benefits discussed with the patient. Patient wishes to proceed. Continue current medications. We will add metoprolol. HPI Consult Data Date of Consult: 07/21/23 HPI Narrative Reason for Consultation: Chest pain HPI Narrative: ROSI FELICIANO, is a 82 M who presents with left-sided heavy chest pain that gets better with nitroglycerin. This has been going on and off for some time. Patient states that he had similar discomfort prior to his bypass surgery and also prior to PCI. He has a history of coronary artery disease status post CABG in February 1991 with SCRUGGS to LAD, aorto-reverse SVG to diagonal coronary artery and to the posterior descending branch of the RCA, PTCA/stenting to RCA in October 1996, and PTCA/KATHY to mid OM 2 and proximal LCx with PTCA only to distal OM 3 and OM 2 in April 2015.? He also has a history of hypertension and hyperlipidemia.? Review of systems: All systems reviewed all else is negative except that in HPI [facility] Medical History (Updated 07/21/23 @ 13:[address] Dameon Marcus, DO) Anxiety and depression Atherosclerosis of coronary artery of [place] heart without angina pectoris Bilateral inguinal hernia Chronic anemia COVID-19 Eczema Essential (primary) hypertension GERD (gastroesophageal reflux disease) HTN (hypertension) Hyperlipidemia NSTEMI (non-ST elevated myocardial infarction) (04/19/15) Home Medications timolol maleate 0.5 % eye drops 1 drp RIGHT EYE BID glaucoma 11/24/13 [History Last Taken 10/16/16 07:00] aspirin 81 mg tablet,delayed release 81 mg PO DAILY@0800 heart 09/21/17 [History Last Taken Unknown] dupilumab 200 mg/1.14 mL subcutaneous syringe (Dupixent) 200 mg subcut Q2W excema 06/05/19 [History Last Taken Unknown] acetaminophen 500 mg tablet 500 mg PO Q8-10H PRN fever or pain 09/21/20 [History Last Taken Unknown] amlodipine 2.5 mg tablet 2.5 mg PO DAILY bp 01/13/21 [History Last Taken Unknown] ezetimibe 10 mg tablet (Zetia) 10 mg PO DAILY cholesterol 08/22/21 [History Last Taken Unknown] netarsudil 0.02 % eye drops (Rhopressa) 1 drp ophthalmic (eye) QPM glaucoma 06/02/22 [History Last Taken Unknown] nitroglycerin 0.4 mg sublingual tablet 0.4 mg sublingual Q5M PRN chest pain #30 tabs 12/14/22 [Rx Last Taken Unknown] sucralfate 1 gram tablet 1 g PO BID stomach 12/14/22 [History Last Taken Unknown] lisinopril 10 mg tablet 10 mg PO BID bp 05/14/23 [History Last Taken Unknown] cholecalciferol (vitamin D3) 50 mcg (2,000 unit) tablet (Vitamin D3) 50 mcg PO DAILY deficiency 07/21/23 [History Last Taken Unknown] citalopram 10 mg tablet 20 mg PO DAILY anxiety 07/21/23 [History Last Taken Unknown] sildenafil 50 mg tablet 50 mg PO DAILY PRN viagra 07/21/23 [History Last Taken Unknown] Allergy/AdvReac Type Severity Reaction Status Date / Time Penicillins [PCN] Allergy Hives Verified 07/20/23 18:48 Sulfa (Sulfonamide Allergy Hives Verified 07/20/23 18:48 Antibiotics) Qyfqlas-FPL-DlE Reductase AdvReac Upset Verified 07/20/23 18:48 Inhibitor Stomach [Qildifq-Biz-Hhi Reductase Inhibitor] Family History (Updated 07/20/23 @ 21:[address] Natalie Holliday MD) Father CAD (coronary artery disease) Myocardial infarction Heart disease Hypertension Brother CAD (coronary artery disease) Heart disease Hypertension Brother CAD (coronary artery disease) Heart disease Hypertension Mother Diabetes Surgical History H/O coronary artery bypass surgery (02/1991) History of coronary artery stent placement (04/20/15) History of left heart catheterization (04/19/15) S/P inguinal hernia repair Social History (Updated 07/20/23 @ 20:[address] Natalie Holliday MD) household members: spouse Smoking Status: Never smoker alcohol intake: never substance use type: does not use caffeine: Yes Type: coffee Number of servings: 2 Physical Exam Const alert and oriented x3 HEENT normocephalic Eyes no scleral icterus Resp normal respiratory effort Skin no rashes or lesions noted Psych mental status grossly normal Risk Stratification Risk Stratification Applicable: No Charges/Coding Visit Charges Inpatient E&M: 94622 Init Hosp L2 Objective Data Vital Signs: Vital Signs Temp Pulse Resp BP Pulse Ox O2 Del Method 97.8 F 64 16 208/87 H 97 Room Air 07/21/23 12:00 07/21/23 13:00 07/21/23 13:00 07/21/23 13:00 07/21/23 13:00 07/21/23 13:00 Oxygen Delivery Method Room Air Weight: 164 lb 14.492 oz Body Mass Index (BMI) 21.1 Intake & Output: Intake and Output for Last 24 Hours 07/19/23 07/20/23 07/21/23 23:59 23:59 23:59 Intake Total 5.80 / 7.30 1076.55 / 1076.55 Output Total 1250 / 1250 Balance 5.80 / -92.70 -173.45 / -173.45 Lab / Micro Data 07/21/23 01:30 07/21/23 01:30 Labs: Laboratory Results - last 24 hr 07/20/23 18:54: WBC 6.5, RBC 4.07 L, Hgb 12.8 L, Hct 39.2 L, MCV 96.3 H, MCH 31.4, MCHC 32.7, RDW Std Deviation 45.9 H, RDW Coeff of Lenora 13.0, Plt Count 153, MPV 9.7, Immature Gran % (Auto) 0.800, Neut % (Auto) 79.9 H, Lymph % (Auto) 9.0 L, [place] % (Auto) 7.7, Eos % (Auto) 2.0, Baso % (Auto) 0.6, Absolute Neuts (auto) 5.2, Absolute Lymphs (auto) 0.58 L, Nucleated RBC % 0, Differential Comment SEE COMMENT, Platelet Estimate ADEQUATE, RBC Morphology N CHROM, Anisocytosis RARE, Macrocytosis RARE, PT 13.4, INR 1.0, APTT 29.6, Sodium 141, Potassium 3.8, Chloride 104, Carbon Dioxide 33.0 H, Anion Gap 4 L, BUN 20 H, Creatinine 1.29, Estim Creat Clear Calc 48.73, Est GFR (MDRD) Af Amer 68, Est GFR (MDRD) Non-Af 56 L, BUN/Creatinine Ratio 15.5, Glucose 165 H, Calcium 8.8, Magnesium 2.2, Troponin I High Sens 12 07/20/23 22:05: Troponin I High Sens 16 07/21/23 01:30: WBC 5.1, RBC 3.64 L, Hgb 11.4 L, Hct 34.3 L, MCV 94.2 H, MCH 31.3, MCHC 33.2, RDW Std Deviation 44.5 H, RDW Coeff of Lenora 12.8, Plt Count 124 L, MPV 9.3, Immature Gran % (Auto) 0.800, Neut % (Auto) 74.1 H, Lymph % (Auto) 13.2 L, [place] % (Auto) 8.5, Eos % (Auto) 2.6, Baso % (Auto) 0.8, Absolute Neuts (auto) 3.8, Absolute Lymphs (auto) 0.67 L, Nucleated RBC % 0, APTT 90.0 H, Sodium 141, Potassium 3.3 L, Chloride 107, Carbon Dioxide 30.0, Anion Gap 4 L, BUN 16, Creatinine 0.87, Estim Creat Clear Calc 68.07, Est GFR (MDRD) Af Amer 107, Est GFR (MDRD) Non-Af 89, BUN/Creatinine Ratio 18.3, Glucose 110 H, Hemoglobin A1c 5.1, Calcium 8.5, Total Bilirubin 1.60 H, AST 17, ALT 17, Alkaline Phosphatase 60, Troponin I High Sens 18, Total Protein 6.0 L, Albumin 3.3, Globulin 2.7, Albumin/Globulin Ratio 1.2, Triglycerides 178, Cholesterol 133, LDL Cholesterol 59, VLDL Cholesterol 36, HDL Cholesterol 38 L 07/21/23 09:00: APTT 58.8 H Cardiology Labs/Tests 07/20/23 18:54: WBC 6.5, RBC 4.07 L, Hgb 12.8 L, Hct 39.2 L, MCV 96.3 H, MCH 31.4, MCHC 32.7, Plt Count 153, MPV 9.7, Immature Gran % (Auto) 0.800, Neut % (Auto) 79.9 H, Lymph % (Auto) 9.0 L, [place] % (Auto) 7.7, Eos % (Auto) 2.0, Baso % (Auto) 0.6, Absolute Neuts (auto) 5.2, Nucleated RBC % 0, PT 13.4, INR 1.0, APTT 29.6, Sodium 141, Potassium 3.8, Chloride 104, Carbon Dioxide 33.0 H, Anion Gap 4 L, BUN 20 H, Creatinine 1.29, Est GFR (MDRD) Af Amer 68, Est GFR (MDRD) Non-Af 56 L, BUN/Creatinine Ratio 15.5, Glucose 165 H, Calcium 8.8, Magnesium 2.2 07/21/23 01:30: WBC 5.1, RBC 3.64 L, Hgb 11.4 L, Hct 34.3 L, MCV 94.2 H, MCH 31.3, MCHC 33.2, Plt Count 124 L, MPV 9.3, Immature Gran % (Auto) 0.800, Neut % (Auto) 74.1 H, Lymph % (Auto) 13.2 L, [place] % (Auto) 8.5, Eos % (Auto) 2.6, Baso % (Auto) 0.8, Absolute Neuts (auto) 3.8, Nucleated RBC % 0, APTT 90.0 H, Sodium 141, Potassium 3.3 L, Chloride 107, Carbon Dioxide 30.0, Anion Gap 4 L, BUN 16, Creatinine 0.87, Est GFR (MDRD) Af Amer 107, Est GFR (MDRD) Non-Af 89, BUN/Creatinine Ratio 18.3, Glucose 110 H, Hemoglobin A1c 5.1, Calcium 8.5, Total Bilirubin 1.60 H, Triglycerides 178, Cholesterol 133, LDL Cholesterol 59, VLDL Cholesterol 36, HDL Cholesterol 38 L 07/21/23 09:00: APTT 58.8 H Rhythm: EKG: ECHO: Stress Test: Cardiac Cath: PCI: CT Surgery: Holter monitor: EPS: PPM: CXR: Chest CT Scan: Radiography Diagnostic Testing: Radiology Impression Chest X-Ray 07/20/23 19:15 IMPRESSION: No active disease. Electronically Signed: Kt Jalloh MD at 19:31 EDT , Echocardiogram 07/20/23 22:14 Interpretation Summary The estimated ejection fraction is 65 %. Diastolic function is indeterminate. The left atrium is mildly enlarged. Ordering Physician: Natalie Holliday Referring Physician: Frank Chavis Performed By: Mi Amin, BRITT, RVT
--- NOTE | 2023-07-21 15:35 | CASEMGMT ---
RN CM BURR BENCH OPERATOR CM to room to meet with patient for initial transition planning/care coordination assessment. RN GHASSAN introduced self and role at [facility].? Pt voices understanding and consents to assessment at this time.? Pt resting in bed in no distress at this time.? and dtr @ bedside. Pt is alert at this time. Pt answered some of the questions, but spoke up and answered most of them for pt. Noted in nursing handoff pt was only oriented to self last PM. Care providers, pharmacy, and demographics verified/updated at this time. PCP:Dr Chavis Specialists:[facility]/Cardiology. Reed Man. Preferred [facility]acy: [facility] Insurance: MCR, [place] Prescription Benefit:?yes Living Will/HPOA:?Pt has done LW and HCPOA, who is his , Tara. LNOK: , Tara. Dtr, Renee. Pt also has 2 adult sons. Living Arrangements: Lives w/his in one-story home w/basement and 2 steps to enter. No difficulty w/stairs. and pt go to the [facility] to walk for 30 minutes about 2-3 x's/week. Pt is indep w/ADL's and they set up their medications together. Transportation: states she does not drive. Pt drives. Dtr will take him home @ discharge. DME: ?Pt has the following DME available, but does not use: shower chair, cane, walker. ? and pt state no need for further DME at this time.? HHC/SNF: No hx of either. No needs identified. Pt, , and dtr wish for pt to return home and state they have no concerns with going home at time of discharge.? CM to follow for any discharge planning/needs.? They voices no further concerns/needs at this time.? Advised them to ask for CM if any questions/concerns/needs arise.? They voice understanding. PLAN: ?Home w/family support and discharge plans in place. Radha PACHECON MILDRED FERRELL
[2023-07-21] MEDS: CLARIFY ORDER 1 EACH NOTE (15:38)
[2023-07-21 16:05] LABS: Partial Thromboplast Time 50.3 Seconds (24.1-36.2)
--- NOTE | 2023-07-21 20:01 | NUR.TO.PHY ---
While pt is currently CAM-ICU negative, he is exhibiting quite a bit of dementia w/very short term memory. and daughter have noticed small forgetful things at home but nothing as grand as what they're seeing while [pt] is here. Pt was very restless throughout day and night, focused on the removal of equipment and IVs. I approached family regarding case mgt, or SW, involvement for starting to look for help at home because returning pt to his home environment may or may not reduce his restlessness to being manageable at home by just his . If you could please help us to facilitate meeting these needs we would appreciate it. Thank you, Komal.
--- NOTE | 2023-07-21 20:18 | CT_ITS ---
EXAM: CT HEAD WITHOUT INTRAVENOUS CONTRAST CLINICAL INDICATION: Increased confusion TECHNIQUE: Multiple axial images were obtained of the head without intravenous contrast. This CT exam was performed using one or more of the following dose reduction techniques: automated exposure control, adjustment of the mA and/or kV according to patient size, and/or use of iterative reconstruction technique. COMPARISON: MRI brain, 05/15/2023 FINDINGS: BRAIN AND EXTRA-AXIAL SPACES: There is non-specific periventricular hypoattenuation which is most commonly related to chronic microvascular ischemic disease in a patient of this age. There is no mass, mass-effect, or shift of the midline structures. No evidence of acute infarct or acute intracranial hemorrhage. There is no evidence of pathologic extra-axial fluid. There is no hydrocephalus. Patent basal cisterns. BONES/JOINTS: No significant abnormality. No discrete lytic or blastic abnormalities. VASCULATURE: Arteriosclerosis. SINUSES: No significant findings. MASTOID AIR CELLS: No significant effusion. ORBITS: Right ocular glaucoma implant. Status post right ocular lens extraction presumptively for the treatment of a cataract. CT/Brain/Head without Contrast IMPRESSION: Chronic microvascular ischemic changes. No evidence of acute intracranial pathology. Electronically Signed: Mo Clarke DO at 21:48 EDT ,
--- NOTE | 2023-07-21 20:18 | PCM.HOSP.N ---
Hospitalist Note Patient family notes that he has for some time had worsening memory impairment, mild agitation, repetitive behaviors at home for the last several months; however, they do not worsened behavior since hospitalization. Suspect likely dementia component worsened by being out of his home and hospitalized x 24 hours but to be cautious given this has been ongoing if able as far as agitation is concerned will attempt to obtain CT head which with timeline should demonstrate if patient had prior CVA.
[2023-07-21] MEDS: NETARSUDIL MESYLATE 1 DRP OPHTHALMIC (21:19)
[2023-07-21] MEDS: MELATONIN 3 MG TABLET PO (21:20)
[2023-07-21] MEDS: Acetaminophen 325 MG Tablet 650 MG PO (21:20)
[2023-07-21] MEDS: Morphine 2 MG/ML Syringe IV (21:21)
[2023-07-21] MEDS: Ondansetron 4 MG/2 ML Vial IV (21:21)
[2023-07-21] MEDS: Metoprolol Tartrate 25 MG Tablet 12.5 MG PO (21:24)
[2023-07-21 23:59] LABS: Partial Thromboplast Time 53.4 Seconds (24.1-36.2)
[2023-07-22] VITALS (17 sets, daily range): BP systolic 103–147; BP diastolic 59–101; PULSE 53–66; RESP 9–18; TEMP 36.6–36.8; O2SAT 95–99; BMI 21.6
[2023-07-22] MEDS: Morphine 2 MG/ML Syringe IV (01:10)
[2023-07-22] MEDS: proCHLORPERazine 10 MG/2 ML Vial 5 MG IV (01:10)
[2023-07-22] MEDS: HEPARIN/D5w 25,000 UNITS 25,000 UNITS/250 ML IV.SOLN. 10 UNITS CONT INF (01:10)
[2023-07-22 06:37] LABS: Absolute Lymphocyte Count 1.01 X10^3/uL (0.83-4.51); Absolute Neutrophil Count 2.6 X10^3/uL (2.0-7.7); Basophil# 0.04 X10^3/uL; Basophil% 0.9 % (0-1); Eosinophil# 0.15 X10^3/uL; Eosinophils% 3.4 % (0-5); Hematocrit 35.1 % (40-54); Hemoglobin 11.4 g/dL (13.0-16.5); Lymphocyte # 1.01 X10^3/ul (0.83-4.51); Lymphocyte % 22.8 % (19-41); Mean Corp Hgb Conc 32.5 g/dL (32-36); Mean Corpuscular Hgb 31.1 pg (27.0-32.0); Mean Corpuscular Volume 95.9 fL (80-94); Mean Platelet Vol. 9.3 fl (6.2-12.0); Monocyte# 0.61 X10^3/uL; Monocyte% 13.8 % (0-10); NRBC Flagged by Analyzer 0 % (0-5); Neutrophil # 2.58 X10^3/uL (2.7-7.7); Neutrophil % 58.2 % (47-70); Platelet Count 127 K/mm3 (150-450); RBC Distribution Width CV 13.2 % (11.6-14.6); Red Blood Count 3.66 M/mm3 (4.6-6.2); White Blood Count 4.4 K/mm3 (4.4-11.0)
--- NOTE | 2023-07-22 07:01 | PN.HOSP_ITS ---
Reason for Visit Reason for Visit: Diagnoses Essential (primary) hypertension (07/20/23) Unstable angina (07/20/23) Subjective Subjective owning last night. Better this AM. Objective Data Objective Data Vital Signs: Vital Signs Temp Pulse Resp BP Pulse Ox O2 Del Method 36.6 C 55 L 10 L 134/74 H 95 Room Air 07/22/23 04:00 07/22/23 06:00 07/22/23 06:00 07/22/23 06:00 07/22/23 04:00 07/22/23 04:00 Oxygen Delivery Method Room Air Weight: 76.4 kg Body Mass Index (BMI) 21.6 Intake & Output: Intake and Output for Last 24 Hours 07/20/23 07/21/23 07/22/23 23:59 23:59 22:59 Intake Total 5.80 / 7.30 1136.15 / 1236.15 246.3 / 246.3 Output Total 1250 / 1450 200 / 200 Balance 5.80 / -92.70 -113.85 / -213.85 46.3 / 46.3 Lab / Micro Data 07/22/23 06:15 07/21/23 01:30 Labs: Laboratory Results - last 24 hr 07/21/23 01:30: Hemoglobin A1c 5.1 07/21/23 09:00: APTT 58.8 H 07/21/23 15:25: APTT 50.3 H 07/21/23 23:00: APTT 53.4 H 07/22/23 06:15: WBC 4.4, RBC 3.66 L, Hgb 11.4 L, Hct 35.1 L, MCV 95.9 H, MCH 31.1, MCHC 32.5, RDW Std Deviation 47.0 H, RDW Coeff of Lenora 13.2, Plt Count 127 L, MPV 9.3, Immature Gran % (Auto) 0.900, Neut % (Auto) 58.2, Lymph % (Auto) 22.8, [place] % (Auto) 13.8 H, Eos % (Auto) 3.4, Baso % (Auto) 0.9, Absolute Neuts (auto) 2.6, Absolute Lymphs (auto) 1.01, Nucleated RBC % 0, APTT 98.0 H* Radiography Diagnostic Testing: Radiology Impression Echocardiogram 07/20/23 22:14 Interpretation Summary The estimated ejection fraction is 65 %. Diastolic function is indeterminate. The left atrium is mildly enlarged. Ordering Physician: Natalie Holliday Referring Physician: Frank Chavis Performed By: Mi Amin, RDCS, RVT Brain CT 07/21/23 20:18 IMPRESSION: Chronic microvascular ischemic changes. No evidence of acute intracranial pathology. Electronically Signed: Mo Clarke DO at 21:48 EDT , Physical Exam Const alert and no apparent distress Constitutional Narrative: up in a chair. HEENT head/scalp atraumatic and moist oral mucous membranes Cardio regular rate, regular rhythm, S1 normal heart sound and S2 normal heart sound GI normal to inspection, nondistended, normoactive bowel sounds, soft to palpation, non-tender and non-distended Neuro Sensorium / Orientation: awake and alert Assessment & Plan Assessment/Plan (1) Unstable angina: PLAN: Chest Pain w/ Acute EKG Changes, concern for Unstable Angina: EKG with sinus rhythm with first-degree AV block with some T wave elevations in aVR with ST depression in 1 and [address] as [address] as some ST depression V3 through V6 w hich is changed from previous, Troponin series negative ECHO shows an EF 65%. Mild enlarged LA. Lipid panel: TGs 178, Chol 133, LDL 59 Seen by cardiology, plan for [facility] on 07/23 Continue current medical treatment: ASA, heparin gtt, lisinopril, heparin gtt. (2) HTN (hypertension): PLAN: accelerated at one point, but currently improved. Jumped to 208/115 after NTG discontinued. Continue amlodipine 10/d, lisinopril 40. PRN hydralazine. (3) Confusion: PLAN: Suspected underlying dementia. Head CT showed no acute process. Had MRI brain 05/15 showed involutional and chronic ischemic changes of the brain. Check B12, Folate, TSH for reversible causes, if those are negative, then would recommend follow up with geriatrics/neurology as outpt. PLAN: Plan Chronic conditions: * CAD: Status post CABG x3 with SCRUGGS to LAD, SVG to D1, SVG to RPDA 02/1991 and PCI with stent to mid RCA 10/1996, KATHY to mid distal LCx and POBA OM1 04/2015, continue aspirin, noted statin intolerance on ezetimibe, lisinopril, not on any beta-gracy therapy. * Hypertension: Continue home regimen including lisinopril, amlodipine, per current list not on any beta-gracy therapy, PRN hydralazine. * Hyperlipidemia: continue ezetimibe. Noted statin intolerance. * Chronic mildly macrocytic anemia: Admission hemoglobin 12.8, MCV 96.3, baseline hemoglobin similar, continue to trend. * Anxiety and depression: We will continue patient home low-dose escitalopram regimen. * GERD: We will continue patient home sucralfate regimen, will have Mylanta additionally as needed. * Chronic eczema: Patient on dupilumab outpatient, encourage continued outpatient follow-up with dermatology as previously arranged. DVT prophylaxis: Not indicated as patient is already anticoagulated. CODE status: DNR-CCA, no intubation status. DW family. They are concerned about what may be needed for him. Explained risks of heart catheterization include bleeding, coronary dissection. They asked if that will be via his radial artery. I told them that most likely approach, but will depending on his anatomy. They seem less inclined for CABG, if it were necessary. Greater than 55 minutes of which greater than 50% of time was counseling the patient's family at bedside about the heart catheterization, risks and hypertension mgmt. Charges/Coding Visit Charges Inpatient E&M: 50904 [facility] Hosp L3
[2023-07-22] MEDS: Aspirin E.C. 81 MG Tablet PO (08:19)
[2023-07-22] MEDS: Sucralfate 1 GM Tablet PO ×2 (08:19→15:55)
[2023-07-22] MEDS: Metoprolol Tartrate 25 MG Tablet 12.5 MG PO ×2 (10:25→21:14)
[2023-07-22] MEDS: Escitalopram Oxalate 10 MG Tablet 5 MG PO (10:25)
[2023-07-22] MEDS: amLODIPine 10 MG Tablet PO (10:26)
[2023-07-22] MEDS: Lisinopril 40 MG Tablet PO (10:26)
[2023-07-22] MEDS: Ezetimibe 10 MG Tablet PO (10:26)
[2023-07-22] MEDS: Timolol 0.5% 5ML OPTH.BTL 1 DRP RIGHT EYE ×2 (10:26→21:12)
[2023-07-22 12:48] LABS: Thyroid Stim Hormone (TSH) 2.28 uIU/mL (0.358-3.74)
[2023-07-22 14:31] LABS: Partial Thromboplast Time 50.2 Seconds (24.1-36.2)
--- NOTE | 2023-07-22 16:13 | PCM.PN.CARD ---
Subjective Subjective No further chest pain. Objective Data Vital Signs: Vital Signs Temp Pulse Resp BP Pulse Ox O2 Del Method 98.2 F 54 L 17 128/59 H 99 Room Air 07/22/23 14:06 07/22/23 14:06 07/22/23 14:06 07/22/23 14:06 07/22/23 14:06 07/22/23 14:06 Oxygen Delivery Method Room Air Weight: 168 lb 6.931 oz Body Mass Index (BMI) 21.6 Intake & Output: Intake and Output for Last 24 Hours 07/20/23 07/21/23 07/22/23 23:59 23:59 22:59 Intake Total 5.80 / 7.30 1136.15 / 1236.15 299.23 / 299.23 Output Total 1250 / 1450 200 / 200 Balance 5.80 / -92.70 -113.85 / -213.85 99.23 / 99.23 Lab / Micro Data 07/22/23 06:15 07/21/23 01:30 Labs: Laboratory Results - last 24 hr 07/21/23 23:00: APTT 53.4 H 07/22/23 06:15: WBC 4.4, RBC 3.66 L, Hgb 11.4 L, Hct 35.1 L, MCV 95.9 H, MCH 31.1, MCHC 32.5, RDW Std Deviation 47.0 H, RDW Coeff of Lenora 13.2, Plt Count 127 L, MPV 9.3, Immature Gran % (Auto) 0.900, Neut % (Auto) 58.2, Lymph % (Auto) 22.8, Stanley % (Auto) 13.8 H, Eos % (Auto) 3.4, Baso % (Auto) 0.9, Absolute Neuts (auto) 2.6, Absolute Lymphs (auto) 1.01, Nucleated RBC % 0, APTT 98.0 H* 07/22/23 08:10: Folate 16.30, TSH 2.28 07/22/23 13:59: APTT 50.2 H Cardiology Labs/Tests 07/21/23 23:00: APTT 53.4 H 07/22/23 06:15: WBC 4.4, RBC 3.66 L, Hgb 11.4 L, Hct 35.1 L, MCV 95.9 H, MCH 31.1, MCHC 32.5, Plt Count 127 L, MPV 9.3, Immature Gran % (Auto) 0.900, Neut % (Auto) 58.2, Lymph % (Auto) 22.8, Stanley % (Auto) 13.8 H, Eos % (Auto) 3.4, Baso % (Auto) 0.9, Absolute Neuts (auto) 2.6, Nucleated RBC % 0, APTT 98.0 H* 07/22/23 13:59: APTT 50.2 H Rhythm: EKG: ECHO: Stress Test: Cardiac Cath: PCI: CT Surgery: Holter monitor: EPS: PPM: CXR: Chest CT Scan: Radiography Diagnostic Testing: Radiology Impression Brain CT 07/21/23 20:18 IMPRESSION: Chronic microvascular ischemic changes. No evidence of acute intracranial pathology. Electronically Signed: Mo Clarke DO at 21:48 EDT , Physical Exam Const alert HEENT normocephalic Eyes no scleral icterus Resp normal respiratory effort Psych mental status grossly normal Assessment & Plan Assessment/Plan (1) Unstable angina: PLAN: We will proceed with coronary angiography tomorrow. Risks and benefits discussed with the patient. Patient wishes to proceed. Continue current medications. Charges/Coding Visit Charges Inpatient E&M: 10921 [facility] Hosp L1
[2023-07-22] MEDS: NETARSUDIL MESYLATE 1 DRP OPHTHALMIC (21:12)
[2023-07-22 21:23] LABS: Partial Thromboplast Time 56.4 Seconds (24.1-36.2)
[2023-07-23] VITALS (14 sets, daily range): BP systolic 116–166; BP diastolic 64–80; PULSE 57–67; RESP 14–18; TEMP 36–37; O2SAT 96–100; BMI 21.2
[2023-07-23 03:37] LABS: Partial Thromboplast Time 60.4 Seconds (24.1-36.2)
--- NOTE | 2023-07-23 05:00 | EKG12_ITS ---
Test Reason : Blood Pressure : / mmHG Vent. Rate : 057 BPM Atrial Rate : 057 BPM P-R Int : 266 ms QRS Dur : 088 ms QT Int : 460 ms P-R-T Axes : 000 000 117 degrees QTc Int : 447 ms Sinus bradycardia with 1st degree A-V block ST & T wave abnormality, consider lateral ischemia Abnormal ECG When compared with ECG of 23-JUL-2023 05:48, MANUAL COMPARISON REQUIRED, DATA IS UNCONFIRMED Confirmed by LUIS BENNETT, ISREAL ([id number]), online editor SARAH CALVIN ([id number]) on 07/30/2023 10:54:57 AM Referred By: SERGIO Confirmed By:BHUPENDRA SMITH MD
[2023-07-23] MEDS: Sucralfate 1 GM Tablet PO ×2 (05:44→15:59)
[2023-07-23] MEDS: Aspirin E.C. 81 MG Tablet PO (05:44)
[2023-07-23] MEDS: Metoprolol Tartrate 25 MG Tablet 12.5 MG PO ×2 (05:44→19:45)
[2023-07-23] MEDS: Lisinopril 40 MG Tablet PO (05:44)
[2023-07-23] MEDS: 0.9% Normal Saline (1000mL) 1,000 ML 15 ML IV (05:45)
[2023-07-23] MEDS: amLODIPine 10 MG Tablet PO (05:46)
[2023-07-23 06:25] LABS: Absolute Lymphocyte Count 1.18 X10^3/uL (0.83-4.51); Absolute Neutrophil Count 3.2 X10^3/uL (2.0-7.7); Basophil# 0.05 X10^3/uL; Eosinophil# 0.16 X10^3/uL; Eosinophils% 3.1 % (0-5); Hematocrit 36.8 % (40-54); Hemoglobin 12.3 g/dL (13.0-16.5); Lymphocyte # 1.18 X10^3/ul (0.83-4.51); Mean Corp Hgb Conc 33.4 g/dL (32-36); Mean Corpuscular Hgb 31.7 pg (27.0-32.0); Mean Corpuscular Volume 94.8 fL (80-94); Mean Platelet Vol. 9.5 fl (6.2-12.0); Monocyte% 9.8 % (0-10); NRBC Flagged by Analyzer 0 % (0-5); Neutrophil # 3.18 X10^3/uL (2.7-7.7); Neutrophil % 62.1 % (47-70); Platelet Count 141 K/mm3 (150-450); RBC Distribution Width CV 13.2 % (11.6-14.6); RBC Distribution Width SD 45.2 fl (35.1-43.9); Red Blood Count 3.88 M/mm3 (4.6-6.2); White Blood Count 5.1 K/mm3 (4.4-11.0)
[2023-07-23 06:41] LABS: Anion Gap 6 (5-15); BUN 17 mg/dL (7-18); BUN/Creat Ratio 18.4 RATIO (10-20); Calcium,Total 8.8 mg/dL (8.5-10.1); Chloride 107 mmol/L (98-107); Creatinine, Serum 0.92 mg/dL (0.70-1.30); EST Glomerular Filtration Rate 83 mL/min (>60); Est Glom Filt Rate - Afr Amer 101 mL/min (>60); Glucose 113 mg/dL (74-106); Potassium 3.7 mmol/L (3.5-5.1); Sodium Level 141 mmol/L (136-145)
--- NOTE | 2023-07-23 07:29 | PN.HOSP_ITS ---
Reason for Visit Reason for Visit: Diagnoses Essential (primary) hypertension (07/20/23) Unstable angina (07/20/23) Disorientation, unspecified (07/20/23) Subjective Subjective No further chest pain. Confusion at night per family report. Objective Data Objective Data Vital Signs: Vital Signs Temp Pulse Resp BP Pulse Ox O2 Del Method 36.8 C 59 L 16 144/80 H 98 Nasal Cannula 07/23/23 05:40 07/23/23 05:44 07/23/23 05:40 07/23/23 05:44 07/23/23 05:40 07/23/23 05:40 Oxygen Delivery Method Nasal Cannula Weight: 75.3 kg Body Mass Index (BMI) 21.2 Intake & Output: Intake and Output for Last 24 Hours 07/22/23 07/22/23 07/23/23 00:59 23:59 23:59 Intake Total 290 / 290 Output Total 1225 / 1225 Balance -935 / -935 Lab / Micro Data 07/23/23 03:21 07/23/23 03:10 Labs: Laboratory Results - last 24 hr 07/22/23 08:10: Folate 16.30, TSH 2.28 07/22/23 13:59: APTT 50.2 H 07/22/23 21:03: APTT 56.4 H 07/23/23 03:00: APTT 60.4 H 07/23/23 03:10: Sodium 141, Potassium 3.7, Chloride 107, Carbon Dioxide 28.0, Anion Gap 6, BUN 17, Creatinine 0.92, Estim Creat Clear Calc 64.80, Est GFR (MDRD) Af Amer 101, Est GFR (MDRD) Non-Af 83, BUN/Creatinine Ratio 18.4, Glucose 113 H, Calcium 8.8 07/23/23 03:21: WBC 5.1, RBC 3.88 L, Hgb 12.3 L, Hct 36.8 L, MCV 94.8 H, MCH 31.7, MCHC 33.4, RDW Std Deviation 45.2 H, RDW Coeff of Lenora 13.2, Plt Count 141 L, MPV 9.5, Immature Gran % (Auto) 1.000 H, Neut % (Auto) 62.1, Lymph % (Auto) 23.0, [place] % (Auto) 9.8, Eos % (Auto) 3.1, Baso % (Auto) 1.0, Absolute Neuts (auto) 3.2, Absolute Lymphs (auto) 1.18, Nucleated RBC % 0 Physical Exam Const alert and no apparent distress Resp normal respiratory effort, no retractions, no use of accessory muscles and clear to auscultation bilaterally Cardio regular rate, regular rhythm, S1 normal heart sound and S2 normal heart sound GI normal to inspection, nondistended, normoactive bowel sounds, soft to palpation, non-tender and non-distended Extremity normal to inspection Assessment & Plan Assessment/Plan (1) Unstable angina: PLAN: Chest Pain w/ Acute EKG Changes, concern for Unstable Angina: EKG with sinus rhythm with first-degree AV block with some T wave elevations in aVR with ST depression in 1 and [address] as [address] as some ST depression V3 through V6 which is changed from previous, Troponin series negative ECHO shows an EF 65%. Mild enlarged LA. Lipid panel: TGs 178, Chol 133, LDL 59 Left heart cath showed stenosis at the circ that had balloon angioplasty, no stent. Performed via femoral approach. DW Dr. Fraser, monitor patient overnight and continue medical mgmt. If has recurrent symptoms, may concern Ranexa as outpt. (2) HTN (hypertension): PLAN: accelerated at one point, but currently improved. Jumped to 208/115 after NTG discontinued. Continue amlodipine 10/d, lisinopril 40. PRN hydralazine. (3) Confusion: PLAN: Suspected underlying dementia. Head CT showed no acute process. Had MRI brain 05/15 showed involutional and chronic ischemic changes of the brain. Check B12, Folate, TSH for reversible causes, if those are negative, then would recommend follow up with geriatrics/neurology as outpt. PLAN: Plan Chronic conditions: * CAD: Status post CABG x3 with SCRUGGS to LAD, SVG to D1, SVG to RPDA 02/1991 and PCI with stent to mid RCA 10/1996, KATHY to mid distal LCx and POBA OM1 04/2015, continue aspirin, noted statin intolerance on ezetimibe, lisinopril, not on any beta-gracy therapy. * Hypertension: Continue home regimen including lisinopril, amlodipine, per current list not on any beta-gracy therapy, PRN hydralazine. * Hyperlipidemia: continue ezetimibe. Noted statin intolerance. * Chronic mildly macrocytic anemia: Admission hemoglobin 12.8, MCV 96.3, baseline hemoglobin similar, continue to trend. * Anxiety and depression: We will continue patient home low-dose escitalopram regimen. * GERD: We will continue patient home sucralfate regimen, will have Mylanta additionally as needed. * Chronic eczema: Patient on dupilumab outpatient, encourage continued outpatient follow-up with dermatology as previously arranged. * Suspected dementia: sundowning noted overnight. DW family, family wanted him sedated. I acknowledged the difficulty of seeing a family member in a co nfused state. I discouraged use of sedatives as it could have undesired effects including paradoxical reaction. They did not seem satisfied with that explanation, but appeared satisfied that we could try melatonin by the nurse in the room. DVT prophylaxis: Not indicated as patient is already anticoagulated. CODE status: DNR-CCA, no intubation status. DW family 07/23. They are concerned about what may be needed for him. Explained risks of heart catheterization include bleeding, coronary dissection. They asked if that will be via his radial artery. I told them that most likely approach, but will depending on his anatomy. They seem less inclined for CABG, if it were necessary. Disposition: if stable overnight, plan for home on 07/24. Charges/Coding Visit Charges Inpatient E&M: 74391 [facility] Hosp L2
[2023-07-23 09:49] LABS: Vitamin B12 430 pg/mL (211-911)
--- NOTE | 2023-07-23 11:00 | EKG12_ITS ---
Test Reason : AM EKG Blood Pressure : / mmHG Vent. Rate : 061 BPM Atrial Rate : 061 BPM P-R Int : 292 ms QRS Dur : 088 ms QT Int : 448 ms P-R-T Axes : 087 018 125 degrees QTc Int : 450 ms Sinus rhythm with 1st degree A-V block ST & T wave abnormality, consider lateral ischemia Abnormal ECG When compared with ECG of 23-JUL-2023 05:48, MANUAL COMPARISON REQUIRED, DATA IS UNCONFIRMED Confirmed by LUIS BENNETT, ISREAL ([id number]), senior technical editor SARAH CALVIN ([id number]) on 07/30/2023 11:03:41 AM Referred By: SERGIO Confirmed By:BHUPENDRA SMITH MD
[2023-07-23] MEDS: Timolol 0.5% 5ML OPTH.BTL 1 DRP RIGHT EYE (11:57)
[2023-07-23] MEDS: Escitalopram Oxalate 10 MG Tablet 5 MG PO (11:58)
[2023-07-23] MEDS: Ezetimibe 10 MG Tablet PO (11:58)
[2023-07-23] MEDS: 0.9% Saline Lock 10 ML Syringe IV ×2 (11:59→19:04)
--- NOTE | 2023-07-23 13:34 | CRPHASE1_ITS ---
Patient Communication Patient Information Former Patient:: Phase I and Phase II PHII Cardiac Rehab Discussed with Patient:: Yes Guide to Cardiac Rehab Given to Patient:: Yes Cardiac Rehab Facility Choice List Given to Patient:: Yes Communication to Cardiac Rehab Architectural Sales Consultant:: Jeff Fraser Refer Phase II Cardiac Rehab:: Yes Sessions:: 36 sessions - 3 days/wk, 12 weeks Cardiac Rehabilitation Info Program Information Cardiac Rehabilitation Program Information: Cardiac Rehab The cardiac rehab team at [facility] consists of highly skilled exercise physiologists, nurses, respiratory therapists and physicians working together with you. Our purpose is to help you have a full recovery and achieve the goals you set for yourself. Over the years many of our patients have returned to activities they assumed they would never do again! We can help restore your confidence and motivation to make lifestyle changes that can have a significant impact on your health and quality of life! We can help answer questions and concerns you may have about exercise, lifestyle, medications, diet, stress and anxiety which are common following a hospitalization. WE monitor ECG and vital signs during exercise and discuss your progress with you and report to your physician(s). Cardiac Rehab is proven to help reduce readmissions, improve functional capacity and lower recurrence of problems with your heart. Our Cardiac Rehab program is Certified by the [employer]-Vascular [employer] Pulmonary [employer] (AACVPR) and Accredited by the [employer] through our [facility]. You can contact us at . We invite you to call us with your questions or to get started in our program. If you have other questions or concerns be sure to ask your physician/provider during your follow-up visit. WE look forward to seeing you!
--- NOTE | 2023-07-23 13:35 | CRPH1.INSTRU ---
General Education Discussed with Patient CAD and cardiac anatomy and function:: Patient communicates acknowledgment Explanation of diagnoses and procedures:: Patient communicates acknowledgment Sign/Symptoms of AK:: Patient communicates acknowledgment Antiplatelet therapy: Patient communicates acknowledgment Proper use of NTG-SL: Patient communicates acknowledgment Emergency procedures and activation of EMS: Patient communicates acknowledgment Compliance of all prescribed medications: Patient communicates acknowledgment Smoking Risk Factors Patient Nicotine/Smoking Risk Factors Are:: Never smoked Dyslipidemia Risk Factors Patient Dyslipidemia Risk Factors Are:: Total Cholesterol, Triglycerides, HDL and LDL Recommendations Recommendations Include:: Lipid profile provided, Reviewed NCEP/ATP guidelines and Therapeutic Lifestyle Change dietary guidelines Response Code Dyslipidemia Response Code:: Patient communicates acknowledgment Overweight/Obesity Risk Factors Patient Overweight/Obesity Risk Factors Are:: BMI Normal [24-29 & > 65 years old] Recommendations Recommendations Include:: Weight loss of 5-10%, Reduced calorie diet and Exercise 5-7 times/week Response Code Overweight/Obesity:: Patient communicates acknowledgment Hypertension Recommendations Recommendations Include:: Maintain BP <130/85, DASH dietary guidelines, Decrease/maintain normal body weight and Moderation of ETOH Response Code Hypertension:: Patient communicates acknowledgment Heart Disease Risk Factors Patient Heart Disease Risk Factors Are:: Previous cardiac event Recommendations Recommendations Include:: Educated family members of their risk and Educated family members of importance of prevention of heart disease Response Code Heart Disease Response Code:: Patient communicates acknowledgment and Family communicates acknowledgment Diabetes Risk Factors Patient Diabetes Risk Factors Are:: No documented hx of diabetes Metabolic Syndrome Risk Factors Patient Metabolic Syndrome Risk Factors Are [3 of 5]:: Fasting blood sugar > 100 mg/dL, Waist circumference > 35 [female] or 40 [male], High triglyceride >150, Hypertension and Low HDL <40 [male] or < 50 [female] Recommendations Recommendations Include:: Reinforce compliance to risk factor modifications and Encouraged follow-up with Primary Care Physician Response Code Metabolic Syndrome Response Code:: Patient communicates acknowledgment Sedentary Risk Factors Patient Sedentary Risk Factors Are:: Lack of regular exercise Recommendations Recommendations Include:: Aerobic exercise 5-7 times/week for 20-30 minutes continuously, Benefits of regular exercise, Discussed home walking program and Monitored Outpatient Cardiac Rehab Response Code Sedentary Response Code:: Patient communicates acknowledgment Stress Recommendations Recommendations Include:: Identification of stressors, and assessment of coping skills and Stress management techniques Response Code Stress Response Code:: Patient communicates acknowledgment
--- NOTE | 2023-07-23 13:57 | CHAPLAIN ---
Type of Pastoral Visit _x__ Initial Visit ___ Follow-up Visit ___ On-call Visit ___ General Patient Visit ___ Spiritual Assessment ___ Family Conference ___ Bereavement ___ Rapid Response ___ Code Blue ___ Other (describe below) Pastoral Care Referral From _x__ Patient _x__ Family ___ Nurse ___ Physician ___ Unit Educator ___ Pbx Mechanic ___ Other (describe below) Sacrament/Intervention _x__ Active listening ___ Anointing ___ Spiritism ___ Bereavement ___ Communion ___ Yisel exploration ___ ___ Life review _x__ Prayer ___ Reconciliation ___ Sacrament of Sick _x__ Supportive presence ___ Wedding ___ Other (describe below) Pastoral Comments patient had returned from heart cath and he and family report good outcome; pt speaks of his experience over the weekend in the hospital; pt has no other concerns than getting well and going home; family is supportive; all welcome a prayer for support; no other needs identified
--- NOTE | 2023-07-23 17:15 | CASEMGMT ---
MILDRED FERRELL NOTE: Daughter requesting resources for in-home care and transportation info, as pt's does not drive and pt w/increase in confusion. Daughter states they will need assistance w/getting pt to appts. Dtr also inquiring about physician who specializes in dementia and geriatrics. MILDRED FERRELL discussed HHC and MCR's homebound requirements and made aware pt would not qualify for HHC. Provided w/Private-duty aide agency list, local PCP directory and [facility] transportation information, and questions answered. Daughter also provided w/Alzheimer's support group information/contact. She voices appreciation for info/resources provided and denies needing other resources/info at this time. [employer]il[employer] 30-day savings card given to pt/family and instructed on use. Made aware to f/u with cardiology to discuss other possible more affordable options, if refills are not affordable. They voice understanding. They deny having other discharge planning needs/concerns at this time. Radha GONZALES RN CM
[2023-07-23] MEDS: Haloperidol Lactate 5 MG/ML Vial 2 MG IV (19:04)
[2023-07-23] MEDS: MELATONIN 3 MG TABLET PO (19:45)
[2023-07-23] MEDS: Morphine 2 MG/ML Syringe IV (19:53)
[2023-07-23] MEDS: proCHLORPERazine 10 MG/2 ML Vial 5 MG IV (19:55)
[2023-07-23] MEDS: Haloperidol Lactate 5 MG/ML Vial IV (22:32)
[2023-07-24] MEDS: Sucralfate 1 GM Tablet PO (05:50)
[2023-07-24 06:13] LABS: Hematocrit 37.9 % (40-54); Hemoglobin 12.9 g/dL (13.0-16.5); Mean Platelet Vol. 9.3 fl (6.2-12.0); Platelet Count 148 K/mm3 (150-450); RBC Distribution Width CV 13.2 % (11.6-14.6); RBC Distribution Width SD 45.1 fl (35.1-43.9); Red Blood Count 4.03 M/mm3 (4.6-6.2); White Blood Count 6.5 K/mm3 (4.4-11.0)
[2023-07-24 06:26] LABS: Partial Thromboplast Time 29.8 Seconds (24.1-36.2)
[2023-07-24 06:45] LABS: ALB/GLOB Ratio 1.1 RATIO (0.9-2.4); AST(SGOT) 24 U/L (15-37); Alanine Aminotransfer ALT/SGPT 20 U/L (16-61); Albumin, Serum 3.5 g/dL (3.2-5.0); Alkaline Phosphatase 68 U/L (45-117); Anion Gap 5 (5-15); BUN 24 mg/dL (7-18); BUN/Creat Ratio 20.5 RATIO (10-20); Chloride 106 mmol/L (98-107); Creatinine, Serum 1.17 mg/dL (0.70-1.30); EST Glomerular Filtration Rate 63 mL/min (>60); Est Glom Filt Rate - Afr Amer 76 mL/min (>60); Estimated Creatinine Clearance 50.95 ml/min; Globulin 3.3 g/dL (2.2-4.2); Glucose 104 mg/dL (74-106); Potassium 3.6 mmol/L (3.5-5.1); Protein, Total 6.8 g/dL (6.4-8.2); Sodium Level 140 mmol/L (136-145)
[2023-07-24 07:30] VITALS: O2SAT 95
--- NOTE | 2023-07-24 07:37 | PN.HOSP_ITS ---
Reason for Visit Reason for Visit: Diagnoses Essential (primary) hypertension (07/20/23) Unstable angina (07/20/23) Disorientation, unspecified (07/20/23) Subjective Subjective Some confusion and agitation overnight. Feeling fine today. Family notes that he gets more agitated at night but it is not as severe as it is in the hospital. Objective Data Objective Data Vital Signs: Vital Signs Temp Pulse Resp BP Pulse Ox O2 Del Method 37.0 C 67 16 166/79 H 100 Room Air 07/23/23 21:00 07/23/23 21:00 07/23/23 21:00 07/23/23 21:00 07/23/23 21:00 07/23/23 21:00 Oxygen Delivery Method Room Air Weight: 75.3 kg Body Mass Index (BMI) 21.2 Intake & Output: Intake and Output for Last 24 Hours 07/22/23 07/23/23 07/24/23 23:59 23:59 23:59 Intake Total 1558.32 / 1558.32 240 / 240 Output Total 2024 Balance -466.68 / -466.68 240 / 240 Lab / Micro Data 07/24/23 06:00 07/24/23 06:00 Labs: Laboratory Results - last 24 hr 07/22/23 08:10: Vitamin B12 430 07/24/23 06:00: WBC 6.5, RBC 4.03 L, Hgb 12.9 L, Hct 37.9 L, MCV 94.0, MCH 32.0, MCHC 34.0, RDW Std Deviation 45.1 H, RDW Coeff of Lenora 13.2, Plt Count 148 L, MPV 9.3, APTT 29.8, Sodium 140, Potassium 3.6, Chloride 106, Carbon Dioxide 29.0, Anion Gap 5, BUN 24 H, Creatinine 1.17, Estim Creat Clear Calc 50.95, Est GFR (MDRD) Af Amer 76, Est GFR (MDRD) Non-Af 63, BUN/Creatinine Ratio 20.5 H, Glucose 104, Calcium 9.0, Total Bilirubin 1.80 H, AST 24, ALT 20, Alkaline Phosphatase 68, Total Protein 6.8, Albumin 3.5, Globulin 3.3, Albumin/Globulin Ratio 1.1 Physical Exam Const alert and no apparent distress Psych affect normal Assessment & Plan Assessment/Plan (1) Unstable angina: PLAN: Chest Pain w/ Acute EKG Changes, concern for Unstable Angina: EKG with sinus rhythm with first-degree AV block with some T wave elevations in aVR with ST depression in 1 and 2 as [address] as some ST depression V3 through V6 which is changed from previous, Troponin series negative ECHO shows an EF 65%. Mild enlarged LA. Lipid panel: TGs 178, Chol 133, LDL 59 Left heart cath showed stenosis at the circ that had balloon angioplasty, no stent. Performed via femoral approach. DW Dr. Fraser, monitor patient overnight and continue medical mgmt. If has recurrent symptoms, may concern Ranexa as outpt. (2) HTN (hypertension): PLAN: accelerated at one point, but currently improved. Jumped to 208/115 after NTG discontinued. Continue amlodipine 10/d, lisinopril 40. PRN hydralazine. (3) Confusion: PLAN: Suspected underlying dementia. Head CT showed no acute process. Had MRI brain 05/15 showed involutional and chronic ischemic changes of the brain. B12, Folate, TSH WNL follow up with geriatrics/neurology as outpt. Sundowning at night. Start quetiapine 25mg QHS. Patient states that they are going to be actually following up with neurology here in the near future for evaluation of this suspected dementia. PLAN: Plan Chronic conditions: * CAD: Status post CABG x3 with SCRUGGS to LAD, SVG to D1, SVG to RPDA 02/1991 and PCI with stent to mid RCA 10/1996, KATHY to mid distal LCx and POBA OM1 04/2015, continue aspirin, noted statin intolerance on ezetimibe, lisinopril, not on any beta-gracy therapy. * Hypertension: Continue home regimen including lisinopril, amlodipine, per current list not on any beta-gracy therapy, PRN hydralazine. * Hyperlipidemia: continue ezetimibe. Noted statin intolerance. * Chronic mildly macrocytic anemia: Admission hemoglobin 12.8, MCV 96.3, baseline hemoglobin similar, continue to trend. * Anxiety and depression: We will continue patient home low-dose escitalopram regimen. * GERD: We will continue patient home sucralfate regimen, will have Mylanta additionally as needed. * Chronic eczema: Patient on dupilumab outpatient, encourage continued outpatient follow-up with dermatology as previously arranged. * Suspected dementia: sundowning noted overnight. DW family, family wanted him sedated. I acknowledged the difficulty of seeing a family member in a confused state. I discouraged use of sedatives as it could have undesired effects including paradoxical reaction. They did not seem satisfied with that explanation, but appeared satisfied that we could try melatonin by the nurse in the room. CODE status: DNR-CCA, no intubation status. Disposition: Discharge home
[2023-07-24 09:15] VITALS: BMI 20.9
[2023-07-24 09:16] VITALS: BP 133/75; PULSE 70; RESP 16; TEMP 36.9; O2SAT 98
[2023-07-24 09:18] VITALS: PULSE 70
[2023-07-24] MEDS: Metoprolol Tartrate 25 MG Tablet 12.5 MG PO (09:18)
[2023-07-24] MEDS: Escitalopram Oxalate 10 MG Tablet 5 MG PO (09:19)
[2023-07-24] MEDS: Ezetimibe 10 MG Tablet PO (09:19)
[2023-07-24] MEDS: Aspirin E.C. 81 MG Tablet PO (09:19)
[2023-07-24] MEDS: Timolol 0.5% 5ML OPTH.BTL 1 DRP RIGHT EYE (09:19)
[2023-07-24] MEDS: Lisinopril 40 MG Tablet PO (09:19)
[2023-07-24] MEDS: amLODIPine 10 MG Tablet PO (09:19)
[2023-07-24] MEDS: TICAGRELOR 90 MG TABLET PO (09:20)
--- NOTE | 2023-07-24 11:00 | EKG12_ITS ---
Test Reason : AM EKG Blood Pressure : / mmHG Vent. Rate : 059 BPM Atrial Rate : 059 BPM P-R Int : 270 ms QRS Dur : 086 ms QT Int : 444 ms P-R-T Axes : 025 -01 105 degrees QTc Int : 439 ms Sinus bradycardia with 1st degree A-V block Nonspecific ST and T wave abnormality Abnormal ECG When compared with ECG of 20-JUL-2023 22:21, MANUAL COMPARISON REQUIRED, DATA IS UNCONFIRMED Confirmed by LUIS BENNETT, ISREAL ([id number]), restaurant expeditor SARAH CALVIN ([id number]) on 07/30/2023 11:04:20 AM Referred By: Confirmed By:BHUPENDRA SMITH MD
--- NOTE | 2023-07-24 11:47 | DS.PCM_ITS ---
Providers Date of Admission: 07/20/23 Primary Care Physician: Dr. Gurpreet Chavis MD Consultations 07/20/23 22:14 Consult: Cardiology Routine Consulting Provider: Jeff Fraser Reason for Consult: Chest Pain, abnormal EKG, unstable angina EMERGENT Consult: No MD Notified: Yes Date Notified: 07/20/23 Time Notified: 21:07 Method of Notification: ED Physician Initiated Reason For Visit: UNSTABLE ANGINA, EKG CHANGES Diagnosis Discharge Diagnosis (1) Unstable angina: Status: Acute Code(s): I20.0 - Unstable angina Plan: Chest Pain w/ Acute EKG Changes, concern for Unstable Angina: EKG with sinus rhythm with first-degree AV block with some T wave elevations in aVR with ST depression in 1 and [address] as well as some ST depression V3 through V6 which is changed from previous, Troponin series negative ECHO shows an EF 65%. Mild enlarged LA. Lipid panel: TGs 178, Chol 133, LDL 59 Left heart cath showed stenosis at the circ that had balloon angioplasty, no stent. Performed via femoral approach. DW Dr. Fraser, monitor patient overnight and continue medical mgmt. If has recurrent symptoms, may concern [facility] as outpt. (2) HTN (hypertension): Status: Chronic Code(s): I10 - Essential (primary) hypertension Plan: accelerated at one point, but currently improved. Jumped to 208/115 after NTG discontinued. Continue amlodipine 10/d, lisinopril 40. PRN hydralazine. (3) Confusion: Status: Acute Code(s): R41.0 - Disorientation, unspecified Plan: Suspected underlying dementia. Head CT showed no acute process. Had MRI brain 05/15 showed involutional and chronic ischemic changes of the brain. B12, Folate, TSH WNL follow up with geriatrics/neurology as outpt. Sundowning at night. Start quetiapine 25mg QHS. Patient states that they are going to be actually following up with neurology here in the near future for evaluation of this suspected dementia. Plan Chronic conditions: * CAD: Status post CABG x3 with SCRUGGS to LAD, SVG to D1, SVG to RPDA 02/1991 and PCI with stent to mid RCA 10/1996, KATHY to mid distal LCx and POBA OM1 04/2015, continue aspirin, noted statin intolerance on ezetimibe, lisinopril, not on any beta-gracy therapy. * Hypertension: Continue home regimen including lisinopril, amlodipine, per current list not on any beta-gracy therapy, PRN hydralazine. * Hyperlipidemia: continue ezetimibe. Noted statin intolerance. * Chronic mildly macrocytic anemia: Admission hemoglobin 12.8, MCV 96.3, baseline hemoglobin similar, continue to trend. * Anxiety and depression: We will continue patient home low-dose escitalopram regimen. * GERD: We will continue patient home sucralfate regimen, will have Mylanta additionally as needed. * Chronic eczema: Patient on dupilumab outpatient, encourage continued outpatient follow-up with dermatology as previously arranged. * Suspected dementia: sundowning noted overnight. DW family, family wanted him sedated. I acknowledged the difficulty of seeing a family member in a confused state. I discouraged use of sedatives as it could have undesired effects including paradoxical reaction. They did not seem satisfied with that explanation, but appeared satisfied that we could try melatonin by the nurse in the room. CODE status: DNR-CCA, no intubation status. Disposition: Discharge home Medications at Discharge Home Medications timolol maleate 0.5 % eye drops 1 drp RIGHT EYE BID glaucoma 11/24/13 aspirin 81 mg tablet,delayed release 81 mg PO DAILY@0800 heart 09/21/17 dupilumab 200 mg/1.14 mL subcutaneous syringe (Dupixent) 200 mg subcut Q2W excema 06/05/19 acetaminophen 500 mg tablet 500 mg PO Q8-10H PRN fever or pain 09/21/20 amlodipine 2.5 mg tablet 2.5 mg PO DAILY bp 01/13/21 ezetimibe 10 mg tablet (Zetia) 10 mg PO DAILY cholesterol 08/22/21 netarsudil 0.02 % eye drops (Rhopressa) 1 drp ophthalmic (eye) QPM glaucoma 06/02/22 nitroglycerin 0.4 mg sublingual tablet 0.4 mg sublingual Q5M PRN chest pain #30 tabs 12/14/22 sucralfate 1 gram tablet 1 g PO BID stomach 12/14/22 lisinopril 10 mg tablet 10 mg PO BID bp 05/14/23 cholecalciferol (vitamin D3) 50 mcg (2,000 unit) tablet (Vitamin D3) 50 mcg PO DAILY deficiency 07/21/23 citalopram 10 mg tablet 20 mg PO DAILY anxiety 07/21/23 metoprolol tartrate 25 mg tablet 12.5 mg (1/2 x 25 mg) PO BID #60 tabs 07/24/23 quetiapine 25 mg tablet 25 mg PO QHS #30 tabs 07/24/23 ticagrelor 90 mg tablet (Brilinta) 90 mg PO BID #60 tabs 07/24/23 Hospital Course Operations None Procedures 2-D Echocardiogram and Cardiac catheterization Summary of Care Provided Minutes Spent on Discharge: 35 Hospital Course: Patient presents with chest pain. Concerning for unstable angina. No was no evidence of myocardial infarction. Patient did undergo balloon angioplasty to circumflex lesion but no stent was placed. Patient has felt fine since then. Patient will continue with medical management and follow-up with cardiology as outpatient. His course was complicated by agitation in particular at night with consistent with sundowning. Its been highly suspected by the family that he probably has some underlying dementia and has already been established to see a neurologist to evaluate this. Patient was not combative but did become more agitated at night. Did require some haloperidol. We will have the patient continue with quetiapine QHS. Weight / BMI Weight Weight: 74.072 kg Body Mass Index (BMI) 20.9 ABG / Lab / Microbiology Data 07/24/23 06:00 07/24/23 06:00 Laboratory: Laboratory Results - last 24 hr 07/24/23 06:00: WBC 6.5, RBC 4.03 L, Hgb 12.9 L, Hct 37.9 L, MCV 94.0, MCH 32.0, MCHC 34.0, RDW Std Deviation 45.1 H, RDW Coeff of Lenora 13.2, Plt Count 148 L, MPV 9.3, APTT 29.8, Sodium 140, Potassium 3.6, Chloride 106, Carbon Dioxide 29.0, Anion Gap 5, BUN 24 H, Creatinine 1.17, Estim Creat Clear Calc 50.95, Est GFR (MDRD) Af Amer 76, Est GFR (MDRD) Non-Af 63, BUN/Creatinine Ratio 20.5 H, Gl ucose 104, Calcium 9.0, Total Bilirubin 1.80 H, AST 24, ALT 20, Alkaline Phos phatase 68, Total Protein 6.8, Albumin 3.5, Globulin 3.3, Albumin/Globulin Ratio 1.1 D/C Instructions Discharge Diet: Low fat / Low cholesterol Meaningful Use Info Meaningful Use Diagnoses (Choose all that apply): None applicable Discharge Plan Admission Admit Date/Time: 07/20/23 21:05 Primary Reason for Your Visit: Unstable angina. Attending Provider: Dameon Marcus Primary Care Provider: Gurpreet Chavis Consulting Providers: Natalie Holliday; Jeff Fraser Instructions Additional Instructions / Restrictions: You presented with chest pain. You did have a lesion that was narrowed in your heart vessel that was opened up with the angioplasty. No stent was placed. Continue with the medical treatment as explained. Do also follow-up with the neurologist as you have already set up to evaluate for possible dementia. Discharge Orders/Prescriptions Prescriptions: New quetiapine 25 mg Tablet 25 mg PO QHS Qty: 30 0RF metoprolol tartrate 25 mg Tablet 12.5 mg PO BID Qty: 60 0RF Brilinta 90 mg Tablet 90 mg PO BID Qty: 60 0RF Continued Dupixent Syringe 200 mg/1.14 mL syringe 200 mg SC Q2W acetaminophen 500 mg tablet 500 mg PO Q8-10H PRN (Reason: fever or pain) ezetimibe [Zetia] 10 mg tablet 10 mg PO DAILY Rhopressa 0.02 % drops 1 drp ophthalmic (eye) QPM sucralfate 1 gram tablet 1 g PO BID nitroglycerin 0.4 mg tablet, sublingual 0.4 mg SUBLINGUAL Q5M PRN (Reason: chest pain) Qty: 30 1RF Rx Instructions: do not exceed 3 doses per episode timolol maleate 1 DROP drops 1 drp RIGHT EYE BID Patient Comments: eye drops aspirin 81 MG tablet 81 mg PO DAILY@0800 citalopram 10 mg tablet 20 mg PO DAILY Patient Comments: Take 1/2 tablet by mouth once daily. cholecalciferol (vitamin D3) [Vitamin D3] 50 mcg (2,000 unit) tablet 50 mcg PO DAILY amlodipine 2.5 mg tablet 2.5 mg PO DAILY lisinopril 10 mg tablet 10 mg PO BID Hold Instructions: orthostatic hypotension Discontinued sildenafil 50 mg tablet 50 mg PO DAILY PRN Patient Comments: TAKE 1 TABLET BY MOUTH once per day NEEDED Referrals / Follow Up: [facility] [Provider Group] - 10/04/23 9:00 am [facility] [Provider Group] - 08/17/23 2:00 pm Gurpreet Chavis MD [Primary Care Provider] - Within 2 Weeks Disposition Disposition (needs filled in before D/C Order can be placed): Home, Self Care Charges/Coding Visit Charges Inpatient E&M: 59514 Disch Hosp >30min
--- NOTE | 2023-07-24 12:30 | CASEMGMT ---
Patient has order for discharge. Patient discharging on Brilinta. MILDRED FERRELL called [facility] to inquire about cost of Brilinta, copay is $20.42. MILDRED FERRELL in to update family. Patient and family deny further needs at this time. Patient had no further questions or concerns.
--- NOTE | 2023-07-24 13:43 | PHA.DC.MC.R ---
Pharmacy [facility] has performed discharge medication reconciliation and counseling for this patient. The patient's discharge medication list was reviewed for discrepancies and discrepancies were resolved. The patient was counseled on the following discharge medications and changes in medications for homegoing were reviewed. The Reason for Use, instructions for use, and potential side effects were reviewed for all new medications. The patient's questions regarding all of their medications were answered. 1. Metoprolol tartrate 12.5 mg PO BID 2. Quetiapine 25 mg PO QHS 3. Brilinta 90 mg PO BID The patient and patient's family were able to verbally demonstrate an understanding of their discharge medications. The patient and patient's family was counselled by pharmacy coordinator Hunter. Medications at Discharge Home Medications timolol maleate 0.5 % eye drops 1 drp RIGHT EYE BID glaucoma 11/24/13 aspirin 81 mg tablet,delayed release 81 mg PO DAILY@0800 heart 09/21/17 dupilumab 200 mg/1.14 mL subcutaneous syringe (Dupixent) 200 mg subcut Q2W excema 06/05/19 acetaminophen 500 mg tablet 500 mg PO Q8-10H PRN fever or pain 09/21/20 amlodipine 2.5 mg tablet 2.5 mg PO DAILY bp 01/13/21 ezetimibe 10 mg tablet (Zetia) 10 mg PO DAILY cholesterol 08/22/21 netarsudil 0.02 % eye drops (Rhopressa) 1 drp ophthalmic (eye) QPM glaucoma 06/02/22 nitroglycerin 0.4 mg sublingual tablet 0.4 mg sublingual Q5M PRN chest pain #30 tabs 12/14/22 sucralfate 1 gram tablet 1 g PO BID stomach 12/14/22 lisinopril 10 mg tablet 10 mg PO BID bp 05/14/23 cholecalciferol (vitamin D3) 50 mcg (2,000 unit) tablet (Vitamin D3) 50 mcg PO DAILY deficiency 07/21/23 citalopram 10 mg tablet 20 mg PO DAILY anxiety 07/21/23 metoprolol tartrate 25 mg tablet 12.5 mg (1/2 x 25 mg) PO BID #60 tabs 07/24/23 quetiapine 25 mg tablet 25 mg PO QHS #30 tabs 07/24/23 ticagrelor 90 mg tablet (Brilinta) 90 mg PO BID #60 tabs 07/24/23
[2023-07-24 13:45] VITALS: BP 128/68; PULSE 60; RESP 16; TEMP 37; O2SAT 96
--- NOTE | 2023-08-13 11:53 | CL.I_ITS ---
Patient Name: ROSI FELICIANO Study Date: 07/23/2023 Performing: Ginette Fraser MD Ht: 74 inches 187.96 cm : 1940 Wt: 168.7 lbs 76.4 kg Age: 82 Gender: male BSA: 2.02 PROCEDURE(S) PERFORMED DC02-(17603)LHC/COR DC11-(46817)AO ROOT ANGIO WITH HEART CATH IC01-(57565)PTCA, SINGLE CORONARY ARTERY CLINICAL PROFILE AND CO-MORBIDITIES Indications: Worsening Angina, ACS <= 24 hrs Heart Failure: None CAD Presentations: Unstable angina. CONCLUSIONS CAD as described with patent 1/3 bypass grafts. Successful PTCA alone of ostial LCx RECOMMENDATIONS DESCRIPTION OF PROCEDURE The patient arrived to the procedure lab. The risks and benefits of the procedure as well as a full description of our services here and lack of surgical backup were fully explained to the patient and/or their significant other prior to the catheterization. The Timeout was completed, verifying the correct patient and procedure. The patient's procedural site was prepped and draped in the usual fashion. Local anesthetic was given subcutaneously to right groin region with Lidocaine 2%. Using a modified Seldinger technique, arterial access was obtained via the right femoral artery, with Micropuncture set. Left Coronary Artery selective angiography was performed in multiple views using a 5 Fr. JL4 catheter. Saphenous Vein graft to the PDA AND DIAG (occluded graft) selective angiography was performed in single view using a 5 Fr. JR 4 catheter. Left internal mammary artery graft to the LAD selective angiography was performed in multiple views using a 5 Fr. IM catheter. Ascending (root) aorta selective angiography was then performed in single view. Ascending (root) aorta selective angiography was then performed in single viewThe images were reviewed and options discussed. A decision was then made to proceed with an Intervention, IVUS or other adjunct procedure. Arterial sheath was exchanged for a 6 Fr Sheath. XB 3.5 Guide catheter was inserted and engaged into the LCA. BMW Oran Guide wire was advanced to the Circumflex. PTCA balloon inflated at 8 atms for 29 secs. PTCA balloon inflated at 12 atms for 07 secs. PTCA balloon inflated at 16 atms for 40 secs. Contrast was injected through the sheath and the Right Iliac and Femoral artery were assessed for possible closure device. The arterial sheath was pulled and a Starclose closure device was deployed for hemostasis CORONARY ANGIOGRAPHY DOMINANCE: Right Dominant LEFT MAIN: 30% Stenosis in the distal portion LEFT ANTERIOR DESCENDING ARTERY: MID LAD: is occluded CIRCUMFLEX ARTERY: OSTIAL CIRC: 90 % Stenosis. OM1 is a small vessel that is patent. OM2 is a mid sized vessel that is occluded in the proximal portion. The distal portion of this vessel fills via collaterals RIGHT CORONARY ARTERY: Mild to moderate diffuse disease GRAFTS: SCRUGGS graft to the LAD is patent Saphenous Vein graft to the 1st Diagonal is totally occluded Saphenous Vein graft to the RCA is totally occluded INTERVENTION INFORMATION LESION SITE: Circumflex (Ostial) Lesion Complexity: High/C, chronic total occlusion: No, lesion at bifurcation: Yes, thrombus present: No, lesion length: 8 mm, culprit lesion: Yes, Previously treated lesion: No Pre Stenosis: 90 % Pre intervention RADHA flow: 3 Post Stenosis: 40 % Post intervention RADHA flow: 3 Lesion Devices: Rosen .014 190cm BMW Oran Straight Cordis 6 Fr XB3.5 100cm Guide Catheter IM5 SC EUPHORA RX 2.5x12 BALLOON COMPLICATIONS No Complications PROCEDURE MEDICATIONS Versed 0.5 mg IV Fentanyl 25 mcg IV Versed 0.5 mg IV Oxygen: 2 L/min via nasal cannula Brilinta 180 mg PO @ 07/23/2023 10:18:35 Heparin 5000 unit(s) IV 07/23/2023 09:35:39 SUMMARY OF HEMODYNAMIC DATA Time AIR REST ECG 08:54:29 AO 145/63 (95) SA 09:10:08 Signed By Ginette Fraser MD On 08/13/2023 11:52:29 Ginette Fraser MD
== END 2023-07-24 14:14 | disposition home or self-care (01) | DRG 251 ==
LOC: ED 20:00 → ICU 21:50 → PCU 07-22 13:52
PROVIDERS: Specialist; Admitting Provider Family Medicine; Emergency Provider Emergency Medicine; PCP Family Medicine
DX: I25.110 Atherosclerotic heart disease of native coronary artery with unstable angina pectoris (principal); F03.911 Unspecified dementia, unspecified severity, with agitation; F05 Delirium due to known physiological condition; F03.93 Unspecified dementia, unspecified severity, with mood disturbance; I25.710 Atherosclerosis of autologous vein coronary artery bypass graft(s) with unstable angina pectoris; F32.A Depression, unspecified; I10 Essential (primary) hypertension; L30.9 Dermatitis, unspecified; E78.5 Hyperlipidemia, unspecified; K21.9 Gastro-esophageal reflux disease without esophagitis; F41.9 Anxiety disorder, unspecified; I25.2 Old myocardial infarction; I16.0 Hypertensive urgency; R73.9 Hyperglycemia, unspecified; Z66 Do not resuscitate; Z79.82 Long term (current) use of aspirin; Z79.899 Other long term (current) drug therapy; Z95.1 Presence of aortocoronary bypass graft; Z95.5 Presence of coronary angioplasty implant and graft
CPT/HCPCS: 36415; 70450; 71045; 80048; 80053; 80061; 82607; 82746; 83036; 83735; 84443; 84484; 85025; 85027; 85610; 85730; 92920; 93005; 93306; 93454; 94668; 99152; 99153; 99252; 99285; J7030; Q9957; Q9967; A4216; C1725; C1760; C1769; C1887; C8929; G0463; J1327; J2405

== ENCOUNTER → 2023-10-04 | Outpatient (CLI) | payer MEDICARE, OTHER, SELFPAY ==
--- OUTSIDE RECORDS SUMMARY | 2023-10-04 10:55 | XMS RPT_ITS | CCD ---
Author Name Unknown Address [id number] [place] [address] Organization [facility] Care Team Providers Care Gas Flow Regulator Name Role Phone Paxton Velazquez MD Unavailable [phone] Marta Kraus Unavailable Unavailable Marta Kraus Unavailable Unavailable Vargas Chavis MD Primary Care Provider Vargas Chavis MD Primary Care Provider Vargas Chavis MD Primary Care Provider Vargas Chavis MD Primary Care Provider VARGAS CHAVIS Attending Unavailab VARGAS Cordon Primary Care Unavailab VARGAS Cordon Referring Unavailab VARGAS Cordon Primary Care Unavailab VARGAS Cordon Primary Care Unavailab VARGAS Cordon Attending Unavailab VARGAS Cordon Primary Care Unavailab le PODLOGNANCY GILL Attending Unavailable VARGAS CHAVIS Primary Care Unavailab le PODLOGNANCY GILL Attending Unavailable VARGAS CHAVIS Primary Care Unavailab VARGAS Cordon Primary Care Unavailab LUCIUS Flores Attending Unavailable VARGAS CHAVIS Primary Care Unavailab le PODLOGARNANCY Attending Unavailable VARGAS CHAVIS Primary Care Unavailab le PODLOGARNANCY Attending Unavailable VARGAS CHAVIS Primary Care Unavailab le KNKAREN CERVANTES Attending Unavailable VARGAS CHAVIS Primary Care Unavailab le Allergies Allergy Classification Reported Allergen(s) Allergy Type Date of Onset Reaction(s) Facility (1 source) Hmg-Coa Reductase Inhibitors (Statins) drug allergy 5 upset stomach [facility] Work Phone: (1 source) Penicillin G Potassium drug allergy 1 [facility] Work Phone: (1 source) sulfADIAZINE Drug Allergy 1 [facility] Work Phone: (20 sources) Amitriptyline; Translations: [AMITRIPTYLINE] Drug Allergy 0 [facility] (20 sources) Cephalexin; Translations: [CEPHALEXIN] Drug Allergy 4 Rash [facility] (20 sources) Cortisone; Translations: [CORTISONE] Drug Allergy 5 [facility] (20 sources) Famotidine; Translations: [FAMOTIDINE (PF)] Drug Allergy 8 Other: See Comments [facility] Work Phone: (20 sources) Hydrocortisone; Translations: [HYDROCORTISONE] Drug Allergy 5 [facility] (20 sources) Naproxen; Translations: [NAPROXEN SODIUM] Drug Allergy 5 [facility] (3 sources) Penicillins; Translations: [PENICILLINS] Propensity to adverse reactions 5 [facility] (20 sources) rofecoxib; Translations: [ROFECOXIB] Drug Allergy 5 [facility] (20 sources) rosuvastatin; Translations: [ROSUVASTATIN CALCIUM] Drug Allergy 7 GI Upset [facility] Work Phone: (20 sources) Simvastatin; Translations: [SIMVASTATIN] Drug Allergy 5 [facility] (20 sources) Sulfonamides (Antibiotic); Translations: [SULFA (SULFONAMIDE ANTIBIOTICS)] Propensity to adverse reactions 5 [facility] (20 sources) Citalopram; Translations: [CITALOPRAM] Drug Allergy 2 Other: See Comments [facility] Work Phone: (20 sources) Penicillins Propensity to adverse reactions 5 [facility] Medications Current Medications Medication Drug Class(es) Dates Sig (Normalized) Sig (Original) escitalopram 5 mg oral tablet (11 sources) Serotonin Reuptake Inhibitor Start: 03-22-2023 End: 09-25-2023 take 1 tablet by mouth once daily escitalopram oxalate (LEXAPRO) 5 mg tablet Indications: Anxiety and depression Take 1 tablet by mouth once daily. 90 tablet 0 06/27/2023 09/25/2023 Active Completed/Discontinued Medications Medication Drug Class(es) Dates Sig (Normalized) Sig (Original) amLODIPine 2.5 mg oral tablet (20 sources) Dihydropyridine Calcium Channel [place] Start: 07-06-2021 End: 01-17-2023 take 1 tablet by mouth once daily amLODIPine (NORVASC) 2.5 mg tablet Indications: Essential hypertension, benign Take 1 tablet by mouth once daily. 30 tablet 5 07/21/2022 Active Problems Active Problems Problem Classification Problem Date Documented Da te Episodic/Chronic Anxiety disorders (20 sources) Generalized anxiety disorder; Translations: [Generalized anxiety disorder] Onset: 02-07-2010 Chronic Cataract (20 sources) Nuclear senile cataract; Translations: [Age-related nuclear cataract, unspecified eye] Onset: 11-11-2012 11-11-2012 Chronic Coronary atherosclerosis and other heart disease (20 sources) Coronary arteriosclerosis; Translations: [Coronary atherosclerosis] Onset: 01-18-2011 01-18-2011 Chronic Diabetes mellitus without complication (1 source) Hyperglycemia; Translations: [Hyperglycemia, unspecified] Episodic Disorders of lipid metabolism (20 sources) Hyperlipidemia; Translations: [Pure hypercholesterolemia ] Onset: 01-18-2011 01-18-2011 Chronic Essential hypertension (20 sources) Hypertensive disorder; Translations: [Benign essential hypertension] Onset: 07-11-2005 11-27-2016 Chronic Gastroduodenal ulcer (except hemorrhage) (20 sources) Peptic ulcer; Translations: [Peptic ulcer, site unspecified, unspecified as acute or chronic, without hemorrhage or perforation] Onset: 07-19-2016 07-19-2016 Chronic Glaucoma (20 sources) Primary open angle glaucoma; Translations: [Primary open-angle glaucoma, unspecified eye, stage unspecified] Onset: 11-11-2012 11-11-2012 Chronic Miscellaneous mental health disorders (20 sources) Chronic insomnia; Translations: [Psychophysiologic insomnia] Onset: 09-14-2017 09-14-2017 Chronic Mood disorders (20 sources) Recurrent major depressive episodes, moderate ; Translations: [Major depressive disorder, recurrent, moderate] Onset: 09-02-2018 09-02-2018 Chronic Mood disorders (1 source) Mood disorders; Translations: [Anxiety and depression] Onset: 12-01-2016 Nutritional deficiencies (2 sources) Vitamin D deficiency; Translations: [Vitamin D deficiency, unspecified] Onset: 05-15-2023 05-15-2023 Chronic Osteoarthritis (20 sources) Arthritis of left knee; Translations: [Unilateral primary osteoarthritis, left knee] Onset: 07-04-2016 07-04-2016 Chronic Other aftercare (1 source) Patient encounter status; Translations: [Other skilled nursing (current) drug therapy] 07-31-2023 Episodic Other aftercare (1 source) Other skilled nursing (current) drug therapy; Translations: [Medication management] Onset: 07-31-2023 Episodic Other and unspecified benign neoplasm (20 sources) History of polyp of colon; Translations: [Personal history of colonic polyps] 07-11-2005 Episodic Other gastrointestinal disorders (20 sources) Irritable bowel syndrome; Translations: [Mixed irritable bowel syndrome] Onset: 07-04-2016 07-04-2016 Chronic Other hereditary and degenerative nervous system conditions (3 sources) Mild cognitive impairment, so stated; Translations: [Mild cognitive impairment, so stated] Onset: 07-31-2023 Chronic Other male genital disorders (20 sources) Secondary erectile dysfunction; Translations: [Male erectile dysfunction, unspecified] Onset: 04-30-2019 04-30-2019 Chronic Other male genital disorders (2 sources) Male erectile dysfunction, unspecified; Translations: [Impotence of organic origin] Onset: 12-05-2022 Chronic Other upper respiratory infections (1 source) Acute upper respiratory infection; Translations: [Acute upper respiratory infection, unspecified] Episodic Peripheral and visceral atherosclerosis (8 sources) Peripheral vascular disease; Translations: [Peripheral vascular disease, unspecified] Onset: 01-18-2011 01-18-2011 Chronic Residual codes; unclassified (1 source) Restlessness and agitation; Translations: [Restlessness and agitation] 07-31-2023 Chronic Residual codes; unclassified (1 source) Restlessness and agitation; Translations: [Agitation] Onset: 07-31-2023 Chronic Residual codes; unclassified (2 sources) Memory impairment; Translations: [Other amnesia] 05-15-2023 Episodic Residual codes; unclassified (2 sources) Hallucinations; Translations: [Hallucinations, unspecified] 05-15-2023 Episodic Residual codes; unclassified (1 source) Other amnesia; Translations: [Memory disturbance] Onset: 06-05-2023 Episodic Residual codes; unclassified (1 source) Hallucinations, unspecified; Translations: [Hallucinations] Onset: 06-05-2023 Episodic Unclassified (1 source) Coronary artery bypass graft; Translations: [Presence of coronary angioplasty implant and graft] Onset: 12-30-2013 12-30-2013 Unclassified (2 sources) Preoperative cardiovascular examination ; Translations: [Encounter for preprocedural cardiovascular examination] Onset: 01-18-2011 01-18-2011 Unclassified (1 source) Percutaneous transluminal coronary angioplasty ; Translations: [Coronary angioplasty status] Onset: 04-21-2015 04-21-2015 Unclassified (1 source) Long-term drug therapy; Translations: [Other intermediate accountant (current) drug therapy] Onset: 01-18-2011 01-18-2011 Viral infection (1 source) Viral disease; Translations: [Viral infection, unspecified] Episodic Past or Other Problems Problem Classification Problem Date Documented Date Episodic/Chronic Abdominal hernia (1 source) Inguinal hernia; Translations: [Unilateral inguinal hernia, without obstruction or gangrene, not specified as recurrent] Onset: 08-16-2017 08-16-2017 Episodic Abdominal pain (20 sources) Upper abdominal pain; Translations: [Right upper quadrant pain] Onset: 02-15-2018 02-15-2018 Episodic Allergic reactions (2 sources) Dermatitis, unspecified; Translations: [Dermatitis, unspecified] Onset: 11-14-2017 Episodic Conditions associated with dizziness or vertigo (2 sources) Lightheadedness; Translations: [Dizziness and giddiness] Onset: 01-31-2023 Episodic Gastritis and duodenitis (20 sources) Acute hemorrhagic gastritis; Translations: [Gastritis, unspecified, with bleeding] Onset: 02-15-2018 02-15-2018 Episodic Nausea and vomiting (20 sources) Nausea; Translations: [Nausea] Onset: 02-15-2018 05-08-2019 Episodic Nonspecific chest pain (1 source) Chest discomfort; Translations: [Other chest pain] Onset: 10-23-2013 10-23-2013 Episodic Other disorders of stomach and duodenum (20 sources) Nonulcer dyspepsia; Translations: [Functional dyspepsia] Onset: 06-10-2018 06-10-2018 Episodic Other lower respiratory disease (1 source) Dyspnea; Translations: [Shortness of breath] Onset: 01-18-2011 01-18-2011 Episodic Other non-epithelial cancer of skin (20 sources) Malignant neoplasm of skin of trunk ; Translations: [Other specified malignant neoplasm of skin of other part of trunk] Onset: 04-13-2006 07-19-2016 Episodic Other skin disorders (20 sources) Eruption; Translations: [Rash and other nonspecific skin eruption] Onset: 12-01-2016 12-01-2016 Episodic Residual codes; unclassified (20 sources) Family history of cancer of colon; Translations: [Family history of malignant neoplasm of digestive organs] Onset: 07-19-2016 07-19-2016 Episodic Residual codes; unclassified (20 sources) Other specified health status; Translations: [Other drug allergy] Onset: 01-14-2021 01-14-2021 Episodic Unclassified (20 sources) Cardiovascular stress test abnormal; Translations: [Decreased testosterone level ] Onset: 11-27-2011 11-27-2011 Episodic Unclassified (3 sources) Body mass index (BMI) 26.0-26.9, adult; Translations: [Body mass index (BMI) 25.0-25.9, adult] Onset: 06-30-2014 Resolved: 11-27-2016 06-30-2014 Episodic Results Test Name Value Interpretation Reference Range Facil ity Vital Signs Date Time Vital Sign Value Performing Clinician Clarice mascorro 07-31-2023 16:07-0500 Body weight 78.02 kg Karen Campbell APRN.CNP Work Phone: [facility] 07-31-2023 16:07-0500 Diastolic blood pressure 64 mm[Hg] Karen Campbell APRN.CNP Work Phone: [facility] 07-31-2023 16:07-0500 Heart rate 54 /min Karen Campbell APRN.CNP Work Phone: [facility] 07-31-2023 16:07-0500 Respiratory rate 16 /min Karen Campbell APRN.CNP Work Phone: [facility] 07-31-2023 16:07-0500 Systolic blood pressure 148 mm[Hg] Karen Shannan RIGGS Work Phone: [facility] 06-05-2023 10:32-0400 Body weight 77.29 kg Vargas Chavis MD Work Phone: [facility] 06-05-2023 10:32-0400 Diastolic blood pressure 70 mm[Hg] Vargas Chavis MD Work Phone: [facility] 06-05-2023 10:32-0400 Heart rate 68 /min Vargas Chavis MD Work Phone: [facility] 06-05-2023 10:32-0400 Respiratory rate 16 /min Vargas Chavis MD Work Phone: [facility] 06-05-2023 10:32-0400 SaO2% (BldA) [Mass fraction] 97 % Vargas Chavis MD Work Phone: [facility] 06-05-2023 10:32-0400 Systolic blood pressure 116 mm[Hg] Vargas Chavis MD Work Phone: [facility] 05-15-2023 11:41-0400 Diastolic blood pressure 76 mm[Hg] Vargas Chavis MD Work Phone: [facility] 05-15-2023 11:41-0400 Systolic blood pressure 128 mm[Hg] Vargas Chavis MD Work Phone: [facility] 05-15-2023 10:50-0400 Body weight 76.3 kg Vargas Chavis MD Work Phone: [facility] 05-15-2023 10:50-0400 Heart rate 64 /min Vargas Chavis MD Work Phone: [facility] 05-15-2023 10:50-0400 Respiratory rate 16 /min Vargas Chavis MD Work Phone: [facility] 05-15-2023 10:50-0400 SaO2% (BldA) [Mass fraction] 99 % Vargas Chavis MD Work Phone: [facility] 03-18-2023 12:18-0400 Body temperature 98.4 [degF] Guicho Pendlebury SEMICONDUCTOR WAFERS ETCH OPERATOR.SHODDY MILL WORKER Work Phone: [facility] 03-18-2023 12:18-0400 Body weight 78.47 kg [facility] SEMICONDUCTOR WAFERS ETCH OPERATOR.SHODDY MILL WORKER Work Phone: [facility] 03-18-2023 12:18-0400 Diastolic blood pressure 88 mm[Hg] Guicho Pendlebury SEMICONDUCTOR WAFERS ETCH OPERATOR.SHODDY MILL WORKER Work Phone: [facility] 03-18-2023 12:18-0400 Heart rate 62 /min Guicho Pendlebury SEMICONDUCTOR WAFERS ETCH OPERATOR.SHODDY MILL WORKER Work Phone: [facility] 03-18-2023 12:18-0400 Respiratory rate 18 /min [facility] SEMICONDUCTOR WAFERS ETCH OPERATOR.SHODDY MILL WORKER Work Phone: [facility] 03-18-2023 12:18-0400 SaO2% (BldA) [Mass fraction] 97 % [facility] SEMICONDUCTOR WAFERS ETCH OPERATOR.SHODDY MILL WORKER Work Phone: [facility] 03-18-2023 12:18-0400 Systolic blood pressure 130 mm[Hg] Guicho Pendlebury SEMICONDUCTOR WAFERS ETCH OPERATOR.SHODDY MILL WORKER Work Phone: [facility] 01-31-2023 10:25-0400 Body weight 77.29 kg Nancy Podlogar SEMICONDUCTOR WAFERS ETCH OPERATOR.SHODDY MILL WORKER Work Phone: [facility] 01-31-2023 10:25-0400 Diastolic blood pressure 74 mm[Hg] Nancy Podlogar SEMICONDUCTOR WAFERS ETCH OPERATOR.SHODDY MILL WORKER Work Phone: [facility] 01-31-2023 10:25-0400 Heart rate 60 /min Nancy Podlogar SEMICONDUCTOR WAFERS ETCH OPERATOR.SHODDY MILL WORKER Work Phone: [facility] 01-31-2023 10:25-0400 Respiratory rate 18 /min Nancy Podlogar SEMICONDUCTOR WAFERS ETCH OPERATOR.SHODDY MILL WORKER Work Phone: [facility] 01-31-2023 10:25-0400 SaO2% (BldA) [Mass fraction] 100 % Nancy Podlogar SEMICONDUCTOR WAFERS ETCH OPERATOR.SHODDY MILL WORKER Work Phone: [facility] 01-31-2023 10:25-0400 Systolic blood pressure 132 mm[Hg] Nancy Podlogar SEMICONDUCTOR WAFERS ETCH OPERATOR.SHODDY MILL WORKER Work Phone: [facility] 01-15-2023 13:47-0400 Body weight 77.38 kg Nancy Podlogar SEMICONDUCTOR WAFERS ETCH OPERATOR.SHODDY MILL WORKER Work Phone: [facility] 01-15-2023 13:47-0400 Diastolic blood pressure 70 mm[Hg] Nancy Podlogar SEMICONDUCTOR WAFERS ETCH OPERATOR.SHODDY MILL WORKER Work Phone: [facility] 01-15-2023 13:47-0400 Heart rate 64 /min Nancy Podlogar SEMICONDUCTOR WAFERS ETCH OPERATOR.SHODDY MILL WORKER Work Phone: [facility] 01-15-2023 13:47-0400 Respiratory rate 14 /min Nancy Podlogar SEMICONDUCTOR WAFERS ETCH OPERATOR.SHODDY MILL WORKER Work Phone: [facility] 01-15-2023 13:47-0400 SaO2% (BldA) [Mass fraction] 95 % Nancy Podlogar SEMICONDUCTOR WAFERS ETCH OPERATOR.SHODDY MILL WORKER Work Phone: [facility] 01-15-2023 13:47-0400 Systolic blood pressure 132 mm[Hg] Nancy Podlogar SEMICONDUCTOR WAFERS ETCH OPERATOR.SHODDY MILL WORKER Work Phone: [facility] 12-22-2022 13:36-0400 Body temperature 98.2 [degF] Lashell Nevarez SEMICONDUCTOR WAFERS ETCH OPERATOR.SHODDY MILL WORKER Work Phone: [facility] 12-22-2022 13:36-0400 Body weight 77.93 kg Lashell Nevarez SEMICONDUCTOR WAFERS ETCH OPERATOR.SHODDY MILL WORKER Work Phone: [facility] 12-22-2022 13:36-0400 Diastolic blood pressure 78 mm[Hg] Lashell Nevarez SEMICONDUCTOR WAFERS ETCH OPERATOR.SHODDY MILL WORKER Work Phone: [facility] 12-22-2022 13:36-0400 Heart rate 64 /min Lashell Nevarez SEMICONDUCTOR WAFERS ETCH OPERATOR.SHODDY MILL WORKER Work Phone: [facility] 12-22-2022 13:36-0400 Respiratory rate 18 /min Lashell Nevarez APRN.SHODDY MILL WORKER Work Phone: [facility] 12-22-2022 13:36-0400 SaO2% (BldA) [Mass fraction] 99 % Lashell Nevarez APRN.SHODDY MILL WORKER Work Phone: [facility] 12-22-2022 13:36-0400 Systolic blood pressure 128 mm[Hg] Lashell Nevarez APRN.SHODDY MILL WORKER Work Phone: [facility] 12-05-2022 14:15-0400 Body height 188 cm Lucius Lin PA-C Work Phone: [facility] 12-05-2022 14:15-0400 Body temperature 97.9 [degF] Lucius Lin PA-C Work Phone: [facility] 12-05-2022 14:15-0400 Body weight 77.11 kg Lucius Lin PA-C Work Phone: [facility] 12-05-2022 14:15-0400 Diastolic blood pressure 84 mm[Hg] Lucius Lin PA-C Work Phone: [facility] 12-05-2022 14:15-0400 Heart rate 68 /min Lucius Lin PA-C Work Phone: [facility] 12-05-2022 14:15-0400 Respiratory rate 14 /min Lucius Lin PA-C Work Phone: [facility] 12-05-2022 14:15-0400 SaO2% (BldA) [Mass fraction] 96 % Lucius Lin PA-C Work Phone: [facility] 12-05-2022 14:15-0400 Systolic blood pressure 140 mm[Hg] Lucius Lin PA-C Work Phone: [facility] 08-29-2022 11:50-0500 Body weight 76.84 kg Nancy Jefferson APRN.SHODDY MILL WORKER Work Phone: [facility] 08-29-2022 11:50-0500 Diastolic blood pressure 68 mm[Hg] Nancy Podlogar SEMICONDUCTOR WAFERS ETCH OPERATOR.SHODDY MILL WORKER Work Phone: [facility] 08-29-2022 11:50-0500 Respiratory rate 16 /min Nancy Podlogar SEMICONDUCTOR WAFERS ETCH OPERATOR.SHODDY MILL WORKER Work Phone: [facility] 08-29-2022 11:50-0500 SaO2% (BldA) [Mass fraction] 100 % Nancy Podlogar SEMICONDUCTOR WAFERS ETCH OPERATOR.SHODDY MILL WORKER Work Phone: [facility] 08-29-2022 11:50-0500 Systolic blood pressure 130 mm[Hg] Nancy Podlogar SEMICONDUCTOR WAFERS ETCH OPERATOR.SHODDY MILL WORKER Work Phone: [facility] 06-06-2022 10:57-0400 Body height 185.4 cm Lucius Lin PA-C Work Phone: [facility] 06-06-2022 10:57-0400 Body temperature 97.11 [degF] Lucius Lin PA-C Work Phone: [facility] 06-06-2022 10:57-0400 Body weight 75.75 kg Lucius Lin PA-C Work Phone: [facility] 06-06-2022 10:57-0400 Diastolic blood pressure 68 mm[Hg] Lucius Lin PA-C Work Phone: [facility] 06-06-2022 10:57-0400 Heart rate 72 /min Lucius Lin PA-C Work Phone: [facility] 06-06-2022 10:57-0400 Respiratory rate 14 /min Lucius Lin PA-C Work Phone: [facility] 06-06-2022 10:57-0400 SaO2% (BldA) [Mass fraction] 97 % Lucius Lin PA-C Work Phone: [facility] 06-06-2022 10:57-0400 Systolic blood pressure 130 mm[Hg] Lucius Lin PA-C Work Phone: [facility] 05-19-2022 11:46-0400 Body height 185.4 cm Lucius Lin PA-C Work Phone: [facility] 05-19-2022 11:46-0400 Body temperature 97.81 [degF] Lucius Lin PA-C Work Phone: [facility] 05-19-2022 11:46-0400 Body weight 79.29 kg Lucius Lin PA-C Work Phone: [facility] 05-19-2022 11:46-0400 Diastolic blood pressure 70 mm[Hg] Lucius Lin PA-C Work Phone: [facility] 05-19-2022 11:46-0400 Heart rate 66 /min Lucius Lin PA-C Work Phone: [facility] 05-19-2022 11:46-0400 SaO2% (BldA) [Mass fraction] 99 % Lucius Lin PA-C Work Phone: [facility] 05-19-2022 11:46-0400 Systolic blood pressure 138 mm[Hg] Lucius Lin PA-C Work Phone: [facility] 05-16-2022 11:25-0400 Body weight 79.29 kg Vargas Chavis MD Work Phone: [facility] 05-16-2022 11:25-0400 Diastolic blood pressure 72 mm[Hg] Vargas Chavis MD Work Phone: [facility] 05-16-2022 11:25-0400 Heart rate 67 /min Vargas Chavis MD Work Phone: [facility] 05-16-2022 11:25-0400 Respiratory rate 16 /min Vargas Chavis MD Work Phone: [facility] 05-16-2022 11:25-0400 SaO2% (BldA) [Mass fraction] 98 % Vargas Chavis MD Work Phone: [facility] 05-16-2022 11:25-0400 Systolic blood pressure 130 mm[Hg] Vargas Chavis MD Work Phone: [facility] 08-16-2017 13:17-0500 BMI (Body Mass Index) 23.75 kg/m2 Paxton Velazquez MD [facility] [employer] Work Phone: 08-16-2017 13:17-0500 BP Diastolic 73 mm[Hg] Paxton Velazquez MD [facility] [employer] Work Phone: 08-16-2017 13:17-0500 BP Systolic 154 mm[Hg] Paxton Velazquez MD [facility] [employer] Work Phone: 08-16-2017 13:17-0500 Height 187.96 cm Paxton Velazquez MD [facility] [employer] Work Phone: 08-16-2017 13:17-0500 Pulse (Heart Rate) 57 /min Paxton Velazquez MD [facility] [employer] Work Phone: 08-16-2017 13:17-0500 Respiratory Rate 18 /min Paxton Velazquez MD [facility] [employer] Work Phone: 08-16-2017 13:17-0500 Weight 83.92 kg Paxton Velazquez MD [facility] [employer] Work Phone: 05-03-2016 15:40-0400 BSA (Body Surface Area) 2.17 m2 Paxton Velazquez MD [facility] [employer] Work Phone: Encounters Encounter Date Encounter Type Care Provider Facility Start: 07-31-2023 End: 08-01-2023 Refwilla Chavis MD Work Phone: [facility] Procedures Date Procedure Procedure Detail Performing Clinician Start: 05-29-2017 End: 05-29-2017 *Hepatic Function Panel Marilee Foley Start: 05-29-2017 End: 05-29-2017 Follow Up Appt 1 year Ravi Ramírez MD Start: 05-29-2017 End: 05-29-2017 [facility] Ravi Ramírez MD Start: 05-29-2017 End: 05-29-2017 Lipid 1996 panel - Serum or Plasma Ravi Ramírez MD Start: 11-27-2016 End: 11-27-2016 VU Goldberg PA-C Work Phone: Start: 11-27-2016 End: 11-27-2016 Follow Up Appt 6 months Becca angelo PA-C Work Phone: Start: 05-05-2016 End: 11-23-2016 *Hepatic Function Panel Becca angelo PA-C Work Phone: Start: 05-05-2016 End: 11-23-2016 Lipid 1996 panel - Serum or Plasma Becca Goldberg PA-C Work Phone: Start: 05-03-2016 End: 05-03-2016 Ecg routine ecg w/least 12 lds w/i&r Ravi Ramírez MD Start: 05-03-2016 End: 05-03-2016 Follow Up Appt 6 months Marilee Foley Start: 05-03-2016 End: 05-03-2016 JORI Ramírez MD Start: 12-02-2015 End: 12-02-2015 Follow Up Appt 6 months Marilee Foley Start: 12-02-2015 End: 12-02-2015 JORI Ramírez MD Start: 09-03-2015 End: 09-03-2015 [employer] Becca Goldberg PA-C Work Phone: Start: 09-03-2015 End: 09-03-2015 Follow Up Appt 3 months Becca angelo PA-C Work Phone: Start: 06-22-2015 End: 11-23-2016 Cardiac Rehab Ravi Ramírez MD Start: 05-04-2015 End: 05-06-2015 *Hepatic Function Panel Marilee Foley Start: 05-04-2015 End: 05-05-2015 Documentation of current medications Ravi Ramírez MD Start: 05-04-2015 End: 05-04-2015 Follow Up Appt 4 months Marilee Foley Start: 05-04-2015 End: 05-06-2015 Lipid 1996 panel - Serum or Plasma Ravi Ramírez MD Start: 05-04-2015 End: 05-04-2015 MMM Ravi Ramírez MD Start: 04-21-2015 End: 05-03-2015 Nuclear stress test -exercise Ravi Ramírez MD Start: 04-17-2015 End: 05-10-2015 *Hepatic Function Panel Marilee Foley Start: 04-17-2015 End: 05-10-2015 Lipid 1996 panel - Serum or Plasma Ravi Ramírez MD Start: 01-07-2015 End: 01-08-2015 Documentation of current medications Ravi Ramírez MD Start: 01-07-2015 End: 01-07-2015 Follow Up Appt 6 months Marilee Foley Start: 01-07-2015 End: 05-10-2015 Lipid 1996 panel - Serum or Plasma Ravi Ramírez MD Start: 01-07-2015 End: 01-07-2015 MMMarilee Ramírez MD Start: 06-30-2014 End: 06-30-2014 [employer] Becca Goldberg PA-C Work Phone: Start: 06-30-2014 End: 06-30-2014 Follow Up Appt 6 months Becca angelo PA-C Work Phone: Start: 06-18-2014 End: 07-20-2014 *Hepatic Function Panel Marilee Foley Start: 06-18-2014 End: 07-20-2014 Lipid 1996 panel - Serum or Plasma Ravi Ramírez MD Start: 12-30-2013 End: 01-06-2014 *Hepatic Function Panel Marilee Foley Start: 12-30-2013 End: 06-18-2014 Follow Up Appt 6 months Marilee Foley Start: 12-30-2013 End: 01-06-2014 Lipid 1996 panel - Serum or Plasma Ravi Ramírez MD Start: 12-30-2013 End: 06-18-2014 MMM Ravi Ramírez MD Start: 11-27-2013 End: 08-20-2015 Cardioassist-meth circulatory assist external Ravi Ramírez MD Start: 11-27-2013 End: 08-20-2015 Us abdominal real time w/image limited Ravi Ramírez MD Start: 11-25-2013 End: 01-06-2014 SHEAR ASSEMBLER Ravi Ramírez MD Start: 11-25-2013 End: 01-06-2014 Follow Up Appt 3 months Marilee Foley Start: 11-25-2013 End: 01-06-2014 Left Heart Cath W/Grafts Ravi Ramírez MD Start: 11-15-2013 End: 01-06-2014 *Hepatic Function Panel Marilee Foley Start: 11-15-2013 End: 01-06-2014 Lipid 1996 panel - Serum or Plasma Ravi Ramírez MD Start: 10-23-2013 End: 01-06-2014 Ecg routine ecg w/least 12 lds w/i&r Ravi Ramírez MD Start: 10-23-2013 End: 10-23-2013 Follow Up Appt 6 weeks Ravi Ramírez MD Start: 10-23-2013 End: 10-23-2013 MMM Ravi Ramírez MD Start: 06-10-2013 End: 06-10-2013 SHEAR ASSEMBLER Becca Goldberg PA-C Work Phone: Start: 06-10-2013 End: 06-10-2013 Follow Up Appt 6 months Becca angelo PA-C Work Phone: Start: 05-18-2013 End: 05-29-2013 *Hepatic Function Panel Marilee Foley Start: 05-18-2013 End: 06-02-2013 Lipid Rubi panel - Serum or Plasma Ravi Ramírez MD Start: 12-05-2012 End: 12-05-2012 Follow Up Appt 6 months Marilee Foley Start: 12-05-2012 End: 12-05-2012 JORI Ramírez MD Start: 11-15-2012 End: 11-27-2012 *Hepatic Function Panel Marilee Foley Start: 11-15-2012 End: 11-27-2012 Lipid Rubi panel - Serum or Plasma Ravi Ramírez MD Start: 06-05-2012 End: 06-05-2012 Follow Up Appt 6 months Marilee Foley Start: 04-24-2012 End: 11-27-2012 *Hepatic Function Panel Marilee Foley Start: 04-24-2012 End: 11-27-2012 Lipid 1996 panel - Serum or Plasma Ravi Ramírez MD Start: 11-27-2011 End: 11-27-2011 Nurse Teaching (no charge) Ravi Ramírez MD Start: 11-22-2011 End: 11-22-2011 Ecg routine ecg w/least 12 lds w/i&r Ravi Ramírez MD Start: 11-22-2011 End: 11-27-2011 Echocardiography Ravi Raímrez MD Start: 11-22-2011 End: 11-22-2011 Follow Up Appt 6 months Marilee Foley Start: 11-22-2011 End: 11-27-2011 Nuclear stress test -exercise Ravi Ramírez MD History of coronary artery bypass grafting S/P CABG x 3 Vargas Chavis MD Work Phone: History of coronary artery bypass grafting S/P CABG x 3 Vargas Chavis MD Work Phone: Plan of Treatment Date Care Activity Detail Author Start: 06-26-2025 DIABETES SCREEN DIABETES SCREEN [facility] [place] Start: 06-26-2025 Diabetes Screening Diabetes Screenin g [facility] Start: 06-08-2025 DIABETES SCREEN DIABETES SCREEN [facility] Start: 04-14-2025 DIABETES SCREEN DIABETES SCREEN [facility] Start: 10-14-2024 DIABETES SCREEN DIABETES SCREEN [facility] Start: 06-05-2024 Covid-19 Vaccine ( season) Covid-19 Vaccine ( season) [facility] Immunizations Immunization Date Immunization Notes Care Provider Fa delmy 06-28-2022 influenza (HD-IIV4) vaccine, age 65+ yr, high dose, quadrivalent, PF (FLUZONE HIGH-DOSE) Vargas Chavis MD Work Phone: [facility] Work Phone: 06-28-2022 influenza virus vaccine, unspecified formulation Vargas Chavis MD Work Phone: [facility] 06-25-2021 influenza, high-dose , quadrivalent vaccine (FLUZONE HIGH DOSE QUADRIVALENT) Vargas Chavis MD Work Phone: [facility] 11-04-2020 COVID-19 vaccine, fu ll dose (MODERNA) Vargas Chavis MD Work Phone: [facility] 10-07-2020 COVID-19 vaccine, fu ll dose (MODERNA) Vargas Chavis MD Work Phone: [facility] 06-16-2020 influenza (aIIV4) vaccine, age 65+ yr, quadrivalent, PF (FLUAD QUAD) Vargas Chavis MD Work Phone: [facility] Work Phone: 07-02-2019 influenza, high dose seasonal, preservative-free Vargas Chavis MD Work Phone: [facility] Work Phone: 06-10-2018 influenza, high dose seasonal, preservative-free Vargas Chavis MD Work Phone: [facility] 07-06-2017 influenza, high dose seasonal, preservative-free Vargas Chavis MD Work Phone: [facility] Work Phone: 08-14-2016 influenza, seasonal, injectable, preservative free Vargas Chavis MD Work Phone: [facility] Work Phone: 07-04-2016 influenza, high dose seasonal, preservative-free Vargas Chavis MD Work Phone: [facility] 05-23-2016 pneumococcal polysaccharide vaccine, 23 valent Vargas Chavis MD Work Phone: [facility] 07-02-2015 influenza, seasonal, injectable Vargas Chavis MD Work Phone: [facility] Work Phone: 04-19-2015 pneumococcal conjuga te vaccine, 13 valent Vargas Chavis MD Work Phone: [facility] 07-08-2014 influenza, seasonal, injectable Vargas Chavis MD Work Phone: [facility] Work Phone: 07-02-2013 influenza, seasonal, injectable Vargas Chavis MD Work Phone: [facility] Work Phone: 07-08-2012 influenza virus vaccine, whole virus Vargas Chavis MD Work Phone: [facility] Work Phone: 07-19-2011 tetanus and diphther ia toxoids, adsorbed, preservative free, for adult use (2 Lf of tetanus toxoid and 2 Lf of diphtheria toxoid) Vargas Chavis MD Work Phone: [facility] Work Phone: 07-19-2011 zoster vaccine, live Ryan Chavis MD Work Phone: [facility] Work Phone: 06-24-2010 influenza virus vaccine, whole virus Vargas Chavis MD Work Phone: [facility] Work Phone: 09-06-2009 novel [id number], preservative-free, injectable Vargas Chavis MD Work Phone: [facility] Work Phone: 07-17-2008 influenza virus vaccine, whole virus Vargas Chavis MD Work Phone: [facility] Work Phone: 07-24-2007 influenza virus vaccine, whole virus Vargas Chavis MD Work Phone: [facility] Work Phone: 08-21-2000 pneumococcal polysaccharide vaccine, 23 valent Vargas Chavis MD Work Phone: [facility] Work Phone: 08-28-1991 pneumococcal polysaccharide vaccine, 23 valent Vargas Chavis MD Work Phone: [facility] Work Phone: Payers Date Payer Category Payer Private Health Insurance [employer] PPO [id number] 2016-Present [phone] [address] [place] [address] PPO [id number] 2016 Private Health Insurance [employer] PPO [id number] 2016-Present [phone] [address] [place] [address] PPO [id number] 2016 Private Health Insurance [id number] 2004 Medicare 2004 Medicare MEDICARE MEDICAR E A AND B [id number] 2004-Present [phone] [address] [address] [place] [address] Medicare [id number] 2004 Medicare [id number] Social History Date Type Detail Facility Start: 12-20-2017 End: 05-19-2022 Tobacco smoking status NHIS Never smoked tobacco [facility] Work Phone: Start: 10-14-2021 End: 06-05-2023 Alcohol intake Current non-drinker of alcohol (finding) [facility] Start: 1940 Sex Assigned At Not on file [facility] Start: 04-04-2022 End: 06-08-2022 Exposure to SARS-CoV-2 (event) Not sure [facility] Start: 12-20-2017 End: 05-19-2022 Tobacco use and exposure Former smokeless tobacco user [facility] Start: 01-31-2023 End: 03-18-2023 History of Social function [facility] Work Phone: Start: 01-31-2023 End: 03-18-2023 Tobacco use panel [facility] Work Phone: Adult Depression Screening Assessment 0 [facility] Work Phone: Start: 09-02-2018 Sexual orientation Heterosexual (qiana medina) [facility] Medical Equipment Procedure Code Equipment Code Equipment Origin al Text Equipment Identifier Dates Graft St Tis 8x5 mm Ttplst - [id number] Start: 12-19-2012 Drain Glcm Brvld t Roxie Ac Imp - [id number] Start: 12-19-2012 Lens Iol +21.5 D iop Acrsf Iq - [id number] Start: 12-19-2012 1 Each as needed . For Intercavernal Injections Start: 05-19-2022 Clinical Notes 02-05-2015 to 07-31-2023 Karen Campbell APRN.[employer] WORK[employer] - 07/31/2023 4:12 PM ESTTelephone Encounter - Inna Johnson LPN - 07/31/2023 2:48 PM ESTTelephone Encounter - Lana Mars - 07/31/2023 10:44 AM EST Note Date & Type Note Facility 07-31-2023 Note HNO ID: [id number] Author: Karen Campbell APRN.[employer] WORK[employer] Service: ? Author Type: Nurse Practitioner Type: Progress Notes Filed: 07/31/2023 4:42 PM Note Text: Chief Complaint Patient presents with: Hospital F/U [facility] Tuan Hou is a 82 year old male who presents here today for Above Complaints.. Patient presents for hospital follow up. Patient was diagnosed with unstable angina and has follow up with [facility]. Patient was also started on seroquel for agitation at night and is currently scheduled with neurology for dementia workup. Patient reports seroquel has improved patients mood at night and he is less agitated. Patient denies any chest pain since hospitalization. Past medical history, appointments, medications, allergies reviewed. 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 Kraus Benign prostatic hyperplasia without lower urinary tract symptoms BPH with obstruction/lower urinary tract symptoms 07/26/2020 Dr. Love Chronic ischemic heart disease, unspecified Dr. Kate Guillermo AND P 08/16/2021 Depression Diverticulosis of colon (without mention of hemorrhage) Diverticulosis Elevated bilirubin Chronic Erectile dysfunction due to diseases classified elsewhere Essential hypertension, benign Functional dyspepsia 06/10/2018 Generalized anxiety disorder History of non-ST elevation myocardial infarction (NSTEMI) 05/07/2015 Hyperlipidemia Low testosterone Male erectile dysfunction, unspecified 2011 Dr. 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 Love H AND P 08/16/2021 Other specified glaucoma Peptic ulcer, unspecified site, unspecified as acute or chronic, without mention of hemorrhage, perforation, or obstruction Primary open-angle glaucoma(365.11) 12/2009 Dr. Perkins Pure hypercholesterolemia S/P CABG x 3 Dr. 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 Kate Guillermo AND P 08/16/2021 Vitamin D insufficiency Previous Surgical History PAST SURGICAL HISTORY Procedure Laterality Date ANGIOPLASTY 1996 WITH STENT AQUEOUS SHUNT EXTRAOC EQUAT PLATE RSVR W/GRAFT 12/19/12 OD Glaucoma Implant; [facility]GI 350 combined CABG, ARTERIAL, THREE 1990 COLONOSCOPY FLX DX W/COLLJ SPEC WHEN PFRMD 01/2004 Colonoscopy COLONOSCOPY FLX DX W/COLLJ SPEC WHEN PFRMD 09/29/2009 Colonoscopy COLONOSCOPY FLX DX W/COLLJ SPEC WHEN PFRMD 02/05/2015 Colonoscopy ESOPHAGOGASTRODUODENOSCOPY TRANSORAL DIAGNOSTIC 08/14/2016 EGD ESOPHAGOGASTRODUODENOSCOPY TRANSORAL DIAGNOSTIC 02/25/2018 EGD HEART SURGERY HX HERNIA REPAIR HX 10/2017 removal INCISION OF EYE, TRABECULECTOMY 2009 OU LAPAROSCOPY SURG CHOLECYSTECTOMY Cholecystectomy, lap PAST SURGICAL HISTORY OF 03/2009 Right Knee Ligament Repair PAST SURGICAL HISTORY OF colonoscopy about 2014- Dr. Kate Guillermo AND P 08/16/2021 PROSTATE NEEDLE BIOPSY 2003 Dr. Kate Guillermo AND P 08/16/2021 XCAPSL CTRC RMVL INSJ IO LENS PROSTH W/O ECP 12/19/12 OD Cataract Extraction with PC IOL with Trab/MMC Family History FAMILY HISTORY Problem Relation Age of Onset Colon Cancer Father Hypertension Father Glaucoma Mother Blindness Mother Hypertension Brother heart disease Hypertension Brother heart disease Hypertension Brother heart disease Patient Allergies ALLERGIES Allergen Reactions Anaprox [Naproxen S* Celexa [Citalopram] Other: See Comments Erectile dysfunction Cortisone Crestor [Rosuvastat* GI Upset Elavil [Amitriptyli* difficulty urinating Hydrocortisone Keflex [Cephalexin] Rash Penicillins Pepcid [Famotidine * Other: See Comments dizziness Sulfa (Sulfonamide * Vioxx [Rofecoxib] Zocor [Simvastatin] Current Medications Current Outpatient Medications on File Prior to Visit Medication Sig QUEtiapine (SEROQUEL) 25 mg tablet Take 25 mg by mouth daily at bedtime. ticagrelor (BRILINTA) 90 mg tablet Take by mouth. metoprolol tartrate, short acting, (LOPRESSOR) 25 mg tablet Take 25 mg by mouth two times a day. escitalopram oxalate (LEXAPRO) 5 mg tablet Take 1 tablet by mouth once daily. cholecalciferol (VITAMIN D-3) 50 mcg (2,000 unit) tablet Take 2,000 Units by mouth once daily. sildenafil (VIAGRA) 50 mg tablet take one per day as needed (Patient not taking: Reported on 07/31/2023) amLODIPine (NORVASC) 2.5 mg tablet Take 1 tablet by mouth once daily. ezetimibe (ZETIA) 10 mg tablet Take 1 tablet by mouth once daily. Insulin Syringe-Needle U-100 1 mL 29 gauge x 1/2 1 Each as needed. For Intercavernal Injections onda (more content not included)... [facility] 07-31-2023 History of Present illness Narrative Chief Complaint Patient presents with: [facility] F/U [facility] Tuan Hou is a 82 year old male who presents here today for Above Complaints.. Patient presents for hospital follow up. Patient was diagnosed with unstable angina and has follow up with [facility]. Patient was also started on seroquel for agitation at night and is currently scheduled with neurology for dementia workup. Patient reports seroquel has improved patients mood at night and he is less agitated. Patient denies any chest pain since hospitalization. Past medical history, appointments, medications, allergies reviewed. 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 Kraus Benign prostatic hyperplasia without lower urinary tract symptoms BPH with obstruction/lower urinary tract symptoms 07/26/2020 Dr. Love Chronic ischemic heart disease, unspecified Dr. Love H Caryl P 08/16/2021 Depression Diverticulosis of colon (without mention of hemorrhage) Diverticulosis Elevated bilirubin Chronic Erectile dysfunction due to diseases classified elsewhere Essential hypertension, benign Functional dyspepsia 06/10/2018 Generalized anxiety disorder History of non-ST elevation myocardial infarction (NSTEMI) 05/07/2015 Hyperlipidemia Low testosterone Male erectile dysfunction, unspecified 2011 Dr. 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 Kate Gaston 08/16/2021 Other specified glaucoma Peptic ulcer, unspecified site, unspecified as acute or chronic, without mention of hemorrhage, perforation, or obstruction Primary open-angle glaucoma(365.11) 12/2009 Dr. Perkins Pure hypercholesterolemia S/P CABG x 3 Dr. 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 Kate Gaston 08/16/2021 Vitamin D insufficiency Previous Surgical History PAST SURGICAL HISTORY Procedure Laterality Date ANGIOPLASTY 1996 WITH STENT AQUEOUS SHUNT EXTRAOC EQUAT PLATE RSVR W/GRAFT 12/19/12 OD Glaucoma Implant; BGI 350 combined CABG, ARTERIAL, THREE 1990 COLONOSCOPY FLX DX W/COLLJ SPEC WHEN PFRMD 01/2004 Colonoscopy COLONOSCOPY FLX DX W/COLLJ SPEC WHEN PFRMD 09/29/2009 Colonoscopy COLONOSCOPY FLX DX W/COLLJ SPEC WHEN PFRMD 02/05/2015 Colonoscopy ESOPHAGOGASTRODUODENOSCOPY TRANSORAL DIAGNOSTIC 08/14/2016 EGD ESOPHAGOGASTRODUODENOSCOPY TRANSORAL DIAGNOSTIC 02/25/2018 EGD HEART SURGERY HX HERNIA REPAIR HX 10/2017 removal INCISION OF EYE, TRABECULECTOMY 2009 OU LAPAROSCOPY SURG CHOLECYSTECTOMY Cholecystectomy, lap PAST SURGICAL HISTORY OF 03/2009 Right Knee Ligament Repair PAST SURGICAL HISTORY OF colonoscopy about 2014- Dr. Kate Gaston 08/16/2021 PROSTATE NEEDLE BIOPSY 2003 Dr. Kate Gaston 08/16/2021 XCAPSL CTRC RMVL INSJ IO LENS PROSTH W/O ECP 12/19/12 OD Cataract Extraction with PC IOL with Trab/MMC Family History FAMILY HISTORY Problem Relation Age of Onset Colon Cancer Father Hypertension Father Glaucoma Mother Blindness Mother Hypertension Brother heart disease Hypertension Brother heart disease Hypertension Brother heart disease Patient Allergies ALLERGIES Allergen Reactions Anaprox [Naproxen S* Celexa [Citalopram] Other: See Comments Erectile dysfunction Cortisone Crestor [Rosuvastat* GI Upset Elavil [Amitriptyli* difficulty urinating Hydrocortisone Keflex [Cephalexin] Rash Penicillins Pepcid [Famotidine * Other: See Comments dizziness Sulfa (Sulfonamide * Vioxx [Rofecoxib] Zocor [Simvastatin] Current Medications Current Outpatient Medications on File Prior to Visit Medication Sig QUEtiapine (SEROQUEL) 25 mg tablet Take 25 mg by mouth daily at bedtime. ticagrelor (BRILINTA) 90 mg tablet Take by mouth. metoprolol tartrate, short acting, (LOPRESSOR) 25 mg tablet Take 25 mg by mouth two times a day. escitalopram oxalate (LEXAPRO) 5 mg tablet Take 1 tablet by mouth once daily. cholecalciferol (VITAMIN D-3) 50 mcg (2,000 unit) tablet Take 2,000 Units by mouth once daily. sildenafil (VIAGRA) 50 mg tablet take one per day as needed (Patient not taking: Reported on 07/31/2023) amLODIPine (NORVASC) 2.5 mg tablet Take 1 tablet by mouth once daily. ezetimibe (ZETIA) 10 mg tablet Take 1 tablet by mouth once daily. Insulin Syringe-Needle U-100 1 mL 29 gauge x 1/2 1 Each as needed. For Intercavernal Injections ondansetron orally disintegrating (ZOFRAN ODT) 4 mg disintegrating tablet Take 1 tablet by mouth every 8 hours as needed for nausea/vomiting. Insulin Syringe-Needle U-100 1 mL 29 gauge x 1/2 1 Each as needed. For Intercavernal Injections netarsudil (RHOPRESSA) 0.02 % ophthalmic drops Use 1 Drop in the right eye daily at bedtime. dupilumab (DUPIXENT SYRINGE) 300 mg/2 mL injection Inject 200 mg subcutaneously every 2 weeks. aspirin, enteric coated (ASPIRIN, ENTERIC COATED) 81 mg EC tablet Take 81 mg by mouth once daily. timolol maleate (ISTALOL) 0.5 % drpd Use 1 Drop in the right eye twice daily. No current facility-administered medications on file prior to visit. Social History Social History Tobacco Use Smoking status: Never Smokeless tobacco: Former Vaping Use Vaping Use: Never used Substance Use Topics Alcohol use: No Drug use: No Review of Symptoms REVIEW OF SYSTEMS SEE HPI EXAM: BP 148/64 Pulse (!) 54 Resp 16 Wt 78 kg (172 lb) BMI 22.08 kg/m General Appearance: Well appearing, alert, in no acute distress, well-hydrated, well nourished.. Lungs: Lungs clear to auscultation. No wheezing, rhonchi, rales.. Heart: RRR without murmur, gallop, or rubs. No ectopy. Health Maintenance List Advance Directive Discussion Never done LDL Cholesterol due on 04/14/2023 Shingrix Vaccine(3 of 3) due on 08/13/2023 DTaP,Tdap,Td Vaccine(2 - Td or Tdap) due on 06/05/2024 Diabetes Screening due on 06/26/2025 Influenza Vaccine Completed RSV Vaccine Completed Covid-19 Vaccine Completed Pneumococcal Vaccine: 65+ Completed HPV Vaccine Aged Out ASSESSMENT/PLAN: 1. Agitation - ICD9: 307.9, ICD10: R45.1 (primary diagnosis) - QUETIAPINE 25 MG TABLET 2. Angina pectoris (HCC) - ICD9: 413.9, ICD10: I20.9 -Continue current medications -Follow up with cardiology as scheduled. 3. Atherosclerosis of [place] coronary artery of [place] heart without angina pectoris - ICD9: 414.01, ICD10: I25.10 -History of CABGx3 and stents, angioplasty only during recent hospitalization -On brillinta per cardio 4. Mild cognitive impairment with memory loss - ICD9: 331.83, ICD10: G31.84 -Scheduled with neurology - Continue lilliam Campbell APRN.[employer] documented in this encounter [facility] 07-31-2023 Miscellaneous Notes Last OV 06/05/2023 Next appointment scheduled 12/04/2023 Patient has been identified by name and date of : Yes Requested Prescriptions Pending Prescriptions Disp Refills sucralfate (CARAFATE) 1 gram tablet 120 tablet 3 Sig: Dissolve one tablet in 30cc water. Stir and swallow, at least 30 minutes before meals. May repeat at bedtime, as needed. RX INSTRUCTIONS: Patient aware RX will be sent to pharmacy. No need to notify patient. Lana Doll documented in this encounter [facility] 06-27-2023 Miscellaneous Notes Patient has been identified by name and date of : Yes Last office visit in this department: 06/05/2023 RX INSTRUCTIONS: Patient aware RX will be sent to pharmacy. No need to notify patient. Patient phones requesting refills as follows: Requested Prescriptions Pending Prescriptions Disp Refills escitalopram oxalate (LEXAPRO) 5 mg tablet 90 tablet 0 Sig: Take 1 tablet by mouth once daily. Please review and advise. Ese Horn documented in this encounter [facility] 06-05-2023 Note HNO ID: [id number] Author: Vargas Chavis MD Service: ? Author Type: Physician Type: Progress Notes Filed: 06/11/2023 7:46 PM Note Text: Chief Complaint Patient presents with: Follow Up: 6 month HPI Tuan Hou is a 82 year old male who presents here today for Above Complaints. Mild cognitive impairment: Memory unchanged from last OV. Reviewed MRI which showed chronic changes without acute infarct. No findings related to lewy body. Needs to f/u with neurology. Taking 2,000 units of vitamin D daily OTC for vitamin D insufficiency. No new hallucinations since last OV. [facility] Cardiology stopped his lisinopril at OV 1 month ago due to lightheadedness. BP at home running in the 115-130/67-75 range. No other changes to regimen. Denies new chest pain, SOB, palpitations, LE edema. Records not available today. Anxiety/depression controlled with Lexapro. Dupixent working well for eczema through Dr. Kraus's office. Requesting refill on Viagra for ED. Works well for symtpoms without side effects or lightheadedness. Past medical history, appointments, medications, allergies reviewed. 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 Kraus Benign prostatic hyperplasia without lower urinary tract symptoms BPH with obstruction/lower urinary tract symptoms 07/26/2020 Dr. Love Chronic ischemic heart disease, unspecified Dr. Love H AND P 08/16/2021 Depression Diverticulosis of colon (without mention of hemorrhage) Diverticulosis Elevated bilirubin Chronic Erectile dysfunction due to diseases classified elsewhere Essential hypertension, benign Functional dyspepsia 06/10/2018 Generalized anxiety disorder History of non-ST elevation myocardial infarction (NSTEMI) 05/07/2015 Hyperlipidemia Low testosterone Male erectile dysfunction, unspecified 2011 Dr. 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 Love H AND P 08/16/2021 Other specified glaucoma Peptic ulcer, unspecified site, unspecified as acute or chronic, without mention of hemorrhage, perforation, or obstruction Primary open-angle glaucoma(365.11) 12/2009 Dr. Perkins Pure hypercholesterolemia S/P CABG x 3 Dr. 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 Kate Guillermo AND P 08/16/2021 Vitamin D insufficiency Previous Surgical History PAST SURGICAL HISTORY Procedure Laterality Date ANGIOPLASTY 1996 WITH STENT AQUEOUS SHUNT EXTRAOC EQUAT PLATE RSVR W/GRAFT 12/19/12 OD Glaucoma Implant; BGI 350 combined CABG, ARTERIAL, THREE 1990 COLONOSCOPY FLX DX W/COLLJ SPEC WHEN PFRMD 01/2004 Colonoscopy COLONOSCOPY FLX DX W/COLLJ SPEC WHEN PFRMD 09/29/2009 Colonoscopy COLONOSCOPY FLX DX W/COLLJ SPEC WHEN PFRMD 02/05/2015 Colonoscopy ESOPHAGOGASTRODUODENOSCOPY TRANSORAL DIAGNOSTIC 08/14/2016 EGD ESOPHAGOGASTRODUODENOSCOPY TRANSORAL DIAGNOSTIC 02/25/2018 EGD HEART SURGERY HX HERNIA REPAIR HX 10/2017 removal INCISION OF EYE, TRABECULECTOMY 2009 OU LAPAROSCOPY SURG CHOLECYSTECTOMY Cholecystectomy, lap PAST SURGICAL HISTORY OF 03/2009 Right Knee Ligament Repair PAST SURGICAL HISTORY OF colonoscopy about 2014- Dr. Kate Guillermo AND P 08/16/2021 PROSTATE NEEDLE BIOPSY 2003 Dr. Kate Guillermo AND P 08/16/2021 XCAPSL CTRC RMVL INSJ IO LENS PROSTH W/O ECP 12/19/12 OD Cataract Extraction with PC IOL with Trab/MMC Family History FAMILY HISTORY Problem Relation Age of Onset Colon Cancer Father Hypertension Father Glaucoma Mother Blindness Mother Hypertension Brother heart disease Hypertension Brother heart disease Hypertension Brother heart disease Patient Allergies ALLERGIES Allergen Reactions Anaprox [Naproxen S* Celexa [Citalopram] Other: See Comments Erectile dysfunction Cortisone Crestor [Rosuvastat* GI Upset Elavil [Amitriptyli* difficulty urinating Hydrocortisone Keflex [Cephalexin] Rash Penicillins Pepcid [Famotidine * Other: See Comments dizziness Sulfa (Sulfonamide * Vioxx [Rofecoxib] Zocor [Simvastatin] Current Medications Current Outpatient Medications on File Prior to Visit Medication Sig lisinopril (ZESTRIL) 20 mg tablet Take 1 tablet by mouth twice daily. (Patient not taking: Reported on 05/15/2023) escitalopram oxalate (LEXAPRO) 5 mg tablet Take 1 tablet by mouth once daily. benzonatate (TESSALON PERLES) 100 mg capsule Take 1 capsule by mouth three times daily as needed for cough. jwfjvjihsw-vyqjvyonbkyh-rhplxgflyl l 30 MG - 1 MG - 10 MCG/ML injection (CPD) Injec (more content not included)... [facility] 06-05-2023 History of Present illness Narrative Chief Complaint Patient presents with: Follow Up: 6 month HPI Tuan Hou is a 82 year old male who presents here today for Above Complaints. Mild cognitive impairment: Memory unchanged from last OV. Reviewed MRI which showed chronic changes without acute infarct. No findings related to lewy body. Needs to f/u with neurology. Taking 2,000 units of vitamin D daily OTC for vitamin D insufficiency. No new hallucinations since last OV. [facility] Cardiology stopped his lisinopril at OV 1 month ago due to lightheadedness. BP at home running in the 115-130/67-75 range. No other changes to regimen. Denies new chest pain, SOB, palpitations, LE edema. Records not available today. Anxiety/depression controlled with Lexapro. Dupixent working well for eczema through Dr. Kraus's office. Requesting refill on Viagra for ED. Works well for symtpoms without side effects or lightheadedness. Past medical history, appointments, medications, allergies reviewed. 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 Kraus Benign prostatic hyperplasia without lower urinary tract symptoms BPH with obstruction/lower urinary tract symptoms 07/26/2020 Dr. Love Chronic ischemic heart disease, unspecified Dr. Love H & P 08/16/2021 Depression Diverticulosis of colon (without mention of hemorrhage) Diverticulosis Elevated bilirubin Chronic Erectile dysfunction due to diseases classified elsewhere Essential hypertension, benign Functional dyspepsia 06/10/2018 Generalized anxiety disorder History of non-ST elevation myocardial infarction (NSTEMI) 05/07/2015 Hyperlipidemia Low testosterone Male erectile dysfunction, unspecified 2011 Dr. 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 Love H & P 08/16/2021 Other specified glaucoma Peptic ulcer, unspecified site, unspecified as acute or chronic, without mention of hemorrhage, perforation, or obstruction Primary open-angle glaucoma(365.11) 12/2009 Dr. Perkins Pure hypercholesterolemia S/P CABG x 3 Dr. 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 Love Trigeminal neuralgia 2002 Unspecified hemorrhoids without mention of complication Hemorrhoids Unspecified superficial injury of right knee, initial encounter Dr. Love H Caryl Olivera 08/16/2021 Vitamin D insufficiency Previous Surgical History PAST SURGICAL HISTORY Procedure Laterality Date ANGIOPLASTY 1996 WITH STENT AQUEOUS SHUNT EXTRAOC EQUAT PLATE RSVR W/GRAFT 12/19/12 OD Glaucoma Implant; [facility]GI 350 combined CABG, ARTERIAL, THREE 1990 COLONOSCOPY FLX DX W/COLLJ SPEC WHEN PFRMD 01/2004 Colonoscopy COLONOSCOPY FLX DX W/COLLJ SPEC WHEN PFRMD 09/29/2009 Colonoscopy COLONOSCOPY FLX DX W/COLLJ SPEC WHEN PFRMD 02/05/2015 Colonoscopy ESOPHAGOGASTRODUODENOSCOPY TRANSORAL DIAGNOSTIC 08/14/2016 EGD ESOPHAGOGASTRODUODENOSCOPY TRANSORAL DIAGNOSTIC 02/25/2018 EGD HEART SURGERY HX HERNIA REPAIR HX 10/2017 removal INCISION OF EYE, TRABECULECTOMY 2009 OU LAPAROSCOPY SURG CHOLECYSTECTOMY Cholecystectomy, lap PAST SURGICAL HISTORY OF 03/2009 Right Knee Ligament Repair PAST SURGICAL HISTORY OF colonoscopy about 2014- Dr. Love H & P 08/16/2021 PROSTATE NEEDLE BIOPSY 2003 Dr. Loev H & P 08/16/2021 XCAPSL CTRC RMVL INSJ IO LENS PROSTH W/O ECP 12/19/12 OD Cataract Extraction with PC IOL with Trab/MMC Family History FAMILY HISTORY Problem Relation Age of Onset Colon Cancer Father Hypertension Father Glaucoma Mother Blindness Mother Hypertension Brother heart disease Hypertension Brother heart disease Hypertension Brother heart disease Patient Allergies ALLERGIES Allergen Reactions Anaprox [Naproxen S* Celexa [Citalopram] Other: See Comments Erectile dysfunction Cortisone Crestor [Rosuvastat* GI Upset Elavil [Amitriptyli* difficulty urinating Hydrocortisone Keflex [Cephalexin] Rash Penicillins Pepcid [Famotidine * Other: See Comments dizziness Sulfa (Sulfonamide * Vioxx [Rofecoxib] Zocor [Simvastatin] Current Medications Current Outpatient Medications on File Prior to Visit Medication Sig lisinopril (ZESTRIL) 20 mg tablet Take 1 tablet by mouth twice daily. (Patient not taking: Reported on 05/15/2023) escitalopram oxalate (LEXAPRO) 5 mg tablet Take 1 tablet by mouth once daily. benzonatate (TESSALON PERLES) 100 mg capsule Take 1 capsule by mouth three times daily as needed for cough. wtcpwadwib-mszkocowffke-rrhuwclwhf l 30 MG - 1 MG - 10 MCG/ML injection (CPD) Inject 60 units into the intracavernosal region of the penis (Patient not taking: Reported on 05/15/2023) sucralfate (CARAFATE) 1 gram tablet Dissolve one tablet in 30cc water. Stir and swallow, at least 30 minutes before meals. May repeat at bedtime, as needed. amLODIPine (NORVASC) 2.5 mg tablet Take 1 tablet by mouth once daily. ezetimibe (ZETIA) 10 mg tablet Take 1 tablet by mouth once daily. Insulin Syringe-Needle U-100 1 mL 29 gauge x 1/2 1 Each as needed. For Intercavernal Injections ondansetron orally disintegrating (ZOFRAN ODT) 4 mg disintegrating tablet Take 1 tablet by mouth every 8 hours as needed for nausea/vomiting. Insulin Syringe-Needle U-100 1 mL 29 gauge x 1/2 1 Each as needed. For Intercavernal Injections sildenafil (VIAGRA) 50 mg tablet take one per day as needed netarsudil (RHOPRESSA) 0.02 % ophthalmic drops Use 1 Drop in the right eye daily at bedtime. dupilumab (DUPIXENT SYRINGE) 300 mg/2 mL injection Inject 200 mg subcutaneously every 2 weeks. aspirin, enteric coated (ASPIRIN, ENTERIC COATED) 81 mg EC tablet Take 81 mg by mouth once daily. TESTOSTERONE INTRAMUSC. Inject 150 mg intramuscularly every 2 weeks. (Patient not taking: Reported on 05/15/2023) timolol maleate (ISTALOL) 0.5 % drpd Use 1 Drop in the right eye twice daily. No current facility-administered medications on file prior to visit. Social History Social History Tobacco Use Smoking status: Never Smokeless tobacco: Former Vaping Use Vaping Use: Never used Substance Use Topics Alcohol use: No Drug use: No Review of Symptoms REVIEW OF SYSTEMS GENERAL: No weight loss, malaise or fevers RESPIRATORY: Negative for cough, hemoptysis, wheezing, COPD, dyspnea or shortness of breath CARDIOVASCULAR: Negative for chest pain, leg swelling, hypertension, CHF or palpitations GI: No nausea, vomiting, or diarrhea SKIN: Negative for lesions, rash, and itching EXAM: BP 116/70 Pulse 68 Resp 16 Wt 77.3 kg (170 lb 6.4 oz) SpO2 97% BMI 21.88 kg/m General Appearance: Well appearing, alert, in no acute distress, well-hydrated, well nourished.. Skin: Skin color, texture, turgor normal, no suspicious rashes or lesions. Lungs: Lungs clear to auscultation. No wheezing, rhonchi, rales.. Heart: RRR without murmur, gallop, or rubs. No ectopy. Abdomen: Normal abdominal exam, Abdomen soft, non-tender. Bowel sounds normal. No masses, organomegaly. Extremities: No deformities, edema, skin discoloration, clubbing or cyanosis. Good capillary refill. . Health Maintenance List Shingrix Vaccine(2 of 3) due on 09/13/2011 DTaP,Tdap,Td Vaccine(2 - Td or Tdap) due on 07/20/2021 Advance Directive Discussion Never done Covid-19 Vaccine(6 - Moderna series) due on 10/29/2022 LDL Cholesterol due on 04/14/2023 Influenza Vaccine(1) due on 05/18/2023 Diabetes Screening due on 06/26/2025 Pneumococcal Vaccine: 65+ Completed HPV Vaccine Aged Out Data reviewed Component Latest Ref Rng & Units 06/08/2022 06/26/2022 05/15/2023 Protein, Total 6.3 - 8.0 g/dL 6.6 Albumin 3.9 - 4.9 g/dL 4.4 Calcium 8.5 - 10.2 mg/dL 9.3 9.7 Bilirubin, Total 0.2 - 1.3 mg/dL 1.3 Alkaline Phosphatase 38 - 113 U/L 63 AST 14 - 40 U/L 30 ALT 10 - 54 U/L 24 Glucose 74 - 99 mg/dL 159 (H) 103 (H) BUN 9 - 24 mg/dL 26 (H) 19 Creatinine 0.73 - 1.22 mg/dL 1.16 1.01 Sodium 136 - 144 mmol/L 138 140 Potassium 3.7 - 5.1 mmol/L 4.6 4.7 Chloride 97 - 105 mmol/L 102 104 CO2 22 - 30 mmol/L 24 29 Anion Gap 9 - 18 mmol/L 12 7 (L) eGFR >=60 mL/min/1.73m 63 74 WBC 3.70 - 11.00 k/uL 7.54 RBC 4.20 - 6.00 m/uL 4.93 Hemoglobin 13.0 - 17.0 g/dL 15.6 Hematocrit 39.0 - 51.0 % 46.7 MCV 80.0 - 100.0 fL 94.7 MCH 26.0 - 34.0 pg 31.6 MCHC 30.5 - 36.0 g/dL 33.4 RDW-CV 11.5 - 15.0 % 13.0 Platelet Count 150 - 400 k/uL 159 MPV 9.0 - 12.7 fL 10.8 Absolute nRBC <0.01 k/uL <0.01 Hemoglobin A1C 4.3 - 5.6 % 5.6 Estimated Average Glucose mg/dL 114 Vitamin D 25 Hydroxy 31.0 - 80.0 ng/mL 26.9 (L) Component Latest Ref Rng & Units 04/14/2022 Total Cholesterol, Nonfasting <200 mg/dL 142 Triglycerides, Nonfasting <150 mg/dL 157 (H) HDL Cholesterol, Nonfasting >39 mg/dL 35 (L) LDL Cholesterol, Nonfasting <100 mg/dL 76 Non HDL Cholesterol, Nonfasting <130 mg/dL 107 VLDL Cholesterol, Nonfasting <30 mg/dL 31 (H) Total Chol/HDL Ratio, Nonfasting <5.10 mg/dL 4.06 LDL/HDL Ratio, Nonfasting <2.54 mg/dL 2.17 ASSESSMENT/PLAN: 1. Memory disturbance - ICD9: 780.93, ICD10: R41.3 (primary diagnosis) Mild cognitive impairment. Stable. Chronic changes on MRI. F/u with neurology. Continue vitamin D supplement. 2. Hallucinations - ICD9: 780.1, ICD10: R44.3 Resolved. 3. Peripheral vascular disease (HCC) - ICD9: 443.9, ICD10: I73.9 Stable. Continue ASA and Zetia. 4. Essential hypertension, benign - ICD9: 401.1, ICD10: I10 - Controlled - Continue current medications - Recommend home blood pressure monitoring, to bring results to next visit - Encouraged sodium restriction, DASH or Mediterranean diet - Recommend regular aerobic exercise 5. Atherosclerosis of [place] coronary artery of [place] heart without angina pectoris - ICD9: 414.01, ICD10: I25.10 Asymptomatic on medical management. F/u with cardiology recommendations. 6. S/P CABG x 3 - ICD9: V45.81, ICD10: Z95.1 See above. 7. Pure hypercholesterolemia - ICD9: 272.0, ICD10: E78.00 Statin intolerant. LDL 76 on Zetia. Continue to work on low cholesterol diet and exercise. 8. Statin intolerance - ICD9: 995.27, ICD10: Z78.9 9. Anxiety with depression - ICD9: 300.4, ICD10: F41.8 Controlled on Lexapro. Vargas Chavis MD documented in this encounter [facility] 05-22-2023 Miscellaneous Notes Order, face sheet and OV notes forwarded to Dr Blanchard's office Please fax neurology consult to Dr. Blanchard as requested. is asking for a referral for Dr. Blanchard, wanting to stay local. does not drive. Please fax referral, info needed to Dr. Blanchard. Advised that his office would call Isaac for an appt. Marta Armas LPN documented in this encounter [facility] 05-15-2023 Note HNO ID: [id number] Author: Vargas Chavis MD Service: ? Author Type: Physician Type: Progress Notes Filed: 05/15/2023 3:43 PM Note Text: Chief Complaint Patient presents with: memory concerns HPI Tuan Hou is a 82 year old male who presents here today for Above Complaints. Accompanied today by , son, and daughter. History supplemented by and daughter. Patient and family concerned because he has been more forgetful over the last 6-12 months. Having trouble remembering grandkids names. Forgot to turn the mower and blades off when using it last week. Has not had difficulty with managing medications, finances. Tried taking Neuriva OTC about a month ago, but stopped it after 2 weeks he developed visual hallucinations and these symptoms resolved. Denies auditory hallucinations. He also accused his of having an affair with the neighbor about 2 weeks ago while on the Neuriva. She states that he was not physically aggressive towards her, but was yelling. She feels safe at home with him still. Past medical history, appointments, medications, allergies reviewed. 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 Kraus Benign prostatic hyperplasia without lower urinary tract symptoms BPH with obstruction/lower urinary tract symptoms 07/26/2020 Dr. Love Chronic ischemic heart disease, unspecified Dr. Love H AND P 08/16/2021 Depression Diverticulosis of colon (without mention of hemorrhage) Diverticulosis Elevated bilirubin Chronic Erectile dysfunction due to diseases classified elsewhere Essential hypertension, benign Functional dyspepsia 06/10/2018 Generalized anxiety disorder History of non-ST elevation myocardial infarction (NSTEMI) 05/07/2015 Hyperlipidemia Low testosterone Male erectile dysfunction, unspecified 2011 Dr. 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 Kate Guillermo AND P 08/16/2021 Other specified glaucoma Peptic ulcer, unspecified site, unspecified as acute or chronic, without mention of hemorrhage, perforation, or obstruction Primary open-angle glaucoma(365.11) 12/2009 Dr. Perkins Pure hypercholesterolemia Pure hypercholesterolemia S/P CABG x 3 Dr. 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 Kate Guillermo AND P 08/16/2021 Previous Surgical History PAST SURGICAL HISTORY Procedure Laterality Date ANGIOPLASTY 1996 WITH STENT AQUEOUS SHUNT EXTRAOC EQUAT PLATE RSVR W/GRAFT 12/19/12 OD Glaucoma Implant; [facility] 350 combined CABG, ARTERIAL, THREE 1990 COLONOSCOPY FLX DX W/COLLJ SPEC WHEN PFRMD 01/2004 Colonoscopy COLONOSCOPY FLX DX W/COLLJ SPEC WHEN PFRMD 09/29/2009 Colonoscopy COLONOSCOPY FLX DX W/COLLJ SPEC WHEN PFRMD 02/05/2015 Colonoscopy ESOPHAGOGASTRODUODENOSCOPY TRANSORAL DIAGNOSTIC 08/14/2016 EGD ESOPHAGOGASTRODUODENOSCOPY TRANSORAL DIAGNOSTIC 02/25/2018 EGD HEART SURGERY HX HERNIA REPAIR HX 10/2017 removal INCISION OF EYE, TRABECULECTOMY 2009 [facility]U LAPAROSCOPY SURG CHOLECYSTECTOMY Cholecystectomy, lap PAST SURGICAL HISTORY OF 03/2009 Right Knee Ligament Repair PAST SURGICAL HISTORY OF colonoscopy about 2014- Dr. Kate Guillermo AND P 08/16/2021 PROSTATE NEEDLE BIOPSY 2003 Dr. Kate Guillermo AND P 08/16/2021 XCAPSL CTRC RMVL INSJ IO LENS PROSTH W/O ECP 12/19/12 OD Cataract Extraction with PC IOL with Trab/MMC Family History FAMILY HISTORY Problem Relation Age of Onset Colon Cancer Father Hypertension Father Glaucoma Mother Blindness Mother Hypertension Brother heart disease Hypertension Brother heart disease Hypertension Brother heart disease Patient Allergies ALLERGIES Allergen Reactions Anaprox [Naproxen S* Celexa [Citalopram] Other: See Comments Erectile dysfunction Cortisone Crestor [Rosuvastat* GI Upset Elavil [Amitriptyli* difficulty urinating Hydrocortisone Keflex [Cephalexin] Rash Penicillins Pepcid [Famotidine * Other: See Comments dizziness Sulfa (Sulfonamide * Vioxx [Rofecoxib] Zocor [Simvastatin] Current Medications Current Outpatient Medications on File Prior to Visit Medication Sig escitalopram oxalate (LEXAPRO) 5 mg tablet Take 1 tablet by mouth once daily. sucralfate (CARAFATE) 1 gram tablet Dissolve one tablet in 30cc water. Stir and swallow, at least 30 minutes before meals. May repeat at bedtime, as needed. ezetimibe (ZETIA) 10 mg tablet Take 1 tablet by mouth once daily. sildenafil (VIAGRA) 50 mg tablet take one per day as needed netarsudil (RHOPRESSA) 0 (more content not included)... [facility] 05-15-2023 History of Present illness Narrative Chief Complaint Patient presents with: memory concerns HPI Tuan Hou is a 82 year old male who presents here today for Above Complaints. Accompanied today by , son, and daughter. History supplemented by and daughter. Patient and family concerned because he has been more forgetful over the last 6-12 months. Having trouble remembering grandkids names. Forgot to turn the mower and blades off when using it last week. Has not had difficulty with managing medications, finances. Tried taking Neuriva OTC about a month ago, but stopped it after 2 weeks he developed visual hallucinations and these symptoms resolved. Denies auditory hallucinations. He also accused his of having an affair with the neighbor about 2 weeks ago while on the Neuriva. She states that he was not physically aggressive towards her, but was yelling. She feels safe at home with him still. Past medical history, appointments, medications, allergies reviewed. 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 Kraus Benign prostatic hyperplasia without lower urinary tract symptoms BPH with obstruction/lower urinary tract symptoms 07/26/2020 Dr. Love Chronic ischemic heart disease, unspecified Dr. Kate Gaston 08/16/2021 Depression Diverticulosis of colon (without mention of hemorrhage) Diverticulosis Elevated bilirubin Chronic Erectile dysfunction due to diseases classified elsewhere Essential hypertension, benign Functional dyspepsia 06/10/2018 Generalized anxiety disorder History of non-ST elevation myocardial infarction (NSTEMI) 05/07/2015 Hyperlipidemia Low testosterone Male erectile dysfunction, unspecified 2011 Dr. 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 Kate Gaston 08/16/2021 Other specified glaucoma Peptic ulcer, unspecified site, unspecified as acute or chronic, without mention of hemorrhage, perforation, or obstruction Primary open-angle glaucoma(365.11) 12/2009 Dr. Perkins Pure hypercholesterolemia Pure hypercholesterolemia S/P CABG x 3 Dr. 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 Kate Gaston 08/16/2021 Previous Surgical History PAST SURGICAL HISTORY Procedure Laterality Date ANGIOPLASTY 1996 WITH STENT AQUEOUS SHUNT EXTRAOC EQUAT PLATE RSVR W/GRAFT 12/19/12 OD Glaucoma Implant; [facility]GI 350 combined CABG, ARTERIAL, THREE 1990 COLONOSCOPY FLX DX W/COLLJ SPEC WHEN PFRMD 01/2004 Colonoscopy COLONOSCOPY FLX DX W/COLLJ SPEC WHEN PFRMD 09/29/2009 Colonoscopy COLONOSCOPY FLX DX W/COLLJ SPEC WHEN PFRMD 02/05/2015 Colonoscopy ESOPHAGOGASTRODUODENOSCOPY TRANSORAL DIAGNOSTIC 08/14/2016 EGD ESOPHAGOGASTRODUODENOSCOPY TRANSORAL DIAGNOSTIC 02/25/2018 EGD HEART SURGERY HX HERNIA REPAIR HX 10/2017 removal INCISION OF EYE, TRABECULECTOMY 2009 OU LAPAROSCOPY SURG CHOLECYSTECTOMY Cholecystectomy, lap PAST SURGICAL HISTORY OF 03/2009 Right Knee Ligament Repair PAST SURGICAL HISTORY OF colonoscopy about 2014- Dr. Kate Gaston 08/16/2021 PROSTATE NEEDLE BIOPSY 2003 Dr. Kate Gaston 08/16/2021 XCAPSL CTRC RMVL INSJ IO LENS PROSTH W/O ECP 12/19/12 OD Cataract Extraction with PC IOL with Trab/MMC Family History FAMILY HISTORY Problem Relation Age of Onset Colon Cancer Father Hypertension Father Glaucoma Mother Blindness Mother Hypertension Brother heart disease Hypertension Brother heart disease Hypertension Brother heart disease Patient Allergies ALLERGIES Allergen Reactions Anaprox [Naproxen S* Celexa [Citalopram] Other: See Comments Erectile dysfunction Cortisone Crestor [Rosuvastat* GI Upset Elavil [Amitriptyli* difficulty urinating Hydrocortisone Keflex [Cephalexin] Rash Penicillins Pepcid [Famotidine * Other: See Comments dizziness Sulfa (Sulfonamide * Vioxx [Rofecoxib] Zocor [Simvastatin] Current Medications Current Outpatient Medications on File Prior to Visit Medication Sig escitalopram oxalate (LEXAPRO) 5 mg tablet Take 1 tablet by mouth once daily. sucralfate (CARAFATE) 1 gram tablet Dissolve one tablet in 30cc water. Stir and swallow, at least 30 minutes before meals. May repeat at bedtime, as needed. ezetimibe (ZETIA) 10 mg tablet Take 1 tablet by mouth once daily. sildenafil (VIAGRA) 50 mg tablet take one per day as needed netarsudil (RHOPRESSA) 0.02 % ophthalmic drops Use 1 Drop in the right eye daily at bedtime. dupilumab (DUPIXENT SYRINGE) 300 mg/2 mL injection Inject 200 mg subcutaneously every 2 weeks. aspirin, enteric coated (ASPIRIN, ENTERIC COATED) 81 mg EC tablet Take 81 mg by mouth once daily. timolol maleate (ISTALOL) 0.5 % drpd Use 1 Drop in the right eye twice daily. lisinopril (ZESTRIL) 20 mg tablet Take 1 tablet by mouth twice daily. (Patient not taking: Reported on 05/15/2023) benzonatate (TESSALON PERLES) 100 mg capsule Take 1 capsule by mouth three times daily as needed for cough. dlbqwqxbux-sbhmszuxtjme-uzxumdcner l 30 MG - 1 MG - 10 MCG/ML injection (CPD) Inject 60 units into the intracavernosal region of the penis (Patient not taking: Reported on 05/15/2023) amLODIPine (NORVASC) 2.5 mg tablet Take 1 tablet by mouth once daily. Insulin Syringe-Needle U-100 1 mL 29 gauge x 1/2 1 Each as needed. For Intercavernal Injections ondansetron orally disintegrating (ZOFRAN ODT) 4 mg disintegrating tablet Take 1 tablet by mouth every 8 hours as needed for nausea/vomiting. Insulin Syringe-Needle U-100 1 mL 29 gauge x 1/2 1 Each as needed. For Intercavernal Injections bdkuzeop-oklqirlfh-qcmyhzhmejmzuk (CORTISPORIN) otic solution Apply 4 drop into both ears three times a day (Patient not taking: Reported on 05/15/2023) TESTOSTERONE INTRAMUSC. Inject 150 mg intramuscularly every 2 weeks. (Patient not taking: Reported on 05/15/2023) No current facility-administered medications on file prior to visit. Social History Social History Tobacco Use Smoking status: Never Smokeless tobacco: Former Vaping Use Vaping Use: Never used Substance Use Topics Alcohol use: No Drug use: No Review of Symptoms REVIEW OF SYSTEMS GENERAL: No weight loss, malaise or fevers HEENT: Negative for frequent or significant headaches, No changes in hearing or vision, no nose bleeds or other nasal problems RESPIRATORY: Negative for cough, hemoptysis, wheezing, COPD, dyspnea or shortness of breath CARDIOVASCULAR: Negative for chest pain, leg swelling, hypertension, CHF or palpitations GI: No nausea, vomiting, or diarrhea : No history of dysuria, frequency or incontinence SKIN: Negative for lesions, rash, and itching EXAM: BP 136/78 Pulse 64 Resp 16 Wt 76.3 kg (168 lb 3.2 oz) SpO2 99% BMI 21.60 kg/m General Appearance: Well appearing, confused, NAD. Skin: Skin color, texture, turgor normal, no suspicious rashes or lesions. Lungs: Lungs clear to auscultation. No wheezing, rhonchi, rales.. Heart: RRR without murmur, gallop, or rubs. No ectopy. Abdomen: Normal abdominal exam, Abdomen soft, non-tender. Bowel sounds normal. No masses, organomegaly. Extremities: No deformities, edema, skin discoloration, clubbing or cyanosis. Good capillary refill. . Health Maintenance List SHINGRIX VACCINE(2 of 3) due on 09/13/2011 DTAP,TDAP,TD(2 - Td or Tdap) due on 07/20/2021 ADVANCE DIRECTIVE DISCUSSION Never done COVID-19 VACCINE(6 - Moderna series) due on 10/29/2022 LDL CHOLESTEROL due on 04/14/2023 INFLUENZA(1) due on 05/18/2023 DIABETES SCREEN due on 06/26/2025 PNEUMOCOCCAL: 65+ Completed HPV VACCINE Aged Out Data reviewed MMSE: 25/30. ASSESSMENT/PLAN: 1. Memory disturbance - ICD9: 780.93, ICD10: R41.3 (primary diagnosis) MMSE stable compared to 1 year ago, but memory seems to be worsening overall. With new symptoms of visual hallucination need to rule out Lewy Body Dementia and will obtain MRI. Denies symptoms of infection, but will obtain UA to rule out UTI. Check vitamin D level. Reviewed labs obtained yesterday at [facility]. Refer to center for [facility] for further evaluation. - URINALYSIS WITH MICROSCOPIC, REFLEX CULTURE - MRI BRAIN WO IVCON - VITAMIN D 25 HYDROXY - CONSULT TO NEUROLOGY 2. Hallucinations - ICD9: 780.1, ICD10: R44.3 - URINALYSIS WITH MICROSCOPIC, REFLEX CULTURE - MRI BRAIN WO IVCON - VITAMIN D 25 HYDROXY - CONSULT TO NEUROLOGY 3. Vitamin D insufficiency - ICD9: 268.9, ICD10: E55.9 - VITAMIN D 25 HYDROXY I spent a total of 40 minutes on the date of the service which included preparing to see the patient, [id number] patient care, completing clinical documentation, obtaining and/or reviewing separately obtained history, performing a medically appropriate examination, counseling and educating the patient/family/caregiver, and ordering medications, tests, or procedures. Vargas Chavis MD documented in this encounter [facility] 04-30-2023 Miscellaneous Notes KRISTIN 01/31/23 NOV 06/05/23 Of note, on med list note created by CHICHO that patient is only taking 10 mg once daily. Please review and advise. Thank you. NICO Olsen Patient has been identified by name and date of : Yes, Provider beryl argueta Date 04/28/23 Time 1123 Spouse phones for refill(s): Requested Prescriptions Pending Prescriptions Disp Refills lisinopril (ZESTRIL) 20 mg tablet Sig: Take 1 tablet by mouth twice daily. Date of last office visit in primary care: 01/31/23 Last 2 Encounter Wt Readings: Date: Wt: 03/18/2023 78.5 kg (173 lb) 01/31/2023 77.3 kg (170 lb 6.4 oz) Previous labs/tests for medication: Not applicable Please advise. Thank you. Beryl Argueta documented in this encounter [facility] 03-18-2023 Note HNO ID: [id number] Author: Guicho Schmitt APRN.[employer] MILL WORKER Service: ? Author Type: Nurse Practitioner Type: Progress Notes Filed: 03/18/2023 12:54 PM Note Text: Subjective HPI Nontoxic-appearing male presents urgent care chief complaint cough. Duration of symptoms 3 days. Associated symptoms cough fatigue loose stools. Patient states was ill a few days prior to his symptoms starting. Her symptoms are similar. No OTC medication use. No pain. Denies any worsening symptoms. States feels like he is got a little better today. 2 episodes of loose stool. No blood in the stool. Denies any fever body aches chills productive cough chest pain shortness of breath pleuritic pain hemoptysis nausea vomiting abdominal pain. Past medical history prescription medication use and allergies reviewed. 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 Kraus Benign prostatic hyperplasia without lower urinary tract symptoms BPH with obstruction/lower urinary tract symptoms 07/26/2020 Dr. Love Chronic ischemic heart disease, unspecified Dr. Love H AND P 08/16/2021 Depression Diverticulosis of colon (without mention of hemorrhage) Diverticulosis Elevated bilirubin Chronic Erectile dysfunction due to diseases classified elsewhere Essential hypertension, benign Functional dyspepsia 06/10/2018 Generalized anxiety disorder History of non-ST elevation myocardial infarction (NSTEMI) 05/07/2015 Hyperlipidemia Low testosterone Male erectile dysfunction, unspecified 2011 Dr. 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 Love H AND P 08/16/2021 Other specified glaucoma Peptic ulcer, unspecified site, unspecified as acute or chronic, without mention of hemorrhage, perforation, or obstruction Primary open-angle glaucoma(365.11) 12/2009 Dr. Perkins Pure hypercholesterolemia Pure hypercholesterolemia S/P CABG x 3 Dr. 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 Kate Guillermo AND P 08/16/2021 PAST SURGICAL HISTORY Procedure Laterality Date ANGIOPLASTY 1996 WITH STENT AQUEOUS SHUNT EXTRAOC EQUAT PLATE RSVR W/GRAFT 12/19/12 OD Glaucoma Implant; BGI 350 combined CABG, ARTERIAL, THREE 1990 COLONOSCOPY FLX DX W/COLLJ SPEC WHEN PFRMD 01/2004 Colonoscopy COLONOSCOPY FLX DX W/COLLJ SPEC WHEN PFRMD 09/29/2009 Colonoscopy COLONOSCOPY FLX DX W/COLLJ SPEC WHEN PFRMD 02/05/2015 Colonoscopy ESOPHAGOGASTRODUODENOSCOPY TRANSORAL DIAGNOSTIC 08/14/2016 EGD ESOPHAGOGASTRODUODENOSCOPY TRANSORAL DIAGNOSTIC 02/25/2018 EGD HEART SURGERY HX HERNIA REPAIR HX 10/2017 removal INCISION OF EYE, TRABECULECTOMY 2009 OU LAPAROSCOPY SURG CHOLECYSTECTOMY Cholecystectomy, lap PAST SURGICAL HISTORY OF 03/2009 Right Knee Ligament Repair PAST SURGICAL HISTORY OF colonoscopy about 2014- Dr. Kate Guillermo AND P 08/16/2021 PROSTATE NEEDLE BIOPSY 2003 Dr. Kate Guillermo AND P 08/16/2021 XCAPSL CTRC RMVL INSJ IO LENS PROSTH W/O ECP 12/19/12 OD Cataract Extraction with PC IOL with Trab/MMC ALLERGIES Anaprox [Naproxen Sodium], Celexa [Citalopram], Cortisone, Crestor [Rosuvastatin Calcium], Elavil [Amitriptyline], Hydrocortisone, Keflex [Cephalexin], Penicillins, Pepcid [Famotidine (Pf)], Sulfa (Sulfonamide Antibiotics), Vioxx [Rofecoxib], and Zocor [Simvastatin] MEDICATIONS escitalopram oxalate (LEXAPRO) 5 mg tablet Take 1 tablet by mouth once daily. sfhubrkrto-vujagdeoosem-wkhenjvgds l 30 MG - 1 MG - 10 MCG/ML injection (CPD) Inject 60 units into the intracavernosal region of the penis sucralfate (CARAFATE) 1 gram tablet Dissolve one tablet in 30cc water. Stir and swallow, at least 30 minutes before meals. May repeat at bedtime, as needed. amLODIPine (NORVASC) 2.5 mg tablet Take 1 tablet by mouth once daily. ezetimibe (ZETIA) 10 mg tablet Take 1 tablet by mouth once daily. Insulin Syringe-Needle U-100 1 mL 29 gauge x 1/2 1 Each as needed. For Intercavernal Injections ondansetron orally disintegrating (ZOFRAN ODT) 4 mg disintegrating tablet Take 1 tablet by mouth every 8 hours as needed for nausea/vomiting. Insulin Syringe-Needle U-100 1 mL 29 gauge x 1/2 1 Each as needed. For Intercavernal Injections sildenafil (VIAGRA) 50 mg tablet take one per day as needed uwqklcao-jfasrtmby-yeffciwtxcomyc (CORTISPORIN) otic solution Apply 4 drop into both ears three times a day netarsudil (RHOPRESSA) 0.02 % ophthalmic drops Use 1 Drop in the right eye daily at bedtime. lisinopril (ZESTRIL, PRINIVIL) 20 mg table (more content not included)... [facility] 03-18-2023 History of Present illness Narrative Subjective HPI Nontoxic-appearing male presents urgent care chief complaint cough. Duration of symptoms 3 days. Associated symptoms cough fatigue loose stools. Patient states was ill a few days prior to his symptoms starting. Her symptoms are similar. No OTC medication use. No pain. Denies any worsening symptoms. States feels like he is got a little better today. 2 episodes of loose stool. No blood in the stool. Denies any fever body aches chills productive cough chest pain shortness of breath pleuritic pain hemoptysis nausea vomiting abdominal pain. Past medical history prescription medication use and allergies reviewed. 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 Kraus Benign prostatic hyperplasia without lower urinary tract symptoms BPH with obstruction/lower urinary tract symptoms 07/26/2020 Dr. Love Chronic ischemic heart disease, unspecified Dr. Kate Gaston 08/16/2021 Depression Diverticulosis of colon (without mention of hemorrhage) Diverticulosis Elevated bilirubin Chronic Erectile dysfunction due to diseases classified elsewhere Essential hypertension, benign Functional dyspepsia 06/10/2018 Generalized anxiety disorder History of non-ST elevation myocardial infarction (NSTEMI) 05/07/2015 Hyperlipidemia Low testosterone Male erectile dysfunction, unspecified 2011 Dr. 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 Kate Gaston 08/16/2021 Other specified glaucoma Peptic ulcer, unspecified site, unspecified as acute or chronic, without mention of hemorrhage, perforation, or obstruction Primary open-angle glaucoma(365.11) 12/2009 Dr. Perkins Pure hypercholesterolemia Pure hypercholesterolemia S/P CABG x 3 Dr. 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 Kate Gaston 08/16/2021 PAST SURGICAL HISTORY Procedure Laterality Date ANGIOPLASTY 1996 WITH STENT AQUEOUS SHUNT EXTRAOC EQUAT PLATE RSVR W/GRAFT 12/19/12 OD Glaucoma Implant; BGI 350 combined CABG, ARTERIAL, THREE 1990 COLONOSCOPY FLX DX W/COLLJ SPEC WHEN PFRMD 01/2004 Colonoscopy COLONOSCOPY FLX DX W/COLLJ SPEC WHEN PFRMD 09/29/2009 Colonoscopy COLONOSCOPY FLX DX W/COLLJ SPEC WHEN PFRMD 02/05/2015 Colonoscopy ESOPHAGOGASTRODUODENOSCOPY TRANSORAL DIAGNOSTIC 08/14/2016 EGD ESOPHAGOGASTRODUODENOSCOPY TRANSORAL DIAGNOSTIC 02/25/2018 EGD HEART SURGERY HX HERNIA REPAIR HX 10/2017 removal INCISION OF EYE, TRABECULECTOMY 2009 OU LAPAROSCOPY SURG CHOLECYSTECTOMY Cholecystectomy, lap PAST SURGICAL HISTORY OF 03/2009 Right Knee Ligament Repair PAST SURGICAL HISTORY OF colonoscopy about 2014- Dr. Kate Gaston 08/16/2021 PROSTATE NEEDLE BIOPSY 2003 Dr. Kate Gaston 08/16/2021 XCAPSL CTRC RMVL INSJ IO LENS PROSTH W/O ECP 12/19/12 OD Cataract Extraction with PC IOL with Trab/MMC ALLERGIES Anaprox [Naproxen Sodium], Celexa [Citalopram], Cortisone, Crestor [Rosuvastatin Calcium], Elavil [Amitriptyline], Hydrocortisone, Keflex [Cephalexin], Penicillins, Pepcid [Famotidine (Pf)], Sulfa (Sulfonamide Antibiotics), Vioxx [Rofecoxib], and Zocor [Simvastatin] MEDICATIONS escitalopram oxalate (LEXAPRO) 5 mg tablet Take 1 tablet by mouth once daily. domkyxykfp-wajapmpvzfzv-lavwqsfist l 30 MG - 1 MG - 10 MCG/ML injection (CPD) Inject 60 units into the intracavernosal region of the penis sucralfate (CARAFATE) 1 gram tablet Dissolve one tablet in 30cc water. Stir and swallow, at least 30 minutes before meals. May repeat at bedtime, as needed. amLODIPine (NORVASC) 2.5 mg tablet Take 1 tablet by mouth once daily. ezetimibe (ZETIA) 10 mg tablet Take 1 tablet by mouth once daily. Insulin Syringe-Needle U-100 1 mL 29 gauge x 1/2 1 Each as needed. For Intercavernal Injections ondansetron orally disintegrating (ZOFRAN ODT) 4 mg disintegrating tablet Take 1 tablet by mouth every 8 hours as needed for nausea/vomiting. Insulin Syringe-Needle U-100 1 mL 29 gauge x 1/2 1 Each as needed. For Intercavernal Injections sildenafil (VIAGRA) 50 mg tablet take one per day as needed eareuitj-hkpdfvyme-ifgunbkvavfcao (CORTISPORIN) otic solution Apply 4 drop into both ears three times a day netarsudil (RHOPRESSA) 0.02 % ophthalmic drops Use 1 Drop in the right eye daily at bedtime. lisinopril (ZESTRIL, PRINIVIL) 20 mg tablet Take 20 mg by mouth twice daily. dupilumab (DUPIXENT SYRINGE) 300 mg/2 mL injection Inject subcutaneously every 2 weeks. aspirin, enteric coated (ASPIRIN, ENTERIC COATED) 81 mg EC tablet Take 81 mg by mouth once daily. TESTOSTERONE INTRAMUSC. Inject 150 mg intramuscularly every 2 weeks. timolol maleate (ISTALOL) 0.5 % drpd Use 1 Drop in the right eye twice daily. FAMILY HISTORY Problem Relation Age of Onset Colon Cancer Father Hypertension Father Glaucoma Mother Blindness Mother Hypertension Brother heart disease Hypertension Brother heart disease Hypertension Brother heart disease Social History Tobacco Use Smoking status: Never Smokeless tobacco: Former Vaping Use Vaping Use: Never used Substance Use Topics Alcohol use: No Drug use: No BP 130/88 Pulse 62 Temp 36.9 C (98.4 F) Resp 18 Wt 78.5 kg (173 lb) SpO2 97% BMI 22.21 kg/m Review of Systems Constitutional: Positive for malaise/fatigue. Negative for chills and fever. HENT: Negative for congestion, ear discharge, ear pain, sinus pain and sore throat. Eyes: Negative for blurred vision, pain, discharge and redness. Respiratory: Positive for cough. Negative for hemoptysis, sputum production, shortness of breath, wheezing and stridor. Cardiovascular: Negative for chest pain. Gastrointestinal: Positive for diarrhea. Negative for abdominal pain, nausea and vomiting. Musculoskeletal: Positive for myalgias. Skin: Negative for itching and rash. Neurological: Negative for dizziness and headaches. Objective Physical Exam Constitutional: General: He is not in acute distress. Appearance: He is not diaphoretic. HENT: Head: Normocephalic. Jaw: No trismus, tenderness, swelling or pain on movement. Mouth/Throat: Mouth: Mucous membranes are moist. Pharynx: Oropharynx is clear. Uvula midline. No pharyngeal swelling, oropharyngeal exudate, posterior oropharyngeal erythema or uvula swelling. Eyes: Conjunctiva/sclera: Conjunctivae normal. Pupils: Pupils are equal, round, and reactive to light. Cardiovascular: Rate and Rhythm: Normal rate and regular rhythm. Heart sounds: Normal heart sounds. Pulmonary: Effort: Pulmonary effort is normal. No tachypnea, accessory muscle usage or respiratory distress. Breath sounds: Normal breath sounds. No stridor. No wheezing, rhonchi or rales. Abdominal: General: There is no distension. Palpations: Abdomen is soft. Tenderness: There is no abdominal tenderness. There is no guarding or rebound. Musculoskeletal: Cervical back: Normal range of motion and neck supple. No edema, erythema, rigidity or tenderness. No pain with movement. Normal range of motion. Lymphadenopathy: Cervical: No cervical adenopathy. Skin: General: Skin is warm and dry. Neurological: Mental Status: He is alert and oriented to person, place, and time. ASSESSMENT/PLAN: 1. Viral illness - ICD9: 079.99, ICD10: B34.9 Patient diagnosed with viral illness. No evidence of bacterial fraction on today exam. COVID-19 and flu testing offered declined testing at this time. Treat conservatively at this time. Cough suppressant sent to pharmacy. Patient was educated on supportive therapies. Patient will follow up with primary care provider as needed. Patient was instructed to immediately proceed to emergency room for any new, worsening, or symptoms lasting longer than anticipated. The patient's clinical presentation is otherwise unremarkable at this time. Based on exam and clinical finding, the patient is stable for discharge. Plan of care was discussed with patient. Patient verbalizes understanding and agrees to plan of care. This note was generated using [employer] software. It may contain errors in wording, punctuation, or spelling. Guicho Schmitt APRN.ATUL documented in this encounter [facility] 01-31-2023 Note HNO ID: [id number] Author: Nancy Jefferson APRN.CNP Service: ? Author Type: Nurse Practitioner Type: Progress Notes Filed: 01/31/2023 11:03 AM Note Text: 01/31/2023 Patient presents with: Recheck SUBJECTIVE: This is a 82 year old, accompanied by , that is here today for Above Complaints. Stopped citalopram after last visit. Noticed about a 50% improvement in dizziness/lightheadedness. Still with anxiety in the morning. Hard time getting out of bed in the morning. Sleeps well at night. No particularly anxious about any one thing. Denies SI, HI or insomnia. 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 Kraus Benign prostatic hyperplasia without lower urinary tract symptoms BPH with obstruction/lower urinary tract symptoms 07/26/2020 Dr. Love Chronic ischemic heart disease, unspecified Dr. Love H AND P 08/16/2021 Depression Diverticulosis of colon (without mention of hemorrhage) Diverticulosis Elevated bilirubin Chronic Erectile dysfunction due to diseases classified elsewhere Essential hypertension, benign Functional dyspepsia 06/10/2018 Generalized anxiety disorder History of non-ST elevation myocardial infarction (NSTEMI) 05/07/2015 Hyperlipidemia Low testosterone Male erectile dysfunction, unspecified 2011 Dr. 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 Love H AND P 08/16/2021 Other specified glaucoma Peptic ulcer, unspecified site, unspecified as acute or chronic, without mention of hemorrhage, perforation, or obstruction Primary open-angle glaucoma(365.11) 12/2009 Dr. Perkins Pure hypercholesterolemia Pure hypercholesterolemia S/P CABG x 3 Dr. 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 Love Trigeminal neuralgia 2002 Unspecified hemorrhoids without mention of complication Hemorrhoids Unspecified superficial injury of right knee, initial encounter Dr. Kate Guillermo AND P 08/16/2021 ALLERGIES Anaprox [Naproxen Sodium], Celexa [Citalopram], Cortisone, Crestor [Rosuvastatin Calcium], Elavil [Amitriptyline], Hydrocortisone, Keflex [Cephalexin], Penicillins, Pepcid [Famotidine (Pf)], Sulfa (Sulfonamide Antibiotics), Vioxx [Rofecoxib], and Zocor [Simvastatin] MEDICATIONS Current Outpatient Medications Medication Sig pfrhiyrelv-htaqfecsxqzh-jwuxbhrghm l 30 MG - 1 MG - 10 MCG/ML injection (CPD) Inject 60 units into the intracavernosal region of the penis citalopram hydrobromide (CELEXA) 10 mg tablet Take 1 tablet by mouth once daily. sucralfate (CARAFATE) 1 gram tablet Dissolve one tablet in 30cc water. Stir and swallow, at least 30 minutes before meals. May repeat at bedtime, as needed. amLODIPine (NORVASC) 2.5 mg tablet Take 1 tablet by mouth once daily. ezetimibe (ZETIA) 10 mg tablet Take 1 tablet by mouth once daily. Insulin Syringe-Needle U-100 1 mL 29 gauge x 1/2 1 Each as needed. For Intercavernal Injections ondansetron orally disintegrating (ZOFRAN ODT) 4 mg disintegrating tablet Take 1 tablet by mouth every 8 hours as needed for nausea/vomiting. Insulin Syringe-Needle U-100 1 mL 29 gauge x 1/2 1 Each as needed. For Intercavernal Injections sildenafil (VIAGRA) 50 mg tablet take one per day as needed kjzadogy-dvzstyoht-ubqebinrabeykf (CORTISPORIN) otic solution Apply 4 drop into both ears three times a day netarsudil (RHOPRESSA) 0.02 % ophthalmic drops Use 1 Drop in the right eye daily at bedtime. lisinopril (ZESTRIL, PRINIVIL) 20 mg tablet Take 20 mg by mouth twice daily. dupilumab (DUPIXENT SYRINGE) 300 mg/2 mL injection Inject subcutaneously every 2 weeks. aspirin, enteric coated (ASPIRIN, ENTERIC COATED) 81 mg EC tablet Take 81 mg by mouth once daily. TESTOSTERONE INTRAMUSC. Inject 150 mg intramuscularly every 2 weeks. timolol maleate (ISTALOL) 0.5 % drpd Use 1 Drop in the right eye twice daily. No current facility-administered medications for this visit. Medications and allergies reviewed by this provider. SOCIAL HISTORY Social History Tobacco Use Smoking status: Never Smokeless tobacco: Former Vaping Use Vaping Use: Never used Substance Use Topics Alcohol use: No Drug use: No REVIEW OF SYSTEMS All other reviewed and negative other than HPI. OBJECTIVE: BP 132/74 Pulse 60 Resp 18 Wt 77.3 kg (170 lb 6.4 oz) SpO2 100% BMI 21.88 kg/m? . Vital signs reviewed by this provider. APPEARANCE Well appearing, alert, in no acute distress, well-hydrated, well nourished. PSYCH: Posture and motor behavior: normal posture and motor behavior Dress, grooming, personal hygiene: normal dress and grooming Facial expression: good eye contact Speech: normal speec (more content not included)... [facility] 01-31-2023 Instructions Nancy Jefferson APRN.[employer]ODDY MILL WORKER - 01/31/2023 10:44 AM EDT Counseling and Psychiatry Services [facility] [address] [place] [address] *counseling [facility] [address] [facility] [place] [address] *counseling [place] [address] [place] [address] *counseling [facility] [address] [place] [address] *counseling and psychiatry [address] [address] *counseling [place] [address] [place] [address] *counseling [place] [address] [facility] [place] [address] *counseling [facility] [address] [place] [address] *counseling [facility] [address] [place] [address] [facility] [address] [place] [address] *counseling [facility] [address] [place] [address] [facility] [address], [place] [address] *counseling [facility] [address] [place] [address] [facility] [address] [facility] [place] [address] *counseling [facility] [address], [place] [address] *counseling [facility] [address] [place] [address] *counseling and psychiatry [facility] [place], [facility] [address] [place], [place] [id number] *psychiatry [facility] [phone] *grief counseling, individual and groups *If you ever experience a mental health crisis please call [phone] 911, Please verify with insurance provider for coverage documented in this encounter [facility] 01-31-2023 History of Present illness Narrative 01/31/2023 Patient presents with: Recheck SUBJECTIVE: This is a 82 year old, accompanied by , that is here today for Above Complaints. Stopped citalopram after last visit. Noticed about a 50% improvement in dizziness/lightheadedness. Still with anxiety in the morning. Hard time getting out of bed in the morning. Sleeps well at night. No particularly anxious about any one thing. Denies SI, HI or insomnia. 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 Kraus Benign prostatic hyperplasia without lower urinary tract symptoms BPH with obstruction/lower urinary tract symptoms 07/26/2020 Dr. Love Chronic ischemic heart disease, unspecified Dr. Love H & P 08/16/2021 Depression Diverticulosis of colon (without mention of hemorrhage) Diverticulosis Elevated bilirubin Chronic Erectile dysfunction due to diseases classified elsewhere Essential hypertension, benign Functional dyspepsia 06/10/2018 Generalized anxiety disorder History of non-ST elevation myocardial infarction (NSTEMI) 05/07/2015 Hyperlipidemia Low testosterone Male erectile dysfunction, unspecified 2011 Dr. 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 Love H Caryl Olivera 08/16/2021 Other specified glaucoma Peptic ulcer, unspecified site, unspecified as acute or chronic, without mention of hemorrhage, perforation, or obstruction Primary open-angle glaucoma(365.11) 12/2009 Dr. Perkins Pure hypercholesterolemia Pure hypercholesterolemia S/P CABG x 3 Dr. 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 Kate Gaston 08/16/2021 ALLERGIES Anaprox [Naproxen Sodium], Celexa [Citalopram], Cortisone, Crestor [Rosuvastatin Calcium], Elavil [Amitriptyline], Hydrocortisone, Keflex [Cephalexin], Penicillins, Pepcid [Famotidine (Pf)], Sulfa (Sulfonamide Antibiotics), Vioxx [Rofecoxib], and Zocor [Simvastatin] MEDICATIONS Current Outpatient Medications Medication Sig jpgbevxxcv-wghcvqxgbaiv-dkbjjmztne l 30 MG - 1 MG - 10 MCG/ML injection (CPD) Inject 60 units into the intracavernosal region of the penis citalopram hydrobromide (CELEXA) 10 mg tablet Take 1 tablet by mouth once daily. sucralfate (CARAFATE) 1 gram tablet Dissolve one tablet in 30cc water. Stir and swallow, at least 30 minutes before meals. May repeat at bedtime, as needed. amLODIPine (NORVASC) 2.5 mg tablet Take 1 tablet by mouth once daily. ezetimibe (ZETIA) 10 mg tablet Take 1 tablet by mouth once daily. Insulin Syringe-Needle U-100 1 mL 29 gauge x 1/2 1 Each as needed. For Intercavernal Injections ondansetron orally disintegrating (ZOFRAN ODT) 4 mg disintegrating tablet Take 1 tablet by mouth every 8 hours as needed for nausea/vomiting. Insulin Syringe-Needle U-100 1 mL 29 gauge x 1/2 1 Each as needed. For Intercavernal Injections sildenafil (VIAGRA) 50 mg tablet take one per day as needed zlfsumec-cepfonplx-furhqkxsybodoj (CORTISPORIN) otic solution Apply 4 drop into both ears three times a day netarsudil (RHOPRESSA) 0.02 % ophthalmic drops Use 1 Drop in the right eye daily at bedtime. lisinopril (ZESTRIL, PRINIVIL) 20 mg tablet Take 20 mg by mouth twice daily. dupilumab (DUPIXENT SYRINGE) 300 mg/2 mL injection Inject subcutaneously every 2 weeks. aspirin, enteric coated (ASPIRIN, ENTERIC COATED) 81 mg EC tablet Take 81 mg by mouth once daily. TESTOSTERONE INTRAMUSC. Inject 150 mg intramuscularly every 2 weeks. timolol maleate (ISTALOL) 0.5 % drpd Use 1 Drop in the right eye twice daily. No current facility-administered medications for this visit. Medications and allergies reviewed by this provider. SOCIAL HISTORY Social History Tobacco Use Smoking status: Never Smokeless tobacco: Former Vaping Use Vaping Use: Never used Substance Use Topics Alcohol use: No Drug use: No REVIEW OF SYSTEMS All other reviewed and negative other than HPI. OBJECTIVE: BP 132/74 Pulse 60 Resp 18 Wt 77.3 kg (170 lb 6.4 oz) SpO2 100% BMI 21.88 kg/m . Vital signs reviewed by this provider. APPEARANCE Well appearing, alert, in no acute distress, well-hydrated, well nourished. PSYCH: Posture and motor behavior: normal posture and motor behavior Dress, grooming, personal hygiene: normal dress and grooming Facial expression: good eye contact Speech: normal speech Mood: flat affect Coherency and relevance of thought: normal thought processes Memory: normal memory SHINGRIX VACCINE(2 of 3) due on 09/13/2011 DTAP,TDAP,TD(2 - Td or Tdap) due on 07/20/2021 ADVANCE DIRECTIVE DISCUSSION Never done LDL CHOLESTEROL due on 04/14/2023 DIABETES SCREEN due on 06/26/2025 INFLUENZA Completed COVID-19 VACCINE Completed PNEUMOCOCCAL: 65+ Completed ASSESSMENT/PLAN: 1. Anxiety and depression - ICD9: 300.00, 311, ICD10: F41.9, F32.A (primary diagnosis) - discussed again I encourage counseling as well, verbalizes understanding - hand out of local agencies provided - ESCITALOPRAM 5 MG TABLET - follow-up if symptoms fail to improve 2. Episodic lightheadedness - ICD9: 780.4, ICD10: R42 - improving - red flag symptoms discussed, verbalizes understanding - follow-up as needed, to ER with red flag symptoms Nancy Jefferson APRN.CNP Prescription instructions reviewed with patient as applicable. Patient advised if symptoms do not improve or if symptoms worsen sooner, to contact their primary care physician. Potential red flag symptoms discussed with the patient. Reviewed appropriate action plan to take if red flag symptoms occur. Patient agreeable to treatment plan. I spent a total of 25 minutes on the date of the service which included preparing to see the patient, mfnr-[id number] patient care, completing clinical documentation, obtaining and/or reviewing separately obtained history, performing a medically appropriate examination, counseling and educating the patient/family/caregiver, and ordering medications, tests, or procedures. documented in this encounter [facility] 01-15-2023 Note HNO ID: [id number] Author: Nancy Jefferson APRN.CNP Service: ? Author Type: Nurse Practitioner Type: Progress Notes Filed: 01/16/2023 7:09 AM Note Text: 01/15/2023 Patient presents with: Anxiety: Increased anxiety; since starting the recent anxiety medication has been experiencing light headedness and hasn't been working as well as the other. SUBJECTIVE: This is a 82 year old , accompanied by ,that is here today for Above Complaints. Citalopram increased at last office visit. Per patient it is making him lightheaded. He reports his cold header decreased some BP meds and told him to take citalopram half table twice a a day instead of full dose at one time. Reports he did that but still has lightheadedness. Patient reports generalized anxiety with no specific trigger. Used to be on ativan in the past which helped but PCP does not feel this is appropriate therapy given his age and the risks of the medication. Has never been to counseling for his anxiety. 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 Kraus Benign prostatic hyperplasia without lower urinary tract symptoms BPH with obstruction/lower urinary tract symptoms 07/26/2020 Dr. Love Chronic ischemic heart disease, unspecified Dr. Kate Guillermo AND P 08/16/2021 Depression Diverticulosis of colon (without mention of hemorrhage) Diverticulosis Elevated bilirubin Chronic Erectile dysfunction due to diseases classified elsewhere Essential hypertension, benign Functional dyspepsia 06/10/2018 Generalized anxiety disorder History of non-ST elevation myocardial infarction (NSTEMI) 05/07/2015 Hyperlipidemia Low testosterone Male erectile dysfunction, unspecified 2011 Dr. 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 Kate Guillermo AND P 08/16/2021 Other specified glaucoma Peptic ulcer, unspecified site, unspecified as acute or chronic, without mention of hemorrhage, perforation, or obstruction Primary open-angle glaucoma(365.11) 12/2009 Dr. Perkins Pure hypercholesterolemia Pure hypercholesterolemia S/P CABG x 3 Dr. 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 Kate EDGE P 08/16/2021 ALLERGIES Anaprox [Naproxen Sodium], Celexa [Citalopram], Cortisone, Crestor [Rosuvastatin Calcium], Elavil [Amitriptyline], Hydrocortisone, Keflex [Cephalexin], Penicillins, Pepcid [Famotidine (Pf)], Sulfa (Sulfonamide Antibiotics), Vioxx [Rofecoxib], and Zocor [Simvastatin] MEDICATIONS Current Outpatient Medications Medication Sig citalopram (CELEXA) 20 mg tablet Take 1 tablet by mouth once daily. xkcgvkjhhw-sbovrdfdzidl-yteqtyntrj l 30 MG - 1 MG - 10 MCG/ML injection (CPD) Inject 60 units into the intracavernosal region of the penis citalopram hydrobromide (CELEXA) 10 mg tablet Take 1 tablet by mouth once daily. sucralfate (CARAFATE) 1 gram tablet Dissolve one tablet in 30cc water. Stir and swallow, at least 30 minutes before meals. May repeat at bedtime, as needed. amLODIPine (NORVASC) 2.5 mg tablet Take 1 tablet by mouth once daily. ezetimibe (ZETIA) 10 mg tablet Take 1 tablet by mouth once daily. Insulin Syringe-Needle U-100 1 mL 29 gauge x 1/2 1 Each as needed. For Intercavernal Injections ondansetron orally disintegrating (ZOFRAN ODT) 4 mg disintegrating tablet Take 1 tablet by mouth every 8 hours as needed for nausea/vomiting. Insulin Syringe-Needle U-100 1 mL 29 gauge x 1/2 1 Each as needed. For Intercavernal Injections sildenafil (VIAGRA) 50 mg tablet take one per day as needed xminzbsa-qrpinmjjs-bcescjyraateei (CORTISPORIN) otic solution Apply 4 drop into both ears three times a day netarsudil (RHOPRESSA) 0.02 % ophthalmic drops Use 1 Drop in the right eye daily at bedtime. lisinopril (ZESTRIL, PRINIVIL) 20 mg tablet Take 20 mg by mouth twice daily. dupilumab (DUPIXENT SYRINGE) 300 mg/2 mL injection Inject subcutaneously every 2 weeks. aspirin, enteric coated (ASPIRIN, ENTERIC COATED) 81 mg EC tablet Take 81 mg by mouth once daily. TESTOSTERONE INTRAMUSC. Inject 150 mg intramuscularly every 2 weeks. timolol maleate (ISTALOL) 0.5 % drpd Use 1 Drop in the right eye twice daily. No current facility-administered medications for this visit. Medications and allergies reviewed by this provider. SOCIAL HISTORY Social History Tobacco Use Smoking status: Never Smokeless tobacco: Former Vaping Use Vaping Use: Never used Substance Use Topics Alcohol use: No Drug use: No REVIEW OF SYSTEMS All (more content not included)... [facility] 01-15-2023 Instructions Nancy Jefferson APRN.SHODDY M[employer] WORKER - 01/15/2023 2:08 PM EDT Counseling and Psychiatry Services [facility] [address] [place] [address] *counseling [facility] [address] [facility] [facility] [facility] [place] [id number] *[facility]ing [facility] [address] [place], [place] [id number] *counseling [facility] [address] [place] [address] *counseling and psychiatry [place] [address] [place] [address] *[address] [address] *counseling [place] [address] [facility] [phone] *counseling [facility] [address] [place] [address] *counseling [facility] [address] [place] [address] [facility] [address] [facility] [address] [place] [address] *counseling [facility] [address] [place], [place] [id number] [employer] [address] [place], [place] [address] *counseling [facility] [address] [facility] [address] [place] [address] [employer] [address] [facility] [place] [address] *counseling [employer] [address] [facility] [address] [place], [place] [id number] *counseling [facility] [address] [place] [address] *counseling and psychiatry [facility] [place], [facility] [address] [facility] [address] [place], [place] [id number] *psychiatry [facility] [phone] *grief counseling, individual and groups *If you ever experience a mental health crisis please call [phone] 911, Please verify with insurance provider for coverage documented in this encounter [facility] 01-15-2023 History of Present illness Narrative 01/15/2023 Patient presents with: Anxiety: Increased anxiety; since starting the recent anxiety medication has been experiencing light headedness and hasn't been working as well as the other. SUBJECTIVE: This is a 82 year old , accompanied by ,that is here today for Above Complaints. Citalopram increased at last office visit. Per patient it is making him lightheaded. He reports his cold header decreased some BP meds and told him to take citalopram half table twice a a day instead of full dose at one time. Reports he did that but still has lightheadedness. Patient reports generalized anxiety with no specific trigger. Used to be on ativan in the past which helped but PCP does not feel this is appropriate therapy given his age and the risks of the medication. Has never been to counseling for his anxiety. 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 Kraus Benign prostatic hyperplasia without lower urinary tract symptoms BPH with obstruction/lower urinary tract symptoms 07/26/2020 Dr. Love Chronic ischemic heart disease, unspecified Dr. Love H & P 08/16/2021 Depression Diverticulosis of colon (without mention of hemorrhage) Diverticulosis Elevated bilirubin Chronic Erectile dysfunction due to diseases classified elsewhere Essential hypertension, benign Functional dyspepsia 06/10/2018 Generalized anxiety disorder History of non-ST elevation myocardial infarction (NSTEMI) 05/07/2015 Hyperlipidemia Low testosterone Male erectile dysfunction, unspecified 2011 Dr. 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 Love H & P 08/16/2021 Other specified glaucoma Peptic ulcer, unspecified site, unspecified as acute or chronic, without mention of hemorrhage, perforation, or obstruction Primary open-angle glaucoma(365.11) 12/2009 Dr. Perkins Pure hypercholesterolemia Pure hypercholesterolemia S/P CABG x 3 Dr. 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 Love H & P 08/16/2021 ALLERGIES Anaprox [Naproxen Sodium], Celexa [Citalopram], Cortisone, Crestor [Rosuvastatin Calcium], Elavil [Amitriptyline], Hydrocortisone, Keflex [Cephalexin], Penicillins, Pepcid [Famotidine (Pf)], Sulfa (Sulfonamide Antibiotics), Vioxx [Rofecoxib], and Zocor [Simvastatin] MEDICATIONS Current Outpatient Medications Medication Sig citalopram (CELEXA) 20 mg tablet Take 1 tablet by mouth once daily. mktquxukmc-revfphltojvk-ozsexsbioy l 30 MG - 1 MG - 10 MCG/ML injection (CPD) Inject 60 units into the intracavernosal region of the penis citalopram hydrobromide (CELEXA) 10 mg tablet Take 1 tablet by mouth once daily. sucralfate (CARAFATE) 1 gram tablet Dissolve one tablet in 30cc water. Stir and swallow, at least 30 minutes before meals. May repeat at bedtime, as needed. amLODIPine (NORVASC) 2.5 mg tablet Take 1 tablet by mouth once daily. ezetimibe (ZETIA) 10 mg tablet Take 1 tablet by mouth once daily. Insulin Syringe-Needle U-100 1 mL 29 gauge x 1/2 1 Each as needed. For Intercavernal Injections ondansetron orally disintegrating (ZOFRAN ODT) 4 mg disintegrating tablet Take 1 tablet by mouth every 8 hours as needed for nausea/vomiting. Insulin Syringe-Needle U-100 1 mL 29 gauge x 1/2 1 Each as needed. For Intercavernal Injections sildenafil (VIAGRA) 50 mg tablet take one per day as needed nqyklhkk-ghdlfoqui-knmyjomjkuxbsy (CORTISPORIN) otic solution Apply 4 drop into both ears three times a day netarsudil (RHOPRESSA) 0.02 % ophthalmic drops Use 1 Drop in the right eye daily at bedtime. lisinopril (ZESTRIL, PRINIVIL) 20 mg tablet Take 20 mg by mouth twice daily. dupilumab (DUPIXENT SYRINGE) 300 mg/2 mL injection Inject subcutaneously every 2 weeks. aspirin, enteric coated (ASPIRIN, ENTERIC COATED) 81 mg EC tablet Take 81 mg by mouth once daily. TESTOSTERONE INTRAMUSC. Inject 150 mg intramuscularly every 2 weeks. timolol maleate (ISTALOL) 0.5 % drpd Use 1 Drop in the right eye twice daily. No current facility-administered medications for this visit. Medications and allergies reviewed by this provider. SOCIAL HISTORY Social History Tobacco Use Smoking status: Never Smokeless tobacco: Former Vaping Use Vaping Use: Never used Substance Use Topics Alcohol use: No Drug use: No REVIEW OF SYSTEMS All other reviewed and negative other than HPI. OBJECTIVE: BP 132/70 Pulse 64 Resp 14 Wt 77.4 kg (170 lb 9.6 oz) SpO2 95% BMI 21.90 kg/m . Vital signs reviewed by this provider. APPEARANCE Well appearing, alert, in no acute distress, well-hydrated, well nourished. EYES PERRLA, conjunctiva and sclera normal. HEART RRR with normal S1 and S2, no murmurs, no gallops, no JVD appreciated LUNG clear to auscultation. No wheezes, rhonchi or rales SKIN Skin color, texture, turgor normal, no suspicious rashes or lesions PSYCH: Posture and motor behavior: normal posture and motor behavior Dress, grooming, personal hygiene: normal dress and grooming Facial expression: good eye contact Speech: normal speech Mood: flat affect Coherency and relevance of thought: normal thought processes Memory: normal memory SHINGRIX VACCINE(2 of 3) due on 09/13/2011 DTAP,TDAP,TD(2 - Td or Tdap) due on 07/20/2021 ADVANCE DIRECTIVE DISCUSSION Never done LDL CHOLESTEROL due on 04/14/2023 DIABETES SCREEN due on 06/26/2025 INFLUENZA Completed COVID-19 VACCINE Completed PNEUMOCOCCAL: 65+ Completed ASSESSMENT/PLAN: 1. Anxiety - ICD9: 300.00, ICD10: F41.9 - patient has been on the citalopram for some time,however he believes this medication causes him to be lightheaded, therefore I will have him wean off this medication and see if his lightheadedness resolves, if so then we can try different medication. - discussed with patient he should proceed with counseling as well to help him cope with anxiety as medication alone may not completely help, verbalizes understanding - handout of local counseling centers given to patient - patient continues to reports ativan has been the only thing that has helped him in the past, however he has only been on this and two other medications - discussed with him there are other medications to try. Encouraged him to also make appointment with psychiatry, if they conclude ativan would be beneficial given the risks then possibly they would prescribe this for his Nancy Jefferson APRN.ATUL Prescription instructions reviewed with patient as applicable. Patient advised if symptoms do not improve or if symptoms worsen sooner, to contact their primary care physician. Potential red flag symptoms discussed with the patient. Reviewed appropriate action plan to take if red flag symptoms occur. Patient agreeable to treatment plan. I spent a total of 30 minutes on the date of the service which included preparing to see the patient, pcev-am-aznv patient care, completing clinical documentation, obtaining and/or reviewing separately obtained history, performing a medically appropriate examination, and counseling and educating the patient/family/caregiver. documented in this encounter [facility] 12-22-2022 Note HNO ID: [id number] Author: Lashell Nevarez APRN.ATUL Service: ? Author Type: Nurse Practitioner Type: Progress Notes Filed: 12/22/2022 1:53 PM Note Text: CC: Patient presents with: Cough: Pt reported diarrhea, intermittent dizziness x1 wk. Patient reported that the diarrhea has been going on and off for several months. And the dizziness has also been going on and off for several months when he stands up too fast or climbs stairs. He will follow-up with primary care for these occurrences. HPI: Tuan Hou is a 82 year old male who presents to the office with complaint of head congestion for a few days. Symptoms are staying the same. Associated symptoms includes nasal congestion. Denies headache, body aches, fever, cough, nausea, vomiting , and diarrhea. Treatments tried include nothing so far. with no relief of symptoms. Sick contacts: unknown. History of asthma, frequent episodes of bronchitis, chronic bronchitis, bronchiectasis or COPD: No Smoker: No Seasonal/environmental allergies: No The ROS is otherwise negative. The patient's pmh, medications, allergies, and past visits are reviewed. PHYSICAL EXAM: BP 128/78 Pulse 64 Temp 36.8 ?C (98.2 ?F) (Tympanic) Resp 18 Wt 77.9 kg (171 lb 12.8 oz) SpO2 99% BMI 22.06 kg/m? General appearance: alert, cooperative, pleasant, in no acute distress Head: Normocephalic Eyes: EOM's intact, conjunctiva pink and moist, no icterus, sclera white, non-injected Ears: Right ear: External ear/canal- Normal, TM - clear with good landmarks. Left ear: External ear/canal- cerumen impaction, Oropharynx:moist without lesions, No erythema, exudates or tonsillar hypertrophy. Heart: Negative. RRR without obvious murmur, gallop, or rubs. No ectopy. 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 Kraus Benign prostatic hyperplasia without lower urinary tract symptoms BPH with obstruction/lower urinary tract symptoms 07/26/2020 Dr. Love Chronic ischemic heart disease, unspecified Dr. Kate Guillermo AND P 08/16/2021 Depression Diverticulosis of colon (without mention of hemorrhage) Diverticulosis Elevated bilirubin Chronic Erectile dysfunction due to diseases classified elsewhere Essential hypertension, benign Functional dyspepsia 06/10/2018 Generalized anxiety disorder History of non-ST elevation myocardial infarction (NSTEMI) 05/07/2015 Hyperlipidemia Low testosterone Male erectile dysfunction, unspecified 2011 Dr. 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 Love H AND P 08/16/2021 Other specified glaucoma Peptic ulcer, unspecified site, unspecified as acute or chronic, without mention of hemorrhage, perforation, or obstruction Primary open-angle glaucoma(365.11) 12/2009 Dr. Perkins Pure hypercholesterolemia Pure hypercholesterolemia S/P CABG x 3 Dr. 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 Kate Guillermo AND P 08/16/2021 PAST SURGICAL HISTORY Procedure Laterality Date ANGIOPLASTY 1996 WITH STENT AQUEOUS SHUNT EXTRAOC EQUAT PLATE RSVR W/GRAFT 12/19/12 OD Glaucoma Implant; [facility]GI 350 combined CABG, ARTERIAL, THREE 1990 COLONOSCOPY FLX DX W/COLLJ SPEC WHEN PFRMD 01/2004 Colonoscopy COLONOSCOPY FLX DX W/COLLJ SPEC WHEN PFRMD 09/29/2009 Colonoscopy COLONOSCOPY FLX DX W/COLLJ SPEC WHEN PFRMD 02/05/2015 Colonoscopy ESOPHAGOGASTRODUODENOSCOPY TRANSORAL DIAGNOSTIC 08/14/2016 EGD ESOPHAGOGASTRODUODENOSCOPY TRANSORAL DIAGNOSTIC 02/25/2018 EGD HEART SURGERY HX HERNIA REPAIR HX 10/2017 removal INCISION OF EYE, TRABECULECTOMY 2009 [facility] LAPAROSCOPY SURG CHOLECYSTECTOMY Cholecystectomy, lap PAST SURGICAL HISTORY OF 03/2009 Right Knee Ligament Repair PAST SURGICAL HISTORY OF colonoscopy about 2014- Dr. Kate Guillermo AND P 08/16/2021 PROSTATE NEEDLE BIOPSY 2003 Dr. Kate Guillermo AND P 08/16/2021 XCAPSL CTRC RMVL INSJ IO LENS PROSTH W/O ECP 12/19/12 OD Cataract Extraction with PC IOL with Trab/MMC ALLERGIES Anaprox [Naproxen Sodium], Celexa [Citalopram], Cortisone, Crestor [Rosuvastatin Calcium], Elavil [Amitriptyline], Hydrocortisone, Keflex [Cephalexin], Penicillins, Pepcid [Famotidine (Pf)], Sulfa (Sulfonamide Antibiotics), Vioxx [Rofecoxib], and Zocor [Simvastatin] MEDICATIONS ltocldvqwe-lbstbakwerop-vkdbmyzzxp l 30 MG - 1 MG - 10 MCG/ML injection (CPD) Inject 60 units into the intracavernosal region of the penis citalopram hydrobromide (CELEXA) 10 mg tablet Take 1 tablet by (more content not included)... [facility] 12-22-2022 History of Present illness Narrative CC: Patient presents with: Cough: Pt reported diarrhea, intermittent dizziness x1 wk. Patient reported that the diarrhea has been going on and off for several months. And the dizziness has also been going on and off for several months when he stands up too fast or climbs stairs. He will follow-up with primary care for these occurrences. HPI: Tuan Hou is a 82 year old male who presents to the office with complaint of head congestion for a few days. Symptoms are staying the same. Associated symptoms includes nasal congestion. Denies headache, body aches, fever, cough, nausea, vomiting , and diarrhea. Treatments tried include nothing so far. with no relief of symptoms. Sick contacts: unknown. History of asthma, frequent episodes of bronchitis, chronic bronchitis, bronchiectasis or COPD: No Smoker: No Seasonal/environmental allergies: No The ROS is otherwise negative. The patient's pmh, medications, allergies, and past visits are reviewed. PHYSICAL EXAM: BP 128/78 Pulse 64 Temp 36.8 C (98.2 F) (Tympanic) Resp 18 Wt 77.9 kg (171 lb 12.8 oz) SpO2 99% BMI 22.06 kg/m General appearance: alert, cooperative, pleasant, in no acute distress Head: Normocephalic Eyes: EOM's intact, conjunctiva pink and moist, no icterus, sclera white, non-injected Ears: Right ear: External ear/canal- Normal, TM - clear with good landmarks. Left ear: External ear/canal- cerumen impaction, Oropharynx:moist without lesions, No erythema, exudates or tonsillar hypertrophy. Heart: Negative. RRR without obvious murmur, gallop, or rubs. No ectopy. 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 Kraus Benign prostatic hyperplasia without lower urinary tract symptoms BPH with obstruction/lower urinary tract symptoms 07/26/2020 Dr. Love Chronic ischemic heart disease, unspecified Dr. Love H & P 08/16/2021 Depression Diverticulosis of colon (without mention of hemorrhage) Diverticulosis Elevated bilirubin Chronic Erectile dysfunction due to diseases classified elsewhere Essential hypertension, benign Functional dyspepsia 06/10/2018 Generalized anxiety disorder History of non-ST elevation myocardial infarction (NSTEMI) 05/07/2015 Hyperlipidemia Low testosterone Male erectile dysfunction, unspecified 2011 Dr. 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 Love H & P 08/16/2021 Other specified glaucoma Peptic ulcer, unspecified site, unspecified as acute or chronic, without mention of hemorrhage, perforation, or obstruction Primary open-angle glaucoma(365.11) 12/2009 Dr. Perkins Pure hypercholesterolemia Pure hypercholesterolemia S/P CABG x 3 Dr. 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 Love H & P 08/16/2021 PAST SURGICAL HISTORY Procedure Laterality Date ANGIOPLASTY 1996 WITH STENT AQUEOUS SHUNT EXTRAOC EQUAT PLATE RSVR W/GRAFT 12/19/12 OD Glaucoma Implant; [facility] 350 combined CABG, ARTERIAL, THREE 1990 COLONOSCOPY FLX DX W/COLLJ SPEC WHEN PFRMD 01/2004 Colonoscopy COLONOSCOPY FLX DX W/COLLJ SPEC WHEN PFRMD 09/29/2009 Colonoscopy COLONOSCOPY FLX DX W/COLLJ SPEC WHEN PFRMD 02/05/2015 Colonoscopy ESOPHAGOGASTRODUODENOSCOPY TRANSORAL DIAGNOSTIC 08/14/2016 EGD ESOPHAGOGASTRODUODENOSCOPY TRANSORAL DIAGNOSTIC 02/25/2018 EGD HEART SURGERY HX HERNIA REPAIR HX 10/2017 removal INCISION OF EYE, TRABECULECTOMY 2009 OU LAPAROSCOPY SURG CHOLECYSTECTOMY Cholecystectomy, lap PAST SURGICAL HISTORY OF 03/2009 Right Knee Ligament Repair PAST SURGICAL HISTORY OF colonoscopy about 2014- Dr. Kate Guillermo & P 08/16/2021 PROSTATE NEEDLE BIOPSY 2003 Dr. Kate Guillermo & P 08/16/2021 XCAPSL CTRC RMVL INSJ IO LENS PROSTH W/O ECP 12/19/12 OD Cataract Extraction with PC IOL with Trab/MMC ALLERGIES Anaprox [Naproxen Sodium], Celexa [Citalopram], Cortisone, Crestor [Rosuvastatin Calcium], Elavil [Amitriptyline], Hydrocortisone, Keflex [Cephalexin], Penicillins, Pepcid [Famotidine (Pf)], Sulfa (Sulfonamide Antibiotics), Vioxx [Rofecoxib], and Zocor [Simvastatin] MEDICATIONS vztjchbrqb-wtjtokuzdcoy-cobibifors l 30 MG - 1 MG - 10 MCG/ML injection (CPD) Inject 60 units into the intracavernosal region of the penis citalopram hydrobromide (CELEXA) 10 mg tablet Take 1 tablet by mouth once daily. citalopram (CELEXA) 20 mg tablet Take 1 tablet by mouth once daily. sucralfate (CARAFATE) 1 gram tablet Dissolve one tablet in 30cc water. Stir and swallow, at least 30 minutes before meals. May repeat at bedtime, as needed. amLODIPine (NORVASC) 2.5 mg tablet Take 1 tablet by mouth once daily. ezetimibe (ZETIA) 10 mg tablet Take 1 tablet by mouth once daily. Insulin Syringe-Needle U-100 1 mL 29 gauge x 1/2 1 Each as needed. For Intercavernal Injections ondansetron orally disintegrating (ZOFRAN ODT) 4 mg disintegrating tablet Take 1 tablet by mouth every 8 hours as needed for nausea/vomiting. Insulin Syringe-Needle U-100 1 mL 29 gauge x 1/2 1 Each as needed. For Intercavernal Injections sildenafil (VIAGRA) 50 mg tablet take one per day as needed rzifyawq-sxnawonwn-qhpabszwzxzqpb (CORTISPORIN) otic solution Apply 4 drop into both ears three times a day netarsudil (RHOPRESSA) 0.02 % ophthalmic drops Use 1 Drop in the right eye daily at bedtime. lisinopril (ZESTRIL, PRINIVIL) 20 mg tablet Take 20 mg by mouth twice daily. dupilumab (DUPIXENT SYRINGE) 300 mg/2 mL injection Inject subcutaneously every 2 weeks. aspirin, enteric coated (ASPIRIN, ENTERIC COATED) 81 mg EC tablet Take 81 mg by mouth once daily. TESTOSTERONE INTRAMUSC. Inject 150 mg intramuscularly every 2 weeks. timolol maleate (ISTALOL) 0.5 % drpd Use 1 Drop in the right eye twice daily. FAMILY HISTORY Problem Relation Age of Onset Colon Cancer Father Hypertension Father Glaucoma Mother Blindness Mother Hypertension Brother heart disease Hypertension Brother heart disease Hypertension Brother heart disease Social History Tobacco Use Smoking status: Never Smokeless tobacco: Former Vaping Use Vaping Use: Never used Substance Use Topics Alcohol use: No Drug use: No ASSESSMENT/PLAN: 1. URI, acute - ICD9: 465.9, ICD10: J06.9 Patient's do not want viral tested at this time. Patient will follow-up with primary care provider for other issues. Patient and are okay with ziuq-dag-jnqfifl medications for supportive therapy and increasing water. They will follow-up if anything gets worse. Lashell Nevarez APRN.CNP Prescription instructions reviewed with patient as applicable. Potential red flag symptoms discussed with the patient. Reviewed appropriate action plan to take if red flag symptoms occur. Patient agreeable to treatment plan. Lashell Nevarez APRN.ATUL documented in this encounter [facility] 12-05-2022 Note HNO ID: [id number] Author: Lucius Lin PA-C Service: ? Author Type: Physician Firearms Inspector Type: Progress Notes Filed: 12/05/2022 6:05 PM Note Text: [facility] NOTE Patient was here to request refills on his IC Penile injection medications. No need for a visit today, he did not pay a co-pay He will see me in 05/2023 for annual follow-up for Impotence JULITA Tavarez MT, PA-C [facility] 12-05-2022 History of Present illness Narrative Images from the original note were not included. [facility] NOTE Patient was here to request refills on his IC Penile injection medications. No need for a visit today, he did not pay a co-pay He will see me in 05/2023 for annual follow-up for Impotence JULITA Tavarez MT, PA-C documented in this encounter [facility] 11-29-2022 Miscellaneous Notes Called patient. Verified name and date of . 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 Has not been checked for a while and would like to discuss with Lucius Lin PA-C. Ketty Al LPN documented in this encounter [facility] 11-28-2022 Note HNO ID: [id number] Author: Nancy Jefferson APRN.[facility] Service: ? Author Type: Nurse Practitioner Type: Progress Notes Filed: 11/28/2022 2:48 PM Note Text: 11/28/2022 Patient presents with: Follow Up SUBJECTIVE: This is a 82 year old, accompanied by , that is here today for Above Complaints. Since last office has been in good health without ER visits or hospitalizations. HTN: Patient is compliant with meds - only taking 10 mg of lisinopril Monitors bp at home: Yes. 120/70-80's Denies side effects: Yes. Chest pain: No. Dyspnea: No. Edema: No. Palpitations: No. Syncope: No. Headache: No. Dizziness: No. CAD: follows with Dr. Ramírez with last office visit in May. Has upcoming follow-up next week. Denies SOB, dyspnea, chest pain, palpitations, or leg edema ANXIETY: reports waking up around 3 AM ans feeling anxious. Thinks citalopram is wearing off. Thinks anxiety is causing him to be nauseated in the morning. Denies depressive symptoms, abdominal pain or vomiting HYPERLIPIDEMIA: Patient is taking medications: Yes. Patient is watching diet: Yes. Patient denies myalgias: Yes. Patient denies gi upset: Yes PAST MEDICAL HISTORY Diagnosis Date Atherosclerotic heart disease of [place] coronary artery without angina pectoris 1990 CABG 3 (no [place]) in 1990; 1 stent in [address] Kraus Benign prostatic hyperplasia without lower urinary tract symptoms BPH with obstruction/lower urinary tract symptoms 07/26/2020 Dr. Love Chronic ischemic heart disease, unspecified Dr. Love H AND P 08/16/2021 Depression Diverticulosis of colon (without mention of hemorrhage) Diverticulosis Elevated bilirubin Chronic Erectile dysfunction due to diseases classified elsewhere Essential hypertension, benign Functional dyspepsia 06/10/2018 Generalized anxiety disorder History of non-ST elevation myocardial infarction (NSTEMI) 05/07/2015 Hyperlipidemia Male erectile dysfunction, unspecified 2011 Dr. 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 Love H AND P 08/16/2021 Other specified glaucoma Peptic ulcer, unspecified site, unspecified as acute or chronic, without mention of hemorrhage, perforation, or obstruction Primary open-angle glaucoma(365.11) 12/2009 Dr. Perkins Pure hypercholesterolemia S/P CABG x 3 Dr. 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 Love Trigeminal neuralgia 2002 Unspecified hemorrhoids without mention of complication Hemorrhoids Unspecified superficial injury of right knee, initial encounter Dr. Love H AND P 08/16/2021 ALLERGIES Anaprox [Naproxen Sodium], Celexa [Citalopram], Cortisone, Crestor [Rosuvastatin Calcium], Elavil [Amitriptyline], Hydrocortisone, Keflex [Cephalexin], Penicillins, Pepcid [Famotidine (Pf)], Sulfa (Sulfonamide Antibiotics), Vioxx [Rofecoxib], and Zocor [Simvastatin] MEDICATIONS Current Outpatient Medications Medication Sig fnhmjlmute-pxhtsdegxukz-qqfufjlryx l 30 MG - 1 MG - 10 MCG/ML injection (CPD) Inject 60 units into the intracavernosal region of the penis citalopram (CELEXA) 20 mg tablet Take 1 tablet by mouth once daily. sucralfate (CARAFATE) 1 gram tablet Dissolve one tablet in 30cc water. Stir and swallow, at least 30 minutes before meals. May repeat at bedtime, as needed. amLODIPine (NORVASC) 2.5 mg tablet Take 1 tablet by mouth once daily. ezetimibe (ZETIA) 10 mg tablet Take 1 tablet by mouth once daily. Insulin Syringe-Needle U-100 1 mL 29 gauge x 1/2 1 Each as needed. For Intercavernal Injections ondansetron orally disintegrating (ZOFRAN ODT) 4 mg disintegrating tablet Take 1 tablet by mouth every 8 hours as needed for nausea/vomiting. Insulin Syringe-Needle U-100 1 mL 29 gauge x 1/2 1 Each as needed. For Intercavernal Injections sildenafil (VIAGRA) 50 mg tablet take one per day as needed mnqflxoc-bqnztiihm-ccikgnzywjyzvq (CORTISPORIN) otic solution Apply 4 drop into both ears three times a day netarsudil (RHOPRESSA) 0.02 % ophthalmic drops Use 1 Drop in the right eye daily at bedtime. lisinopril (ZESTRIL, PRINIVIL) 20 mg tablet Take 20 mg by mouth twice daily. dupilumab (DUPIXENT SYRINGE) 300 mg/2 mL injection Inject subcutaneously every 2 weeks. aspirin, enteric coated (ASPIRIN, ENTERIC COATED) 81 mg EC tablet Adult Low Dose Aspirin 81 mg tablet TESTOSTERONE INTRAMUSC. Inject 150 mg intramuscularly every 2 weeks. timolol maleate (ISTALOL) 0.5 % drpd Use 1 Drop in the right eye twice daily. No current facility-administered medications for this visit. Medications and allergies reviewed by this provider. SOCIAL HISTORY Social History Tobacco Use Smoking status: Never Smokeless tobacco: Former Vaping Use Vaping Use: Never used Substance Use Topics Alcohol use: No Drug use: No REVIEW OF SYSTEMS All other reviewed and negati (more content not included)... [facility] 09-25-2022 Miscellaneous Notes Patient and called in to report they need a refill of medication. 1.) How many units injectected? 60 units 2.) Encounter any problems? No problems 3.) Was your erection firm enough for penatration? Yes, firmness 7-8/10. (if no please rate the erection (0-10)) 4.) Any pain with injection? No pain documented in this encounter [facility] 08-29-2022 Miscellaneous Notes Pt's calling for refill. KRISTIN: 08/29/22 NOV: 11/14/21 Last Refill: 03/14/21 #120 3 refills. Ese Kelley LPN documented in this encounter [facility] 08-29-2022 Note HNO ID: [id number] Author: Nancy Jefferson APRN.[employer] Service: ? Author Type: Nurse Practitioner Type: Progress Notes Filed: 08/29/2022 12:40 PM Note Text: 08/29/2022 Patient presents with: Nausea: Every morning x2 weeks SUBJECTIVE: This is a 81 year old that is here today for Above Complaints. Reports nausea for a few months. Usually comes on the first hour or so after he eats and take his Zoloft in the morning. Does not take his Carafate routinely. Denies fevers, chills, abdominal pain, vomiting, constipation, diarrhea, melana or hematochezia PAST MEDICAL HISTORY Diagnosis Date Atherosclerotic heart disease of [place] coronary artery without angina pectoris 1990 CABG 3 (no [place]) in 1990; 1 stent in [address] Kraus Benign prostatic hyperplasia without lower urinary tract symptoms BPH with obstruction/lower urinary tract symptoms 07/26/2020 Dr. Love Chronic ischemic heart disease, unspecified Dr. Kate Guillermo AND P 08/16/2021 Depression Diverticulosis of colon (without mention of hemorrhage) Diverticulosis Elevated bilirubin Chronic Erectile dysfunction due to diseases classified elsewhere Essential hypertension, benign Functional dyspepsia 06/10/2018 Generalized anxiety disorder History of non-ST elevation myocardial infarction (NSTEMI) 05/07/2015 Hyperlipidemia Male erectile dysfunction, unspecified 2011 Dr. 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 Kate Guillermo AND P 08/16/2021 Other specified glaucoma Peptic ulcer, unspecified site, unspecified as acute or chronic, without mention of hemorrhage, perforation, or obstruction Primary open-angle glaucoma(365.11) 12/2009 Dr. Perkins Pure hypercholesterolemia S/P CABG x 3 Dr. 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 Love Trigeminal neuralgia 2002 Unspecified hemorrhoids without mention of complication Hemorrhoids Unspecified superficial injury of right knee, initial encounter Dr. Kate EDGE P 08/16/2021 ALLERGIES Anaprox [Naproxen Sodium], Celexa [Citalopram], Cortisone, Crestor [Rosuvastatin Calcium], Elavil [Amitriptyline], Hydrocortisone, Keflex [Cephalexin], Penicillins, Pepcid [Famotidine (Pf)], Sulfa (Sulfonamide Antibiotics), Vioxx [Rofecoxib], and Zocor [Simvastatin] MEDICATIONS Current Outpatient Medications Medication Sig amLODIPine (NORVASC) 2.5 mg tablet Take 1 tablet by mouth once daily. ezetimibe (ZETIA) 10 mg tablet Take 1 tablet by mouth once daily. sertraline (ZOLOFT) 50 mg tablet Take 1 tablet by mouth once daily. xnjmvhajbr-hsnxmcorvtzu-myktishjya l 30 MG - 1 MG - 10 MCG/ML injection (CPD) Inject 20 units into the intracavernosal region of the penis Insulin Syringe-Needle U-100 1 mL 29 gauge x 1/2 1 Each as needed. For Intercavernal Injections ondansetron orally disintegrating (ZOFRAN ODT) 4 mg disintegrating tablet Take 1 tablet by mouth every 8 hours as needed for nausea/vomiting. Insulin Syringe-Needle U-100 1 mL 29 gauge x 1/2 1 Each as needed. For Intercavernal Injections sildenafil (VIAGRA) 50 mg tablet take one per day as needed vrgfzndq-pjxeujrdr-kzqlcsybdseteb (CORTISPORIN) otic solution Apply 4 drop into both ears three times a day netarsudil (RHOPRESSA) 0.02 % ophthalmic drops Use 1 Drop in the right eye daily at bedtime. sucralfate (CARAFATE) 1 gram tablet Dissolve one tablet in 30cc water. Stir and swallow, at least 30 minutes before meals. May repeat at bedtime, as needed. lisinopril (ZESTRIL, PRINIVIL) 20 mg tablet Take 20 mg by mouth twice daily. dupilumab (DUPIXENT SYRINGE) 300 mg/2 mL injection Inject subcutaneously every 2 weeks. aspirin, enteric coated (ASPIRIN, ENTERIC COATED) 81 mg EC tablet Adult Low Dose Aspirin 81 mg tablet TESTOSTERONE INTRAMUSC. Inject 150 mg intramuscularly every 2 weeks. timolol maleate (ISTALOL) 0.5 % drpd Use 1 Drop in the right eye twice daily. No current facility-administered medications for this visit. Medications and allergies reviewed by this provider. SOCIAL HISTORY Social History Tobacco Use Smoking status: Never Smokeless tobacco: Former Vaping Use Vaping Use: Never used Substance Use Topics Alcohol use: No Drug use: No REVIEW OF SYSTEMS All other reviewed and negative other than HPI. OBJECTIVE: BP 130/68 Resp 16 Wt 76.8 kg (169 lb 6.4 oz) SpO2 100% BMI 22.35 kg/m? . Vital signs reviewed by this provider. APPEARANCE Well appearing, alert, in no acute distress, well-hydrated, well nourished. EYES conjunctiva and sclera normal. HEART RRR with normal S1 and S2, no murmurs, no gallops, no JVD appreciated LUNG clear to auscultation. No wheezes, rhonchi, or rales ABDOMEN bowel sounds normoactive, no bruits, soft, non-tender, non-distended, without organomegaly or palpable masses. No rebound tenderness or guarding SKIN Skin color, waldo (more content not included)... [facility] 08-29-2022 Instructions Nancy Jefferson APRN.CNP - 08/29/2022 12:08 PM EST Follow-up as scheduled October sooner if needed documented in this encounter [facility] 08-29-2022 History of Present illness Narrative 08/29/2022 Patient presents with: Nausea: Every morning x2 weeks SUBJECTIVE: This is a 81 year old that is here today for Above Complaints. Reports nausea for a few months. Usually comes on the first hour or so after he eats and take his Zoloft in the morning. Does not take his Carafate routinely. Denies fevers, chills, abdominal pain, vomiting, constipation, diarrhea, melana or hematochezia PAST MEDICAL HISTORY Diagnosis Date Atherosclerotic heart disease of [place] coronary artery without angina pectoris 1990 CABG 3 (no [place]) in 1990; 1 stent in [address] Kraus Benign prostatic hyperplasia without lower urinary tract symptoms BPH with obstruction/lower urinary tract symptoms 07/26/2020 Dr. Love Chronic ischemic heart disease, unspecified Dr. Kate Gaston 08/16/2021 Depression Diverticulosis of colon (without mention of hemorrhage) Diverticulosis Elevated bilirubin Chronic Erectile dysfunction due to diseases classified elsewhere Essential hypertension, benign Functional dyspepsia 06/10/2018 Generalized anxiety disorder History of non-ST elevation myocardial infarction (NSTEMI) 05/07/2015 Hyperlipidemia Male erectile dysfunction, unspecified 2011 Dr. 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 Kate Gaston 08/16/2021 Other specified glaucoma Peptic ulcer, unspecified site, unspecified as acute or chronic, without mention of hemorrhage, perforation, or obstruction Primary open-angle glaucoma(365.11) 12/2009 Dr. Perkins Pure hypercholesterolemia S/P CABG x 3 Dr. 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 Kate Gaston 08/16/2021 ALLERGIES Anaprox [Naproxen Sodium], Celexa [Citalopram], Cortisone, Crestor [Rosuvastatin Calcium], Elavil [Amitriptyline], Hydrocortisone, Keflex [Cephalexin], Penicillins, Pepcid [Famotidine (Pf)], Sulfa (Sulfonamide Antibiotics), Vioxx [Rofecoxib], and Zocor [Simvastatin] MEDICATIONS Current Outpatient Medications Medication Sig amLODIPine (NORVASC) 2.5 mg tablet Take 1 tablet by mouth once daily. ezetimibe (ZETIA) 10 mg tablet Take 1 tablet by mouth once daily. sertraline (ZOLOFT) 50 mg tablet Take 1 tablet by mouth once daily. qvgjzxsmwt-hwjecwynxbmf-khtcotnqws l 30 MG - 1 MG - 10 MCG/ML injection (CPD) Inject 20 units into the intracavernosal region of the penis Insulin Syringe-Needle U-100 1 mL 29 gauge x 1/2 1 Each as needed. For Intercavernal Injections ondansetron orally disintegrating (ZOFRAN ODT) 4 mg disintegrating tablet Take 1 tablet by mouth every 8 hours as needed for nausea/vomiting. Insulin Syringe-Needle U-100 1 mL 29 gauge x 1/2 1 Each as needed. For Intercavernal Injections sildenafil (VIAGRA) 50 mg tablet take one per day as needed tiwrddna-tvwefhdmv-pojtbgtskmulfy (CORTISPORIN) otic solution Apply 4 drop into both ears three times a day netarsudil (RHOPRESSA) 0.02 % ophthalmic drops Use 1 Drop in the right eye daily at bedtime. sucralfate (CARAFATE) 1 gram tablet Dissolve one tablet in 30cc water. Stir and swallow, at least 30 minutes before meals. May repeat at bedtime, as needed. lisinopril (ZESTRIL, PRINIVIL) 20 mg tablet Take 20 mg by mouth twice daily. dupilumab (DUPIXENT SYRINGE) 300 mg/2 mL injection Inject subcutaneously every 2 weeks. aspirin, enteric coated (ASPIRIN, ENTERIC COATED) 81 mg EC tablet Adult Low Dose Aspirin 81 mg tablet TESTOSTERONE INTRAMUSC. Inject 150 mg intramuscularly every 2 weeks. timolol maleate (ISTALOL) 0.5 % drpd Use 1 Drop in the right eye twice daily. No current facility-administered medications for this visit. Medications and allergies reviewed by this provider. SOCIAL HISTORY Social History Tobacco Use Smoking status: Never Smokeless tobacco: Former Vaping Use Vaping Use: Never used Substance Use Topics Alcohol use: No Drug use: No REVIEW OF SYSTEMS All other reviewed and negative other than HPI. OBJECTIVE: BP 130/68 Resp 16 Wt 76.8 kg (169 lb 6.4 oz) SpO2 100% BMI 22.35 kg/m . Vital signs reviewed by this provider. APPEARANCE Well appearing, alert, in no acute distress, well-hydrated, well nourished. EYES conjunctiva and sclera normal. HEART RRR with normal S1 and S2, no murmurs, no gallops, no JVD appreciated LUNG clear to auscultation. No wheezes, rhonchi, or rales ABDOMEN bowel sounds normoactive, no bruits, soft, non-tender, non-distended, without organomegaly or palpable masses. No rebound tenderness or guarding SKIN Skin color, texture, turgor normal, no suspicious rashes or lesions to exposed skin SHINGRIX VACCINE(2 of 3) due on 09/13/2011 DTAP,TDAP,TD(2 - Td or Tdap) due on 07/20/2021 ADVANCE DIRECTIVE DISCUSSION Never done LDL CHOLESTEROL due on 04/14/2023 DIABETES SCREEN due on 06/26/2025 INFLUENZA Completed COVID-19 VACCINE Completed PNEUMOCOCCAL: 65+ Completed ASSESSMENT/PLAN: 1. Nausea - ICD9: 787.02, ICD10: R11.0 - no red flag symptoms or exam findings - red flag symptoms discussed - patient think may be due to changing to Zoloft. Would like to go back on citalopram - of switching back does not seem to help nausea would recommend taking his Carafate 1/2 hour before breakfast to see if this helps. - follow-up if symptoms fail to improve Nancy Jefferson, SEMICOND[employer]CTOR [employer] ET[employer] OPERATOR.[employer] Prescription instructions reviewed with patient as applicable. Patient advised if symptoms do not improve or if symptoms worsen sooner, to contact their primary care physician. Potential red flag symptoms discussed with the patient. Reviewed appropriate action plan to take if red flag symptoms occur. Patient agreeable to treatment plan. I spent a total of 25 minutes on the date of the service which included preparing to see the patient, [id number]-eo-ljwp patient care, completing clinical documentation, obtaining and/or reviewing separately obtained history, performing a medically appropriate examination, counseling and educating the patient/family/caregiver, and ordering medications, tests, or procedures. documented in this encounter [facility] 08-29-2022 Miscellaneous Notes Reviewed. Will see in the office Nancy Jefferson APRN.CNP Patient's Tara calling with patient speaking in background. states patient has been complaining of stomach discomfort, some body aches, nausea and overall just not feeling right for approximately 1 week. Also some dizziness when standing. Reports eating well but unsure if taking enough sufficient daily fluids in. Denies fever (T 97.3 today), SOB, chest pain, chest pressure, headache, sore throat, vomiting, diarrhea, cough. reports patient has maybe a little nasal congestion. reports patient has social anxiety and gets a nervous stomach . Patient has had increased social interactions with family this week and thinks this may be contributing to his symptoms. Takes zoloft. BP today 114/77=takes amlodipine daily. States pelon seltzer has helped his stomach a bit. Appt made with Nancy Jefferson for today at 11:40am for evaluation. Please call if provider has other instructions/advise. Thank you. documented in this encounter [facility] 07-21-2022 Miscellaneous Notes Patient has been identified by name and date of : Yes Last office visit in this department: 06/08/2022 RX INSTRUCTIONS: Patient aware RX will be sent to pharmacy. No need to notify patient. Patient phones requesting refills as follows: Requested Prescriptions Pending Prescriptions Disp Refills amLODIPine (NORVASC) 2.5 mg tablet 30 tablet 5 Sig: Take 1 tablet by mouth once daily. Please review and advise. Renee Horn documented in this encounter [facility] 07-18-2022 Miscellaneous Notes Called patient. Verified name and date of . Notified of message from provider- verbalizes understanding. Ketty Al LPN Increase to 30 units and report back results If firmness is less than 7 out of 10 then after 24 hours may increase to 35 units and report back both results for further dosing increases. JULITA Tavarez, AL, DERRICK Patient and presented to clinic. Returned call to them. Update on injections: 1.) How many units injectected? 20 2.) Encounter any problems? No 3.) Was your erection firm enough for penatration? (if no please rate the erection (0-10)) First injection 7/10, second injection 7/10, third injection 4/10 4.) Any pain with injection? No Patient would like to add that the erection did not last. Please review and advise. Ketty Al LPN documented in this encounter [facility] 07-17-2022 Miscellaneous Notes KRISTIN 06/08/22 NOV 11/14/22 Patient has been identified by name and date of : Yes Spouse phones for refill(s): Requested Prescriptions Pending Prescriptions Disp Refills ezetimibe (ZETIA) 10 mg tablet 30 tablet 5 Sig: Take 1 tablet by mouth once daily. Date of last office visit in primary care: 06/08/22 Last 2 Encounter Wt Readings: Date: Wt: 06/08/2022 76.6 kg (168 lb 12.8 oz) 06/06/2022 75.8 kg (167 lb) Previous labs/tests for medication: Not applicable Please advise. Thank you. Beryl Argueta documented in this encounter [facility] 07-05-2022 Miscellaneous Notes Patient has been identified by name and date of : Yes Spouse phones for refill(s): Requested Prescriptions Pending Prescriptions Disp Refills sertraline (ZOLOFT) 50 mg tablet 30 tablet 2 Sig: Take 1 tablet by mouth once daily. Date of last office visit with pcp: 06/08/2022 Future appt: 11/14/2022 Last 2 Encounter Wt Readings: Date: Wt: 06/08/2022 76.6 kg (168 lb 12.8 oz) 06/06/2022 75.8 kg (167 lb) Previous labs/tests for medication: Blood Pressure: BUN (mg/dL) Date Value 06/26/2022 19 10/14/2021 15 Sodium (mmol/L) Date Value 06/26/2022 140 10/14/2021 141 Last 1 Encounter BP Readings: Date: BP: 06/08/2022 124/72 Liver Function: ALT (U/L) Date Value 06/08/2022 24 10/14/2021 15 AST (U/L) Date Value 06/08/2022 30 10/14/2021 22 Please advise. Thank you. Suzi Ma RN documented in this encounter [facility] 06-14-2022 Miscellaneous Notes Called patient. Koffialex answered phone. Verified name and date of of patient. Informed of refill. Verbalizes understanding. Ketty Al LPN Disp Refills Start End ghlentkgky-mectnmtcclez-byiwoerxmy l 30 MG - 1 MG - 10 MCG/ML injection (CPD) 5 mL 4 06/14/2022 Sig: Inject 20 units into the intracavernosal region of the penis Sent to pharmacy as: dkhtrvawtq-txaocpmjzaye-nrvnlteyxy l 30 MG - 1 MG - 10 MCG/ML injection (CPD) Class: Normal Order: [id number] E-Prescribing Status: Receipt confirmed by pharmacy (06/14/2022 11:57 AM EDT) Patient and his presented to clinic. Verified name and date of . Brought in information on medication for clarification: Tri-Mix 10 mcg/30 mg/ 1 mg in mL in AQ vehicle injection solution 10 mL. Contains: Prostaglandin E1 10 mcg/ml Papaverine HCl 30 mg/ml Phentolamine Mesylate 1 mg/ml Ketty Al LPN documented in this encounter [facility] 06-12-2022 Miscellaneous Notes Pt notified and voiced understanding. Jaylene Terrazas MA Please let patient know that I received his lab results. His kidney function is decreased a bit compared with previous. This is likely due to some dehydration. I would like him to make sure he's getting a minimum of 60-80oz of water daily, and we recheck these levels again in 2 weeks. His glucose level is also elevated. At that point I'd like him to have an A1C (3-month blood glucose average) level drawn as well. Shaila Boogie APRN.ATUL documented in this encounter [facility] 06-08-2022 Miscellaneous Notes Noted, thank you. Shaila Boogie APRN.CNP Protocol recommends: See provider within4 hours. No appt available with Dr. Chavis's office today. Appt made with Jerman Boogie, if provider agreeable. Will send message to Shaila for review. Please call patient if provider has other instructions. Thank you Reason for Disposition [1] Dizziness caused by heat exposure, sudden standing, or poor fluid intake AND [2] no improvement after 2 hours of rest and fluids Answer Assessment - Initial Assessment Questions Patient reports on and off dizziness when standing for the last 2-3 weeks. Had it today again. No dizziness when sitting or lying down. Denies chest pain, chest pressure or SOB at rest. Reports he has mild SOB with exertion and typically has this. Has cardiac history. No h/o vertigo. Walking okay-steady. Drinking and eating good. Reports on BP medications. RBP todaY 122/79. Yesterday BPs were: 89/61, 78/53, 96/58. 1. DESCRIPTION: as above 2. LIGHTHEADED: Denies being faint, woozy, or weak upon standing 3. VERTIGO: Denies spinning 4. SEVERITY: moderate does not feel like going to fall 5. ONSET: off and for 2-3 weeks 6. AGGRAVATING FACTORS: standing 7. HEART RATE: not completed 8. CAUSE: Patient not sure 9. RECURRENT SYMPTOM: no 10. OTHER SYMPTOMS: No fever, no chest pain, no vomiting, no diarrhea, no bleeding 11. : n/a Protocols used: Dizziness - Xxkbottgrojrfmf-GAYNJ-DP documented in this encounter [facility] 06-06-2022 History of Present illness Narrative Images from the original note were not included. Former[facility] [place] UROLOGY INTRACAVERNOUS TEACHING APPOINTMENT Patient : Tuan Hou 1940 81 year old Diagnosis: Impotence Medications: Current Outpatient Medications Medication Sig ondansetron orally disintegrating (ZOFRAN ODT) 4 mg disintegrating tablet Take 1 tablet by mouth every 8 hours as needed for nausea/vomiting. Insulin Syringe-Needle U-100 1 mL 29 gauge x 1/2 1 Each as needed. For Intercavernal Injections mysmywipbn-bgzmzgjiddoc-nkjwkdbooh l 15 MG - 0.5 MG - 5 MCG/mL injection (CPD) Inject 20 units into the intracavernosal region of the penis , MUST bring vial to teaching appointment sertraline (ZOLOFT) 50 mg tablet Take 1 tablet by mouth once daily. ezetimibe (ZETIA) 10 mg tablet Take 1 tablet by mouth once daily. sildenafil (VIAGRA) 50 mg tablet take one per day as needed amLODIPine (NORVASC) 2.5 mg tablet Take 1 tablet by mouth once daily. wmrajynr-jtznhyvyt-metflhpcnghwdu (CORTISPORIN) otic solution Apply 4 drop into both ears three times a day netarsudil (RHOPRESSA) 0.02 % ophthalmic drops Use 1 Drop in the right eye daily at bedtime. sucralfate (CARAFATE) 1 gram tablet Dissolve one tablet in 30cc water. Stir and swallow, at least 30 minutes before meals. May repeat at bedtime, as needed. lisinopril (ZESTRIL, PRINIVIL) 20 mg tablet Take 20 mg by mouth twice daily. dupilumab (DUPIXENT SYRINGE) 300 mg/2 mL injection Inject subcutaneously every 2 weeks. aspirin, enteric coated (ASPIRIN, ENTERIC COATED) 81 mg EC tablet Adult Low Dose Aspirin 81 mg tablet TESTOSTERONE INTRAMUSC. Inject 150 mg intramuscularly every 2 weeks. timolol maleate (ISTALOL) 0.5 % drpd Use 1 Drop in the right eye twice daily. No current facility-administered medications for this visit. COGNITIVE ABILITY: Alert and oriented MOTIVATION TO LEARN: Eager FAMILY SUPPORT: Unable to assess - Family not present INSTRUCTION PROVIDED TO: Patient PATIENT LEARNS BEST BY: Individual Instruction Written Instruction - Hand-outs Verbal Instruction Demonstration FACTORS AFFECTING LEARNING: None PHYSICAL LIMITATIONS AFFECTING LEARNING: None METHOD OF INSTRUCTION: Individual instruction Written instruction - handouts Verbal instruction Demonstration-Hands on Learning EDUCATION TOPIC TEACHING POINTS: Survival Skills: History of Drug and skilled nursing effects reviewed with patient. yes Discussed with patient to NEVER increase the dose without first calling.yes The Following Possible Complications were Reviewed: Bleeding yes Discomfort and resistance yes Infection yes Scarring yes Priapism yes Transient liver Abnormalities (papaverine only). yes Care of Medication discussed yes Anatomy of penis reviewed.yes Syringe and needle size reviewed, 29 gauge 1/2 inch U100. yes Sterility Emphasized:yes Syringe preparation discussed and demonstrated. yes Emphasized removing air bubbles. yes Patient practiced preparing syringe 3 times. yes Skin preparation discussed and done by patient. yes Patient injected medication. yes Patient compressed injection site 3-5 minutes. yes Usage of medication discussed: (1 time per 24 hours 2-3 times a week). yes Patient told to rotate sites. yes Patient told to keep notes on injections. yes Patient instructed to call after using x1. yes LEARNING RESPONSE PATIENT / FAMILY RESPONSE: Performs skill independently: Anatomy of penis Syringe and needle size Sterility principles Syringe preparation and injection technique FOLLOW-UP PLAN REVIEWED: yes SUPPLEMENTAL MATERIAL: Written instructions given to the patient and read in the office.yes REFERRAL (RECOMMENDATION): None Injection results: Patient to call office with results and further dosing instructions Homegoing medication: Alprostadil mcg/mL Phentolamine mg Papaverine was using 1 ml but he will find the strength so we can dose it corrrectly I spent a total of, 60 minutes face to face with the patient. Greater than 50% of the time was spent counseling and coordinating the care based on my plan and assessment as noted. Electronically Signed JULITA Tavarez, MT, DERRICK In Department: UROLOGY documented in this encounter [facility] 05-26-2022 Miscellaneous Notes If persists needs to follow-up in office. I have sent over some more zofran. Nancy Jefferson APRN.CNP Patient's stated he was prescribed Zofran at urgent care on Sunday. Said it is helping with his nausea. Wants to know if it can be refilled. Patient has been identified by name and date of : Yes Requested Prescriptions Pending Prescriptions Disp Refills ondansetron orally disintegrating (ZOFRAN ODT) 4 mg disintegrating tablet 6 tablet 0 Sig: Take 1 tablet by mouth every 8 hours as needed for nausea/vomiting. RX INSTRUCTIONS: Patient requesting a call when RX is approved and sent to the pharmacy. Please call patient at: [phone] Larissa Horn documented in this encounter [facility] 05-19-2022 History of Present illness Narrative VIRTUAL VISIT PROGRESS NOTE This is a virtual visit using [employer] video visit. It required patient-provider interaction for the medical decision making as documented below. 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 Kraus Benign prostatic hyperplasia without lower urinary tract symptoms BPH with obstruction/lower urinary tract symptoms 07/26/2020 Dr. Love Chronic ischemic heart disease, unspecified Dr. Kate Gaston 08/16/2021 Depression Diverticulosis of colon (without mention of hemorrhage) Diverticulosis Elevated bilirubin Chronic Erectile dysfunction due to diseases classified elsewhere Essential hypertension, benign Functional dyspepsia 06/10/2018 Generalized anxiety disorder History of non-ST elevation myocardial infarction (NSTEMI) 05/07/2015 Hyperlipidemia Male erectile dysfunction, unspecified 2011 Dr. 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 Kate Gaston 08/16/2021 Other specified glaucoma Peptic ulcer, unspecified site, unspecified as acute or chronic, without mention of hemorrhage, perforation, or obstruction Primary open-angle glaucoma(365.11) 12/2009 Dr. Perkins Pure hypercholesterolemia S/P CABG x 3 Dr. 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 Kate Gaston 08/16/2021 PAST SURGICAL HISTORY Procedure Laterality Date ANGIOPLASTY 1996 WITH STENT AQUEOUS SHUNT EXTRAOC EQUAT PLATE RSVR W/GRAFT 12/19/12 OD Glaucoma Implant; BGI 350 combined CABG, ARTERIAL, THREE 1990 COLONOSCOPY FLX DX W/COLLJ SPEC WHEN PFRMD 01/2004 Colonoscopy COLONOSCOPY FLX DX W/COLLJ SPEC WHEN PFRMD 09/29/2009 Colonoscopy COLONOSCOPY FLX DX W/COLLJ SPEC WHEN PFRMD 02/05/2015 Colonoscopy ESOPHAGOGASTRODUODENOSCOPY TRANSORAL DIAGNOSTIC 08/14/2016 EGD ESOPHAGOGASTRODUODENOSCOPY TRANSORAL DIAGNOSTIC 02/25/2018 EGD HEART SURGERY HX HERNIA REPAIR HX 10/2017 removal INCISION OF EYE, TRABECULECTOMY 2009 OU LAPAROSCOPY SURG CHOLECYSTECTOMY Cholecystectomy, lap PAST SURGICAL HISTORY OF 03/2009 Right Knee Ligament Repair PAST SURGICAL HISTORY OF colonoscopy about 2014- Dr. Love H & P 08/16/2021 PROSTATE NEEDLE BIOPSY 2003 Dr. Love H & P 08/16/2021 XCAPSL CTRC RMVL INSJ IO LENS PROSTH W/O ECP 12/19/12 OD Cataract Extraction with PC IOL with Trab/MMC FAMILY HISTORY Problem Relation Age of Onset Colon Cancer Father Hypertension Father Glaucoma Mother Blindness Mother Hypertension Brother heart disease Hypertension Brother heart disease Hypertension Brother heart disease Social History Tobacco Use Smoking status: Never Smokeless tobacco: Former Vaping Use Vaping Use: Never used Substance Use Topics Alcohol use: No Drug use: No Current Outpatient Medications Medication Sig sertraline (ZOLOFT) 50 mg tablet Take 1 tablet by mouth once daily. ezetimibe (ZETIA) 10 mg tablet Take 1 tablet by mouth once daily. sildenafil (VIAGRA) 50 mg tablet take one per day as needed amLODIPine (NORVASC) 2.5 mg tablet Take 1 tablet by mouth once daily. rbfjnyia-bzqvrrotl-uylbryjfbkgmeg (CORTISPORIN) otic solution Apply 4 drop into both ears three times a day netarsudil (RHOPRESSA) 0.02 % ophthalmic drops Use 1 Drop in the right eye daily at bedtime. sucralfate (CARAFATE) 1 gram tablet Dissolve one tablet in 30cc water. Stir and swallow, at least 30 minutes before meals. May repeat at bedtime, as needed. lisinopril (ZESTRIL, PRINIVIL) 20 mg tablet Take 20 mg by mouth twice daily. dupilumab (DUPIXENT SYRINGE) 300 mg/2 mL injection Inject subcutaneously every 2 weeks. aspirin, enteric coated (ASPIRIN, ENTERIC COATED) 81 mg EC tablet Adult Low Dose Aspirin 81 mg tablet TESTOSTERONE INTRAMUSC. Inject 150 mg intramuscularly every 2 weeks. timolol maleate (ISTALOL) 0.5 % drpd Use 1 Drop in the right eye twice daily. ondansetron orally disintegrating (ZOFRAN ODT) 4 mg disintegrating tablet Take 1 tablet by mouth every 8 hours as needed for nausea/vomiting. Insulin Syringe-Needle U-100 1 mL 29 gauge x 1/2 1 Each as needed. For Intercavernal Injections tipftfdrdo-vowcohdowdjn-wwktjaphmg l 15 MG - 0.5 MG - 5 MCG/mL injection (CPD) Inject 20 units into the intracavernosal region of the penis , MUST bring vial to teaching appointment No current facility-administered medications for this visit. ALLERGIES Allergen Reactions Anaprox [Naproxen S* Celexa [Citalopram] Other: See Comments Erectile dysfunction Cortisone Crestor [Rosuvastat* GI Upset Elavil [Amitriptyli* difficulty urinating Hydrocortisone Keflex [Cephalexin] Rash Penicillins Pepcid [Famotidine * Other: See Comments dizziness Sulfa (Sulfonamide * Vioxx [Rofecoxib] Zocor [Simvastatin] REVIEW OF SYSTEMS: GENERAL: feeling well without fatigue, no recent change in weight PHYSICAL EXAMINATION: VIDEO EXAM: (if completed, performed via video enabled technology) No exam performed ASSESSMENT/ PLAN: > NO further prostate check or PSA needed > Stop Testosterone for 3 months > Get Injection medication for ED and make teaching appointment at [facility], once you have the medication bring it to the appointment JULITA Tavarez, MS, PAAmber documented in this encounter [facility] 05-16-2022 History of Present illness Narrative Chief Complaint Patient presents with: Follow Up: Medication-Started sertraline. Memory impairment work up. HPI Tuan Hou is a 81 year old male who presents here today for Above Complaints. Patient switched from Celexa to Zoloft which is working well to control his anxiety and depression symptoms. Notes some mild anxiety first thing in the morning. Still complaining of ED symptoms and is now complaining of delayed orgasm for the last 7-8 years. Taking Viagra PRN which is working well for his ED. States that he is able to achieve orgasm with masturbation. suspects he may be worried about performance. BP well controlled on current regimen. Brought in home readings which are similar to today's. Patient's MMSE today is consistent with mild memory impairment. Patient and state no significant change recently. Able to manage medications, finances on his own. No major memory concerns today. Past medical history, appointments, medications, allergies reviewed. 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 Kraus Benign prostatic hyperplasia without lower urinary tract symptoms BPH with obstruction/lower urinary tract symptoms 07/26/2020 Dr. Love Chronic ischemic heart disease, unspecified Dr. Love H & Jarod 08/16/2021 Depression Diverticulosis of colon (without mention of hemorrhage) Diverticulosis Elevated bilirubin Chronic Erectile dysfunction due to diseases classified elsewhere Essential hypertension, benign Functional dyspepsia 06/10/2018 Generalized anxiety disorder History of non-ST elevation myocardial infarction (NSTEMI) 05/07/2015 Hyperlipidemia Male erectile dysfunction, unspecified 2011 Dr. Love Neoplasm of uncertain behavior of prostate Dr. Kate Gaston 08/16/2021 Other specified glaucoma Peptic ulcer, unspecified site, unspecified as acute or chronic, without mention of hemorrhage, perforation, or obstruction Primary open-angle glaucoma(365.11) 12/2009 Dr. Perkins Pure hypercholesterolemia S/P CABG x 3 Dr. 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 Kate Gaston 08/16/2021 Previous Surgical History PAST SURGICAL HISTORY Procedure Laterality Date ANGIOPLASTY 1996 WITH STENT AQUEOUS SHUNT EXTRAOC EQUAT PLATE RSVR W/GRAFT 12/19/12 OD Glaucoma Implant; BGI 350 combined CABG, ARTERIAL, THREE 1990 COLONOSCOPY FLX DX W/COLLJ SPEC WHEN PFRMD 01/2004 Colonoscopy COLONOSCOPY FLX DX W/COLLJ SPEC WHEN PFRMD 09/29/2009 Colonoscopy COLONOSCOPY FLX DX W/COLLJ SPEC WHEN PFRMD 02/05/2015 Colonoscopy ESOPHAGOGASTRODUODENOSCOPY TRANSORAL DIAGNOSTIC 08/14/2016 EGD ESOPHAGOGASTRODUODENOSCOPY TRANSORAL DIAGNOSTIC 02/25/2018 EGD HEART SURGERY HX HERNIA REPAIR HX 10/2017 removal INCISION OF EYE, TRABECULECTOMY 2009 OU LAPAROSCOPY SURG CHOLECYSTECTOMY Cholecystectomy, lap PAST SURGICAL HISTORY OF 03/2009 Right Knee Ligament Repair PAST SURGICAL HISTORY OF colonoscopy about 2014- Dr. Love H & P 08/16/2021 PROSTATE NEEDLE BIOPSY 2003 Dr. Love H & P 08/16/2021 XCAPSL CTRC RMVL INSJ IO LENS PROSTH W/O ECP 12/19/12 OD Cataract Extraction with PC IOL with Trab/MMC Family History FAMILY HISTORY Problem Relation Age of Onset Colon Cancer Father Hypertension Father Glaucoma Mother Blindness Mother Hypertension Brother heart disease Hypertension Brother heart disease Hypertension Brother heart disease Patient Allergies ALLERGIES Allergen Reactions Anaprox [Naproxen S* Celexa [Citalopram] Other: See Comments Erectile dysfunction Cortisone Crestor [Rosuvastat* GI Upset Elavil [Amitriptyli* difficulty urinating Hydrocortisone Keflex [Cephalexin] Rash Penicillins Pepcid [Famotidine * Other: See Comments dizziness Sulfa (Sulfonamide * Vioxx [Rofecoxib] Zocor [Simvastatin] Current Medications Current Outpatient Medications on File Prior to Visit Medication Sig sertraline (ZOLOFT) 50 mg tablet Take 1 tablet by mouth once daily. ezetimibe (ZETIA) 10 mg tablet Take 1 tablet by mouth once daily. sildenafil (VIAGRA) 50 mg tablet take one per day as needed amLODIPine (NORVASC) 2.5 mg tablet Take 1 tablet by mouth once daily. dpguvpnp-cnktlqbdf-jycbacqmpqpniu (CORTISPORIN) otic solution Apply 4 drop into both ears three times a day netarsudil (RHOPRESSA) 0.02 % ophthalmic drops Use 1 Drop in the right eye daily at bedtime. sucralfate (CARAFATE) 1 gram tablet Dissolve one tablet in 30cc water. Stir and swallow, at least 30 minutes before meals. May repeat at bedtime, as needed. lisinopril (ZESTRIL, PRINIVIL) 20 mg tablet Take 20 mg by mouth twice daily. dupilumab (DUPIXENT SYRINGE) 300 mg/2 mL injection Inject subcutaneously every 2 weeks. aspirin, enteric coated (ASPIRIN, ENTERIC COATED) 81 mg EC tablet Adult Low Dose Aspirin 81 mg tablet TESTOSTERONE INTRAMUSC. Inject intramuscularly. timolol maleate (ISTALOL) 0.5 % drpd Use 1 Drop in the right eye twice daily. No current facility-administered medications on file prior to visit. Social History Social History Tobacco Use Smoking status: Never Smokeless tobacco: Former Substance Use Topics Alcohol use: No Drug use: No Review of Symptoms REVIEW OF SYSTEMS GENERAL: No weight loss, malaise or fevers RESPIRATORY: Negative for cough, hemoptysis, wheezing, COPD, dyspnea or shortness of breath CARDIOVASCULAR: Negative for chest pain, leg swelling, hypertension, CHF or palpitations SKIN: Negative for lesions, rash, and itching EXAM: BP 130/72 Pulse 67 Resp 16 Wt 79.3 kg (174 lb 12.8 oz) SpO2 98% BMI 22.44 kg/m General Appearance: Well appearing, alert, in no acute distress, well-hydrated, well nourished.. Skin: Skin color, texture, turgor normal, no suspicious rashes or lesions. Lungs: Lungs clear to auscultation. No wheezing, rhonchi, rales.. Heart: RRR without murmur, gallop, or rubs. No ectopy. Abdomen: Normal abdominal exam, Abdomen soft, non-tender. Bowel sounds normal. No masses, organomegaly. Extremities: No deformities, edema, skin discoloration, clubbing or cyanosis. Good capillary refill. . Health Maintenance List SHINGRIX VACCINE(2 of 3) due on 09/13/2011 DTAP,TDAP,TD(2 - Td or Tdap) due on 07/20/2021 ADVANCE DIRECTIVE DISCUSSION Never done INFLUENZA(1) due on 05/18/2022 LDL CHOLESTEROL due on 04/14/2023 DIABETES SCREEN due on 04/14/2025 COVID-19 VACCINE Completed PNEUMOCOCCAL: 65+ Completed Data reviewed MMSE: ASSESSMENT/PLAN: 1. Mild cognitive impairment with memory loss - ICD9: 331.83, ICD10: G31.84 (primary diagnosis) Mild impairment. Will continue to monitor for progression. No major concerns at this time. 2. Essential hypertension, benign - ICD9: 401.1, ICD10: I10 - good control - Continue current medication(s) - Encouraged dietary sodium restriction/DASH diet - Recommended regular aerobic exercise. - Reviewed risks of HTN and principles of treatment - Goal of BP <140/90 3. Erectile dysfunction, unspecified erectile dysfunction type - ICD9: 607.84, ICD10: N52.9 Improved with Viagra. 4. 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 Offered to change SSRI, but patient is refusing. 5. Anxiety and depression - ICD9: 300.00, 311, ICD10: F41.9, F32.A Controlled on SSRI without side effects. Call if symptoms worsening. F/u in 6 months or PRN. Vargas Chavis MD documented in this encounter [facility] 04-20-2022 Miscellaneous Notes Received fax of outside medical records from office of Dr. Love. Available for Lucius Lin PA-C to review and to medical records for scanning. Ketty Al LPN Called medical records for office of Dr. Love to request medical records. No answer. Left message for request. Ketty Al LPN documented in this encounter [facility] 01-17-2022 Miscellaneous Notes KRISTIN 10/14/2021 Appointment scheduled for 04/14/2022 Please advise. Thank you. ummary: Med Refill Patient has been identified by name and date of : Yes Last office visit in this department: 10/14/2021 RX INSTRUCTIONS: Patient aware RX will be sent to pharmacy. No need to notify patient. Patient phones requesting refills as follows: Pending Prescriptions Disp Refills SILDENAFIL 50 MG TABLET 20 tablet 5 Sig: take one per day as needed GARRY: No AMLODIPINE 2.5 MG TABLET 30 tablet 5 Sig: Take 1 tablet by mouth once daily. GARRY: No Please review and advise. Jaclyn Mendoza documented in this encounter [facility] 01-02-2022 Miscellaneous Notes Last appt: 10/14/21 - Next appt: 04/14/22 Patient has been identified by name and date of : Yes Pending Prescriptions Disp Refills AMLODIPINE 2.5 MG TABLET 30 tablet 5 Sig: Take 1 tablet by mouth once daily. GARRY: No CITALOPRAM 20 MG TABLET 15 tablet 5 Sig: Take 0.5 tablets by mouth once daily. GARRY: No RX INSTRUCTIONS: Patient aware RX will be sent to pharmacy. No need to notify patient. Monica Mtz LPN documented in this encounter [facility] documented as of this encounter (statuses as of 01/02/2022) [facility] History of Past illness Narrative* Problem Noted Date Resolved Date Special screening for malignant neoplasms, colon 02/05/2015 02/05/2015 Depression 04/30/2012 02/10/2016 Peptic ulcer, unspecified si te, unspecified as acute or chronic, without mention of hemorrhage, perforation, or obstruction 05/07/2015 documented as of this encounter (statuses as of 01/17/2022) [facility] History of Past illness Narrative* Problem Noted Date Resolved Date Special screening for malignant neoplasms, colon 02/05/2015 02/05/2015 Depression 04/30/2012 02/10/2016 Peptic ulcer, unspecified si te, unspecified as acute or chronic, without mention of hemorrhage, perforation, or obstruction 05/07/2015 documented as of this encounter (statuses as of 04/20/2022) [facility] illness Narrative* Problem Noted Date Resolved Date Special screening for malignant neoplasms, colon 02/05/2015 02/05/2015 Depression 04/30/2012 02/10/2016 Peptic ulcer, unspecified si te, unspecified as acute or chronic, without mention of hemorrhage, perforation, or obstruction 05/07/2015 documented as of this encounter (statuses as of 04/20/2022) [facility] of [facility] illness Narrative* Problem Noted Date Resolved Date Special screening for malignant neoplasms, colon 02/05/2015 02/05/2015 Depression 04/30/2012 02/10/2016 Peptic ulcer, unspecified si te, unspecified as acute or chronic, without mention of hemorrhage, perforation, or obstruction 05/07/2015 documented as of this encounter (statuses as of 05/16/2022) [facility] of [facility] illness Narrative* Problem Noted Date Resolved Date Special screening for malignant neoplasms, colon 02/05/2015 02/05/2015 Depression 04/30/2012 02/10/2016 Peptic ulcer, unspecified si te, unspecified as acute or chronic, without mention of hemorrhage, perforation, or obstruction 05/07/2015 documented as of this encounter (statuses as of 05/26/2022) [facility] Narrative* Problem Noted Date Resolved Date Special screening for malignant neoplasms, colon 02/05/2015 02/05/2015 Depression 04/30/2012 02/10/2016 Peptic ulcer, unspecified si te, unspecified as acute or chronic, without mention of hemorrhage, perforation, or obstruction 05/07/2015 documented as of this encounter (statuses as of 05/30/2022) [facility] Narrative* Problem Noted Date Resolved Date Special screening for malignant neoplasms, colon 02/05/2015 02/05/2015 Depression 04/30/2012 02/10/2016 Peptic ulcer, unspecified si te, unspecified as acute or chronic, without mention of hemorrhage, perforation, or obstruction 05/07/2015 documented as of this encounter (statuses as of 06/06/2022) [facility] Narrative* Problem Noted Date Resolved Date Special screening for malignant neoplasms, colon 02/05/2015 02/05/2015 Depression 04/30/2012 02/10/2016 Peptic ulcer, unspecified si te, unspecified as acute or chronic, without mention of hemorrhage, perforation, or obstruction 05/07/2015 documented as of this encounter (statuses as of 06/08/2022) [facility] of Past [facility] Narrative* Problem Noted Date Resolved Date Special screening for malignant neoplasms, colon 02/05/2015 02/05/2015 Depression 04/30/2012 02/10/2016 Peptic ulcer, unspecified si te, unspecified as acute or chronic, without mention of hemorrhage, perforation, or obstruction 05/07/2015 documented as of this encounter (statuses as of 06/12/2022) [facility] Narrative* Problem Noted Date Resolved Date Special screening for malignant neoplasms, colon 02/05/2015 02/05/2015 Depression 04/30/2012 02/10/2016 Peptic ulcer, unspecified si te, unspecified as acute or chronic, without mention of hemorrhage, perforation, or obstruction 05/07/2015 documented as of this encounter (statuses as of 06/14/2022) [facility] Narrative* Problem Noted Date Resolved Date Special screening for malignant neoplasms, colon 02/05/2015 02/05/2015 Depression 04/30/2012 02/10/2016 Peptic ulcer, unspecified si te, unspecified as acute or chronic, without mention of hemorrhage, perforation, or obstruction 05/07/2015 documented as of this encounter (statuses as of 07/05/2022) [facility] Narrative* Problem Noted Date Resolved Date Special screening for malignant neoplasms, colon 02/05/2015 02/05/2015 Depression 04/30/2012 02/10/2016 Peptic ulcer, unspecified si te, unspecified as acute or chronic, without mention of hemorrhage, perforation, or obstruction 05/07/2015 documented as of this encounter (statuses as of 07/17/2022) [facility] of Past illness Narrative* Problem Noted Date Resolved Date Special screening for malignant neoplasms, colon 02/05/2015 02/05/2015 Depression 04/30/2012 02/10/2016 Peptic ulcer, unspecified si te, unspecified as acute or chronic, without mention of hemorrhage, perforation, or obstruction 05/07/2015 documented as of this encounter (statuses as of 07/18/2022) [facility] of Past illness Narrative* Problem Noted Date Resolved Date Special screening for malignant neoplasms, colon 02/05/2015 02/05/2015 Depression 04/30/2012 02/10/2016 Peptic ulcer, unspecified si te, unspecified as acute or chronic, without mention of hemorrhage, perforation, or obstruction 05/07/2015 documented as of this encounter (statuses as of 07/21/2022) [facility] Narrative* Problem Noted Date Resolved Date Special screening for malignant neoplasms, colon 02/05/2015 02/05/2015 Depression 04/30/2012 02/10/2016 Peptic ulcer, unspecified si te, unspecified as acute or chronic, without mention of hemorrhage, perforation, or obstruction 05/07/2015 documented as of this encounter (statuses as of 08/29/2022) [facility] Past [facility] Narrative* Problem Noted Date Resolved Date Special screening for malignant neoplasms, colon 02/05/2015 02/05/2015 Depression 04/30/2012 02/10/2016 Peptic ulcer, unspecified si te, unspecified as acute or chronic, without mention of hemorrhage, perforation, or obstruction 05/07/2015 documented as of this encounter (statuses as of 08/29/2022) [facility] Narrative* Problem Noted Date Resolved Date Special screening for malignant neoplasms, colon 02/05/2015 02/05/2015 Depression 04/30/2012 02/10/2016 Peptic ulcer, unspecified si te, unspecified as acute or chronic, without mention of hemorrhage, perforation, or obstruction 05/07/2015 documented as of this encounter (statuses as of 08/29/2022) [facility] Narrative* Problem Noted Date Resolved Date Special screening for malignant neoplasms, colon 02/05/2015 02/05/2015 Depression 04/30/2012 02/10/2016 Peptic ulcer, unspecified si te, unspecified as acute or chronic, without mention of hemorrhage, perforation, or obstruction 05/07/2015 documented as of this encounter (statuses as of 10/04/2022) [facility] Narrative* Problem Noted Date Resolved Date Special screening for malignant neoplasms, colon 02/05/2015 02/05/2015 Depression 04/30/2012 02/10/2016 Peptic ulcer, unspecified si te, unspecified as acute or chronic, without mention of hemorrhage, perforation, or obstruction 05/07/2015 documented as of this encounter (statuses as of 11/29/2022) [facility] Narrative* Problem Noted Date Resolved Date Special screening for malignant neoplasms, colon 02/05/2015 02/05/2015 Depression 04/30/2012 02/10/2016 Peptic ulcer, unspecified si te, unspecified as acute or chronic, without mention of hemorrhage, perforation, or obstruction 05/07/2015 documented as of this encounter (statuses as of 12/06/2022) [facility] of Past illness Narrative* Problem Noted Date Resolved Date Special screening for malignant neoplasms, colon 02/05/2015 02/05/2015 Depression 04/30/2012 02/10/2016 Peptic ulcer, unspecified si te, unspecified as acute or chronic, without mention of hemorrhage, perforation, or obstruction 05/07/2015 documented as of this encounter (statuses as of 12/22/2022) [facility] of Past illness Narrative* Problem Noted Date Resolved Date Special screening for malignant neoplasms, colon 02/05/2015 02/05/2015 Depression 04/30/2012 02/10/2016 Peptic ulcer, unspecified si te, unspecified as acute or chronic, without mention of hemorrhage, perforation, or obstruction 05/07/2015 documented as of this encounter (statuses as of 01/16/2023) [facility] Narrative* Problem Noted Date Resolved Date Special screening for malignant neoplasms, colon 02/05/2015 02/05/2015 Depression 04/30/2012 02/10/2016 Peptic ulcer, unspecified si te, unspecified as acute or chronic, without mention of hemorrhage, perforation, or obstruction 05/07/2015 documented as of this encounter (statuses as of 01/31/2023) [facility] Narrative* Problem Noted Date Resolved Date Special screening for malignant neoplasms, colon 02/05/2015 02/05/2015 Depression 04/30/2012 02/10/2016 Peptic ulcer, unspecified si te, unspecified as acute or chronic, without mention of hemorrhage, perforation, or obstruction 05/07/2015 documented as of this encounter (statuses as of 03/18/2023) [facility] Narrative* Problem Noted Date Diagnosed Date Resolved Date Special screening for malign ant neoplasms, colon 02/05/2015 02/05/2015 Depression 04/30/2012 02/10/2016 Peptic ulcer, unspecified si te, unspecified as acute or chronic, without mention of hemorrhage, perforation, or obstruction 05/07/2015 documented as of this encounter (statuses as of 04/30/2023) [facility] Past [facility] Narrative* Problem Noted Date Diagnosed Date Resolved Date Special screening for malign ant neoplasms, colon 02/05/2015 02/05/2015 Depression 04/30/2012 02/10/2016 Peptic ulcer, unspecified si te, unspecified as acute or chronic, without mention of hemorrhage, perforation, or obstruction 05/07/2015 documented as of this encounter (statuses as of 05/16/2023) [facility] Narrative* Problem Noted Date Diagnosed Date Resolved Date Special screening for malign ant neoplasms, colon 02/05/2015 02/05/2015 Depression 04/30/2012 02/10/2016 Peptic ulcer, unspecified si te, unspecified as acute or chronic, without mention of hemorrhage, perforation, or obstruction 05/07/2015 documented as of this encounter (statuses as of 05/23/2023) [facility] Narrative* Problem Noted Date Diagnosed Date Resolved Date Special screening for malign ant neoplasms, colon 02/05/2015 02/05/2015 Depression 04/30/2012 02/10/2016 Peptic ulcer, unspecified si te, unspecified as acute or chronic, without mention of hemorrhage, perforation, or obstruction 05/07/2015 documented as of this encounter (statuses as of 06/12/2023) [facility] Narrative* Problem Noted Date Diagnosed Date Resolved Date Special screening for malign ant neoplasms, colon 02/05/2015 02/05/2015 Depression 04/30/2012 02/10/2016 Peptic ulcer, unspecified si te, unspecified as acute or chronic, without mention of hemorrhage, perforation, or obstruction 05/07/2015 documented as of this encounter (statuses as of 06/23/2023) [facility] Narrative* Problem Noted Date Diagnosed Date Resolved Date Special screening for malign ant neoplasms, colon 02/05/2015 02/05/2015 Depression 04/30/2012 02/10/2016 Peptic ulcer, unspecified si te, unspecified as acute or chronic, without mention of hemorrhage, perforation, or obstruction 05/07/2015 documented as of this encounter (statuses as of 06/27/2023) [facility] Narrative* Problem Noted Date Diagnosed Date Resolved Date Special screening for malign ant neoplasms, colon 02/05/2015 02/05/2015 Depression 04/30/2012 02/10/2016 Peptic ulcer, unspecified si te, unspecified as acute or chronic, without mention of hemorrhage, perforation, or obstruction 05/07/2015 documented as of this encounter (statuses as of 08/01/2023) [facility] Narrative* Problem Noted Date Diagnosed Date Resolved Date Special screening for malign ant neoplasms, colon 02/05/2015 02/05/2015 Depression 04/30/2012 02/10/2016 Peptic ulcer, unspecified si te, unspecified as acute or chronic, without mention of hemorrhage, perforation, or obstruction 05/07/2015 documented as of this encounter (statuses as of 08/01/2023) [facility] Diagnosis Essential hypertension, benign Generalized anxiety disorder [facility], benign [facility] Mild cognitive impairment with memory loss- Primary Mild cognitive impairment, so stated Essential hypertension, benign Erectile dysfunction, unspecified erectile dysfunction type Orgasm dysfunction Psychosexual dysfunction, unspecified Anxiety and depression Dysthymic disorder [facility] Diagnosis 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 Low testosterone in male [facility] 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 [facility] Diagnosis Elevated BUN- Primary Other abnormal blood chemistry Elevated serum glucose [facility] Diagnosis Impotence of organic origin- Primary [facility] Diagnosis Essential hypertension, benign [facility] Diagnosis Nausea- Primary Nausea alone [facility] Diagnosis Gastritis with hemorrhage, unspecified chronicity, unspecified gastritis type [facility] Diagnosis Impotence of organic origin [facility]* Diagnosis Impotence of organic origin [facility]* Diagnosis URI, acute- Primary Acute upper respiratory infections of unspecified site [facility]* Diagnosis Anxiety- Primary Anxiety state, unspecified [facility] Diagnosis Anxiety and depression- Primary Dysthymic disorder Episodic lightheadedness Dizziness and giddiness documented [facility]* Diagnosis Viral illness- Primary Unspecified viral infection, in conditions classified elsewhere and of unspecified site documented in this encounter [facility]* Diagnosis Memory disturbance- Primary Memory loss Hallucinations Vitamin D insufficiency Unspecified vitamin D deficiency documented in this encounter [facility] note* Diagnosis Memory disturbance- Primary Memory loss Hallucinations Peripheral vascular disease (HCC) Peripheral vascular disease, unspecified Essential hypertension, benign Atherosclerosis of [place] coronary artery of [place] heart without angina 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 Pure hypercholesterolemia Statin intolerance Other drug allergy Anxiety with depression [facility]* Diagnosis Anxiety and depression Dysthymic disorder documented [facility]* Diagnosis Gastritis with hemorrhage, unspecified chronicity, unspecified gastritis type documented [facility]* Diagnosis Agitation- Primary Other and unspecified special symptom or syndrome, not elsewhere classified Angina pectoris (HCC) Other and unspecified angina pectoris Atherosclerosis of [place] coronary artery of [place] heart without angina pectoris Mild cognitive impairment with memory loss Mild cognitive impairment, so stated Medication management Encounter for long-term (current) use of other medications documented in this encounter [facility] for referral (narrative)* Outpatient Procedure (Routine) - Pending Review Specialty Diagnoses / Procedures Referred By Geremias schulz [facility] Diagnoses Medication management Procedures ECG COMPLETE ECG ROUTINE ECG W/LEAST 12 LDS W/I&R Karen Campbell APRN.[employer] [address] [place] [address] [facility] [place] [address] [place] [address] Referral ID Status Reason Start Date Expiration Date Visits Requested Visits Authorized [id number] Pending Review Auto-Generat ed Referral 07/30/2024 1 1 [facility] Summary Purpose Family History No Family History Records FoundNo Family History Records Found Advance Directives No Advanced Directives Records FoundDocuments on File Type Date 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 Advance Directive(s) 02/25/2018 8:38 AM Advance Directive(s) 08/14/2016 8:34 AM Advance Directive(s) 08/09/2016 11:09 AM Advance Directive(s) 02/05/2015 1:57 PM Advance Directive(s) 10/18/2011 12:00 AM Advance Directive(s) 11/01/2006 12:00 AM Documents on File Type Date 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 Advance Directive(s) 02/05/2015 1:57 PM Advance Directive(s) 10/18/2011 Advance Directive(s) 11/01/2006 Documents on File Type Date 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 Advance Directive(s) 02/05/2015 1:57 PM Advance Directive(s) 10/18/2011 Advance Directive(s) 11/01/2006 Reason for Referral Specialty Diagnoses / Procedures Referred By Contyumiko t Referred To Contact Nancy Jefferson APRN.CNP [address] [place] [address] Referral ID Status Reason Start Date Expiration Date Visits Re quested Visits Authorized [id number] Closed 1 1 Specialty Diagnoses / Procedures Referred By Contac t Referred To Contact Neurology Diagnoses Memory disturbance Hallucinations Procedures CONSULT TO NEUROLOGY OFFICE/OUTPATIENT [facility] 60-74 MINUTES Vargas Chavis MD [address] [place] [address] Referral ID Status Reason Start Date Expiration Date Visits Requested Visits Authorized [id number] Authorized PCP Requested Referral 05/15/2023 05/14/2024 1 1 Specialty Diagnoses / Procedures Referred By Contac t Referred To Contact [facility] IM[facility] Diagnoses Memory disturbance Hallucinations Procedures MRI BRAIN WO IVCON MRI BRAIN BRAIN STEM W/O CONTRAST MATERIAL Vargas Chavis MD [address] [place] [address] [place] [address] Referral ID Status Reason Start Date Expiration Date Visits Requested Visits Authorized [id number] Pending Review Auto-Generat ed Referral 05/15/2023 06/13/2024 1 1 Additional Source Comments (unrecognized sect ion and content) No Status Records FoundNo Status Records Found INFORMATION SOURCE (unrecogn ized section and content) DATE CREATED AUTHOR AUTHOR'S ORGANIZ ATION 08/15/2023 [facility] Source Comments (unrecognize d section and content) In the event this informatio n is protected by the Federal Confidentiality of Alcohol and Drug Abuse Patient Records regulations: The Federal rules restrict any use of the information to criminally investigate or prosecute any alcohol or drug abuse patient.[facility] event this information is protected by the Federal Confidentiality of Alcohol and Drug Abuse Patient Records regulations: The Federal rules restrict any use of the information to criminally investigate or prosecute any alcohol or drug abuse patient.[facility] the event this information is protected by the Federal Confidentiality of Alcohol and Drug Abuse Patient Records regulations: The Federal rules restrict any use of the information to criminally investigate or prosecute any alcohol or drug abuse patient.[facility] the event this information is protected by the Federal Confidentiality of Alcohol and Drug Abuse Patient Records regulations: The Federal rules restrict any use of the information to criminally investigate or prosecute any alcohol or drug abuse patient.[facility] the event this information is protected by the Federal Confidentiality of Alcohol and Drug Abuse Patient Records regulations: The Federal rules restrict any use of the information to criminally investigate or prosecute any alcohol or drug abuse patient.[facility] the event this information is protected by the Federal Confidentiality of Alcohol and Drug Abuse Patient Records regulations: The Federal rules restrict any use of the information to criminally investigate or prosecute any alcohol or drug abuse patient.[facility] the event this information is protected by the Federal Confidentiality of Alcohol and Drug Abuse Patient Records regulations: The Federal rules restrict any use of the information to criminally investigate or prosecute any alcohol or drug abuse patient.[facility] the event this information is protected by the Federal Confidentiality of Alcohol and Drug Abuse Patient Records regulations: The Federal rules restrict any use of the information to criminally investigate or prosecute any alcohol or drug abuse patient.[facility] event this information is protected by the Federal Confidentiality of Alcohol and Drug Abuse Patient Records regulations: The Federal rules restrict any use of the information to criminally investigate or prosecute any alcohol or drug abuse patient.[facility] HospitalIn the event this information is protected by the Federal Confidentiality of Alcohol and Drug Abuse Patient Records regulations: The Federal rules restrict any use of the information to criminally investigate or prosecute any alcohol or drug abuse patient.[facility] HospitalIn the event this information is protected by the Federal Confidentiality of Alcohol and Drug Abuse Patient Records regulations: The Federal rules restrict any use of the information to criminally investigate or prosecute any alcohol or drug abuse patient.[facility] HospitalIn the event this information is protected by the Federal Confidentiality of Alcohol and Drug Abuse Patient Records regulations: The Federal rules restrict any use of the information to criminally investigate or prosecute any alcohol or drug abuse patient.[facility] HospitalIn the event this information is protected by the Federal Confidentiality of Alcohol and Drug Abuse Patient Records regulations: The Federal rules restrict any use of the information to criminally investigate or prosecute any alcohol or drug abuse patient.[facility] HospitalIn the event this information is protected by the Federal Confidentiality of Alcohol and Drug Abuse Patient Records regulations: The Federal rules restrict any use of the information to criminally investigate or prosecute any alcohol or drug abuse patient.[facility] HospitalIn the event this information is protected by the Federal Confidentiality of Alcohol and Drug Abuse Patient Records regulations: The Federal rules restrict any use of the information to criminally investigate or prosecute any alcohol or drug abuse patient.[facility] HospitalIn the event this information is protected by the Federal Confidentiality of Alcohol and Drug Abuse Patient Records regulations: The Federal rules restrict any use of the information to criminally investigate or prosecute any alcohol or drug abuse patient.[facility] HospitalIn the event this information is protected by the Federal Confidentiality of Alcohol and Drug Abuse Patient Records regulations: The Federal rules restrict any use of the information to criminally investigate or prosecute any alcohol or drug abuse patient.[facility] HospitalIn the event this information is protected by the Federal Confidentiality of Alcohol and Drug Abuse Patient Records regulations: The Federal rules restrict any use of the information to criminally investigate or prosecute any alcohol or drug abuse patient.[facility] HospitalIn the event this information is protected by the Federal Confidentiality of Alcohol and Drug Abuse Patient Records regulations: The Federal rules restrict any use of the information to criminally investigate or prosecute any alcohol or drug abuse patient.[facility] HospitalIn the event this information is protected by the Federal Confidentiality of Alcohol and Drug Abuse Patient Records regulations: The Federal rules restrict any use of the information to criminally investigate or prosecute any alcohol or drug abuse patient.[facility] HospitalIn the event this information is protected by the Federal Confidentiality of Alcohol and Drug Abuse Patient Records regulations: The Federal rules restrict any use of the information to criminally investigate or prosecute any alcohol or drug abuse patient.[facility] HospitalIn the event this information is protected by the Federal Confidentiality of Alcohol and Drug Abuse Patient Records regulations: The Federal rules restrict any use of the information to criminally investigate or prosecute any alcohol or drug abuse patient.[facility] HospitalIn the event this information is protected by the Federal Confidentiality of Alcohol and Drug Abuse Patient Records regulations: The Federal rules restrict any use of the information to criminally investigate or prosecute any alcohol or drug abuse patient.[facility] HospitalIn the event this information is protected by the Federal Confidentiality of Alcohol and Drug Abuse Patient Records regulations: The Federal rules restrict any use of the information to criminally investigate or prosecute any alcohol or drug abuse patient.[facility] HospitalIn the event this information is protected by the Federal Confidentiality of Alcohol and Drug Abuse Patient Records regulations: The Federal rules restrict any use of the information to criminally investigate or prosecute any alcohol or drug abuse patient.[facility] HospitalIn the event this information is protected by the Federal Confidentiality of Alcohol and Drug Abuse Patient Records regulations: The Federal rules restrict any use of the information to criminally investigate or prosecute any alcohol or drug abuse patient.[facility] HospitalIn the event this information is protected by the Federal Confidentiality of Alcohol and Drug Abuse Patient Records regulations: The Federal rules restrict any use of the information to criminally investigate or prosecute any alcohol or drug abuse patient.[facility] HospitalIn the event this information is protected by the Federal Confidentiality of Alcohol and Drug Abuse Patient Records regulations: The Federal rules restrict any use of the information to criminally investigate or prosecute any alcohol or drug abuse patient.[facility] HospitalIn the event this information is protected by the Federal Confidentiality of Alcohol and Drug Abuse Patient Records regulations: The Federal rules restrict any use of the information to criminally investigate or prosecute any alcohol or drug abuse patient.[facility] HospitalIn the event this information is protected by the Federal Confidentiality of Alcohol and Drug Abuse Patient Records regulations: The Federal rules restrict any use of the information to criminally investigate or prosecute any alcohol or drug abuse patient.[facility] HospitalIn the event this information is protected by the Federal Confidentiality of Alcohol and Drug Abuse Patient Records regulations: The Federal rules restrict any use of the information to criminally investigate or prosecute any alcohol or drug abuse patient.[facility] HospitalIn the event this information is protected by the Federal Confidentiality of Alcohol and Drug Abuse Patient Records regulations: The Federal rules restrict any use of the information to criminally investigate or prosecute any alcohol or drug abuse patient.[facility] HospitalIn the event this information is protected by the Federal Confidentiality of Alcohol and Drug Abuse Patient Records regulations: The Federal rules restrict any use of the information to criminally investigate or prosecute any alcohol or drug abuse patient.[facility] Reason for Visit (unrecogniz ed section and content) Reason Onset Date Comments Refill Request 01/17/2022 Reason Comments Received Outside Medical Records Reason Comments Follow Up Medication-Started s ertraline. Memory impairment work up. 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 Procedures CONSULT TO UROLOGY OFFICE/OUTPATIENT NEW HIGH MDM 60-74 MINUTES Vargas Chavis MD [address] [place] [address] Referral ID Status Reason Start Date Expiration Date V isits Requested Visits Authorized [id number] Closed PCP Requested Referral 04/14/2022 04/14/2023 1 1 Reason Comments Follow Up Reason Comments Dizziness Reason Comments Results Reason Comments Orders Reason Onset Date Comments Refill Request 07/05/2022 Reason Onset Date Comments Refill Request 07/15/2022 Reason Onset Date Comments Refill Request 07/21/2022 Reason Comments Patient Update Patient Request Reason Comments Nausea Every morning x2 wee ks Reason Onset Date Comments Refill Request 08/29/2022 Reason Comments Appointment Reason Comments Cough Pt reported diarrhea , intermittent dizziness x1 wk. Reason Comments Anxiety Increased anxiety; s felecia starting the recent anxiety medication has been experiencing light headedness and hasn't been working as well as the other. Reason Comments Recheck Reason Comments Diarrhea Cough x3 days Reason Onset Date Comments Refill Request 04/28/2023 Reason Comments memory concerns Reason Comments Follow Up 6 month Reason Onset Date Comments Refill Request 06/27/2023 Reason Comments Refill Request Reason Comments Hospital F/U Care Teams (unrecognized sec tion and content) Gas Flow Regulator Relationship Specialty Start Date End Date Vargas Chavis MD [address] [place], [place] [id number] PCP - General Family Practice 01/12/21 Gas Flow Regulator Relationship Specialty Start Date End Date Vargas Chavis MD [address], [place] [id number] PCP - General Family Practice 01/12/21 Gas Flow Regulator Relationship Specialty Start Date End Date Vargas Chavis MD [address] [place], [place] [id number] PCP - General Family Practice 01/12/21 Gas Flow Regulator Relationship Specialty Start Date End Date Vargas Chavis MD [address] [facility] [place] [address] PCP - General Family Practice 01/12/21 Gas Flow Regulator Relationship Specialty Start Date End Date Vargas Chavis MD [address] [facility] [place] [address] PCP - General Family Practice 01/12/21 Gas Flow Regulator Relationship Specialty Start Date End Date Vargas Chavis MD [address] [facility] [place] [address] PCP - General Family Practice 01/12/21 Gas Flow Regulator Relationship Specialty Start Date End Date Vargas Chavis MD [address] [facility] [place] [address] PCP - General Family Medicine 01/12/21 Gas Flow Regulator Relationship Specialty Start Date End Date Vargas Chavis MD [address] [facility] [place] [address] PCP - General Family Medicine 01/12/21 Gas Flow Regulator Relationship Specialty Start Date End Date Vargas Chavis MD [address] [facility] [place] [address] PCP - General Family Medicine 01/12/21 Gas Flow Regulator Relationship Specialty Start Date End Date Vargas Chavis MD [address] [facility] [place] [address] PCP - General Family Medicine 01/12/21 Gas Flow Regulator Relationship Specialty Start Date End Date Vargas Chavis MD [address] [facility] [place] [address] PCP - General Family Medicine 01/12/21 Gas Flow Regulator Relationship Specialty Start Date End Date Vargas Chavis MD [address] [facility] [place] [address] PCP - General Family Medicine 01/12/21 Gas Flow Regulator Relationship Specialty Start Date End Date Vargas Chavis MD [address] [facility] [place] [address] PCP - General Family Medicine 01/12/21 Gas Flow Regulator Relationship Specialty Start Date End Date Vargas Chavis MD [address] [facility] [place] [address] PCP - General Family Medicine 01/12/21 Gas Flow Regulator Relationship Specialty Start Date End Date Vargas Chavis MD [address] [facility] [place] [address] PCP - General Family Medicine 01/12/21 Gas Flow Regulator Relationship Specialty Start Date End Date Vargas Chavis MD [address] [facility] [place] [address] PCP - General Family Medicine 01/12/21 Gas Flow Regulator Relationship Specialty Start Date End Date Vargas Chavis MD [address] [facility] [place] [address] PCP - General Family Medicine 01/12/21 Gas Flow Regulator Relationship Specialty Start Date End Date Vargas Chavis MD [address] [facility] [place] [address] PCP - General Family Medicine 01/12/21 Gas Flow Regulator Relationship Specialty Start Date End Date Vargas Chavis MD [address] [facility] [place] [address] PCP - General Family Medicine 01/12/21 Gas Flow Regulator Relationship Specialty Start Date End Date Vargas Chavis MD [address] [place] [address] PCP - General Family Medicine 01/12/21 Gas Flow Regulator Relationship Specialty Start Date End Date Vargas Chavis MD [address] [place] [address] PCP - General Family Medicine 01/12/21 FOR RECORDS PERTAINING TO PATIENTS WHO ARE OR HAVE BEEN ENROLLED IN A CHEMICAL DEPENDENCY/SUBSTANCEABUSE PROGRAM, SOME INFORMATION MAY BE OMITTED. This clinical summary was aggregated from multiple sources. Caution should be exercised in using it in the provision of clinical care. This summary normalizes information from multiple sources, and as a consequence, information in this document may materially change the coding, format and clinical context of patient data. In addition, data may be omitted in some cases. CLINICAL DECISIONS SHOULD BE BASED ON THE PRIMARY CLINICAL RECORDS. [employer] [facility]. provides no warranty or guarantee of the accuracy or completeness of information in this document.
[2023-10-04 12:11] LABS: Hematocrit 36.8 % (40-54); Mean Corp Hgb Conc 32.6 g/dL (32-36); Mean Corpuscular Hgb 30.9 pg (27.0-32.0); Mean Corpuscular Volume 94.8 fL (80-94); Mean Platelet Vol. 9.8 fl (6.2-12.0); Platelet Count 143 K/mm3 (150-450); RBC Distribution Width CV 13.8 % (11.6-14.6); RBC Distribution Width SD 47.8 fl (35.1-43.9); Red Blood Count 3.88 M/mm3 (4.6-6.2); White Blood Count 5.5 K/mm3 (4.4-11.0)
[2023-10-04 13:03] LABS: ALB/GLOB Ratio 1.3 RATIO (0.9-2.4); AST(SGOT) 20 U/L (15-37); Alanine Aminotransfer ALT/SGPT 18 U/L (16-61); Albumin, Serum 3.9 g/dL (3.2-5.0); Alkaline Phosphatase 57 U/L (45-117); Anion Gap 5 (5-15); BUN 18 mg/dL (7-18); BUN/Creat Ratio 19.2 RATIO (10-20); Calcium,Total 9.2 mg/dL (8.5-10.1); Chloride 108 mmol/L (98-107); Creatinine, Serum 0.94 mg/dL (0.70-1.30); EST Glomerular Filtration Rate 82 mL/min (>60); Est Glom Filt Rate - Afr Amer 99 mL/min (>60); Glucose 96 mg/dL (74-106); Potassium 3.9 mmol/L (3.5-5.1); Protein, Total 6.9 g/dL (6.4-8.2); Sodium Level 140 mmol/L (136-145)
[2023-10-08 18:07] LABS: Free Kappa Light Chains 33.4 mg/L (3.3-19.4); Free Lambda Light Chains 20.6 mg/L (5.7-26.3); Vitamin B1, Thiamine 133.6 nmol/L (66.5-200.0)
== END | disposition home or self-care (01) ==
LOC: MTLAB 10:34
PROVIDERS: PCP Family Medicine; Referring Provider Psychiatry & Neurology Neurology; Visit Provider Psychiatry & Neurology Neurology
DX: I25.10 Atherosclerotic heart disease of native coronary artery without angina pectoris (principal); G62.9 Polyneuropathy, unspecified
CPT/HCPCS: 36415; 80053; 83883; 84425; 85027

== ENCOUNTER → 2024-02-12 | Outpatient (CLI) | payer MEDICARE, OTHER, SELFPAY ==
[2024-02-15 14:10] LABS: Albumin 4.2 g/dL (2.9-4.4); Alpha-1-Globulins 0.1 g/dL (0.0-0.4); Alpha-2-Globulins 0.7 g/dL (0.4-1.0); Gamma Globulin 0.8 g/dL (0.4-1.8); Immunoglobulin A 129 mg/dL (61-437); Immunoglobulin G 999 mg/dL (603-1613); Immunoglobulin M 26 mg/dL (15-143); PROEL- TOTAL PROTEIN 6.5 g/dL (6.0-8.5)
== END | disposition home or self-care (01) ==
LOC: MTLAB 12:33
PROVIDERS: PCP Family Medicine; Referring Provider Psychiatry & Neurology Neurology; Visit Provider Psychiatry & Neurology Neurology
DX: G62.9 Polyneuropathy, unspecified (principal)
CPT/HCPCS: 36415; 82784; 84165; 86334; 86335